=== PATIENT | female | born 1940 | race Caucasian/White ===

== ENCOUNTER 2017-01-19 12:27 | Inpatient (IN) | payer OTHER ==
[~2017-01-19] VITALS: Ht 157.5 cm; Wt 71.7 kg
[~2017-01-19 12:27] MED LIST: ALLO300T2 PO; AMLO-114 PO; ASCA500 PO; ASPI81TA28 PO; ATV5 PO; METO100T14 PO; MULT-506 PO; ROSU40TA PO; SYN112 PO; TELM40TA11 PO; THIA100T13 PO; TRIA75TA53 PO
[2017-01-19] MEDS ORDERED: SODIUM CHLORIDE 0.9% 1000ML 1,000 ML IV STA (13:05)
--- NOTE | 2017-01-19 13:07 | EMERGENCY ROOM VISIT NOTE ---
History Report prepared by Zahraa: Adin Alfred Under the Supervision of: Dr. Disha Loera D.O. First contact with patient: 12:46 Chief Complaint: LEG PAIN,LEG INJURY Stated Complaint: LEG PAIN History of Present Illness The patient is a 76 year old female who presents to the Emergency Room with complaints of increased bilateral leg weakness for the past week. The patient describes gradual worsening of the weakness to the point that she has been having trouble standing. She is weak at baseline but not to this extent. The patient fell twice last night secondary to weakness. She denies fall due to syncope, dizziness, lightheadedness, or tripping. She hit her head but did not lose consciousness. The patient was having difficulty standing up without assistance today at her granddaughter's . The patient also complains of bilateral leg pain up to the hips. She denies ever injuring her hips or knees before. She denies headache or back pain from falling. The patient at baseline occasionally ambulates with a cane. She denies previous history of falling. The patient takes baby aspirin but has not been compliant over the past two weeks secondary to travel. She denies other blood thinner use. The patient states that she does not eat a lot but has been eating and drinking at baseline. She is treated for hypertension. The patient denies history of heart disease. She is a smoker. Source of History: patient Onset: one week ago Position: leg (bilateral) Quality: other (weakness) Timing: worsening Associated Symptoms: No LOC, No headache, No back pain Review of Systems See HPI for pertinent positives & negatives. A total of 10 systems reviewed and were otherwise negative. Past Medical & Surgical Medical Problems: (1) Alcohol dependence (2) DMII (diabetes mellitus, type 2) (3) Gout (4) Hearing loss (5) HTN (hypertension) (6) Pain of right lower leg (7) Peripheral vascular disease Social History Problems: (1) Smoker Family History Patient reports no known family medical history. Social History Smoking Status: Current Every Day Smoker Occupation Status: retired Current/Historical Medications Scheduled Amlodipine (Norvasc), 10 MG PO DAILY Aspirin (Aspirin Ec), 81 MG PO DAILY Insulin Glargine (Lantus Solostar), 23 UNITS SQ HS Levothyroxine Sodium (Synthroid), 1 TAB PO DAILY Metoprolol Tartrate (Lopressor) (Lopressor), 50 MG PO TID Multivitamin (Multivitamin), 1 TAB PO DAILY PRN Rosuvastatin Calcium (Crestor), 40 MG PO QPM Telmisartan (Micardis), 20 MG PO QPM Thiamine Hcl (Vitamin B-1), 100 MG PO DAILY Scheduled PRN Lorazepam (Lorazepam), 0.5 MG PO QPM PRN for Anxiety Allergies Coded Allergies: Nifedipine (Verified Allergy, Severe, TONGUE SWELLING, 01/19/17) Penicillins (Verified Allergy, Intermediate, FEVER, 01/19/17) Sulfamethoxazole w/Trimethoprim (Verified Allergy, Intermediate, FEVER, 01/19/17) TY Inhibitors (Verified Allergy, Unknown, UNKNOWN, 01/19/17) Atorvastatin (Verified Allergy, Unknown, UNKNOWN, 01/19/17) Flu Virus Vaccine (Verified Allergy, Unknown, CHEST PAIN AND PRESSURE, 01/19) Magnesium Salicylate (Verified Adverse Reaction, Intermediate, SLOW HEART RATE, 01/19/17) Physical Exam Vital Signs Date Time Temp Pulse Resp B/P (MAP) Pulse Ox O2 Delivery O2 Flow Rate FiO2 01/19/17 19:07 77 18 180/81 94 Room Air 01/19/17 17:11 77 18 149/101 94 Room Air 01/19/17 14:29 70 18 156/91 93 Room Air 01/19/17 13:21 37.1 81 18 147/83 96 Room Air Physical Exam GENERAL: alert, uncomfortable-appearing, well nourished, no distress, non-toxic , smells of tobacco HEAD: Swelling to top of her head, no contusion no laceration. EYE EXAM: normal conjunctiva. OROPHARYNX: no exudate, no erythema, lips, buccal mucosa, and tongue normal and mucous membranes are dry NECK: nontender, no stepoff. CHEST: Nontender no stepoff no crepitus. LUNGS: Decreased breath sounds, no wheezes rales or rhonchi. Normal chest wall mechanics HEART: no murmurs, S1 normal and S2 normal ABDOMEN: abdomen soft, non-tender, normo-active bowel sounds, no masses, no rebound or guarding. BACK: Back is symmetrical on inspection and there is no deformity, no midline tenderness, no CVA tenderness. PELVIS: Stable. SKIN: no rashes, sores UPPER EXTREMITIES: upper extremities are grossly normal. LOWER EXTREMITIES: Pain the the left lower extremity with decreased range of motion secondary to pain, no obvious deformity, no effusion. Good distal pulses bilaterally, no edema bilaterally. NEURO EXAM: Normal sensorium, cranial nerves II-XII grossly intact, normal speech, no gross weakness of arms, no gross weakness of legs. Gross sensation intact. Medical Decision & Procedures ER Provider Diagnostic Interpretation: Radiology results have been interpreted by the radiologist and reviewed by me. LEFT HIP 2 VIEWS CLINICAL HISTORY: Fall. Left hip pain. FINDINGS: AP and frog-leg views of left hip are correlated with pelvic radiograph dated 09/30/[address] performed the same day 01/19/2017. The skeletal structures are osteopenic. There is no radiographic evidence of fracture in the left hip or the visualized left hemipelvis. Moderate arthritic change and joint space narrowing is seen in the left hip. There is mild sclerotic change seen in the left sacroiliac joint. The overlying soft tissues are within normal limits. There is evidence carotid calcification of the left femoral artery. Excreted contrast is present in the bladder. IMPRESSION: 1. There is no radiographic evidence of left hip fracture. This was better assessed on today's pelvic CT. 2. Osteopenia and mild arthritic change as above. Electronically signed by: Stew Quinn M.D. 01/19/2017 5:08 PM Dictated Date/Time: 01/19/2017 5:[address] OF THE ABDOMEN AND PELVIS WITH CONTRAST CLINICAL HISTORY: Trauma, right flank pain/ecchymosis. COMPARISON STUDY: Pelvic ultrasound May 31, 2007. TECHNIQUE: Following IV administration of 73 mL of Optiray-320, axial images of the abdomen and pelvis were obtained from the lung bases to the proximal femurs. Images were reviewed in the axial, sagittal, and coronal planes. IV contrast was administered without complication. FINDINGS: The chest will be reported separately. No hemoperitoneum or pneumoperitoneum is present. There is marked fatty infiltration of the liver. There is no evidence of hepatic injury to the liver, spleen, adrenal glands, kidneys or pancreas. Numerous water attenuation bilateral renal lesions reflect cysts, including a 3 cm left renal cyst. There is also a 1.8 cm hyperdense lesion within the midpole pf the right kidney. There are are multiple renal lesions which are too small to characterize. Caliber and wall thickness of small and large bowel are normal. No acute lumbar spine or pelvic fracture is present. The infrarenal abdominal aorta is ectatic, measuring 2.8 cm. There is extensive aortoiliac plaque. A 2.5 cm cystic right ovarian lesion is unchanged since exam of May 31, 2007. IMPRESSION: 1. No acute traumatic findings within the abdomen or pelvis. 2. Indeterminate 1.8 cm hyperdense right renal lesion. This could reflect a complex cyst or solid renal lesion. A follow-up nonemergent renal MRI is recommended. 3. Extensive aortoiliac atherosclerosis with ectatic infrarenal abdominal aorta. 4. Marked fatty infiltration of liver. Electronically signed by: Xander Lozano M.D. 01/19/2017 4:03 PM Dictated Date/Time: 01/19/2017 3:[address] OF THE CERVICAL SPINE CLINICAL HISTORY: Neck pain status post trauma. Weakness. COMPARISON STUDY: No previous studies for comparison. CT DOSE: 2184.40 mGy.cm TECHNIQUE: CT scan of the cervical spine was performed from the skull base to the thoracic inlet. Images are reviewed in the axial, sagittal, and coronal planes. IV contrast was not administered for this examination. FINDINGS: There is a minimal left mastoid effusion. There are atherosclerotic left-sided carotid calcifications. The visualized portions of the lung apices reveal no evidence of pneumothorax. The prevertebral soft tissues are normal. No fractures or subluxations are visualized. There are multilevel degenerative changes IMPRESSION: No evidence of acute fracture or traumatic subluxation. Electronically signed by: James Guevara M.D. 01/19/2017 3:37 PM Dictated Date/Time: 01/19/2017 3:[address] OF THE CHEST WITH IV CONTRAST CLINICAL HISTORY: trauma WEAKNESS. PAIN. COMPARISON STUDY: 11/11/2015 TECHNIQUE: Following the IV administration of 73 mL of Optiray-320, CT of the thorax was performed from the thoracic inlet to the lung bases. Images are reviewed in the axial, sagittal, and coronal planes. IV contrast was administered without complication. CT DOSE: FINDINGS: Thyroid: Imaged portions of the thyroid gland are normal in appearance. Thoracic aorta: The thoracic aorta is normal in course and caliber, noting standard 3-vessel arch anatomy. No aneurysm or dissection is seen. Moderate atheromatous changes are present within the descending thoracic aorta. Pulmonary vasculature: The pulmonary trunk is normal in caliber. There are no central filling defects identified to suggest pulmonary embolus. Note that this examination was not protocoled for the evaluation of pulmonary emboli. HEART: The heart is borderline enlarged. There is no pericardial effusion. Lungs and pleural spaces: There is no pneumothorax. No pleural effusions are visualized. There is no evidence of focal pulmonary contusion. Evaluation the lung parenchyma is limited due to respiratory motion artifact. There is a stable 5 mm right lower lobe perifissural nodule. Mediastinum: There is no evidence of mediastinal hematoma. Paratracheal lymph nodes remain borderline enlarged. Jocelyn: There is no evidence of pathologic hilar adenopathy. Axilla: Clear. Upper abdomen: There is hepatic steatosis. Skeletal structures: There are no lytic or blastic osseous lesions. IMPRESSION: No significant change the prior study. No acute intrathoracic findings. No evidence of acute intrathoracic injury. Electronically signed by: James Guevara M.D. 01/19/2017 3:42 PM Dictated Date/Time: 01/19/2017 3:[address]AST CT DOSE: HISTORY: Trauma. Head injury. TECHNIQUE: Multiaxial CT images of the head were performed without the use of intravenous contrast. Automated exposure control was utilized for this study. Comparison: None. Findings: The paranasal sinuses and mastoid air cells are clear. The calvarium and skull base are intact. There is no mass, hematoma, midline shift, acute infarct. White matter hypodensity is nonspecific but suggestive of microvascular ischemic change. The ventricles and sulci demonstrate mild age-related involutional changes. Impression: No acute intracranial abnormality. Atrophy and microvascular ischemic changes. Electronically signed by: oRddy Junior M.D. 01/19/2017 3:38 PM Dictated Date/Time: 01/19/2017 3:33 PM Laboratory Results Test 01/19/17 13:56 01/19/17 14:25 Prothrombin Time 10.8 SECONDS (9.0-12.0) Prothromb Time International Ratio 1.0 (0.9-1.1) Total Creatine Kinase 248 U/L (26-192) Troponin I < 0.015 ng/ml (0-0.045) 25-Hydroxy Vitamin D Total 8.4 ng/ml (30-100) Thyroid Stimulating Hormone (TSH) 11.400 uIu/ml (0.300-4.500) Urine Color YELLOW Urine Appearance TURBID (CLEAR) Urine pH 7.5 (4.5-7.5) Urine Specific [place] 1.016 (1.000-1.030) Urine Protein 2+ (NEG) Urine Glucose (UA) NEG (NEG) Urine Ketones TRACE (NEG) Urine Occult Blood TRACE (NEG) Urine Nitrite POS (NEG) Urine Bilirubin NEG (NEG) Urine Urobilinogen NEG (NEG) Urine Leukocyte Esterase MODERATE (NEG) Urine WBC (Auto) >30 /hpf (0-5) Urine RBC (Auto) 5-10 /hpf (0-4) Urine Hyaline Casts (Auto) 1-5 /lpf (0-5) Urine Epithelial Cells (Auto) 0-5 /lpf (0-5) Urine Bacteria (Auto) 4+ (NEG) Urine Yeast (Auto) PRESENT (NONE PRSENT) Laboratory results per my review. Medications Administered Medications (Trade) Dose Ordered Sig/Fay Route Start Time Stop Time Status Last Admin Dose Admin Sodium Chloride 1,000 ml @ 250 mls/hr Q4H STAT IV 01/19/17 13:05 01/19/17 17:04 DC 01/19/17 13:05 250 MLS/HR Ceftriaxone Sodium (Rocephin Inj) 1 gm NOW STAT IV 01/19/17 15:47 01/19/17 15:49 DC 01/19/17 17:10 1 GM ECG Indication: weakness Rate (beats per minute): 75 Rhythm: sinus rhythm Findings: no acute ischemic change (flattened T wave in lead V2 only), no ectopy, other (normal axis, normal intervals) ED Course 1250: The patient was evaluated in room A3. A complete history and physical exam was performed. 1305: NSS 1000 ml @ 250 mls/hr. 1547: Rocephin 1 gm IV. 1720: Updated the patient and she agrees with the plan to stay. 1730: Discussed the case with Dr. Thompson, [facility] Hospitalist. The patient will be evaluated. Medical Decision Differential diagnosis: Etiologies such as metabolic, infection, hypo/hyperglycemia, electrolyte abnormalities, cardiac sources, intracerebral event, toxicologic, neurologic, as well as others were entertained. Blood pressure screening: Patient was found to have an elevated blood pressure and was referred to their primary doctor for recheck and further treatment. Medication Reconciliation: I attest that I have personally reviewed the patient' s current medication list. Concern for patient's given to recent falls and generalized weakness, including difficulty standing today at the service. Patient found to have urinary tract infection which may be contribute into symptoms, per patient also clinically dehydrated. This may also be concerning to patient's new renal insufficiency. No other evidence of obstructing stone or kidney abnormality noted on CT. Patient noted for continued IV hydration and monitoring. No evidence of additional traumatic injury noted despite bruising to trunk and extremities. Patient otherwise moving all extremities, doubt CVA, dissection, ACS, patient does not appear to have bacteremia/sepsis. Vital signs otherwise stable. Patient covered with IV antibiotics and culture sent. Patient was agreeable with plan for admission and case discussed with hospitalist. Consults Time Called: 1728 Consulting Physician: Dr. Thompson [facility] Hospitalist. Returned Call: 1730 The patient will be evaluated. She requested blood cultures. Impression Primary Impression: UTI (urinary tract infection) Additional Impressions: Acute renal insufficiency Generalized weakness Fall Scribe Attestation The scribe's documentation has been prepared under my direction and personally reviewed by me in its entirety. I confirm that the note above accurately reflects all work, treatment, procedures, and medical decision making performed by me. Departure Information Dispostion Being Evaluated By Hospitalist Referrals Zahra Ochoa M.D. (PCP) Patient Instructions [facility] Problem Qualifiers Primary Impression: UTI (urinary tract infection) Urinary tract infection type: acute cystitis Hematuria presence: with hematuria Qualified Codes: N30.01 - Acute cystitis with hematuria Additional Impressions: Fall Encounter type: initial encounter Qualified Codes: W19.XXXA - Unspecified fall, initial encounter
[2017-01-19] MEDS ORDERED: OPTIRAY 320 IV PRN (13:30)
[2017-01-19] MEDS ORDERED: ASCO500T16 PO (13:38)
[2017-01-19] MEDS ORDERED: SYN112 PO (13:38)
[2017-01-19] MEDS ORDERED: ATV5 PO (13:38)
[2017-01-19 14:09] LABS: BASO % 0.2 %; BASO ABS # 0.02 K/uL (0-0.2); COMPLETE YES; EOS % 0.1 %; HEMATOCRIT 34.7 % (37-47); IG% 0.6 %; LYMPH % 13.8 %; LYMPH ABS # 1.16 K/uL (1.2-3.4); MEAN CELL VOLUME 103.9 fL (80-100); MEAN CORPUSCULAR HEMOGLOBIN 33.2 pg (25-34); MEAN PLATELET VOLUME 10.4 fL (7.4-10.4); MONO % 6.5 %; NEUT % 78.8 %; PLATELET COUNT 338 K/uL (130-400); RED BLOOD COUNT 3.34 M/uL (4.2-5.4)
[2017-01-19 14:19] LABS: PROTHROMBIN TIME (PATIENT) 10.8 SECONDS (9.0-12.0)
[2017-01-19 14:34] LABS: ALT/SGPT 63 U/L (12-78); AST/SGOT 217 U/L (15-37); BLOOD UREA NITROGEN 31 mg/dl (7-18); BUN/CREATININE RATIO 19.5 (10-20); CALCIUM 8.7 mg/dl (8.5-10.1); CARBON DIOXIDE 24 mmol/L (21-32); CHLORIDE 108 mmol/L (98-107); GLUCOSE 87 mg/dl (70-99); POTASSIUM 4.7 mmol/L (3.5-5.1); SODIUM 141 mmol/L (136-145)
[2017-01-19 14:39] LABS: ALB/GLOB RATIO 0.6 (0.9-2); ALKALINE PHOSPHATASE 436 U/L (45-117)
[2017-01-19 15:17] LABS: URINE APPEARANCE TURBID (CLEAR); URINE BILIRUBIN NEG (NEG); URINE COLOR YELLOW; URINE EPITHELIAL CELL AUTO 0-5 /lpf (0-5); URINE NITRITE POS (NEG); URINE PH 7.5 (4.5-7.5); URINE SPECIFIC GRAVITY 1.016 (1.000-1.030); UROBILINOGEN NEG (NEG)
[2017-01-19 15:31] LABS: MANUAL MICROSCOPIC REQUIRED? NO; REVIEW REQ? YES
[2017-01-19 15:32] LABS: SULFASALICYLIC ACID POS (NEG)
--- NOTE | 2017-01-19 15:38 | DIAGNOSTIC IMAGING REPORT ---
CT OF THE CERVICAL SPINE CLINICAL HISTORY: Neck pain status post trauma. Weakness. COMPARISON STUDY: No previous studies for comparison. CT DOSE: 2184.40 mGy.cm TECHNIQUE: CT scan of the cervical spine was performed from the skull base to the thoracic inlet. Images are reviewed in the axial, sagittal, and coronal planes. IV contrast was not administered for this examination. FINDINGS: There is a minimal left mastoid effusion. There are atherosclerotic left-sided carotid calcifications. The visualized portions of the lung apices reveal no evidence of pneumothorax. The prevertebral soft tissues are normal. No fractures or subluxations are visualized. There are multilevel degenerative changes IMPRESSION: No evidence of acute fracture or traumatic subluxation. Electronically signed by: James Guevara M.D. 01/19/2017 3:37 PM Dictated Date/Time: 01/19/2017 3:34 PM
--- NOTE | 2017-01-19 15:39 | DIAGNOSTIC IMAGING REPORT ---
HEAD CT NONCONTRAST CT DOSE: HISTORY: Trauma. Head injury. TECHNIQUE: Multiaxial CT images of the head were performed without the use of intravenous contrast. Automated exposure control was utilized for this study. Comparison: None. Findings: The paranasal sinuses and mastoid air cells are clear. The calvarium and skull base are intact. There is no mass, hematoma, midline shift, acute infarct. White matter hypodensity is nonspecific but suggestive of microvascular ischemic change. The ventricles and sulci demonstrate mild age-related involutional changes. Impression: No acute intracranial abnormality. Atrophy and microvascular ischemic changes. Electronically signed by: Roddy Junior M.D. 01/19/2017 3:38 PM Dictated Date/Time: 01/19/2017 3:33 PM
--- NOTE | 2017-01-19 15:44 | DIAGNOSTIC IMAGING REPORT ---
CT OF THE CHEST WITH IV CONTRAST CLINICAL HISTORY: trauma WEAKNESS. PAIN. COMPARISON STUDY: 11/11/2015 TECHNIQUE: Following the IV administration of 73 mL of Optiray-320, CT of the thorax was performed from the thoracic inlet to the lung bases. Images are reviewed in the axial, sagittal, and coronal planes. IV contrast was administered without complication. CT DOSE: FINDINGS: Thyroid: Imaged portions of the thyroid gland are normal in appearance. Thoracic aorta: The thoracic aorta is normal in course and caliber, noting standard 3-vessel arch anatomy. No aneurysm or dissection is seen. Moderate atheromatous changes are present within the descending thoracic aorta. Pulmonary vasculature: The pulmonary trunk is normal in caliber. There are no central filling defects identified to suggest pulmonary embolus. Note that this examination was not protocoled for the evaluation of pulmonary emboli. HEART: The heart is borderline enlarged. There is no pericardial effusion. Lungs and pleural spaces: There is no pneumothorax. No pleural effusions are visualized. There is no evidence of focal pulmonary contusion. Evaluation the lung parenchyma is limited due to respiratory motion artifact. There is a stable 5 mm right lower lobe perifissural nodule. Mediastinum: There is no evidence of mediastinal hematoma. Paratracheal lymph nodes remain borderline enlarged. Jocelyn: There is no evidence of pathologic hilar adenopathy. Axilla: Clear. Upper abdomen: There is hepatic steatosis. Skeletal structures: There are no lytic or blastic osseous lesions. IMPRESSION: No significant change the prior study. No acute intrathoracic findings. No evidence of acute intrathoracic injury. Electronically signed by: James Guevara M.D. 01/19/2017 3:42 PM Dictated Date/Time: 01/19/2017 3:37 PM
[2017-01-19] MEDS ORDERED: CEFTRIAXONE SOD INJ 1 GM ADDVIAL IV STA (15:47)
--- NOTE | 2017-01-19 16:05 | DIAGNOSTIC IMAGING REPORT ---
CT OF THE ABDOMEN AND PELVIS WITH CONTRAST CLINICAL HISTORY: Trauma, right flank pain/ecchymosis. COMPARISON STUDY: Pelvic ultrasound May 31, 2007. TECHNIQUE: Following IV administration of 73 mL of Optiray-320, axial images of the abdomen and pelvis were obtained from the lung bases to the proximal femurs. Images were reviewed in the axial, sagittal, and coronal planes. IV contrast was administered without complication. FINDINGS: The chest will be reported separately. No hemoperitoneum or pneumoperitoneum is present. There is marked fatty infiltration of the liver. There is no evidence of hepatic injury to the liver, spleen, adrenal glands, kidneys or pancreas. Numerous water attenuation bilateral renal lesions reflect cysts, including a 3 cm left renal cyst. There is also a 1.8 cm hyperdense lesion within the midpole pf the right kidney. There are are multiple renal lesions which are too small to characterize. Caliber and wall thickness of small and large bowel are normal. No acute lumbar spine or pelvic fracture is present. The infrarenal abdominal aorta is ectatic, measuring 2.8 cm. There is extensive aortoiliac plaque. A 2.5 cm cystic right ovarian lesion is unchanged since exam of May 31, 2007. IMPRESSION: 1. No acute traumatic findings within the abdomen or pelvis. 2. Indeterminate 1.8 cm hyperdense right renal lesion. This could reflect a complex cyst or solid renal lesion. A follow-up nonemergent renal MRI is recommended. 3. Extensive aortoiliac atherosclerosis with ectatic infrarenal abdominal aorta. 4. Marked fatty infiltration of liver. Electronically signed by: Xander Lozano M.D. 01/19/2017 4:03 PM Dictated Date/Time: 01/19/2017 3:42 PM
--- NOTE | 2017-01-19 17:10 | DIAGNOSTIC IMAGING REPORT ---
LEFT HIP 2 VIEWS CLINICAL HISTORY: Fall. Left hip pain. FINDINGS: AP and frog-leg views of left hip are correlated with pelvic radiograph dated 09/30/[address] performed the same day 01/19/2017. The skeletal structures are osteopenic. There is no radiographic evidence of fracture in the left hip or the visualized left hemipelvis. Moderate arthritic change and joint space narrowing is seen in the left hip. There is mild sclerotic change seen in the left sacroiliac joint. The overlying soft tissues are within normal limits. There is evidence carotid calcification of the left femoral artery. Excreted contrast is present in the bladder. IMPRESSION: 1. There is no radiographic evidence of left hip fracture. This was better assessed on today's pelvic CT. 2. Osteopenia and mild arthritic change as above. Electronically signed by: Stew Quinn M.D. 01/19/2017 5:08 PM Dictated Date/Time: 01/19/2017 5:06 PM
[2017-01-19] MEDS ORDERED: INSDGIPEN SQ (20:01)
[2017-01-19] MEDS ORDERED: LEVO150T PO (20:01)
[2017-01-19] MEDS ORDERED: DEXTROSE 50% 50 ML SYR IV PRN (20:15)
[2017-01-19] MEDS ORDERED: GLUCOSE 10 TABS/TUBE PO PRN (20:15)
[2017-01-19] MEDS ORDERED: ONDANSETRON INJ 2 MG/ML 2 ML VIAL IV PRN (20:15)
[2017-01-19] MEDS ORDERED: GLUCOSE 40% GEL 15 GM TUBE PO PRN (20:15)
[2017-01-19] MEDS ORDERED: GLUCAGON FOR INJ 1 MG VIAL SQ PRN (20:15)
[2017-01-19] MEDS ORDERED: LORAZEPAM 0.5 MG TAB PO PRN (20:30)
[2017-01-19] MEDS ORDERED: PHARMACY GLYCEMIC MGMT CONSULT SCH (20:39)
--- NOTE | 2017-01-19 20:57 | History and Physical ---
History & Physical Date & Time of Service: Jan 19, 2017 at 20:25 Chief Complaint: Leg Pain Primary Care Physician: Alexis Nava MD History of Present Illness Source: patient, family, clinic records, hospital records 76 yo F presents to the ER after worsening weakness that lead to a mechanical fall today. She has multiple issues going on including generalized weakness that is getting worse, nonspecific pain in her lower left leg, reports of burning when she urinates along with urgency and a foul smelling odor (this was noted in clinic at last visit, also) all in the setting of the loss of her granddaughter last week in a fatal car accident for which she travelled out of town this week. She is here with her daughter who states that her mother had stool incontinence and some loose stools multiple times this week. She also states that her weakness is profound and she lives alone. The daughter is understandably concerned that her mother is not safe to be home on her own. From my discussion with the patient she either has poor insight into what is going on, or she is not able to tell the entire story. For example, family mentioned some BP medications and the patient wasn't sure which ones these were and what she takes; she does manage her own medications at home. Also the patient states she doesn't drink much but her daughter states that she drinks Scotch heavily. She is also an active smoker. Recently, in the clinic she was found to have a TSH of 40 so her Synthroid was increased. It appears very likely that she is either missing doses or taking it with food or other medications and not understand the instructions clearly. She has stool in her fingernails and appears somewhat disheveled. In the ER her UA was found to be positive and she was placed empirically on Rocephin. She denies any fevers, chills, flank pain or blood in her urine. She otherwise denies any headaches, visual changes, congestion, cough, chest pain, shortness of breath, abdominal pain. She states that her left leg hurts below the knee but not in the knee joint and "only when I move it." Up until just today she was ambulating with a cane. Daughter is requesting a wheeled walker preferably with a seat upon discharge. Past Medical/Surgical History Medical Problems: (1) Alcohol dependence Status: Chronic (2) DMII (diabetes mellitus, type 2) Status: Chronic (3) Gout Status: Chronic (4) Hearing loss Status: Chronic (5) HTN (hypertension) Status: Chronic (6) Pain of right lower leg Status: Resolved (7) Peripheral vascular disease Status: Chronic Social History Problems: (1) Smoker Status: Chronic Family History Patient reports no known family medical history. Social History Smoking Status: Current Every Day Smoker Smokeless Tobacco Use: No Alcohol Use: heavy Drug Use: none Marital Status: Housing status: lives alone Occupational Status: retired Immunizations History of Influenza Vaccine: No History of Tetanus Vaccine?: Yes Tetanus Immunization Date: Aug 06, 2001 History of Pneumococcal: No History of Hepatitis B Vaccine: No Multi-Drug Resistant Organisms History of MDRO: No Allergies Coded Allergies: Nifedipine (Verified Allergy, Severe, TONGUE SWELLING, 01/19/17) Penicillins (Verified Allergy, Intermediate, FEVER, 01/19/17) Sulfamethoxazole w/Trimethoprim (Verified Allergy, Intermediate, FEVER, 01/19/17) TY Inhibitors (Verified Allergy, Unknown, UNKNOWN, 01/19/17) Atorvastatin (Verified Allergy, Unknown, UNKNOWN, 01/19/17) Flu Virus Vaccine (Verified Allergy, Unknown, CHEST PAIN AND PRESSURE, 01/19) Magnesium Salicylate (Verified Adverse Reaction, Intermediate, SLOW HEART RATE, 01/19/17) Home Medications Scheduled Amlodipine (Norvasc), 10 MG PO DAILY Aspirin (Aspirin Ec), 81 MG PO DAILY Insulin Glargine (Lantus Solostar), 23 UNITS SQ HS Levothyroxine Sodium (Synthroid), 1 TAB PO DAILY Metoprolol Tartrate (Lopressor) (Lopressor), 50 MG PO TID Multivitamin (Multivitamin), 1 TAB PO DAILY PRN Rosuvastatin Calcium (Crestor), 40 MG PO QPM Telmisartan (Micardis), 20 MG PO QPM Thiamine Hcl (Vitamin B-1), 100 MG PO DAILY Scheduled PRN Lorazepam (Lorazepam), 0.5 MG PO QPM PRN for Anxiety Review of Systems Ten systems were reviewed and negative except as indicated in HPI. Physical Exam Vital Signs Date Time Temp Pulse Resp B/P (MAP) Pulse Ox O2 Delivery O2 Flow Rate FiO2 01/19/17 19:07 77 18 180/81 94 Room Air 01/19/17 17:11 77 18 149/101 94 Room Air 01/19/17 14:29 70 18 156/91 93 Room Air 01/19/17 13:21 37.1 81 18 147/83 96 Room Air GEN: obese, disheveled, in no acute distress, alert and appropriate HEENT: NC/AT, PERRL, normal sclerae/conjunctivae, MMM, pharynx is nonacute CARDIO: reg rate, S1/2 heard without m/g/r LUNGS: CTA bilaterally, no crackles, rales or wheezes, good diaphragmatic excursion ABD: soft, non-tender, non-distended, no rebound or guarding, +BS, no CVA tenderness EXTREMITY: RP and DP palpable 2+ bilat, no LE swelling or edema, extremities are warm and well-perfused NEURO: CN 2-12 grossly intact, sensation intact throughout MUSC: 5/5 strength throughout, no focal deficits, no apparent calf tenderness. Appears to have some difficulty bending her knee but no overt joint swelling or erythema or TTP noted. SKIN: warm and dry Diagnostics Laboratory Results Results Past 24 Hours Test 01/19/17 13:56 01/19/17 14:25 Range/Units White Blood Count 8.40 4.8-10.8 K/uL Red Blood Count 3.34 4.2-5.4 M/uL Hemoglobin 11.1 12.0-16.0 g/dL Hematocrit 34.7 37-47 % Mean Corpuscular Volume 103.9 80-100 fL Mean Corpuscular Hemoglobin 33.2 25-34 pg Mean Corpuscular Hemoglobin Concent 32.0 32-36 g/dl Platelet Count 338 130-400 K/uL Mean Platelet Volume 10.4 7.4-10.4 fL Neutrophils (%) (Auto) 78.8 % Lymphocytes (%) (Auto) 13.8 % Monocytes (%) (Auto) 6.5 % Eosinophils (%) (Auto) 0.1 % Basophils (%) (Auto) 0.2 % Neutrophils # (Auto) 6.61 1.4-6.5 K/uL Lymphocytes # (Auto) 1.16 1.2-3.4 K/uL Monocytes # (Auto) 0.55 0.11-0.59 K/uL Eosinophils # (Auto) 0.01 0-0.5 K/uL Basophils # (Auto) 0.02 0-0.2 K/uL RDW Standard Deviation 59.4 36.4-46.3 fL RDW Coefficient of Variation 15.6 11.5-14.5 % Immature Granulocyte % (Auto) 0.6 % Immature Granulocyte # (Auto) 0.05 0.00-0.02 K/uL Prothrombin Time 10.8 9.0-12.0 SECONDS Prothromb Time International Ratio 1.0 0.9-1.1 Sodium Level 141 136-145 mmol/L Potassium Level 4.7 3.5-5.1 mmol/L Chloride Level 108 98-107 mmol/L Carbon Dioxide Level 24 21-32 mmol/L Anion Gap 9.0 3-11 mmol/L Blood Urea Nitrogen 31 7-18 mg/dl Creatinine 1.60 0.60-1.20 mg/dl Est Creatinine Clear Calc Drug Dose 28.4 ml/min Estimated GFR () 35.9 Estimated GFR (Non- 31.0 BUN/Creatinine Ratio 19.5 10-20 Random Glucose 87 70-99 mg/dl Calcium Level 8.7 8.5-10.1 mg/dl Total Bilirubin 0.5 0.2-1 mg/dl Aspartate Amino Transf (AST/SGOT) 217 15-37 U/L Alanine Aminotransferase (ALT/SGPT) 63 12-78 U/L Alkaline Phosphatase 436 45-117 U/L Troponin I < 0.015 0-0.045 ng/ml Total Protein 7.3 6.4-8.2 gm/dl Albumin 2.8 3.4-5.0 gm/dl Globulin 4.5 2.5-4.0 gm/dl Albumin/Globulin Ratio 0.6 0.9-2 Urine Color YELLOW Urine Appearance TURBID CLEAR Urine pH 7.5 4.5-7.5 Urine Specific [place] 1.016 1.000-1.030 Urine Protein 2+ NEG Urine Glucose (UA) NEG NEG Urine Ketones TRACE NEG Urine Occult Blood TRACE NEG Urine Nitrite POS NEG Urine Bilirubin NEG NEG Urine Urobilinogen NEG NEG Urine Leukocyte Esterase MODERATE NEG Urine WBC (Auto) >30 0-5 /hpf Urine RBC (Auto) 5-10 0-4 /hpf Urine Hyaline Casts (Auto) 1-5 0-5 /lpf Urine Epithelial Cells (Auto) 0-5 0-5 /lpf Urine Bacteria (Auto) 4+ NEG Urine Yeast (Auto) PRESENT NONE PRSENT Microbiology Results 01/19/17 Blood Culture, Received Pending 01/19/17 Blood Culture, Received Pending Diagnostic Radiology LEFT HIP 2 VIEWS CLINICAL HISTORY: Fall. Left hip pain. FINDINGS: AP and frog-leg views of left hip are correlated with pelvic radiograph dated 09/30/[address] performed the same day 01/19/2017. The skeletal structures are osteopenic. There is no radiographic evidence of fracture in the left hip or the visualized left hemipelvis. Moderate arthritic change and joint space narrowing is seen in the left hip. There is mild sclerotic change seen in the left sacroiliac joint. The overlying soft tissues are within normal limits. There is evidence carotid calcification of the left femoral artery. Excreted contrast is present in the bladder. IMPRESSION: 1. There is no radiographic evidence of left hip fracture. This was better assessed on today's pelvic CT. 2. Osteopenia and mild arthritic change as above. CT OF THE ABDOMEN AND PELVIS WITH CONTRAST CLINICAL HISTORY: Trauma, right flank pain/ecchymosis. COMPARISON STUDY: Pelvic ultrasound May 31, 2007. TECHNIQUE: Following IV administration of 73 mL of Optiray-320, axial images of the abdomen and pelvis were obtained from the lung bases to the proximal femurs. Images were reviewed in the axial, sagittal, and coronal planes. IV contrast was administered without complication. FINDINGS: The chest will be reported separately. No hemoperitoneum or pneumoperitoneum is present. There is marked fatty infiltration of the liver. There is no evidence of hepatic injury to the liver, spleen, adrenal glands, kidneys or pancreas. Numerous water attenuation bilateral renal lesions reflect cysts, including a 3 cm left renal cyst. There is also a 1.8 cm hyperdense lesion within the midpole pf the right kidney. There are are multiple renal lesions which are too small to characterize. Caliber and wall thickness of small and large bowel are normal. No acute lumbar spine or pelvic fracture is present. The infrarenal abdominal aorta is ectatic, measuring 2.8 cm. There is extensive aortoiliac plaque. A 2.5 cm cystic right ovarian lesion is unchanged since exam of May 31, 2007. IMPRESSION: 1. No acute traumatic findings within the abdomen or pelvis. --- [~ rep ct add3]] CT OF THE CERVICAL SPINE CLINICAL HISTORY: Neck pain status post trauma. Weakness. COMPARISON STUDY: No previous studies for comparison. CT DOSE: 2184.40 mGy.cm TECHNIQUE: CT scan of the cervical spine was performed from the skull base to the thoracic inlet. Images are reviewed in the axial, sagittal, and coronal planes. IV contrast was not administered for this examination. FINDINGS: There is a minimal left mastoid effusion. There are atherosclerotic left-sided carotid calcifications. The visualized portions of the lung apices reveal no evidence of pneumothorax. The prevertebral soft tissues are normal. No fractures or subluxations are visualized. There are multilevel degenerative changes IMPRESSION: No evidence of acute fracture or traumatic subluxation. --------- CT OF THE CHEST WITH IV CONTRAST CLINICAL HISTORY: trauma WEAKNESS. PAIN. COMPARISON STUDY: 11/11/2015 TECHNIQUE: Following the IV administration of 73 mL of Optiray-320, CT of the thorax was performed from the thoracic inlet to the lung bases. Images are reviewed in the axial, sagittal, and coronal planes. IV contrast was administered without complication. CT DOSE: FINDINGS: Thyroid: Imaged portions of the thyroid gland are normal in appearance. Thoracic aorta: The thoracic aorta is normal in course and caliber, noting standard 3-vessel arch anatomy. No aneurysm or dissection is seen. Moderate atheromatous changes are present within the descending thoracic aorta. Pulmonary vasculature: The pulmonary trunk is normal in caliber. There are no central filling defects identified to suggest pulmonary embolus. Note that this examination was not protocoled for the evaluation of pulmonary emboli. HEART: The heart is borderline enlarged. There is no pericardial effusion. Lungs and pleural spaces: There is no pneumothorax. No pleural effusions are visualized. There is no evidence of focal pulmonary contusion. Evaluation the lung parenchyma is limited due to respiratory motion artifact. There is a stable 5 mm right lower lobe perifissural nodule. Mediastinum: There is no evidence of mediastinal hematoma. Paratracheal lymph nodes remain borderline enlarged. Jocelyn: There is no evidence of pathologic hilar adenopathy. Axilla: Clear. Upper abdomen: There is hepatic steatosis. Skeletal structures: There are no lytic or blastic osseous lesions. IMPRESSION: No significant change the prior study. No acute intrathoracic findings. No evidence of acute intrathoracic injury. ---- HEAD CT NONCONTRAST CT DOSE: HISTORY: Trauma. Head injury. TECHNIQUE: Multiaxial CT images of the head were performed without the use of intravenous contrast. Automated exposure control was utilized for this study. Comparison: None. Findings: The paranasal sinuses and mastoid air cells are clear. The calvarium and skull base are intact. There is no mass, hematoma, midline shift, acute infarct. White matter hypodensity is nonspecific but suggestive of microvascular ischemic change. The ventricles and sulci demonstrate mild age-related involutional changes. Impression: No acute intracranial abnormality. Atrophy and microvascular ischemic changes. EKG SR 75 Impression Assessment and Plan 76 yo F presents with weakness and falls at home and multiple ongoing issues. 1. Generalized weakness-likely 2/2 UTI infection which has apparently been going one a while based on reports of symptoms in the clinic one month ago and + UA and I don't see that she was treated with an antibiotic for this. Additionally, her recent TSH was 30 1-2 months ago. Synthroid was increased to 150mcg PO daily. Will repeat TSH now. Her leg muscle is hurting her and there is weakness in the legs--willl check a CK although likely to be falsely elevated 2/2 statin use. Pt has issues with other statins in the past and is now on Crestor. May be some statin-induced myopathy present? All of this comes with the stress of losing her granddaughter in a fatal MVA last week. The patient is also a reported heavy drinker, so likely doesn't have the best nutrition. She has fatty liver seen on recent CT scan, and she is an active long-time smoker. She lives alone so will need PT/OT before returning there to ensure she is safe. Also will add 25OH, B12 and folate for additional causes for weakness. There are many reversible causes here, so will get that all cleared up and then re-evaluate if weakness is still present. Also, of note there have been no stroke symptoms present. 2. Acute cystitis-no evidence of pyelo clinically. Blood cultures pending. Rocephin empirically until urine cultures return 3. RUSSELL-poss 2/2 dehydration in setting of infection. Urine studies ordered. 1 L IVF given in ER. Repeat PRP in am. 4. Hypothyroidism-as above. Synthroid 150mcg. Possible noncompliance. Would not increase med until we ensure she is actually taking it first. 5. Leg pain-APAP given prn for now. 6. ETOH use-Ativan PRN 7. HLP-cont statin, but consider stopping if high CK and clinical suspicion of statin-induced myopathy 8. Deconditioning-PT/OT evaluation 9. Diarrhea/loose stool-stool studies including c-diff ordered 10. renal nodule-workup with nonemergent dedicated kidney imaging 11. Transaminitis 2/2 fatty liver. Cont outpatient monitoring. 12. Tobacco use-smoking cessation counseling given. Will give nicotine patch while inpatient. 13. HTN-somewhat controlled on current regimen. Ativan if high pressures initially. 15. Vit D deficiency-started ergocalciferol DVT proph-heparin FULL CODE-discussed with daughter on admission [facility]po[facility] Med/Surg Resuscitation Status FULL RESUSCITATION VTE Prophylaxis VTE Risk Assessment Done? Y/N: Yes Risk Level: Moderate Given or contraindicated: Unfractionated heparin SQ
[2017-01-19] MEDS ORDERED: INSULIN GLARGINE SOLOSTAR 100 UNITS/ML 3 ML PEN SC SCH (21:00)
[2017-01-19 22:13] VITALS: BP 155/79; PULSE 78; TEMP 36.8; O2SAT 93; Ht 157.5 cm; Wt 71.7 kg
[2017-01-19] MEDS: NICOTINE 21 MG/24 HR TDSY TD SCH (22:38)
[2017-01-19] MEDS: TELMISARTAN 40 MG TAB PO SCH (22:39)
[2017-01-19] MEDS: ROSUVASTATIN CALCIUM 20 MG TAB PO SCH ×2 (22:39→23:22)
[2017-01-19] MEDS: METOPROLOL TARTRATE 50 MG TAB PO SCH (22:39)
[2017-01-19] MEDS: ERGOCALCIFEROL 50,000 INTER.UNIT CAP PO SCH (22:40)
[2017-01-19] MEDS: INSULIN ASPART 100 UNITS/ML 3 ML PEN SC SCH (22:40)
[2017-01-19] MEDS: HEPARIN SOD 5000 UNIT/0.5 ML CARP SQ SCH (22:42)
[2017-01-20] MEDS ORDERED: INSULIN ASPART 100 UNITS/ML 3 ML PEN SC SCH (02:00)
[2017-01-20] MEDS ORDERED: LORAZEPAM 0.5 MG TAB PO PRN (03:00)
[2017-01-20] MEDS: LEVOTHYROXINE 150 MCG TAB PO SCH (05:48)
[2017-01-20] MEDS: HEPARIN SOD 5000 UNIT/0.5 ML CARP SQ SCH ×3 (05:52→19:44)
[2017-01-20 07:38] LABS: BASO % 0.3 %; BASO ABS # 0.02 K/uL (0-0.2); COMPLETE YES; HEMATOCRIT 32.4 % (37-47); IG% 0.5 %; LYMPH % 9.6 %; MEAN CELL VOLUME 103.5 fL (80-100); MEAN CORPUSCULAR HEMOGLOBIN 33.5 pg (25-34); MEAN CORPUSCULAR HGB CONC 32.4 g/dl (32-36); MEAN PLATELET VOLUME 10.6 fL (7.4-10.4); MONO % 9.1 %; NEUT % 80.5 %; PLATELET COUNT 330 K/uL (130-400); RED BLOOD COUNT 3.13 M/uL (4.2-5.4); WHITE BLOOD COUNT 7.29 K/uL (4.8-10.8)
[2017-01-20] MEDS: THIAMINE HCL 100 MG TAB PO SCH (07:48)
[2017-01-20 07:49] VITALS: BP 135/60; PULSE 74; TEMP 36.8; O2SAT 95
[2017-01-20] MEDS: METOPROLOL TARTRATE 50 MG TAB PO SCH ×3 (07:49→19:45)
[2017-01-20] MEDS: ASPIRIN 81 MG ECTAB PO SCH (07:49)
[2017-01-20] MEDS: MULTIVITAMIN TAB PO SCH (07:49)
[2017-01-20] MEDS ORDERED: AMLODIPINE BESYLATE 5 MG TAB PO SCH (08:00)
--- NOTE | 2017-01-20 08:29 | Pharmacy Progress Note ---
Glycemic Control Intl Consult Date of Service Jan 20, 2017. Scope Glycemic Pharmacist consulted by Dr Thompson on 01/19/17 for glycemic control and to write orders per [facility] inpatient glycemic control protocol Objective Weight (Kilograms): 75.000 Accuchecks BSG (last 24hrs): Test 01/19/17 13:56 01/19/17 22:13 01/20/17 02:03 01/20/17 04:02 Random Glucose 87 mg/dl (70-99) Bedside Glucose 87 mg/dl (70-90) 74 mg/dl (70-90) 95 mg/dl (70-90) Test 01/20/17 06:44 Laboratory Data (last 24hrs) Test 01/19/17 13:56 01/20/17 06:44 Anion Gap 9.0 mmol/L BUN/Creatinine Ratio 19.5 Blood Urea Nitrogen 31 mg/dl Creatinine 1.60 mg/dl Potassium Level 4.7 mmol/L Sodium Level 141 mmol/L White Blood Count 8.40 K/uL 7.29 K/uL Red Blood Count 3.34 M/uL 3.13 M/uL Hemoglobin 11.1 g/dL 10.5 g/dL Hematocrit 34.7 % 32.4 % Mean Corpuscular Volume 103.9 fL 103.5 fL Mean Corpuscular Hemoglobin 33.2 pg 33.5 pg Mean Corpuscular Hemoglobin Concent 32.0 g/dl 32.4 g/dl Platelet Count 338 K/uL 330 K/uL Mean Platelet Volume 10.4 fL 10.6 fL Neutrophils (%) (Auto) 78.8 % 80.5 % Lymphocytes (%) (Auto) 13.8 % 9.6 % Monocytes (%) (Auto) 6.5 % 9.1 % Eosinophils (%) (Auto) 0.1 % 0.0 % Basophils (%) (Auto) 0.2 % 0.3 % Neutrophils # (Auto) 6.61 K/uL 5.87 K/uL Lymphocytes # (Auto) 1.16 K/uL 0.70 K/uL Monocytes # (Auto) 0.55 K/uL 0.66 K/uL Eosinophils # (Auto) 0.01 K/uL 0.00 K/uL Basophils # (Auto) 0.02 K/uL 0.02 K/uL HbA1c Test 01/20/17 06:44 Recent Pertinent Medications Outpatient Anti-diabetic Regimen: * Lantus 23 units HS * A1c = 6.7 % 10/31/16 Risk Factors for Insulin Resistance: * Infection * Diet Assessment & Plan ASSESSMENT: * 76 yo F admitted with leg pain s/p fall, suspected to have UTI and initiated on Rocephin IV * Pt controlled on once daily Lantus as evidenced by A1c from October- provider has ordered new A1c which is pending * Pt receive a reduced Lantus dose last night (wt based/stress of 1) and BSGs continue to trend <100 mg/dL * Given patient having diarrhea and not feeling well, I doubt PO intake will be as good as at home * Hold off on any additional basal today and restart only if BSGs sustained > 140 mg/dL * ADA & AACE recommend a goal blood sugar range 140-180 mg/dl for the majority of critically ill & non-critically ill patients. However, more stringent targets may be selected in individual cases. PLAN FOR INPATIENT GLYCEMIC CONTROL: * Pt received Lantus 7 units last night - Hold any further doses at this time * Correctional Insulin with NOVOLOG per scale ACHS * Goal Range: Low 140 mg/dL - High 180 mg/dL * Correction Factor: 45 mg/dL/unit * Nutritional / Prandial insulin per carb ratio of 1 unit per 15 grams CHO consumed * A1c will be added to d/c instructions * Please note that the plan above was derived based on current level of insulin resistance and hospital stress. These recommendations are appropriate for inpatient admission only. Plan of care upon discharge will need to be reassessed to avoid potential outpatient hypo/hyperglycemia. Thank you.
[2017-01-20 08:51] LABS: BUN/CREATININE RATIO 20.5 (10-20); CALCIUM 8.6 mg/dl (8.5-10.1); CREATININE 1.1 mg/dl (0.60-1.20); POTASSIUM 3.9 mmol/L (3.5-5.1)
[2017-01-20 09:16] LABS: ESTIMATED AVERAGE GLUCOSE 105 mg/dl; HA1C FLAG Normal (Normal)
[2017-01-20] MEDS: INSULIN ASPART 100 UNITS/ML 3 ML PEN SC SCH ×4 (09:30→21:15)
[2017-01-20 15:04] VITALS: BP 145/62; PULSE 88; TEMP 37.3; O2SAT 92
[2017-01-20] MEDS: CEFTRIAXONE SOD INJ 1,000 MG in DEXTROSE 5% 50ML 50 ML IV SCH (16:58)
[2017-01-20 19:43] VITALS: BP 177/76; PULSE 89; TEMP 37.5; O2SAT 94
[2017-01-20] MEDS: TELMISARTAN 40 MG TAB PO SCH (19:45)
[2017-01-20] MEDS: ROSUVASTATIN CALCIUM 20 MG TAB PO SCH (19:45)
[2017-01-20] MEDS: NICOTINE 21 MG/24 HR TDSY TD SCH (19:47)
[2017-01-20] MEDS: ACETAMINOPHEN 325 MG TAB PO PRN (19:50)
[2017-01-20 23:07] VITALS: BP 122/62; PULSE 90; TEMP 36.5; O2SAT 92
--- NOTE | 2017-01-20 23:27 | Progress Note ---
Medicine Progress Note Date & Time of Visit: Jan 20, 2017 at 18:00 . Subjective No fever. No cough or SOB. No chest pain. No nausea, vomiting, diarrhea. No urinary symptoms. Daughter visiting. . Objective Last 8 Hrs Date Time Temp Pulse Resp B/P (MAP) Pulse Ox O2 Delivery O2 Flow Rate FiO2 01/20/17 23:07 36.5 90 20 122/62 (82) 92 Room Air 01/20/17 20:00 Room Air 01/20/17 19:43 37.5 89 18 177/76 (109) 94 Room Air 01/20/17 16:00 Room Air Physical Exam: General- no acute distress Eyes- anicteric Neck- no JVD Lungs- clear Heart- RRR Abdomen- + BS, soft, nontender Extremities- no pretibial edema or calf tenderness; moderate left hip pain with flexion Neuro- alert, oriented . Laboratory Results: Last 24 Hours Test 01/20/17 02:03 01/20/17 02:15 01/20/17 04:02 01/20/17 06:44 Bedside Glucose 74 mg/dl 95 mg/dl Urine Random Creatinine 29.0 mg/dl Urine Random Sodium 116 mEq/L White Blood Count 7.29 K/uL Red Blood Count 3.13 M/uL Hemoglobin 10.5 g/dL Hematocrit 32.4 % Mean Corpuscular Volume 103.5 fL Mean Corpuscular Hemoglobin 33.5 pg Mean Corpuscular Hemoglobin Concent 32.4 g/dl Platelet Count 330 K/uL Mean Platelet Volume 10.6 fL Neutrophils (%) (Auto) 80.5 % Lymphocytes (%) (Auto) 9.6 % Monocytes (%) (Auto) 9.1 % Eosinophils (%) (Auto) 0.0 % Basophils (%) (Auto) 0.3 % Neutrophils # (Auto) 5.87 K/uL Lymphocytes # (Auto) 0.70 K/uL Monocytes # (Auto) 0.66 K/uL Eosinophils # (Auto) 0.00 K/uL Basophils # (Auto) 0.02 K/uL RDW Standard Deviation 59.0 fL RDW Coefficient of Variation 15.8 % Immature Granulocyte % (Auto) 0.5 % Immature Granulocyte # (Auto) 0.04 K/uL Sodium Level 139 mmol/L Potassium Level 3.9 mmol/L Chloride Level 106 mmol/L Carbon Dioxide Level 22 mmol/L Anion Gap 11.0 mmol/L Blood Urea Nitrogen 23 mg/dl Creatinine 1.10 mg/dl Est Creatinine Clear Calc Drug Dose 41.3 ml/min Estimated GFR () 56.5 Estimated GFR (Non- 48.7 BUN/Creatinine Ratio 20.5 Random Glucose 74 mg/dl Estimated Average Glucose 105 mg/dl Hemoglobin A1c 5.3 % Calcium Level 8.6 mg/dl Vitamin B12 Level 945 pg/mL Folate 7.69 ng/mL Test 01/20/17 08:04 01/20/17 08:25 01/20/17 11:43 01/20/17 16:42 Bedside Glucose 71 mg/dl 77 mg/dl 131 mg/dl 144 mg/dl Test 01/20/17 20:01 01/20/17 21:06 Bedside Glucose 254 mg/dl 195 mg/dl Date/Time Source Procedure Growth Status 01/20/17 02:15 Urine,Catheterized Urine Culture Pending Received Assessment & Plan UTI Urinalysis demonstrates pyuria and bacteriuria. Urine culture pending. Continue ceftriaxone. DEHYDRATION / ACUTE KIDNEY INJURY BUN 31, creatinine 1.6 on admission. Received IV fluids with improvement. Serum creatinine today = 1.1. Follow. FALLS Apparently has been falling for some time. Etiology of falls probably multifactorial. Alcohol use may be contributing factor. PT / OT evals. Fall precautions. LEFT HIP PAIN No apparent fracture. Analgesics PRN. HYPERTENSION Blood pressures fluctuating. Continue amlodipine, metoprolol, telmisartan. Follow and titrate therapy. DM TYPE 2 Well-controlled at home. Hemoglobin A1c in clinic on 10/31/16 was 6.7. Lantus/NovoLog per protocol during hospital stay. HYPOTHYROIDISM TSH in clinic in on 12/14/16 was 40. Compliance with medical regimen was uncertain. TSH now still elevated at 11, but trending downward. Therefore, will continue same close of levothyroxine. VITAMIN D DEFICIENCY 25-OH vitamin D level 8.4. Supplementation initiated. ALCOHOL CONSUMPTION Patient states that she consumes 1 or 2 drinks today. Daughter concerned that a call consumption may be greater than stated. CT demonstrates fatty infiltration of liver without apparent cirrhosis or signs of portal hypertension. Alcohol withdrawal prophylaxis discussed. Patient does not feel that she will have any difficulties and prefers not to receive prophylaxis at this time. Monitor for signs/symptoms of alcohol withdrawal. Continue thiamine. PULMONARY NODULE CT chest demonstrated 5 mm nodule right lower lobe, stable compared to CT performed 11/11/15. Patient is a smoker. Follow per guidelines. RENAL LESION 1.8 cm hyperdense lesion right kidney-complex cyst versus solid mass. Patient had ultrasound performed at [facility] 07/31/16 which demonstrated 3 cystic lesions, largest measuring [address] of abdomen and pelvis on 04/11/13 showed similar findings. Radiographic stability suggests benign lesion. VTE PROPHYLAXIS Moderate risk for VTE. SQ heparin. Ambulate. DISPOSITION Anticipate need for skilled care or inpatient rehabilitation. PT/OT evaluations. Consult Case Management. Internal Medicine follow-up with Dr. Nava. Daughter visiting and given update. . Procedures: CT head CT cervical spine CT chest CT abdomen and pelvis IV fluids IV medications PT OT . Current Inpatient Medications: Current Inpatient Medications Medications (Trade) Dose Ordered Sig/Fay Route Start Time Stop Time Status Last Admin Dose Admin Ioversol (Optiray 320) 125 ml UD PRN IV 01/19/17 13:30 01/23/17 13:29 Heparin Sodium (Porcine) (Heparin Sq 5000 Unit/0.5ml) 5,000 unit Q8H SQ 01/19/17 22:00 02/18/17 21:59 01/20/17 19:44 5,000 UNIT Acetaminophen (Tylenol Tab) 650 mg Q4H PRN PO 01/19/17 20:15 02/18/17 20:14 01/20/17 19:50 650 MG Ondansetron HCl (Zofran Inj) 4 mg Q6H PRN IV 01/19/17 20:15 02/18/17 20:14 Insulin Glargine (Lantus Solostar Pen) 7 unit Q12 SC 01/19/17 21:00 02/18/17 20:59 Future Hold 01/19/17 22:42 7 UNIT Insulin Aspart (novoLOG ASPART) SLIDING SCALE If C... ACHS SC 01/19/17 21:00 02/18/17 20:59 Glucose (Glucose 40% Gel) 15-30 GRAMS 15 GRAMS... UD PRN PO 01/19/17 20:15 02/18/17 20:14 Glucose (Glucose Chew Tab) 4-8 Tablets 4 Tabl... UD PRN PO 01/19/17 20:15 02/18/17 20:14 Dextrose (Dextrose 50% 50ML Syringe) 25-50ML OF 50% DW IV FOR... UD PRN IV 01/19/17 20:15 02/18/17 20:14 Glucagon (Glucagon Inj) 1 mg UD PRN SQ 01/19/17 20:15 02/18/17 20:14 Miscellaneous Information (Consult Glycemic Management Pharmacy) 1 ea UD N/A 01/19/17 20:39 02/18/17 20:38 Ceftriaxone Sodium 1000 mg/ Dextrose 60 ml @ 100 mls/hr Q24H IV 01/20/17 17:00 01/24/17 16:59 01/20/17 16:58 100 MLS/HR Amlodipine Besylate (Norvasc Tab) 10 mg DAILY PO 01/20/17 08:00 02/19/17 08:59 01/20/17 07:49 10 MG Aspirin (Ecotrin Tab) 81 mg DAILY PO 01/20/17 08:00 02/19/17 08:59 01/20/17 07:49 81 MG Levothyroxine Sodium (Synthroid Tab) 150 mcg DAILYBB PO 01/20/17 06:30 02/19/17 06:59 01/20/17 05:48 150 MCG Metoprolol Tartrate (Lopressor Tab) 50 mg TID PO 01/19/17 21:00 02/18/17 20:59 01/20/17 19:45 50 MG Multivitamins (Multivitamin Tab) 1 tab DAILY PO 01/20/17 08:00 02/19/17 08:59 01/20/17 07:49 1 TAB Rosuvastatin Calcium (Crestor Tab) 40 mg QPM PO 01/19/17 21:00 02/18/17 20:59 01/20/17 19:45 40 MG Telmisartan (Micardis Tab) 20 mg QPM PO 01/19/17 21:00 02/18/17 20:59 01/20/17 19:45 20 MG Thiamine HCl (Vitamin B-1 Tab) 100 mg DAILY PO 01/20/17 08:00 02/19/17 08:59 01/20/17 07:48 100 MG Nicotine (Nicoderm Cq 21MG Patch) 1 patch Q24H TD 01/19/17 21:00 02/18/17 20:59 01/20/17 19:47 1 PATCH Miscellaneous (Remove Nicoderm Patch) 1 ea PM N/A 01/20/17 20:00 02/19/17 20:59 01/20/17 19:47 1 EA Ergocalciferol (Vitamin D Cap) 50,000 interunit Q4D PO 01/19/17 22:00 02/18/17 21:59 01/19/17 22:40 50,000 INTERUNIT Lorazepam (Ativan Tab) 0.5 mg Q6H PRN PO 01/20/17 03:00 02/18/17 20:29 01/20/17 22:42 0.5 MG
[2017-01-21] VITALS (8 sets, daily range): BP systolic 91–134; BP diastolic 58–73; PULSE 73–99; TEMP 36.7–37.5; O2SAT 90–98
[2017-01-21] MEDS ORDERED: GABAPENTIN 800 MG TAB PO SCH (02:00)
[2017-01-21] MEDS ORDERED: LORAZEPAM 1 MG TAB PO PRN (02:00)
[2017-01-21] MEDS ORDERED: GABAPENTIN 800MG LOADING DOSE PO SCH (02:30)
[2017-01-21] MEDS: HEPARIN SOD 5000 UNIT/0.5 ML CARP SQ SCH ×3 (05:59→19:38)
[2017-01-21] MEDS ORDERED: GABAPENTIN 400MG Q6H DOSE PO SCH (08:00)
[2017-01-21 08:15] LABS: HEMATOCRIT 31.7 % (37-47); MEAN CELL VOLUME 104.6 fL (80-100); MEAN CORPUSCULAR HEMOGLOBIN 34.3 pg (25-34); MEAN CORPUSCULAR HGB CONC 32.8 g/dl (32-36); MEAN PLATELET VOLUME 10.4 fL (7.4-10.4); PLATELET COUNT 276 K/uL (130-400); RED BLOOD COUNT 3.03 M/uL (4.2-5.4); WHITE BLOOD COUNT 5.02 K/uL (4.8-10.8)
[2017-01-21] MEDS ORDERED: SODIUM CHLORIDE 0.9% 500ML 500 ML IV SCH (08:30)
[2017-01-21 08:39] LABS: BUN/CREATININE RATIO 19.1 (10-20); CREATININE 1.2 mg/dl (0.60-1.20)
[2017-01-21 08:42] LABS: ALB/GLOB RATIO 0.6 (0.9-2)
[2017-01-21 08:48] LABS: CALCIUM 8.4 mg/dl (8.5-10.1)
[2017-01-21] MEDS: CEROVITE ADV FORMULA TAB PO SCH (09:31)
[2017-01-21] MEDS: ASPIRIN 81 MG ECTAB PO SCH (09:32)
[2017-01-21] MEDS: MULTIVITAMIN TAB PO SCH (09:32)
[2017-01-21] MEDS: THIAMINE HCL 100 MG TAB PO SCH (09:33)
[2017-01-21] MEDS: LEVOTHYROXINE 150 MCG TAB PO SCH (09:34)
[2017-01-21] MEDS: INSULIN ASPART 100 UNITS/ML 3 ML PEN SC SCH ×4 (09:35→21:02)
[2017-01-21] MEDS ORDERED: MULTI-VITAMIN INFUSION INJ 10 ML, THIAMINE HCL INJ 100 MG, FoLIC ACID INJ 1 MG in SODIU... IV ONE (10:30)
[2017-01-21] MEDS: GABAPENTIN 300 MG CAP PO SCH ×3 (12:56→19:30)
[2017-01-21] MEDS: CEFTRIAXONE SOD INJ 1,000 MG in DEXTROSE 5% 50ML 50 ML IV SCH (17:02)
[2017-01-21] MEDS: NICOTINE 21 MG/24 HR TDSY TD SCH (19:30)
--- NOTE | 2017-01-21 19:53 | Progress Note ---
Medicine Progress Note Date & Time of Visit: Jan 21, 2017 at 07:50 . Subjective Confused last night. AWSS = 5. Alcohol withdrawal protocol with gabapentin and lorazepam when necessary initiated. Somnolent this morning. No other issues reported by nursing. . Objective Last 8 Hrs Date Time Temp Pulse Resp B/P (MAP) Pulse Ox O2 Delivery O2 Flow Rate FiO2 01/21/17 19:13 37.5 99 18 120/71 (87) 98 Room Air 01/21/17 16:00 Room Air 01/21/17 14:36 36.7 89 18 101/66 (78) 94 Nasal Cannula 2.0 Physical Exam: General- lying in bed, no distress Eyes- anicteric Neck- no JVD Lungs- clear Heart- RRR Abdomen- + BS, soft, nontender Extremities- no pretibial edema or calf tenderness; moderate left hip pain with flexion Neuro- somnolent, arousable, minimally conversant, follows commands, moves all 4 extremities . Laboratory Results: Last 24 Hours Test 01/20/17 20:01 01/20/17 21:06 01/21/17 07:40 01/21/17 08:05 Bedside Glucose 254 mg/dl 195 mg/dl 119 mg/dl White Blood Count 5.02 K/uL Red Blood Count 3.03 M/uL Hemoglobin 10.4 g/dL Hematocrit 31.7 % Mean Corpuscular Volume 104.6 fL Mean Corpuscular Hemoglobin 34.3 pg Mean Corpuscular Hemoglobin Concent 32.8 g/dl RDW Standard Deviation 60.0 fL RDW Coefficient of Variation 15.5 % Platelet Count 276 K/uL Mean Platelet Volume 10.4 fL Nucleated RBC Absolute Count (auto) 0.02 K/uL Nucleated Red Blood Cells % 0.4 % Sodium Level 139 mmol/L Potassium Level 4.0 mmol/L Chloride Level 107 mmol/L Carbon Dioxide Level 23 mmol/L Anion Gap 9.0 mmol/L Blood Urea Nitrogen 23 mg/dl Creatinine 1.20 mg/dl Est Creatinine Clear Calc Drug Dose 37.8 ml/min Estimated GFR () 50.8 Estimated GFR (Non- 43.9 BUN/Creatinine Ratio 19.1 Random Glucose 117 mg/dl Lactic Acid Level 0.8 mmol/L Calcium Level 8.4 mg/dl Total Bilirubin 0.3 mg/dl Aspartate Amino Transf (AST/SGOT) 362 U/L Alanine Aminotransferase (ALT/SGPT) 77 U/L Alkaline Phosphatase 378 U/L Total Protein 6.1 gm/dl Albumin 2.2 gm/dl Globulin 3.9 gm/dl Albumin/Globulin Ratio 0.6 Procalcitonin 0.58 ng/ml Test 01/21/17 11:57 01/21/17 16:42 Bedside Glucose 180 mg/dl 130 mg/dl Assessment & Plan UTI Urinalysis demonstrated pyuria and bacteriuria. Urine culture negative so far, but obtained after antibiotic administered. Continue ceftriaxone. DEHYDRATION / ACUTE KIDNEY INJURY BUN 31, creatinine 1.6 on admission. Received IV fluids with improvement. Serum creatinine today = 1.2. Follow. FALLS Apparently has been falling for some time. Etiology of falls probably multifactorial. Alcohol use may be contributing factor. PT / OT evals. Fall precautions. LEFT HIP PAIN No apparent fracture. Analgesics PRN. HYPERTENSION Blood pressures fluctuating, low this morning. Hold antihypertensive meds. Follow and titrate therapy. DM TYPE 2 Well-controlled at home. Hemoglobin A1c in clinic on 10/31/16 was 6.7. Passing blood sugar this morning = 117. Lantus/NovoLog per protocol during hospital stay. HYPOTHYROIDISM TSH in clinic in on 12/14/16 was 40. Compliance with medical regimen was uncertain. TSH now still elevated at 11, but trending downward. Therefore, will continue same close of levothyroxine. VITAMIN D DEFICIENCY 25-OH vitamin D level 8.4. Supplementation initiated. ALCOHOL CONSUMPTION Patient states that she consumes 1 or 2 drinks today. Daughter concerned that a call consumption may be greater than stated. CT demonstrates fatty infiltration of liver without apparent cirrhosis or signs of portal hypertension. Alcohol withdrawal protocol initiated. PULMONARY NODULE CT chest demonstrated 5 mm nodule right lower lobe, stable compared to CT performed 11/11/15. Patient is a smoker. Follow per guidelines. RENAL LESION 1.8 cm hyperdense lesion right kidney-complex cyst versus solid mass. Patient had ultrasound performed at [facility] 07/31/16 which demonstrated 3 cystic lesions, largest measuring [address] of abdomen and pelvis on 04/11/13 showed similar findings. Radiographic stability suggests benign lesion. VTE PROPHYLAXIS Moderate risk for VTE. SQ heparin. Ambulate. DISPOSITION Anticipate need for skilled care or inpatient rehabilitation. PT/OT evaluations. Consult Case Management. Internal Medicine follow-up with Dr. Nava. ADDENDUM: Patient reassessed around 17:30 this evening. More alert, eating dinner. Daughter visiting and given update. . Procedures: CT head CT cervical spine CT chest CT abdomen and pelvis IV fluids IV medications PT OT . Current Inpatient Medications: Current Inpatient Medications Medications (Trade) Dose Ordered Sig/Fay Route Start Time Stop Time Status Last Admin Dose Admin Ioversol (Optiray 320) 125 ml UD PRN IV 01/19/17 13:30 01/23/17 13:29 Heparin Sodium (Porcine) (Heparin Sq 5000 Unit/0.5ml) 5,000 unit Q8H SQ 01/19/17 22:00 02/18/17 21:59 01/21/17 19:38 5,000 UNIT Acetaminophen (Tylenol Tab) 650 mg Q4H PRN PO 01/19/17 20:15 02/18/17 20:14 01/20/17 19:50 650 MG Ondansetron HCl (Zofran Inj) 4 mg Q6H PRN IV 01/19/17 20:15 02/18/17 20:14 Insulin Glargine (Lantus Solostar Pen) 7 unit Q12 SC 01/19/17 21:00 02/18/17 20:59 Future Hold 01/19/17 22:42 7 UNIT Insulin Aspart (novoLOG ASPART) SLIDING SCALE If C... ACHS SC 01/19/17 21:00 02/18/17 20:59 01/21/17 18:36 3 UNITS Glucose (Glucose 40% Gel) 15-30 GRAMS 15 GRAMS... UD PRN PO 01/19/17 20:15 02/18/17 20:14 Glucose (Glucose Chew Tab) 4-8 Tablets 4 Tabl... UD PRN PO 01/19/17 20:15 02/18/17 20:14 Dextrose (Dextrose 50% 50ML Syringe) 25-50ML OF 50% DW IV FOR... UD PRN IV 01/19/17 20:15 02/18/17 20:14 Glucagon (Glucagon Inj) 1 mg UD PRN SQ 01/19/17 20:15 02/18/17 20:14 Miscellaneous Information (Consult Glycemic Management Pharmacy) 1 ea UD N/A 01/19/17 20:39 02/18/17 20:38 Ceftriaxone Sodium 1000 mg/ Dextrose 60 ml @ 100 mls/hr Q24H IV 01/20/17 17:00 01/24/17 16:59 01/21/17 17:02 100 MLS/HR Amlodipine Besylate (Norvasc Tab) 10 mg DAILY PO 01/20/17 08:00 02/19/17 08:59 Future Hold 01/20/17 07:49 10 MG Aspirin (Ecotrin Tab) 81 mg DAILY PO 01/20/17 08:00 02/19/17 08:59 01/21/17 09:32 81 MG Levothyroxine Sodium (Synthroid Tab) 150 mcg DAILYBB PO 01/20/17 06:30 02/19/17 06:59 01/21/17 09:34 150 MCG Metoprolol Tartrate (Lopressor Tab) 50 mg TID PO 01/19/17 21:00 02/18/17 20:59 Future Hold 01/20/17 19:45 50 MG Multivitamins (Multivitamin Tab) 1 tab DAILY PO 01/20/17 08:00 02/19/17 08:59 01/21/17 09:32 1 TAB Rosuvastatin Calcium (Crestor Tab) 40 mg QPM PO 01/19/17 21:00 02/18/17 20:59 01/20/17 19:45 40 MG Telmisartan (Micardis Tab) 20 mg QPM PO 01/19/17 21:00 02/18/17 20:59 Future Hold 01/20/17 19:45 20 MG Thiamine HCl (Vitamin B-1 Tab) 100 mg DAILY PO 01/20/17 08:00 02/19/17 08:59 01/21/17 09:33 100 MG Nicotine (Nicoderm Cq 21MG Patch) 1 patch Q24H TD 01/19/17 21:00 02/18/17 20:59 01/21/17 19:30 1 PATCH Miscellaneous (Remove Nicoderm Patch) 1 ea PM N/A 01/20/17 20:00 02/19/17 20:59 01/21/17 19:30 1 EA Ergocalciferol (Vitamin D Cap) 50,000 interunit Q4D PO 01/19/17 22:00 02/18/17 21:59 01/19/17 22:40 50,000 INTERUNIT Folic Acid (Folvite Tab) 1 mg QAM PO 01/21/17 08:00 02/20/17 07:59 01/21/17 09:31 1 MG Multivitamins/ Minerals (Multivitamin W/ Minerals Tab) 1 tab QAM PO 01/21/17 08:00 02/20/17 07:59 01/21/17 09:31 1 TAB Multivitamins 10 ml/Thiamine HCl 100 mg/Folic Acid 1 mg/Sodium Chloride 1,011.2 ml @ 100 mls/ hr Q10H7M ONCE IV 01/21/17 10:30 01/21/17 20:36 01/21/17 10:21 100 MLS/HR Lorazepam (Ativan Tab) PRN Dosing -Active Protocol UD PRN PO 01/22/17 02:00 02/20/17 01:59 Gabapentin (Neurontin Cap) 300 mg QID PO 01/21/17 12:00 01/21/17 20:01 01/21/17 19:30 300 MG Gabapentin (Neurontin Cap) 300 mg TID PO 01/22/17 08:00 01/22/17 20:01 Gabapentin (Neurontin Cap) 300 mg BID PO 01/23/17 08:00 01/23/17 20:01 Gabapentin (Neurontin Cap) 300 mg QAM PO 01/24/17 08:00 01/24/17 08:01
[2017-01-21] MEDS: ROSUVASTATIN CALCIUM 20 MG TAB PO SCH (21:01)
[2017-01-21] MEDS ORDERED: GABAPENTIN 400MG Q8H DOSE PO SCH (22:00)
[2017-01-21] MEDS: METOPROLOL TARTRATE 25 MG TAB PO SCH (22:01)
[2017-01-22] MEDS: HEPARIN SOD 5000 UNIT/0.5 ML CARP SQ SCH ×3 (05:34→21:14)
[2017-01-22] MEDS: METOPROLOL TARTRATE 25 MG TAB PO SCH ×3 (05:37→21:01)
[2017-01-22] MEDS: LEVOTHYROXINE 150 MCG TAB PO SCH (05:37)
[2017-01-22 05:40] VITALS: BP 146/73
[2017-01-22 06:57] VITALS: BP 127/69; PULSE 65; TEMP 36.9; O2SAT 95
[2017-01-22 07:20] LABS: HEMATOCRIT 32.7 % (37-47); MEAN CELL VOLUME 106.9 fL (80-100); MEAN CORPUSCULAR HGB CONC 30.9 g/dl (32-36); MEAN PLATELET VOLUME 11.1 fL (7.4-10.4); PLATELET COUNT 214 K/uL (130-400); RED BLOOD COUNT 3.06 M/uL (4.2-5.4); WHITE BLOOD COUNT 6.59 K/uL (4.8-10.8)
[2017-01-22 07:53] LABS: BLOOD UREA NITROGEN 24 mg/dl (7-18); BUN/CREATININE RATIO 17.4 (10-20); CALCIUM 7.8 mg/dl (8.5-10.1); CARBON DIOXIDE 21 mmol/L (21-32); CHLORIDE 110 mmol/L (98-107); GLUCOSE 103 mg/dl (70-99); PHOSPHORUS 2.8 mg/dl (2.5-4.9); SODIUM 140 mmol/L (136-145)
[2017-01-22 08:45] LABS: POTASSIUM 4.4 mmol/L (3.5-5.1)
[2017-01-22] MEDS: GABAPENTIN 300 MG CAP PO SCH ×3 (08:50→20:59)
[2017-01-22] MEDS: MULTIVITAMIN TAB PO SCH (08:50)
[2017-01-22] MEDS: THIAMINE HCL 100 MG TAB PO SCH (08:50)
[2017-01-22] MEDS: ASPIRIN 81 MG ECTAB PO SCH (08:51)
[2017-01-22] MEDS: CEROVITE ADV FORMULA TAB PO SCH (08:52)
[2017-01-22 08:54] LABS: MAGNESIUM 1.7 mg/dl (1.8-2.4)
[2017-01-22] MEDS: INSULIN ASPART 100 UNITS/ML 3 ML PEN SC SCH ×4 (08:59→21:14)
--- NOTE | 2017-01-22 10:53 | Pharmacy Progress Note ---
Pharmacy Glycemic Sign Off Nt Date of Service Jan 22, 2017. Assessment & Plan ASSESSMENT: * Pharmacy was consulted by Dr Thompson on 01/19/17 for glycemic control and to write orders per [facility] inpatient glycemic control protocol. * Major changes made by pharmacy to antidiabetic regimen include: * Decreasing and holding outpatient basal insulin secondary to "low/in range" AM fasting BSGs * Utilizing NovoLog SSI * Patient has been receiving/requiring 0-7 units of insulin per day for adequate glycemic control * BSGs ranging 114 - 180 mg/dl * Regimen has only required minor adjustments over the past 48hrs to achieve this level of control * Do not anticipate further changes in patient status that would quickly deteriorate glycemic control (i.e. patient to be NPO for upcoming procedure, steroids tapering, starting tube feedings, etc). * Please see recommendations for outpatient antidiabetic regimen below. PLAN FOR INPATIENT GLYCEMIC CONTROL: No changes needed to current regimen. * Continue to hold basal insulin at this time * AM fasting BSGs 114, 119 w/o basal insulin on board * Continue NovoLog per scale ACHS/Q6hrs while NPO * Goal range = 140 - 180 mg/dl * CF = 30 mg/dl/unit * CR = 1 unit for ever 10 g CHO consumed * A1c added to discharge instructions to be communicated to PCP. * Pharmacy is signing off of glycemic consult and will no longer be making adjustments to inpatient regimen. Please feel free to re-consult if needed. Thank you. DISCHARGE RECOMMENDATIONS: * A1c 5.3 % on 01/20/17 * this is below goal range * Pt may need Lantus dose decreased/stopped at the time of discharge if pt is experiencing lows as an outpatient.
[2017-01-22 13:17] VITALS: BP 116/61; PULSE 78; TEMP 37.1; O2SAT 92
[2017-01-22 14:59] VITALS: BP 106/64; PULSE 71; TEMP 37; O2SAT 92
[2017-01-22 16:10] VITALS: O2SAT 92
--- NOTE | 2017-01-22 17:01 | DIAGNOSTIC IMAGING REPORT ---
CHEST 2 VIEWS ROUTINE CLINICAL HISTORY: cough, hypoxia dyspnea COMPARISON STUDY: No previous studies for comparison. FINDINGS: Subtle interstitial prominence left lung base. . No well-defined focal infiltrate. Diaphragms smooth. No evidence for cardiac enlargement. IMPRESSION: Slight interstitial prominence left base. Otherwise negative study Electronically signed by: Brendon White M.D. 01/22/2017 4:59 PM Dictated Date/Time: 01/22/2017 4:59 PM
[2017-01-22] MEDS: CEFTRIAXONE SOD INJ 1,000 MG in DEXTROSE 5% 50ML 50 ML IV SCH (17:35)
[2017-01-22 19:36] VITALS: BP 127/71; PULSE 73; TEMP 37.1; O2SAT 94
[2017-01-22] MEDS: LORAZEPAM 1 MG TAB PO PRN (20:59)
[2017-01-22] MEDS: ROSUVASTATIN CALCIUM 20 MG TAB PO SCH (21:00)
[2017-01-22] MEDS: NICOTINE 21 MG/24 HR TDSY TD SCH (21:00)
--- NOTE | 2017-01-22 23:08 | Progress Note ---
Medicine Progress Note Date & Time of Visit: Jan 22, 2017 @ ~ 15:20 . Subjective More alert. Intermittent confusion, but no apparent hallucinations. No fever. Occasional cough. Denies dyspnea. No chest pain. No nausea, vomiting, diarrhea. No dysuria. . Objective Last 8 Hrs Date Time Temp Pulse Resp B/P (MAP) Pulse Ox O2 Delivery O2 Flow Rate FiO2 01/22/17 19:36 37.1 73 20 127/71 (89) 94 Nasal Cannula 2.0 01/22/17 16:10 92 Nasal Cannula 2.0 Physical Exam: General- lying in bed, no distress Eyes- anicteric Neck- no JVD Lungs- few rhonchi, diffuse wheezing Heart- RRR Abdomen- + BS, soft, nontender Extremities- no pretibial edema or calf tenderness Neuro- alert, mild confusion but essentially oriented 3 . Laboratory Results: Last 24 Hours Test 01/22/17 06:53 01/22/17 07:35 01/22/17 08:04 01/22/17 11:17 White Blood Count 6.59 K/uL Red Blood Count 3.06 M/uL Hemoglobin 10.1 g/dL Hematocrit 32.7 % Mean Corpuscular Volume 106.9 fL Mean Corpuscular Hemoglobin 33.0 pg Mean Corpuscular Hemoglobin Concent 30.9 g/dl RDW Standard Deviation 62.4 fL RDW Coefficient of Variation 16.1 % Platelet Count 214 K/uL Mean Platelet Volume 11.1 fL Sodium Level 140 mmol/L Potassium Level mmol/L 4.4 mmol/L Chloride Level 110 mmol/L Carbon Dioxide Level 21 mmol/L Anion Gap 9.0 mmol/L Blood Urea Nitrogen 24 mg/dl Creatinine 1.40 mg/dl Est Creatinine Clear Calc Drug Dose 32.4 ml/min Estimated GFR () 42.2 Estimated GFR (Non- 36.4 BUN/Creatinine Ratio 17.4 Random Glucose 103 mg/dl Calcium Level 7.8 mg/dl Phosphorus Level 2.8 mg/dl Magnesium Level mg/dl 1.7 mg/dl Bedside Glucose 114 mg/dl 192 mg/dl Test 01/22/17 16:24 01/22/17 19:47 Bedside Glucose 148 mg/dl 227 mg/dl Assessment & Plan UTI Urinalysis demonstrated pyuria and bacteriuria. Urine culture negative so far, but obtained after antibiotic administered. Receiving ceftriaxone. Transition to oral therapy with cephalexin. DEHYDRATION / ACUTE KIDNEY INJURY BUN 31, creatinine 1.6 on admission. Received IV fluids with improvement. Serum creatinine yesterday = 1.4. Follow. FALLS Apparently has been falling for some time. Etiology of falls probably multifactorial. Alcohol use may be contributing factor. PT / OT evals. Fall precautions. LEFT HIP PAIN No apparent fracture. Analgesics PRN. Further imaging if severe pain persists or worsens. HYPERTENSION Blood pressures fluctuated yesterday, better today. Titrate antihypertensive meds. DM TYPE 2 Well-controlled at home. Hemoglobin A1c in clinic on 10/31/16 was 6.7. Passing blood sugar this morning = 114. Lantus/NovoLog per protocol during hospital stay. HYPOTHYROIDISM TSH in clinic in on 12/14/16 was 40. Compliance with medical regimen was uncertain. TSH now still elevated at 11, but trending downward. Therefore, will continue same close of levothyroxine. VITAMIN D DEFICIENCY 25-OH vitamin D level 8.4. Supplementation initiated. ALCOHOL CONSUMPTION Patient states that she consumes 1 or 2 drinks today. Daughter concerned that a call consumption may be greater than stated. CT demonstrates fatty infiltration of liver without apparent cirrhosis or signs of portal hypertension. Alcohol withdrawal protocol initiated. PULMONARY NODULE CT chest demonstrated 5 mm nodule right lower lobe, stable compared to CT performed 11/11/15. Patient is a smoker. Follow per guidelines. RENAL LESION 1.8 cm hyperdense lesion right kidney-complex cyst versus solid mass. Patient had ultrasound performed at [facility] 07/31/16 which demonstrated 3 cystic lesions, largest measuring [address] of abdomen and pelvis on 04/11/13 showed similar findings. Radiographic stability suggests benign lesion. VTE PROPHYLAXIS Moderate risk for VTE. SQ heparin. Ambulate. DISPOSITION Anticipate need for skilled care or inpatient rehabilitation. PT/OT evaluations. Consult Case Management. Internal Medicine follow-up with Dr. Nava. ADDENDUM: Daughter given update this evening by phone. . Procedures: CT head CT cervical spine CT chest CT abdomen and pelvis IV fluids IV medications PT OT . Current Inpatient Medications: Current Inpatient Medications Medications (Trade) Dose Ordered Sig/Fay Route Start Time Stop Time Status Last Admin Dose Admin Ioversol (Optiray 320) 125 ml UD PRN IV 01/19/17 13:30 01/23/17 13:29 Heparin Sodium (Porcine) (Heparin Sq 5000 Unit/0.5ml) 5,000 unit Q8H SQ 01/19/17 22:00 02/18/17 21:59 01/22/17 21:14 5,000 UNIT Acetaminophen (Tylenol Tab) 650 mg Q4H PRN PO 01/19/17 20:15 02/18/17 20:14 01/20/17 19:50 650 MG Ondansetron HCl (Zofran Inj) 4 mg Q6H PRN IV 01/19/17 20:15 02/18/17 20:14 Insulin Glargine (Lantus Solostar Pen) 7 unit Q12 SC 01/19/17 21:00 02/18/17 20:59 Future Hold 01/19/17 22:42 7 UNIT Insulin Aspart (novoLOG ASPART) SLIDING SCALE If C... ACHS SC 01/19/17 21:00 02/18/17 20:59 01/22/17 21:14 2 UNITS Glucose (Glucose 40% Gel) 15-30 GRAMS 15 GRAMS... UD PRN PO 01/19/17 20:15 02/18/17 20:14 Glucose (Glucose Chew Tab) 4-8 Tablets 4 Tabl... UD PRN PO 01/19/17 20:15 02/18/17 20:14 Dextrose (Dextrose 50% 50ML Syringe) 25-50ML OF 50% DW IV FOR... UD PRN IV 01/19/17 20:15 02/18/17 20:14 Glucagon (Glucagon Inj) 1 mg UD PRN SQ 01/19/17 20:15 02/18/17 20:14 Ceftriaxone Sodium 1000 mg/ Dextrose 60 ml @ 100 mls/hr Q24H IV 01/20/17 17:00 01/24/17 16:59 01/22/17 17:35 100 MLS/HR Amlodipine Besylate (Norvasc Tab) 10 mg DAILY PO 01/20/17 08:00 02/19/17 08:59 Future Hold 01/20/17 07:49 10 MG Aspirin (Ecotrin Tab) 81 mg DAILY PO 01/20/17 08:00 02/19/17 08:59 01/22/17 08:51 81 MG Levothyroxine Sodium (Synthroid Tab) 150 mcg DAILYBB PO 01/20/17 06:30 02/19/17 06:59 01/22/17 05:37 150 MCG Multivitamins (Multivitamin Tab) 1 tab DAILY PO 01/20/17 08:00 02/19/17 08:59 01/22/17 08:50 1 TAB Rosuvastatin Calcium (Crestor Tab) 40 mg QPM PO 01/19/17 21:00 02/18/17 20:59 01/22/17 21:00 40 MG Telmisartan (Micardis Tab) 20 mg QPM PO 01/19/17 21:00 02/18/17 20:59 Future Hold 01/20/17 19:45 20 MG Thiamine HCl (Vitamin B-1 Tab) 100 mg DAILY PO 01/20/17 08:00 02/19/17 08:59 01/22/17 08:50 100 MG Nicotine (Nicoderm Cq 21MG Patch) 1 patch Q24H TD 01/19/17 21:00 02/18/17 20:59 01/22/17 21:00 1 PATCH Miscellaneous (Remove Nicoderm Patch) 1 ea PM N/A 01/20/17 20:00 02/19/17 20:59 01/22/17 20:00 1 EA Ergocalciferol (Vitamin D Cap) 50,000 interunit Q4D PO 01/19/17 22:00 02/18/17 21:59 01/19/17 22:40 50,000 INTERUNIT Folic Acid (Folvite Tab) 1 mg QAM PO 01/21/17 08:00 02/20/17 07:59 01/22/17 08:50 1 MG Multivitamins/ Minerals (Multivitamin W/ Minerals Tab) 1 tab QAM PO 01/21/17 08:00 02/20/17 07:59 01/22/17 08:52 1 TAB Lorazepam (Ativan Tab) PRN Dosing -Active Protocol UD PRN PO 01/22/17 02:00 02/20/17 01:59 01/22/17 20:59 1 MG Gabapentin (Neurontin Cap) 300 mg BID PO 01/23/17 08:00 01/23/17 20:01 Gabapentin (Neurontin Cap) 300 mg QAM PO 01/24/17 08:00 01/24/17 08:01 Metoprolol Tartrate (Lopressor Tab) 25 mg Q8 PO 01/21/17 22:00 02/20/17 21:59 01/22/17 21:01 25 MG
[2017-01-23] VITALS (9 sets, daily range): BP systolic 106–149; BP diastolic 65–74; PULSE 65–90; TEMP 36.3–36.9; O2SAT 90–97
[2017-01-23] MEDS ORDERED: GABAPENTIN 400MG Q12H DOSE PO SCH (02:00)
[2017-01-23] MEDS: LORAZEPAM 1 MG TAB PO PRN (04:42)
[2017-01-23] MEDS: METOPROLOL TARTRATE 25 MG TAB PO SCH ×3 (05:28→21:19)
[2017-01-23] MEDS: LEVOTHYROXINE 150 MCG TAB PO SCH (05:28)
[2017-01-23] MEDS: HEPARIN SOD 5000 UNIT/0.5 ML CARP SQ SCH ×3 (05:36→21:29)
[2017-01-23 07:56] LABS: HEMATOCRIT 32.5 % (37-47); MEAN CELL VOLUME 105.5 fL (80-100); MEAN CORPUSCULAR HEMOGLOBIN 32.8 pg (25-34); MEAN CORPUSCULAR HGB CONC 31.1 g/dl (32-36); MEAN PLATELET VOLUME 10.5 fL (7.4-10.4); PLATELET COUNT 236 K/uL (130-400); RED BLOOD COUNT 3.08 M/uL (4.2-5.4); WHITE BLOOD COUNT 7.38 K/uL (4.8-10.8)
[2017-01-23 08:24] LABS: BUN/CREATININE RATIO 17.6 (10-20); CREATININE 1.6 mg/dl (0.60-1.20); POTASSIUM 4.9 mmol/L (3.5-5.1)
[2017-01-23 08:47] LABS: CALCIUM 8.4 mg/dl (8.5-10.1)
[2017-01-23] MEDS ORDERED: SODIUM CHLORIDE 0.9% 1000ML 1,000 ML IV ONE (09:00)
[2017-01-23] MEDS: THIAMINE HCL 100 MG TAB PO SCH (09:08)
[2017-01-23] MEDS: ASPIRIN 81 MG ECTAB PO SCH (09:08)
[2017-01-23] MEDS: CEROVITE ADV FORMULA TAB PO SCH (09:08)
[2017-01-23] MEDS: MULTIVITAMIN TAB PO SCH (09:09)
[2017-01-23] MEDS: GABAPENTIN 300 MG CAP PO SCH ×2 (09:09→21:19)
[2017-01-23] MEDS: INSULIN ASPART 100 UNITS/ML 3 ML PEN SC SCH ×4 (09:15→21:29)
[2017-01-23] MEDS: CEFTRIAXONE SOD INJ 1,000 MG in DEXTROSE 5% 50ML 50 ML IV SCH (17:52)
--- NOTE | 2017-01-23 19:49 | Progress Note ---
Medicine Progress Note Date & Time of Visit: Jan 23, 2017 at 17:59. Subjective Pt was seen and examined Lying in bed with no distress with 1 to 1 sitter Cooperate, but Mildly Confused communicate on and off in Russian and Lao denies any chest pain, palpitation, dizziness and sob Objective Last 8 Hrs Date Time Temp Pulse Resp B/P (MAP) Pulse Ox O2 Delivery O2 Flow Rate FiO2 01/23/17 15:02 36.6 65 24 106/65 (79) 91 Nasal Cannula 2.0 01/23/17 13:22 36.3 82 18 126/74 (91) Physical Exam: General- No acute distress Head- atraumatic Eyes- PERRL, EOMI ENT- oropharynx clear Neck- supple, no JVD Lungs- Mild wheezing Heart- regular rhythm Abdomen- normal bowel sounds, nontender Extremities- no calf tenderness, no tremors Neuro- alert, mildly confused, PERRL, follow commands Skin- warm & dry Laboratory Results: Last 24 Hours Test 01/22/17 19:47 01/23/17 07:22 01/23/17 07:41 01/23/17 11:25 Bedside Glucose 227 mg/dl 138 mg/dl 177 mg/dl White Blood Count 7.38 K/uL Red Blood Count 3.08 M/uL Hemoglobin 10.1 g/dL Hematocrit 32.5 % Mean Corpuscular Volume 105.5 fL Mean Corpuscular Hemoglobin 32.8 pg Mean Corpuscular Hemoglobin Concent 31.1 g/dl RDW Standard Deviation 61.0 fL RDW Coefficient of Variation 16.0 % Platelet Count 236 K/uL Mean Platelet Volume 10.5 fL Sodium Level 139 mmol/L Potassium Level 4.9 mmol/L Chloride Level 110 mmol/L Carbon Dioxide Level 19 mmol/L Anion Gap 10.0 mmol/L Blood Urea Nitrogen 28 mg/dl Creatinine 1.60 mg/dl Est Creatinine Clear Calc Drug Dose 28.4 ml/min Estimated GFR () 35.9 Estimated GFR (Non- 31.0 BUN/Creatinine Ratio 17.6 Random Glucose 123 mg/dl Calcium Level 8.4 mg/dl Assessment & Plan UTI Urinalysis demonstrated pyuria and bacteriuria. Urine culture growth 3 types of bacteria Receiving 5 days of ceftriaxone. DEHYDRATION / ACUTE KIDNEY INJURY BUN 31, creatinine 1.6 on admission.. Serum creatinine today 1.6 Continue gentle IVF Monitor BMP S/P FALLS Mostly multifactorial. Alcohol use may be contributing factor. Continue PT/OT Fall precautions. LEFT HIP PAIN Left hip xray showed no evidence of left hip fracture Analgesics PRN. Stable HYPERTENSION Blood pressures fluctuated Continue monitor BP c DM TYPE 2 Well-controlled at home. Hemoglobin A1c in clinic on 10/31/16 was 6.7. Continue Insulin coverage On Lantus subq HYPOTHYROIDISM TSH in clinic in on 12/14/16 was 40. Compliance with medical regimen was uncertain. TSH now still elevated at 11, but trending downward. Therefore, will continue same close of levothyroxine. VITAMIN D DEFICIENCY 25-OH vitamin D level 8.4. continue vit D supplementation ALCOHOL CONSUMPTION CT demonstrates fatty infiltration of liver without apparent cirrhosis or signs of portal hypertension. On gabapentin for alcohol withdrawal protocol Continue monitor closely for DT On thiamine and folic acid Continue ativan prn PULMONARY NODULE CT chest demonstrated 5 mm nodule right lower lobe, stable compared to CT performed 11/11/15. Patient is a smoker. Follow per guidelines. RENAL LESION 1.8 cm hyperdense lesion right kidney-complex cyst versus solid mass. Patient had ultrasound performed at [facility] [address] 07/31/16 which demonstrated 3 cystic lesions, largest measuring [address] of abdomen and pelvis on 04/11/13 showed similar findings. Radiographic stability suggests benign lesion. VTE PROPHYLAXIS Moderate risk for VTE. SQ heparin. Ambulate. DISPOSITION. PT/OT evaluations. Consult Case Management for inpatient rehab Internal Medicine follow-up with Dr. Nava. Procedures: CT head CT cervical spine CT chest CT abdomen and pelvis IV fluids IV medications PT OT . Current Inpatient Medications: Current Inpatient Medications Medications (Trade) Dose Ordered Sig/Fay Route Start Time Stop Time Status Last Admin Dose Admin Heparin Sodium (Porcine) (Heparin Sq 5000 Unit/0.5ml) 5,000 unit Q8H SQ 01/19/17 22:00 02/18/17 21:59 01/23/17 13:19 5,000 UNIT Acetaminophen (Tylenol Tab) 650 mg Q4H PRN PO 01/19/17 20:15 02/18/17 20:14 01/20/17 19:50 650 MG Ondansetron HCl (Zofran Inj) 4 mg Q6H PRN IV 01/19/17 20:15 02/18/17 20:14 Insulin Glargine (Lantus Solostar Pen) 7 unit Q12 SC 01/19/17 21:00 02/18/17 20:59 Future Hold 01/19/17 22:42 7 UNIT Insulin Aspart (novoLOG ASPART) SLIDING SCALE If C... ACHS SC 01/19/17 21:00 02/18/17 20:59 01/23/17 13:18 2 UNITS Glucose (Glucose 40% Gel) 15-30 GRAMS 15 GRAMS... UD PRN PO 01/19/17 20:15 02/18/17 20:14 Glucose (Glucose Chew Tab) 4-8 Tablets 4 Tabl... UD PRN PO 01/19/17 20:15 02/18/17 20:14 Dextrose (Dextrose 50% 50ML Syringe) 25-50ML OF 50% DW IV FOR... UD PRN IV 01/19/17 20:15 02/18/17 20:14 Glucagon (Glucagon Inj) 1 mg UD PRN SQ 01/19/17 20:15 02/18/17 20:14 Ceftriaxone Sodium 1000 mg/ Dextrose 60 ml @ 100 mls/hr Q24H IV 01/20/17 17:00 01/24/17 16:59 01/22/17 17:35 100 MLS/HR Amlodipine Besylate (Norvasc Tab) 10 mg DAILY PO 01/20/17 08:00 02/19/17 08:59 Future Hold 01/20/17 07:49 10 MG Aspirin (Ecotrin Tab) 81 mg DAILY PO 01/20/17 08:00 02/19/17 08:59 01/23/17 09:08 81 MG Levothyroxine Sodium (Synthroid Tab) 150 mcg DAILYBB PO 01/20/17 06:30 02/19/17 06:59 01/23/17 05:28 150 MCG Multivitamins (Multivitamin Tab) 1 tab DAILY PO 01/20/17 08:00 02/19/17 08:59 01/23/17 09:09 1 TAB Rosuvastatin Calcium (Crestor Tab) 40 mg QPM PO 01/19/17 21:00 02/18/17 20:59 01/22/17 21:00 40 MG Telmisartan (Micardis Tab) 20 mg QPM PO 01/19/17 21:00 02/18/17 20:59 Future Hold 01/20/17 19:45 20 MG Thiamine HCl (Vitamin B-1 Tab) 100 mg DAILY PO 01/20/17 08:00 02/19/17 08:59 01/23/17 09:08 100 MG Nicotine (Nicoderm Cq 21MG Patch) 1 patch Q24H TD 01/19/17 21:00 02/18/17 20:59 01/22/17 21:00 1 PATCH Miscellaneous (Remove Nicoderm Patch) 1 ea PM N/A 01/20/17 20:00 02/19/17 20:59 01/22/17 20:00 1 EA Ergocalciferol (Vitamin D Cap) 50,000 interunit Q4D PO 01/19/17 22:00 02/18/17 21:59 01/19/17 22:40 50,000 INTERUNIT Folic Acid (Folvite Tab) 1 mg QAM PO 01/21/17 08:00 02/20/17 07:59 01/23/17 09:08 1 MG Multivitamins/ Minerals (Multivitamin W/ Minerals Tab) 1 tab QAM PO 01/21/17 08:00 02/20/17 07:59 01/23/17 09:08 1 TAB Lorazepam (Ativan Tab) PRN Dosing -Active Protocol UD PRN PO 01/22/17 02:00 02/20/17 01:59 01/23/17 04:42 1 MG Gabapentin (Neurontin Cap) 300 mg BID PO 01/23/17 08:00 01/23/17 20:01 01/23/17 09:09 300 MG Gabapentin (Neurontin Cap) 300 mg QAM PO 01/24/17 08:00 01/24/17 08:01 Metoprolol Tartrate (Lopressor Tab) 25 mg Q8 PO 01/21/17 22:00 02/20/17 21:59 01/23/17 13:23 25 MG Sodium Chloride 1,000 ml @ 75 mls/hr [id number] ONCE IV 01/23/17 09:00 01/23/17 22:19 01/23/17 09:16 75 MLS/HR
[2017-01-23] MEDS: ERGOCALCIFEROL 50,000 INTER.UNIT CAP PO SCH (21:19)
[2017-01-23] MEDS: NICOTINE 21 MG/24 HR TDSY TD SCH (21:19)
[2017-01-23] MEDS: ROSUVASTATIN CALCIUM 20 MG TAB PO SCH (21:19)
[2017-01-23] MEDS: SODIUM CHLORIDE 0.9% 1000ML 1,000 ML IV SCH (21:43)
[2017-01-24] VITALS (13 sets, daily range): BP systolic 114–131; BP diastolic 70–76; PULSE 75–106; TEMP 36.4–36.9; O2SAT 80–98
[2017-01-24] MEDS: HYDROCODONE/ACETAMOPHEN 5/325MG TAB PO PRN (04:50)
[2017-01-24] MEDS: METOPROLOL TARTRATE 25 MG TAB PO SCH ×3 (06:00→21:45)
[2017-01-24] MEDS: LEVOTHYROXINE 150 MCG TAB PO SCH (06:12)
[2017-01-24] MEDS: HEPARIN SOD 5000 UNIT/0.5 ML CARP SQ SCH ×3 (06:13→21:49)
[2017-01-24] MEDS: ALBUT/IPRATROP 3MG/0.5MG NEB 3 ML VIAL INH SCH ×4 (07:16→19:15)
[2017-01-24] MEDS ORDERED: GABAPENTIN 300 MG CAP PO SCH (08:00)
[2017-01-24 08:17] LABS: MEAN CELL VOLUME 106.9 fL (80-100); MEAN CORPUSCULAR HEMOGLOBIN 33.2 pg (25-34); MEAN CORPUSCULAR HGB CONC 31.1 g/dl (32-36); MEAN PLATELET VOLUME 10.8 fL (7.4-10.4); PLATELET COUNT 202 K/uL (130-400); RED BLOOD COUNT 2.62 M/uL (4.2-5.4); WHITE BLOOD COUNT 9.56 K/uL (4.8-10.8)
--- NOTE | 2017-01-24 08:21 | DIAGNOSTIC IMAGING REPORT ---
CHEST 2 VIEWS ROUTINE CLINICAL HISTORY: r/o pneumonia dyspnea COMPARISON STUDY: 01/22/2017 FINDINGS: Mild increase in pulmonary vascular congestion. Diaphragms are smooth. Costophrenic angles are sharp. IMPRESSION: Pulmonary vascular congestion Electronically signed by: Brendon White M.D. 01/24/2017 8:20 AM Dictated Date/Time: 01/24/2017 8:17 AM
[2017-01-24] MEDS: THIAMINE HCL 100 MG TAB PO SCH (08:26)
[2017-01-24] MEDS: MULTIVITAMIN TAB PO SCH (08:26)
[2017-01-24] MEDS: CEROVITE ADV FORMULA TAB PO SCH (08:26)
[2017-01-24] MEDS: INSULIN ASPART 100 UNITS/ML 3 ML PEN SC SCH ×4 (08:30→21:35)
[2017-01-24 08:45] LABS: BUN/CREATININE RATIO 20.8 (10-20); CREATININE 1.8 mg/dl (0.60-1.20); MAGNESIUM 1.7 mg/dl (1.8-2.4); POTASSIUM 4.5 mmol/L (3.5-5.1)
[2017-01-24] MEDS: ASPIRIN 81 MG ECTAB PO SCH (08:48)
[2017-01-24 09:26] LABS: CALCIUM 7.8 mg/dl (8.5-10.1)
[2017-01-24] MEDS: SODIUM CHLORIDE 0.9% 1000ML 1,000 ML IV SCH (10:01)
[2017-01-24] MEDS: LORAZEPAM 1 MG TAB PO PRN (11:56)
[2017-01-24] MEDS ORDERED: GABAPENTIN 400MG Q24H DOSE PO SCH (14:00)
--- NOTE | 2017-01-24 15:32 | DIAGNOSTIC IMAGING REPORT ---
ABDOMEN 2 VIEWS CLINICAL HISTORY: bloating and constipation pain COMPARISON STUDY: No previous studies for comparison. FINDINGS: The soft tissues, psoas shadows, renal outlines and intestinal gas pattern appear normal. There is no evidence for bowel obstruction. There is no evidence for free intraperitoneal air. No abnormal abdominal calcifications are seen. IMPRESSION: Normal study. Electronically signed by: Brendon White M.D. 01/24/2017 3:31 PM Dictated Date/Time: 01/24/2017 3:30 PM
--- NOTE | 2017-01-24 16:01 | Progress Note ---
Medicine Progress Note Date & Time of Visit: Jan 24, 2017 at 15:20. Subjective Pt was seen and examined Lying in bed with no distress Pt looks much better today She is not confused and speaks Croatian today She feels bloating and last BM was one day ago she denies any chest pain, palpitation, dizziness and SOB Objective Last 8 Hrs Date Time Temp Pulse Resp B/P (MAP) Pulse Ox O2 Delivery O2 Flow Rate FiO2 01/24/17 11:18 81 18 84 Room Air 01/24/17 11:15 80 Room Air 01/24/17 09:30 92 Room Air 01/24/17 07:45 98 Nasal Cannula 3.0 Physical Exam: General- No acute distress Head- atraumatic Eyes- PERRL, EOMI ENT- oropharynx clear Neck- supple, no JVD Lungs- Mild wheezing Heart- regular rhythm Abdomen- normal bowel sounds, nontender Extremities- no calf tenderness, no tremors Neuro- alert, Oriented x3, PERRL, follow commands Skin- warm & dry Laboratory Results: Last 24 Hours Test 01/23/17 16:36 01/23/17 20:02 01/24/17 07:37 01/24/17 07:58 Bedside Glucose 172 mg/dl 218 mg/dl 153 mg/dl White Blood Count 9.56 K/uL Red Blood Count 2.62 M/uL Hemoglobin 8.7 g/dL Hematocrit 28.0 % Mean Corpuscular Volume 106.9 fL Mean Corpuscular Hemoglobin 33.2 pg Mean Corpuscular Hemoglobin Concent 31.1 g/dl RDW Standard Deviation 62.6 fL RDW Coefficient of Variation 16.1 % Platelet Count 202 K/uL Mean Platelet Volume 10.8 fL Sodium Level 142 mmol/L Potassium Level 4.5 mmol/L Chloride Level 113 mmol/L Carbon Dioxide Level 19 mmol/L Anion Gap 10.0 mmol/L Blood Urea Nitrogen 38 mg/dl Creatinine 1.80 mg/dl Est Creatinine Clear Calc Drug Dose 25.2 ml/min Estimated GFR () 31.1 Estimated GFR (Non- 26.9 BUN/Creatinine Ratio 20.8 Random Glucose 137 mg/dl Calcium Level 7.8 mg/dl Magnesium Level 1.7 mg/dl Test 01/24/17 11:28 Bedside Glucose 127 mg/dl Assessment & Plan UTI Urinalysis demonstrated pyuria and bacteriuria. Urine culture growth 3 types of bacteria Completed 5 days of ceftriaxone. Afebrile DEHYDRATION / ACUTE KIDNEY INJURY BUN 31, creatinine 1.6 on admission.. Serum creatinine today 1.8 Consider nephrology consult if creatine worsening xray showed pulmonary vascular congestion Monitor BMP S/P FALLS Mostly multifactorial. Alcohol use may be contributing factor. Continue PT/OT Fall precautions. LEFT HIP PAIN Left hip xray showed no evidence of left hip fracture Analgesics PRN. Stable HYPERTENSION Blood pressures controlled Continue monitor BP DM TYPE 2 Well-controlled at home. Hemoglobin A1c in clinic on 10/31/16 was 6.7. Continue Insulin coverage On Lantus subq HYPOTHYROIDISM TSH in clinic in on 12/14/16 was 40. Compliance with medical regimen was uncertain. TSH now still elevated at 11, but trending downward. Therefore, will continue same close of levothyroxine. VITAMIN D DEFICIENCY 25-OH vitamin D level 8.4. continue vit D supplementation ALCOHOL CONSUMPTION CT demonstrates fatty infiltration of liver without apparent cirrhosis or signs of portal hypertension. Completed gabapentin for alcohol withdrawal protocol No signs of DT On thiamine and folic acid Continue ativan prn Clinically improved significantly PULMONARY NODULE CT chest demonstrated 5 mm nodule right lower lobe, stable compared to CT performed 11/11/15. Patient is a smoker. Follow per guidelines. RENAL LESION 1.8 cm hyperdense lesion right kidney-complex cyst versus solid mass. Patient had ultrasound performed at [facility] 07/31/16 which demonstrated 3 cystic lesions, largest measuring [address] of abdomen and pelvis on 04/11/13 showed similar findings. Radiographic stability suggests benign lesion. VTE PROPHYLAXIS Moderate risk for VTE. SQ heparin. Ambulate. DISPOSITION. PT/OT evaluations. Consult Case Management for inpatient rehab Internal Medicine follow-up with Dr. Nava. Procedures: CT head CT cervical spine CT chest CT abdomen and pelvis IV fluids IV medications PT OT . Current Inpatient Medications: Current Inpatient Medications Medications (Trade) Dose Ordered Sig/Fay Route Start Time Stop Time Status Last Admin Dose Admin Heparin Sodium (Porcine) (Heparin Sq 5000 Unit/0.5ml) 5,000 unit Q8H SQ 01/19/17 22:00 02/18/17 21:59 01/24/17 13:46 5,000 UNIT Acetaminophen (Tylenol Tab) 650 mg Q4H PRN PO 01/19/17 20:15 02/18/17 20:14 01/20/17 19:50 650 MG Ondansetron HCl (Zofran Inj) 4 mg Q6H PRN IV 01/19/17 20:15 02/18/17 20:14 Insulin Glargine (Lantus Solostar Pen) 7 unit Q12 SC 01/19/17 21:00 02/18/17 20:59 Future Hold 01/19/17 22:42 7 UNIT Insulin Aspart (novoLOG ASPART) SLIDING SCALE If C... ACHS SC 01/19/17 21:00 02/18/17 20:59 01/24/17 13:46 3 UNITS Glucose (Glucose 40% Gel) 15-30 GRAMS 15 GRAMS... UD PRN PO 01/19/17 20:15 02/18/17 20:14 Glucose (Glucose Chew Tab) 4-8 Tablets 4 Tabl... UD PRN PO 01/19/17 20:15 02/18/17 20:14 Dextrose (Dextrose 50% 50ML Syringe) 25-50ML OF 50% DW IV FOR... UD PRN IV 01/19/17 20:15 02/18/17 20:14 Glucagon (Glucagon Inj) 1 mg UD PRN SQ 01/19/17 20:15 02/18/17 20:14 Ceftriaxone Sodium 1000 mg/ Dextrose 60 ml @ 100 mls/hr Q24H IV 01/20/17 17:00 01/24/17 16:59 01/23/17 17:52 100 MLS/HR Amlodipine Besylate (Norvasc Tab) 10 mg DAILY PO 01/20/17 08:00 02/19/17 08:59 Future Hold 01/20/17 07:49 10 MG Aspirin (Ecotrin Tab) 81 mg DAILY PO 01/20/17 08:00 02/19/17 08:59 01/24/17 08:48 81 MG Levothyroxine Sodium (Synthroid Tab) 150 mcg DAILYBB PO 01/20/17 06:30 02/19/17 06:59 01/24/17 06:12 150 MCG Multivitamins (Multivitamin Tab) 1 tab DAILY PO 01/20/17 08:00 02/19/17 08:59 01/24/17 08:26 1 TAB Rosuvastatin Calcium (Crestor Tab) 40 mg QPM PO 01/19/17 21:00 02/18/17 20:59 01/23/17 21:19 40 MG Telmisartan (Micardis Tab) 20 mg QPM PO 01/19/17 21:00 02/18/17 20:59 Future Hold 01/20/17 19:45 20 MG Thiamine HCl (Vitamin B-1 Tab) 100 mg DAILY PO 01/20/17 08:00 02/19/17 08:59 01/24/17 08:26 100 MG Nicotine (Nicoderm Cq 21MG Patch) 1 patch Q24H TD 01/19/17 21:00 02/18/17 20:59 01/23/17 21:19 1 PATCH Miscellaneous (Remove Nicoderm Patch) 1 ea PM N/A 01/20/17 20:00 02/19/17 20:59 01/23/17 20:00 1 EA Ergocalciferol (Vitamin D Cap) 50,000 interunit Q4D PO 01/19/17 22:00 02/18/17 21:59 01/23/17 21:19 50,000 INTERUNIT Folic Acid (Folvite Tab) 1 mg QAM PO 01/21/17 08:00 02/20/17 07:59 01/24/17 08:26 1 MG Multivitamins/ Minerals (Multivitamin W/ Minerals Tab) 1 tab QAM PO 01/21/17 08:00 02/20/17 07:59 01/24/17 08:26 1 TAB Lorazepam (Ativan Tab) PRN Dosing -Active Protocol UD PRN PO 01/22/17 02:00 02/20/17 01:59 01/24/17 11:56 1 MG Metoprolol Tartrate (Lopressor Tab) 25 mg Q8 PO 01/21/17 22:00 02/20/17 21:59 01/24/17 08:26 25 MG Albuterol/ Ipratropium (Duoneb) 3 ml QIDR INH 01/24/17 08:00 02/23/17 07:59 01/24/17 11:18 3 ML Acetaminophen/ Hydrocodone Bitart ([place] 5/325 Tab) 1 tab Q6 PRN PO 01/24/17 04:30 02/07/17 04:29 01/24/17 04:50 1 TAB
[2017-01-24] MEDS: NICOTINE 21 MG/24 HR TDSY TD SCH (21:43)
[2017-01-24] MEDS: ROSUVASTATIN CALCIUM 20 MG TAB PO SCH (21:45)
[2017-01-25] VITALS (11 sets, daily range): BP systolic 110–145; BP diastolic 57–75; PULSE 76–104; TEMP 36.7–37.2; O2SAT 91–96
[2017-01-25] MEDS: HYDROCODONE/ACETAMOPHEN 5/325MG TAB PO PRN (04:52)
[2017-01-25] MEDS: LEVOTHYROXINE 150 MCG TAB PO SCH (06:13)
[2017-01-25] MEDS: METOPROLOL TARTRATE 25 MG TAB PO SCH ×3 (06:13→21:21)
[2017-01-25] MEDS: HEPARIN SOD 5000 UNIT/0.5 ML CARP SQ SCH ×3 (06:17→21:31)
[2017-01-25] MEDS: ALBUT/IPRATROP 3MG/0.5MG NEB 3 ML VIAL INH SCH ×4 (06:59→18:58)
[2017-01-25 07:36] LABS: HEMATOCRIT 25.8 % (37-47); MEAN CELL VOLUME 106.6 fL (80-100); MEAN CORPUSCULAR HEMOGLOBIN 34.3 pg (25-34); MEAN CORPUSCULAR HGB CONC 32.2 g/dl (32-36); MEAN PLATELET VOLUME 11.3 fL (7.4-10.4); PLATELET COUNT 206 K/uL (130-400); RED BLOOD COUNT 2.42 M/uL (4.2-5.4); WHITE BLOOD COUNT 10.23 K/uL (4.8-10.8)
[2017-01-25] MEDS: THIAMINE HCL 100 MG TAB PO SCH (08:34)
[2017-01-25] MEDS: ASPIRIN 81 MG ECTAB PO SCH (08:34)
[2017-01-25] MEDS: CEROVITE ADV FORMULA TAB PO SCH (08:34)
[2017-01-25] MEDS: MULTIVITAMIN TAB PO SCH (08:35)
[2017-01-25 08:41] LABS: BUN/CREATININE RATIO 25.1 (10-20); CREATININE 1.8 mg/dl (0.60-1.20); POTASSIUM 4.9 mmol/L (3.5-5.1)
[2017-01-25 08:52] LABS: CALCIUM 8.1 mg/dl (8.5-10.1)
[2017-01-25] MEDS ORDERED: MAGNESIUM SULFATE 1GM / D5W 1 GM in PREMIXED IN D5W 100 ML IV ONE (09:00)
[2017-01-25] MEDS: INSULIN ASPART 100 UNITS/ML 3 ML PEN SC SCH ×4 (09:07→21:20)
--- NOTE | 2017-01-25 16:25 | Progress Note ---
Medicine Progress Note Date & Time of Visit: Jan 25, 2017 at 16:18. Subjective Pt was seen and examined Lying in bed with no respiratory distress Pt is confused and shaking today she said that she has not had a BM for about 2 days she said that she feels bloating Denies any chest pain, palpitation, dizziness and SOB Objective Last 8 Hrs Date Time Temp Pulse Resp B/P (MAP) Pulse Ox O2 Delivery O2 Flow Rate FiO2 01/25/17 16:00 92 Nasal Cannula 2.0 01/25/17 15:51 37.2 76 20 134/68 (90) 92 Nasal Cannula 2.0 01/25/17 15:14 85 16 93 Nasal Cannula 4.0 01/25/17 14:09 85 110/68 (82) 01/25/17 11:20 88 18 94 Nasal Cannula 2.0 Physical Exam: General- No acute distress Head- atraumatic Eyes- PERRL, EOMI ENT- oropharynx clear Neck- supple, no JVD Lungs- Mild wheezing Heart- regular rhythm Abdomen- normal bowel sounds, nontender Extremities- no calf tenderness, + mild tremors Neuro- alert, mildly confused, PERRL, follow commands Skin- warm & dry Laboratory Results: Last 24 Hours Test 01/24/17 16:36 01/24/17 19:42 01/25/17 07:06 01/25/17 08:07 Bedside Glucose 138 mg/dl 183 mg/dl 153 mg/dl White Blood Count 10.23 K/uL Red Blood Count 2.42 M/uL Hemoglobin 8.3 g/dL Hematocrit 25.8 % Mean Corpuscular Volume 106.6 fL Mean Corpuscular Hemoglobin 34.3 pg Mean Corpuscular Hemoglobin Concent 32.2 g/dl RDW Standard Deviation 63.2 fL RDW Coefficient of Variation 16.3 % Platelet Count 206 K/uL Mean Platelet Volume 11.3 fL Sodium Level 141 mmol/L Potassium Level 4.9 mmol/L Chloride Level 111 mmol/L Carbon Dioxide Level 21 mmol/L Anion Gap 9.0 mmol/L Blood Urea Nitrogen 45 mg/dl Creatinine 1.80 mg/dl Est Creatinine Clear Calc Drug Dose 25.2 ml/min Estimated GFR () 31.1 Estimated GFR (Non- 26.9 BUN/Creatinine Ratio 25.1 Random Glucose 130 mg/dl Calcium Level 8.1 mg/dl Test 01/25/17 11:37 Bedside Glucose 170 mg/dl Assessment & Plan UTI Urinalysis demonstrated pyuria and bacteriuria. Urine culture growth 3 types of bacteria Completed 5 days of ceftriaxone. Afebrile DEHYDRATION / ACUTE KIDNEY INJURY BUN 31, creatinine 1.6 on admission.. Serum creatinine today 1.8 Consider nephrology consult if creatine worsening xray yesterday showed pulmonary vascular congestion will hold on the IVF for now Monitor BMP S/P FALLS Mostly multifactorial. Alcohol use may be contributing factor. Continue PT/OT will go to rehab Fall precautions. LEFT HIP PAIN Left hip xray showed no evidence of left hip fracture Analgesics PRN. Stable ANEMIA Hbg 8.3 No active bleeding continue monitor CBC CONSTIPATION No BM in the last 2 days Abdominal xray negative will give senokot prn HYPERTENSION Blood pressures controlled Continue monitor BP Stable DM TYPE 2 Well-controlled at home. Hemoglobin A1c in clinic on 10/31/16 was 6.7. Continue Insulin coverage On Lantus subq HYPOTHYROIDISM TSH in clinic in on 12/14/16 was 40. Compliance with medical regimen was uncertain. TSH now still elevated at 11, but trending downward. Therefore, will continue same close of levothyroxine. VITAMIN D DEFICIENCY 25-OH vitamin D level 8.4. continue vit D supplementation ALCOHOL CONSUMPTION CT demonstrates fatty infiltration of liver without apparent cirrhosis or signs of portal hypertension. Completed gabapentin for alcohol withdrawal protocol No signs of DT On thiamine and folic acid Continue ativan prn Clinically improved significantly PULMONARY NODULE CT chest demonstrated 5 mm nodule right lower lobe, stable compared to CT performed 11/11/15. Patient is a smoker. Follow per guidelines. RENAL LESION 1.8 cm hyperdense lesion right kidney-complex cyst versus solid mass. Patient had ultrasound performed at [facility] 07/31/16 which demonstrated 3 cystic lesions, largest measuring [address] of abdomen and pelvis on 04/11/13 showed similar findings. Radiographic stability suggests benign lesion. VTE PROPHYLAXIS Moderate risk for VTE. SQ heparin. Ambulate. DISPOSITION. PT/OT evaluations. Discharge to Rehab once medically stable Internal Medicine follow-up with Dr. Nava. Procedures: CT head CT cervical spine CT chest CT abdomen and pelvis IV fluids IV medications PT OT . Current Inpatient Medications: Current Inpatient Medications Medications (Trade) Dose Ordered Sig/Fay Route Start Time Stop Time Status Last Admin Dose Admin Heparin Sodium (Porcine) (Heparin Sq 5000 Unit/0.5ml) 5,000 unit Q8H SQ 01/19/17 22:00 02/18/17 21:59 01/25/17 14:12 5,000 UNIT Acetaminophen (Tylenol Tab) 650 mg Q4H PRN PO 01/19/17 20:15 02/18/17 20:14 01/20/17 19:50 650 MG Ondansetron HCl (Zofran Inj) 4 mg Q6H PRN IV 01/19/17 20:15 02/18/17 20:14 Insulin Glargine (Lantus Solostar Pen) 7 unit Q12 SC 01/19/17 21:00 02/18/17 20:59 Future Hold 01/19/17 22:42 7 UNIT Insulin Aspart (novoLOG ASPART) SLIDING SCALE If C... ACHS SC 01/19/17 21:00 02/18/17 20:59 01/25/17 12:43 1 UNITS Glucose (Glucose 40% Gel) 15-30 GRAMS 15 GRAMS... UD PRN PO 01/19/17 20:15 02/18/17 20:14 Glucose (Glucose Chew Tab) 4-8 Tablets 4 Tabl... UD PRN PO 01/19/17 20:15 02/18/17 20:14 Dextrose (Dextrose 50% 50ML Syringe) 25-50ML OF 50% DW IV FOR... UD PRN IV 01/19/17 20:15 02/18/17 20:14 Glucagon (Glucagon Inj) 1 mg UD PRN SQ 01/19/17 20:15 02/18/17 20:14 Amlodipine Besylate (Norvasc Tab) 10 mg DAILY PO 01/20/17 08:00 02/19/17 08:59 Future Hold 01/20/17 07:49 10 MG Aspirin (Ecotrin Tab) 81 mg DAILY PO 01/20/17 08:00 02/19/17 08:59 01/25/17 08:34 81 MG Levothyroxine Sodium (Synthroid Tab) 150 mcg DAILYBB PO 01/20/17 06:30 02/19/17 06:59 01/25/17 06:13 150 MCG Multivitamins (Multivitamin Tab) 1 tab DAILY PO 01/20/17 08:00 02/19/17 08:59 01/25/17 08:35 1 TAB Rosuvastatin Calcium (Crestor Tab) 40 mg QPM PO 01/19/17 21:00 02/18/17 20:59 01/24/17 21:45 40 MG Telmisartan (Micardis Tab) 20 mg QPM PO 01/19/17 21:00 02/18/17 20:59 Future Hold 01/20/17 19:45 20 MG Thiamine HCl (Vitamin B-1 Tab) 100 mg DAILY PO 01/20/17 08:00 02/19/17 08:59 01/25/17 08:34 100 MG Nicotine (Nicoderm Cq 21MG Patch) 1 patch Q24H TD 01/19/17 21:00 02/18/17 20:59 01/24/17 21:43 1 PATCH Miscellaneous (Remove Nicoderm Patch) 1 ea PM N/A 01/20/17 20:00 02/19/17 20:59 01/24/17 20:00 1 EA Ergocalciferol (Vitamin D Cap) 50,000 interunit Q4D PO 01/19/17 22:00 02/18/17 21:59 01/23/17 21:19 50,000 INTERUNIT Folic Acid (Folvite Tab) 1 mg QAM PO 01/21/17 08:00 02/20/17 07:59 01/25/17 08:35 1 MG Multivitamins/ Minerals (Multivitamin W/ Minerals Tab) 1 tab QAM PO 01/21/17 08:00 02/20/17 07:59 01/25/17 08:34 1 TAB Lorazepam (Ativan Tab) PRN Dosing -Active Protocol UD PRN PO 01/22/17 02:00 02/20/17 01:59 01/24/17 11:56 1 MG Metoprolol Tartrate (Lopressor Tab) 25 mg Q8 PO 01/21/17 22:00 02/20/17 21:59 01/25/17 14:09 25 MG Albuterol/ Ipratropium (Duoneb) 3 ml QIDR INH 01/24/17 08:00 02/23/17 07:59 01/25/17 15:14 3 ML Acetaminophen/ Hydrocodone Bitart ([place] 5/325 Tab) 1 tab Q6 PRN PO 01/24/17 04:30 02/07/17 04:29 01/25/17 04:52 1 TAB
[2017-01-25] MEDS ORDERED: DOCUSATE SODIUM/SENNA 50/8.6MG TAB PO ONE (18:19)
[2017-01-25] MEDS: NICOTINE 21 MG/24 HR TDSY TD SCH (21:18)
[2017-01-25] MEDS: ROSUVASTATIN CALCIUM 20 MG TAB PO SCH (21:20)
[2017-01-25] MEDS: LORAZEPAM 1 MG TAB PO PRN (21:43)
[2017-01-26] VITALS (12 sets, daily range): BP systolic 107–149; BP diastolic 50–73; PULSE 68–96; TEMP 36.3–36.9; O2SAT 86–97
[2017-01-26] MEDS: LORAZEPAM 1 MG TAB PO PRN (03:06)
[2017-01-26] MEDS: ACETAMINOPHEN 325 MG TAB PO PRN (05:20)
[2017-01-26] MEDS: METOPROLOL TARTRATE 25 MG TAB PO SCH ×3 (05:25→22:51)
[2017-01-26] MEDS: HEPARIN SOD 5000 UNIT/0.5 ML CARP SQ SCH ×3 (05:31→22:56)
[2017-01-26] MEDS: LEVOTHYROXINE 150 MCG TAB PO SCH (06:32)
[2017-01-26 06:44] LABS: HEMATOCRIT 28.2 % (37-47); MEAN CELL VOLUME 102.9 fL (80-100); MEAN CORPUSCULAR HEMOGLOBIN 31.4 pg (25-34); MEAN CORPUSCULAR HGB CONC 30.5 g/dl (32-36); PLATELET COUNT 288 K/uL (130-400); RED BLOOD COUNT 2.74 M/uL (4.2-5.4); WHITE BLOOD COUNT 9.69 K/uL (4.8-10.8)
[2017-01-26] MEDS: ALBUT/IPRATROP 3MG/0.5MG NEB 3 ML VIAL INH SCH ×4 (07:04→19:00)
[2017-01-26 07:17] LABS: CALCIUM 8.8 mg/dl (8.5-10.1); CREATININE 1.8 mg/dl (0.60-1.20); POTASSIUM 4.7 mmol/L (3.5-5.1)
[2017-01-26] MEDS: CEROVITE ADV FORMULA TAB PO SCH (07:57)
[2017-01-26] MEDS: MULTIVITAMIN TAB PO SCH (07:57)
[2017-01-26] MEDS: THIAMINE HCL 100 MG TAB PO SCH (07:57)
[2017-01-26] MEDS: ASPIRIN 81 MG ECTAB PO SCH (07:57)
[2017-01-26] MEDS: DOCUSATE SODIUM/SENNA 50/8.6MG TAB PO SCH (07:58)
[2017-01-26] MEDS: INSULIN ASPART 100 UNITS/ML 3 ML PEN SC SCH ×4 (08:33→21:26)
[2017-01-26] MEDS ORDERED: SODIUM CHLORIDE 0.65% NA SOLN 45 ML (OCEAN) NAE PRN (11:15)
[2017-01-26] MEDS: HYDROCODONE/ACETAMOPHEN 5/325MG TAB PO PRN (14:56)
--- NOTE | 2017-01-26 18:51 | Progress Note ---
Medicine Progress Note Date & Time of Visit: Jan 26, 2017 at 18:41. Subjective Pt was seen and examined Lying in bed with no distress pt is mildly confused on/off she said that she feels weak Pt said that she had a BM this morning As per nurse her last BM was on 01/23 as per nurse denies any chest pain, palpitation, dizziness and SOB Objective Last 8 Hrs Date Time Temp Pulse Resp B/P (MAP) Pulse Ox O2 Delivery O2 Flow Rate FiO2 01/26/17 16:07 36.8 83 20 149/73 (98) 97 Nasal Cannula 2.0 01/26/17 16:00 Nasal Cannula 2.0 01/26/17 15:29 68 18 95 Nasal Cannula 2.0 01/26/17 13:33 83 113/63 (80) 01/26/17 11:19 68 16 95 Nasal Cannula 2.0 Physical Exam: General- No acute distress Head- atraumatic Eyes- PERRL, EOMI ENT- oropharynx clear Neck- supple, no JVD Lungs- Mild wheezing Heart- regular rhythm Abdomen- normal bowel sounds, nontender Extremities- no calf tenderness, no tremors Neuro- alert, Oriented x3, PERRL, follow commands Skin- warm & dry Laboratory Results: Last 24 Hours Test 01/25/17 20:48 01/26/17 06:12 01/26/17 07:38 01/26/17 11:10 Bedside Glucose 159 mg/dl 128 mg/dl 153 mg/dl White Blood Count 9.69 K/uL Red Blood Count 2.74 M/uL Hemoglobin 8.6 g/dL Hematocrit 28.2 % Mean Corpuscular Volume 102.9 fL Mean Corpuscular Hemoglobin 31.4 pg Mean Corpuscular Hemoglobin Concent 30.5 g/dl RDW Standard Deviation 59.5 fL RDW Coefficient of Variation 15.8 % Platelet Count 288 K/uL Mean Platelet Volume 11.0 fL Sodium Level 141 mmol/L Potassium Level 4.7 mmol/L Chloride Level 112 mmol/L Carbon Dioxide Level 21 mmol/L Anion Gap 8.0 mmol/L Blood Urea Nitrogen 38 mg/dl Creatinine 1.80 mg/dl Est Creatinine Clear Calc Drug Dose 25.2 ml/min Estimated GFR () 31.1 Estimated GFR (Non- 26.9 BUN/Creatinine Ratio 21.0 Random Glucose 126 mg/dl Calcium Level 8.8 mg/dl Test 01/26/17 16:14 Bedside Glucose 108 mg/dl Assessment & Plan Altered Mental Status Possible related to alcohol abuse CT head on admission was negative for any intracranial abnormality No neuro focal deficit no benzo seems make her confusion worst Will get repeat CT head done if symptoms worsening Haldol prn if agitated check ammonia level in am Continue monitor UTI Urinalysis demonstrated pyuria and bacteriuria. Urine culture growth 3 types of bacteria Completed 5 days of ceftriaxone. Afebrile DEHYDRATION / ACUTE KIDNEY INJURY BUN 31, creatinine 1.6 on admission.. Serum creatinine today 1.8 Consider nephrology consult if creatine worsening xray showed pulmonary vascular congestion will hold on the IVF for now Monitor BMP S/P FALLS Mostly multifactorial. Alcohol use may be contributing factor. Continue PT/OT will go to rehab Fall precautions. LEFT HIP PAIN Left hip xray showed no evidence of left hip fracture Analgesics PRN. Stable ANEMIA Hbg 8.6 No active bleeding continue monitor CBC CONSTIPATION No BM in the last 2 days Abdominal xray negative continue senokot prn HYPERTENSION Blood pressures controlled Continue monitor BP Stable DM TYPE 2 Well-controlled at home. Hemoglobin A1c in clinic on 10/31/16 was 6.7. Continue Insulin coverage On Lantus subq HYPOTHYROIDISM TSH in clinic in on 12/14/16 was 40. Compliance with medical regimen was uncertain. TSH now still elevated at 11, but trending downward. Therefore, will continue same close of levothyroxine. VITAMIN D DEFICIENCY 25-OH vitamin D level 8.4. continue vit D supplementation ALCOHOL CONSUMPTION CT demonstrates fatty infiltration of liver without apparent cirrhosis or signs of portal hypertension. Completed gabapentin for alcohol withdrawal protocol No signs of DT On thiamine and folic acid Continue ativan prn Clinically improved significantly PULMONARY NODULE CT chest demonstrated 5 mm nodule right lower lobe, stable compared to CT performed 11/11/15. Patient is a smoker. Follow per guidelines. RENAL LESION 1.8 cm hyperdense lesion right kidney-complex cyst versus solid mass. Patient had ultrasound performed at [facility] 07/31/16 which demonstrated 3 cystic lesions, largest measuring [address] of abdomen and pelvis on 04/11/13 showed similar findings. Radiographic stability suggests benign lesion. VTE PROPHYLAXIS Moderate risk for VTE. SQ heparin. Ambulate. DISPOSITION. PT/OT evaluations. Discharge to Rehab once medically stable Internal Medicine follow-up with Dr. Nava. Procedures: CT head CT cervical spine CT chest CT abdomen and pelvis IV fluids IV medications PT OT . Current Inpatient Medications: Current Inpatient Medications Medications (Trade) Dose Ordered Sig/Fay Route Start Time Stop Time Status Last Admin Dose Admin Heparin Sodium (Porcine) (Heparin Sq 5000 Unit/0.5ml) 5,000 unit Q8H SQ 01/19/17 22:00 02/18/17 21:59 01/26/17 13:37 5,000 UNIT Acetaminophen (Tylenol Tab) 650 mg Q4H PRN PO 01/19/17 20:15 02/18/17 20:14 01/26/17 05:20 650 MG Ondansetron HCl (Zofran Inj) 4 mg Q6H PRN IV 01/19/17 20:15 02/18/17 20:14 Insulin Glargine (Lantus Solostar Pen) 7 unit Q12 SC 01/19/17 21:00 02/18/17 20:59 Future Hold 01/19/17 22:42 7 UNIT Insulin Aspart (novoLOG ASPART) SLIDING SCALE If C... ACHS SC 01/19/17 21:00 02/18/17 20:59 01/26/17 13:21 3 UNITS Glucose (Glucose 40% Gel) 15-30 GRAMS 15 GRAMS... UD PRN PO 01/19/17 20:15 02/18/17 20:14 Glucose (Glucose Chew Tab) 4-8 Tablets 4 Tabl... UD PRN PO 01/19/17 20:15 02/18/17 20:14 Dextrose (Dextrose 50% 50ML Syringe) 25-50ML OF 50% DW IV FOR... UD PRN IV 01/19/17 20:15 02/18/17 20:14 Glucagon (Glucagon Inj) 1 mg UD PRN SQ 01/19/17 20:15 02/18/17 20:14 Amlodipine Besylate (Norvasc Tab) 10 mg DAILY PO 01/20/17 08:00 02/19/17 08:59 Future Hold 01/20/17 07:49 10 MG Aspirin (Ecotrin Tab) 81 mg DAILY PO 01/20/17 08:00 02/19/17 08:59 01/26/17 07:57 81 MG Levothyroxine Sodium (Synthroid Tab) 150 mcg DAILYBB PO 01/20/17 06:30 02/19/17 06:59 01/26/17 06:32 150 MCG Multivitamins (Multivitamin Tab) 1 tab DAILY PO 01/20/17 08:00 02/19/17 08:59 01/26/17 07:57 1 TAB Rosuvastatin Calcium (Crestor Tab) 40 mg QPM PO 01/19/17 21:00 02/18/17 20:59 01/25/17 21:20 40 MG Telmisartan (Micardis Tab) 20 mg QPM PO 01/19/17 21:00 02/18/17 20:59 Future Hold 01/20/17 19:45 20 MG Thiamine HCl (Vitamin B-1 Tab) 100 mg DAILY PO 01/20/17 08:00 02/19/17 08:59 01/26/17 07:57 100 MG Nicotine (Nicoderm Cq 21MG Patch) 1 patch Q24H TD 01/19/17 21:00 02/18/17 20:59 01/25/17 21:18 1 PATCH Miscellaneous (Remove Nicoderm Patch) 1 ea PM N/A 01/20/17 20:00 02/19/17 20:59 01/25/17 21:17 1 EA Ergocalciferol (Vitamin D Cap) 50,000 interunit Q4D PO 01/19/17 22:00 02/18/17 21:59 01/23/17 21:19 50,000 INTERUNIT Folic Acid (Folvite Tab) 1 mg QAM PO 01/21/17 08:00 02/20/17 07:59 01/26/17 07:57 1 MG Multivitamins/ Minerals (Multivitamin W/ Minerals Tab) 1 tab QAM PO 01/21/17 08:00 02/20/17 07:59 01/26/17 07:57 1 TAB Lorazepam (Ativan Tab) PRN Dosing -Active Protocol UD PRN PO 01/22/17 02:00 02/20/17 01:59 01/26/17 03:06 1 MG Metoprolol Tartrate (Lopressor Tab) 25 mg Q8 PO 01/21/17 22:00 02/20/17 21:59 01/26/17 05:25 25 MG Albuterol/ Ipratropium (Duoneb) 3 ml QIDR INH 01/24/17 08:00 02/23/17 07:59 01/26/17 15:29 3 ML Acetaminophen/ Hydrocodone Bitart ([place] 5/325 Tab) 1 tab Q6 PRN PO 01/24/17 04:30 02/07/17 04:29 01/26/17 14:56 1 TAB Senna/Docusate Sodium (Senokot S Tab) 1 tab QAM PO 01/26/17 08:00 02/25/17 07:59 01/26/17 07:58 1 TAB Sodium Chloride ([place] Nasal [place]) 1 sprays DAILY PRN YORDY 01/26/17 11:15 02/25/17 11:14
[2017-01-26] MEDS ORDERED: HALOPERIDOL 1 MG TAB PO PRN ×2 (19:00→19:15)
[2017-01-26] MEDS: NICOTINE 21 MG/24 HR TDSY TD SCH (22:48)
[2017-01-26] MEDS: ROSUVASTATIN CALCIUM 20 MG TAB PO SCH (22:51)
[2017-01-27] VITALS (10 sets, daily range): BP systolic 99–123; BP diastolic 50–77; PULSE 71–105; TEMP 36.4–37.2; O2SAT 91–98
[2017-01-27] MEDS: METOPROLOL TARTRATE 25 MG TAB PO SCH ×3 (05:57→21:36)
[2017-01-27] MEDS: HEPARIN SOD 5000 UNIT/0.5 ML CARP SQ SCH ×3 (05:58→21:41)
[2017-01-27] MEDS: LEVOTHYROXINE 150 MCG TAB PO SCH (05:58)
[2017-01-27] MEDS: ALBUT/IPRATROP 3MG/0.5MG NEB 3 ML VIAL INH SCH ×4 (07:08→19:28)
[2017-01-27 07:11] LABS: HEMATOCRIT 27.8 % (37-47); MEAN CELL VOLUME 102.2 fL (80-100); MEAN CORPUSCULAR HEMOGLOBIN 32.4 pg (25-34); MEAN CORPUSCULAR HGB CONC 31.7 g/dl (32-36); PLATELET COUNT 326 K/uL (130-400); RED BLOOD COUNT 2.72 M/uL (4.2-5.4); WHITE BLOOD COUNT 10.95 K/uL (4.8-10.8)
[2017-01-27 07:49] LABS: BUN/CREATININE RATIO 18.3 (10-20); CALCIUM 9.1 mg/dl (8.5-10.1); POTASSIUM 4.8 mmol/L (3.5-5.1)
[2017-01-27 07:52] LABS: ALB/GLOB RATIO 0.5 (0.9-2)
[2017-01-27] MEDS: DOCUSATE SODIUM/SENNA 50/8.6MG TAB PO SCH (08:00)
[2017-01-27] MEDS: THIAMINE HCL 100 MG TAB PO SCH (08:00)
[2017-01-27] MEDS: ASPIRIN 81 MG ECTAB PO SCH (08:00)
[2017-01-27] MEDS: CEROVITE ADV FORMULA TAB PO SCH (08:00)
[2017-01-27] MEDS: MULTIVITAMIN TAB PO SCH (08:01)
[2017-01-27] MEDS: INSULIN ASPART 100 UNITS/ML 3 ML PEN SC SCH ×4 (09:16→20:44)
[2017-01-27] MEDS: HYDROCODONE/ACETAMOPHEN 5/325MG TAB PO PRN (09:48)
--- NOTE | 2017-01-27 17:37 | Progress Note ---
Medicine Progress Note Date & Time of Visit: Jan 27, 2017 at 17:29. Subjective Pt was seen and examined Lying in bed with no distress continue to be confused pt has been sleeping mostly denies any chest pain, palpitation, dizziness and palpitation and SOB Objective Last 8 Hrs Date Time Temp Pulse Resp B/P (MAP) Pulse Ox O2 Delivery O2 Flow Rate FiO2 01/27/17 16:48 Nasal Cannula 2.0 01/27/17 15:46 36.4 94 18 111/77 (88) 95 Nasal Cannula 2.0 01/27/17 15:06 96 18 96 Nasal Cannula 2.0 01/27/17 11:15 71 18 97 Nasal Cannula 2.0 Physical Exam: General- No acute distress Head- atraumatic Eyes- PERRL, EOMI ENT- oropharynx clear Neck- supple, no JVD Lungs- Mild wheezing Heart- regular rhythm Abdomen- normal bowel sounds, nontender Extremities- no calf tenderness, no tremors Neuro- alert, Oriented x3, PERRL, follow commands Skin- warm & dry Laboratory Results: Last 24 Hours Test 01/26/17 20:25 01/27/17 06:45 01/27/17 07:51 01/27/17 11:22 Bedside Glucose 157 mg/dl 136 mg/dl 166 mg/dl White Blood Count 10.95 K/uL Red Blood Count 2.72 M/uL Hemoglobin 8.8 g/dL Hematocrit 27.8 % Mean Corpuscular Volume 102.2 fL Mean Corpuscular Hemoglobin 32.4 pg Mean Corpuscular Hemoglobin Concent 31.7 g/dl RDW Standard Deviation 58.5 fL RDW Coefficient of Variation 15.7 % Platelet Count 326 K/uL Mean Platelet Volume 11.0 fL Nucleated RBC Absolute Count (auto) 0.04 K/uL Nucleated Red Blood Cells % 0.4 % Sodium Level 143 mmol/L Potassium Level 4.8 mmol/L Chloride Level 112 mmol/L Carbon Dioxide Level 21 mmol/L Anion Gap 10.0 mmol/L Blood Urea Nitrogen 37 mg/dl Creatinine 2.00 mg/dl Est Creatinine Clear Calc Drug Dose 22.7 ml/min Estimated GFR () 27.4 Estimated GFR (Non- 23.7 BUN/Creatinine Ratio 18.3 Random Glucose 130 mg/dl Calcium Level 9.1 mg/dl Total Bilirubin 0.4 mg/dl Aspartate Amino Transf (AST/SGOT) 158 U/L Alanine Aminotransferase (ALT/SGPT) 84 U/L Alkaline Phosphatase 486 U/L Ammonia 30.0 umol/L Total Protein 6.2 gm/dl Albumin 2.0 gm/dl Globulin 4.2 gm/dl Albumin/Globulin Ratio 0.5 Test 01/27/17 16:29 Bedside Glucose 157 mg/dl Assessment & Plan Altered Mental Status Possible related to alcohol abuse vs Metabolic encephalopathy vs [place] CT head on admission was negative for any intracranial abnormality No neuro focal deficit no benzo seems make her confusion worst Will get repeat CT head done if symptoms worsening Haldol prn if agitated ammonia level normal put on 1 to 1 observation Will consult neurology Continue monitor UTI Urinalysis demonstrated pyuria and bacteriuria. Urine culture growth 3 types of bacteria Completed 5 days of ceftriaxone. Afebrile DEHYDRATION / ACUTE KIDNEY INJURY BUN 31, creatinine 1.6 on admission.. Serum creatinine today 2 neurology consult xray 01/22/17 showed pulmonary vascular congestion No sign of overload consider to give very gently IVF about 500ml will get an u/s of the kidney in am if creatine worsening Monitor BMP S/P FALLS Mostly multifactorial. Alcohol use may be contributing factor. Continue PT/OT will go to rehab Fall precautions. LEFT HIP PAIN Left hip xray showed no evidence of left hip fracture Analgesics PRN. Stable ANEMIA Hbg 8.8 No active bleeding continue monitor CBC CONSTIPATION Abdominal xray negative had a small BM yesterday continue senokot prn HYPERTENSION Blood pressures controlled Continue monitor BP Stable DM TYPE 2 Well-controlled at home. Hemoglobin A1c in clinic on 10/31/16 was 6.7. Continue Insulin coverage On Lantus subq ELEVATED LIVER ENZYMES Mostly related to alcohol abuse liver enzymes trending down CT abd/pelvis showed marked fatty infiltration of liver continue monitor liver enzymes ammonia lever is normal HYPOTHYROIDISM TSH in clinic in on 12/14/16 was 40. Compliance with medical regimen was uncertain. TSH now still elevated at 11, but trending downward. Therefore, will continue same close of levothyroxine. VITAMIN D DEFICIENCY 25-OH vitamin D level 8.4. continue vit D supplementation ALCOHOL CONSUMPTION CT demonstrates fatty infiltration of liver without apparent cirrhosis or signs of portal hypertension. Completed gabapentin for alcohol withdrawal protocol No signs of DT On thiamine and folic acid 1 to [address] chest demonstrated 5 mm nodule right lower lobe, stable compared to CT performed 11/11/15. Patient is a smoker. Follow per guidelines. RENAL LESION 1.8 cm hyperdense lesion right kidney-complex cyst versus solid mass. Patient had ultrasound performed at [facility] 07/31/16 which demonstrated 3 cystic lesions, largest measuring [address] of abdomen and pelvis on 04/11/13 showed similar findings. Radiographic stability suggests benign lesion. VTE PROPHYLAXIS Moderate risk for VTE. SQ heparin. Ambulate. DISPOSITION. PT/OT evaluations. Discharge to Rehab once medically stable Internal Medicine follow-up with Dr. Nava. Procedures: CT head CT cervical spine CT chest CT abdomen and pelvis IV fluids IV medications PT OT . Current Inpatient Medications: Current Inpatient Medications Medications (Trade) Dose Ordered Sig/Fay Route Start Time Stop Time Status Last Admin Dose Admin Heparin Sodium (Porcine) (Heparin Sq 5000 Unit/0.5ml) 5,000 unit Q8H SQ 01/19/17 22:00 02/18/17 21:59 01/27/17 13:13 5,000 UNIT Acetaminophen (Tylenol Tab) 650 mg Q4H PRN PO 01/19/17 20:15 02/18/17 20:14 01/26/17 05:20 650 MG Ondansetron HCl (Zofran Inj) 4 mg Q6H PRN IV 01/19/17 20:15 02/18/17 20:14 Insulin Glargine (Lantus Solostar Pen) 7 unit Q12 SC 01/19/17 21:00 02/18/17 20:59 Future Hold 01/19/17 22:42 7 UNIT Insulin Aspart (novoLOG ASPART) SLIDING SCALE If C... ACHS SC 01/19/17 21:00 02/18/17 20:59 01/27/17 13:12 2 UNITS Glucose (Glucose 40% Gel) 15-30 GRAMS 15 GRAMS... UD PRN PO 01/19/17 20:15 02/18/17 20:14 Glucose (Glucose Chew Tab) 4-8 Tablets 4 Tabl... UD PRN PO 01/19/17 20:15 02/18/17 20:14 Dextrose (Dextrose 50% 50ML Syringe) 25-50ML OF 50% DW IV FOR... UD PRN IV 01/19/17 20:15 02/18/17 20:14 Glucagon (Glucagon Inj) 1 mg UD PRN SQ 01/19/17 20:15 02/18/17 20:14 Amlodipine Besylate (Norvasc Tab) 10 mg DAILY PO 01/20/17 08:00 02/19/17 08:59 Future Hold 01/20/17 07:49 10 MG Aspirin (Ecotrin Tab) 81 mg DAILY PO 01/20/17 08:00 02/19/17 08:59 01/27/17 08:00 81 MG Levothyroxine Sodium (Synthroid Tab) 150 mcg DAILYBB PO 01/20/17 06:30 02/19/17 06:59 01/27/17 05:58 150 MCG Multivitamins (Multivitamin Tab) 1 tab DAILY PO 01/20/17 08:00 02/19/17 08:59 01/27/17 08:01 1 TAB Rosuvastatin Calcium (Crestor Tab) 40 mg QPM PO 01/19/17 21:00 02/18/17 20:59 01/26/17 22:51 40 MG Telmisartan (Micardis Tab) 20 mg QPM PO 01/19/17 21:00 02/18/17 20:59 Future Hold 01/20/17 19:45 20 MG Thiamine HCl (Vitamin B-1 Tab) 100 mg DAILY PO 01/20/17 08:00 02/19/17 08:59 01/27/17 08:00 100 MG Nicotine (Nicoderm Cq 21MG Patch) 1 patch Q24H TD 01/19/17 21:00 02/18/17 20:59 01/26/17 22:48 1 PATCH Miscellaneous (Remove Nicoderm Patch) 1 ea PM N/A 01/20/17 20:00 02/19/17 20:59 01/26/17 22:48 1 EA Ergocalciferol (Vitamin D Cap) 50,000 interunit Q4D PO 01/19/17 22:00 02/18/17 21:59 01/23/17 21:19 50,000 INTERUNIT Folic Acid (Folvite Tab) 1 mg QAM PO 01/21/17 08:00 02/20/17 07:59 01/27/17 08:00 1 MG Multivitamins/ Minerals (Multivitamin W/ Minerals Tab) 1 tab QAM PO 01/21/17 08:00 02/20/17 07:59 01/27/17 08:00 1 TAB Lorazepam (Ativan Tab) PRN Dosing -Active Protocol UD PRN PO 01/22/17 02:00 02/20/17 01:59 01/26/17 03:06 1 MG Metoprolol Tartrate (Lopressor Tab) 25 mg Q8 PO 01/21/17 22:00 02/20/17 21:59 01/27/17 05:57 25 MG Albuterol/ Ipratropium (Duoneb) 3 ml QIDR INH 01/24/17 08:00 02/23/17 07:59 01/27/17 15:05 3 ML Acetaminophen/ Hydrocodone Bitart ([place] 5/325 Tab) 1 tab Q6 PRN PO 01/24/17 04:30 02/07/17 04:29 01/27/17 09:48 1 TAB Senna/Docusate Sodium (Senokot S Tab) 1 tab QAM PO 01/26/17 08:00 02/25/17 07:59 01/27/17 08:00 1 TAB Sodium Chloride ([place] Nasal [place]) 1 sprays DAILY PRN YORDY 01/26/17 11:15 02/25/17 11:14 Haloperidol (Haldol Tab) 2 mg Q4 PRN PO 01/26/17 19:15 02/25/17 19:14
[2017-01-27] MEDS: ROSUVASTATIN CALCIUM 20 MG TAB PO SCH (21:32)
[2017-01-27] MEDS: NICOTINE 21 MG/24 HR TDSY TD SCH (21:32)
[2017-01-27] MEDS: ERGOCALCIFEROL 50,000 INTER.UNIT CAP PO SCH (21:33)
[2017-01-28] VITALS (10 sets, daily range): BP systolic 112–156; BP diastolic 70–81; PULSE 76–98; TEMP 36.7–37.4; O2SAT 88–95
[2017-01-28] MEDS: LEVOTHYROXINE 150 MCG TAB PO SCH (05:37)
[2017-01-28] MEDS: METOPROLOL TARTRATE 25 MG TAB PO SCH ×3 (05:37→21:24)
[2017-01-28] MEDS: HEPARIN SOD 5000 UNIT/0.5 ML CARP SQ SCH ×3 (05:40→21:31)
[2017-01-28] MEDS: ALBUT/IPRATROP 3MG/0.5MG NEB 3 ML VIAL INH SCH ×4 (06:47→19:31)
[2017-01-28 06:57] LABS: HEMATOCRIT 27.8 % (37-47); MEAN CORPUSCULAR HEMOGLOBIN 33.3 pg (25-34); MEAN CORPUSCULAR HGB CONC 32.4 g/dl (32-36); MEAN PLATELET VOLUME 11.1 fL (7.4-10.4); PLATELET COUNT 421 K/uL (130-400); WHITE BLOOD COUNT 11.31 K/uL (4.8-10.8)
[2017-01-28 07:33] LABS: BUN/CREATININE RATIO 14.5 (10-20); CREATININE 3.1 mg/dl (0.60-1.20); POTASSIUM 4.8 mmol/L (3.5-5.1)
[2017-01-28 07:36] LABS: ALB/GLOB RATIO 0.5 (0.9-2)
[2017-01-28] MEDS ORDERED: SODIUM CHLORIDE 0.9% 500ML 500 ML IV SCH (08:15)
[2017-01-28] MEDS: INSULIN ASPART 100 UNITS/ML 3 ML PEN SC SCH ×4 (09:06→21:00)
[2017-01-28] MEDS: ASPIRIN 81 MG ECTAB PO SCH (09:14)
[2017-01-28] MEDS: CEROVITE ADV FORMULA TAB PO SCH (09:15)
[2017-01-28] MEDS: MULTIVITAMIN TAB PO SCH (09:15)
[2017-01-28] MEDS: DOCUSATE SODIUM/SENNA 50/8.6MG TAB PO SCH (09:16)
[2017-01-28] MEDS: THIAMINE HCL 100 MG TAB PO SCH (09:16)
--- NOTE | 2017-01-28 10:04 | DIAGNOSTIC IMAGING REPORT ---
EXAMINATION: RENAL ULTRASOUND CLINICAL HISTORY: acute kidney injury COMPARISON STUDY: FINDINGS: The right kidney measures 10.4 cm. The left kidney measures 9.8 cm. There is no evidence of hydronephrosis. There are 2 hypoechoic lesions within the midpole the right kidney. These measure 15 mm and 13 mm respectively. These likely represent cysts although a few internal echoes are evident. Several left renal cysts are visualized, the largest of which measures 32 mm. Neither ureteral jet was visualized. No bladder lesions are evident. IMPRESSION : 1. No evidence of hydronephrosis 2. Symmetric renal size and cortical thickness 3. Bilateral hypoechoic renal lesions, likely representing cysts Electronically signed by: James Guevara M.D. 01/28/2017 10:03 AM Dictated Date/Time: 01/28/2017 10:00 AM
[2017-01-28] MEDS: SODIUM CHLORIDE 0.9% 500ML 500 ML IV SCH ×2 (10:39→17:17)
--- NOTE | 2017-01-28 11:19 | GASTROINTESTINAL CONSULTATION ---
DATE OF CONSULTATION: 01/28/2017 REQUESTING PHYSICIAN: Dr. Kidd. CHIEF COMPLAINT: None. HISTORY OF PRESENT ILLNESS: The patient is a 76-year-old female, who was admitted to the hospital approximately 1 week ago for evaluation after a fall and confusion. During the hospital stay, she has been found to have persistently elevated liver associated enzymes without a specific etiology. The patient is somewhat of a poor historian today and unable to describe much in the way of her history or symptoms. The patient does note having some right-sided abdominal discomfort, which waxes and wanes throughout the day. She is unable to tell me if the pain occurs after meals. She is unable to tell me if she has had any evaluation as an outpatient in the past by her primary care provider. I obtained most of the history by review of inpatient medical records that were available today. PAST MEDICAL HISTORY: 1. Alcohol abuse. 2. Diabetes. 3. Gout. 4. Hearing loss. 5. Hypertension. 6. Peripheral vascular disease. SOCIAL HISTORY: The patient is a smoker. The patient is reported to be a heavy drinker of alcohol. ALLERGIES: 1. NIFEDIPINE. 2. PENICILLIN. 3. SULFAMETHOXAZOLE. 4. TY INHIBITORS. 5. ATORVASTATIN. 6. FLU VIRUS. 7. MAGNESIUM SALICYLATE. OUTPATIENT MEDICATIONS: 1. Amlodipine 10 mg daily. 2. Aspirin 81 mg daily. 3. Insulin Glargine 23 units at bedtime. 4. Levothyroxine 1 tablet daily. 5. Metoprolol 50 mg three times daily. 6. Multivitamin. 7. Crestor 40 mg at bedtime. 8. Micardis 20 mg at bedtime. 9. Thiamine 100 mg daily. PAST SURGICAL HISTORY: The patient denies any abdominal surgeries. REVIEW OF SYSTEMS: CONSTITUTIONAL: The patient denies fevers or chills. CARDIAC: The patient without chest pain. PULMONARY: The patient with some shortness of breath at baseline. PSYCHIATRIC: The patient does appear to be somewhat confused. GASTROINTESTINAL: The patient with right-sided abdominal pain. GENITOURINARY: No dysuria. The patient is being treated for UTI. NEUROLOGIC: No headache today. ENT: No difficulty swallowing. DERMATOLOGY: No rashes. No itching noted by the patient. MUSCULOSKELETAL: No new joint or muscle pains noted by the patient. PHYSICAL EXAMINATION: VITAL SIGNS: Temperature is 36.7, pulse is 85, respiratory rate 20, blood pressure is 156/81. HEENT: No scleral icterus noted. No JVD noted. CARDIAC: Regular rhythm, no murmur. PULMONARY: The patient with diffuse crackles in her lung bases bilaterally. ABDOMEN: Obese, soft. No caput medusae. No fluid wave appreciated. The patient with right-sided abdominal tenderness. EXTREMITIES: No edema today. DERMATOLOGIC: No spider nevi noted. NEUROLOGIC: No asterixis noted. LABORATORY DATA: Sodium 142, potassium is 4.8, BUN 45, creatinine is 3.1, AST 144, ALT 80, alkaline phosphatase 531. CPK is 49, albumin is 2.1. TSH 11.4 on admission. Creatinine on admission 1.6. White blood cell count of 11.3, hemoglobin 9.0, hematocrit is 27.8, platelet count is 421. PT 10.8, INR 1.0. IMPRESSION: A 76-year-old female with a long history of alcohol abuse, presented with a fall and confusion. Gastroenterology is consulted for persistent elevation of her serum associated liver enzymes. Of Note, she does appear to have fatty infiltration of the liver on her prior CT scan. Given the abdominal discomfort, I would suggest that we proceed with a right upper quadrant ultrasound to look for obvious gallstones within the gallbladder or bile duct. I am also somewhat concerned as the patient appears to have worsening renal failure. I would suggest that a nephrology consult be called. If there is no evidence of gallstones on the imaging study, we could pursue further diagnostics to look for serologic causes of liver disease such as, autoimmune liver disease or viral causes. Another possibility would be medication reaction. The patient is on numerous medications to include Haldol, which could be a potential culprit. Please call with any questions or concerns.
--- NOTE | 2017-01-28 12:45 | CONSULTATION REPORT ---
DATE OF CONSULTATION: 01/28/2017 HISTORY OF PRESENT ILLNESS: Bárbara is 76 years old, is a patient of Dr. Nava and has been here in the hospital now since the 2nd after presenting with worsening weakness and a mechanical fall. Apparently, she has had multiple falls over the day that precipitated the admission. This occurs in the setting of some generalized weakness that has been getting progressively worse, some nonspecific pain in her left leg which she describes as burning and urgency of urination with some foul-smelling urine. She also has had a prolonged grief reaction of the loss of her granddaughter and had to travel back and forth to the [place], has had diarrhea and incontinence of urine and may have had a low grade fever, although this is not well documented. She was brought to the Emergency Room, evaluated and has been here ever since. Unfortunately, there is also a background history of excessive use of alcohol in the form scotch. The magnitude of is not well known, but after admission, she became more and more disoriented and little agitated and these diagnoses of alcohol withdrawal was considered on top of a toxic metabolic encephalopathy, possibly related to an underlying urinary tract infection. She also had an elevated TSH in the clinic several weeks before and is not clear whether if she was taking her increased Synthroid as directed or not. When seen in the ER by Dr. Georgia Thompson she reported no particular headaches, visual changes, congestion, cough, chest pain, shortness of breath, abdominal pain or indeed any issues other than the pain in the left leg below the knee. PAST MEDICAL HISTORY: Positive for chronic alcohol dependency, type 2 diabetes, gout, hearing loss, hypertension, peripheral vascular disease. SOCIAL HISTORY: Reveals her to be a smoker in addition to a chronic consumer of ethanol. FAMILY HISTORY: Apparently not revealing of anything significant in terms cardiovascular, pulmonary, or neurologic disorders, etc. IMMUNIZATIONS: The patient has immunizations, which by chart are up to data. There is no history of multiple drug resistant organisms. ALLERGIES: SHE HAS ALLERGIES TO NIFEDIPINE, PENICILLINS, TRIMETHOPRIM SULFA, TY INHIBITORS, ATORVASTATIN, FLU VIRUS VACCINE, AND MAGNESIUM. HOME MEDICATIONS: Include amlodipine, aspirin, insulin, levothyroxine, metoprolol, multivitamins, simvastatin, and thiamine 100 mg daily. As-needed medications include lorazepam for anxiety. REVIEW OF SYSTEMS: Obtained on admission is as listed above, i.e., was pretty much negative with the exception of the leg pain, the increasing lethargy, the diarrhea, the urinary frequency and a foul-smelling urine and the falls. There was otherwise no specific complaints of her head, eyes, ears, nose and throat; cardiovascular, pulmonary, gastrointestinal, genitourinary, musculoskeletal systems and neurologically, according to what I gleaned from the daughter today, the patient has had a mildly progressive gait disturbance for which she theoretically use a cane but does not do so, but her cognitive johnson have done fairly intact, although it is not clear how often she has been seen by the daughter over the years. OBJECTIVE: GENERAL: On admission, her general examination is as recorded. She was obese, disheveled, but did not appear to be in any acute distress and was alert and appropriate. VITAL SIGNS: Blood pressure was 180/81, pulse was 77, respirations are 18. HEENT examination, cardiac examination, pulmonary examination, abdominal examination, and examination of extremities was unremarkable with the exception of some ecchymoses over the skin and there was no evidence for a head injury per se. Since admission her neurologic status has fluctuated. She became increasingly confused, disoriented, agitated and has needed benzodiazepines and some Haldol, acting on the assumption that this is at least in part an alcohol withdrawal syndrome. She has been moved from the fourth floor down the second floor in hopes that this will brighten things up a bit and indeed according to her daughter things are gradually improving, but because of the delayed return of her neurologic function, specifically her cognitive function, neurology has now been called. At this point, her neurologic examination reveals her to be alert, cooperative but not clearly oriented. She knows she is in [facility]. She could not get the year stating that it was 1997. She knew the Khanh Negrete was the president. According to her daughter now, she is much better as she was only speaking in Irish several days ago and now switched back to Uzbek, which is her second language for. Her vocabulary seems to be fairly appropriate. She has normal eye movements. There is no evidence for nystagmus and abnormal ocular oscillations or any limitations. She has normal facial motility and strength. Normal facial sensation. Tongue protrudes in the midline. There is perhaps a minor tremor of the outstretched hands and no real cerebellar tremor on [id number] and point to point testing. Reflexes are hypoactive but present at the ankles. Toes are downgoing. Strength is normal and sensory examination if one were to believe her would indicate relatively intact vibration and light touch, but I suspect vibratory sense is down a bit. Proprioception seems to be normal. DATA: Basic laboratory studies are as outlined on the multiple progress notes. There is some increasing renal dysfunction. The blood cultures have shown no growth, urine culture showed 3 types of organisms present. MEDICATIONS: Included thiamine replacement, levothyroxine replacement and her glucose levels will be maintained with her insulin. She has not apparently received antibiotics that I can tell on the medication list. IMAGING DATA: A CT scan of the head is reported as "normal but upon my review does show atrophy, hydrocephalus ex vacuo and a significant degree of leukoencephalopathy that is easily seen by CAT scan. My suspicions are we did an MRI the whate matter changes would be fairly impressive. IMPRESSION AND PLAN: At this point, I think she has a multifactorial confusional state or delirium. Some of this could be residual hypothyroidism. She certainly has some alcohol withdrawal issues which now seemed to be clearing and it does not appear that the urinary tract infection was an issue. Whatever the case, I do not see any value in pursuing further neurodiagnostic testing. I think this encephalopathy will gradually clear. She does not have a normal brain substrate by a CT scan and in cases like this delirium is often protracted. 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 I will check back with her tomorrow, but for now, neurology does not have any further suggestions. Hopefully, she will be able to get to [facility], get some rehabilitation and some reorientation. Neurology could look at her again 4-6 weeks after her discharge from [facility], if indeed she is discharged, just to assess her mental status to see how she has done. ADONIS
[2017-01-28 13:31] LABS: HEMATOCRIT 26.8 % (37-47); MEAN CELL VOLUME 102.3 fL (80-100); MEAN CORPUSCULAR HEMOGLOBIN 33.2 pg (25-34); MEAN CORPUSCULAR HGB CONC 32.5 g/dl (32-36); MEAN PLATELET VOLUME 10.8 fL (7.4-10.4); PLATELET COUNT 432 K/uL (130-400); RED BLOOD COUNT 2.62 M/uL (4.2-5.4); WHITE BLOOD COUNT 10.77 K/uL (4.8-10.8)
[2017-01-28 13:50] LABS: BASO % 0.3 %; BASO ABS # 0.03 K/uL (0-0.2); COMPLETE YES; EOS % 0.5 %; IG% 0.9 %; LYMPH % 9.3 %; MONO % 12.6 %; NEUT % 76.4 %
[2017-01-28 13:58] LABS: BUN/CREATININE RATIO 13.1 (10-20); CALCIUM 8.8 mg/dl (8.5-10.1); CREATININE 3.4 mg/dl (0.60-1.20); POTASSIUM 4.9 mmol/L (3.5-5.1)
[2017-01-28 14:01] LABS: ALB/GLOB RATIO 0.4 (0.9-2)
--- NOTE | 2017-01-28 14:56 | Progress Note ---
Medicine Progress Note Date & Time of Visit: Jan 28, 2017 at 14:30. Subjective Pt was seen and examined Lying in bed very comfortable mildy confused, she knows she is in the hospital and ramakrishna is the president does not know the year Denies any chest pain, palpitation, dizziness and SOB Objective Last 8 Hrs Date Time Temp Pulse Resp B/P (MAP) Pulse Ox O2 Delivery O2 Flow Rate FiO2 01/28/17 12:30 95 Nasal Cannula 2.0 01/28/17 12:21 37.0 95 18 112/76 (88) 88 Room Air 01/28/17 11:17 85 18 90 Room Air 01/28/17 08:00 Room Air 01/28/17 06:59 36.7 85 20 156/81 (106) 92 Room Air 01/28/17 06:47 81 20 91 Room Air Physical Exam: General- No acute distress Head- atraumatic Eyes- PERRL, EOMI ENT- oropharynx clear Neck- supple, no JVD Lungs- Mild wheezing Heart- regular rhythm Abdomen- normal bowel sounds, mild tenderness with deep palpation Extremities- no calf tenderness, no tremors Neuro- alert, Oriented x3, PERRL, follow commands Skin- warm & dry Laboratory Results: Last 24 Hours Test 01/27/17 16:29 01/27/17 20:44 01/28/17 06:26 01/28/17 08:26 Bedside Glucose 157 mg/dl 141 mg/dl White Blood Count 11.31 K/uL Red Blood Count 2.70 M/uL Hemoglobin 9.0 g/dL Hematocrit 27.8 % Mean Corpuscular Volume 103.0 fL Mean Corpuscular Hemoglobin 33.3 pg Mean Corpuscular Hemoglobin Concent 32.4 g/dl RDW Standard Deviation 59.5 fL RDW Coefficient of Variation 16.0 % Platelet Count 421 K/uL Mean Platelet Volume 11.1 fL Nucleated RBC Absolute Count (auto) 0.02 K/uL Nucleated Red Blood Cells % 0.2 % Sodium Level 142 mmol/L Potassium Level 4.8 mmol/L Chloride Level 111 mmol/L Carbon Dioxide Level 21 mmol/L Anion Gap 10.0 mmol/L Blood Urea Nitrogen 45 mg/dl Creatinine 3.10 mg/dl Est Creatinine Clear Calc Drug Dose 14.6 ml/min Estimated GFR () 16.1 Estimated GFR (Non- 13.9 BUN/Creatinine Ratio 14.5 Random Glucose 134 mg/dl Calcium Level 9.0 mg/dl Total Bilirubin 0.5 mg/dl Aspartate Amino Transf (AST/SGOT) 144 U/L Alanine Aminotransferase (ALT/SGPT) 80 U/L Alkaline Phosphatase 531 U/L Total Protein 6.6 gm/dl Albumin 2.1 gm/dl Globulin 4.5 gm/dl Albumin/Globulin Ratio 0.5 Total Creatine Kinase 49 U/L Procalcitonin 1.60 ng/ml Test 01/28/17 11:13 01/28/17 11:33 01/28/17 13:11 Bedside Glucose 155 mg/dl Vitamin B12 Level > 2000 pg/mL Folate > 24.00 ng/mL Immunoglobulin G 969.0 mg/dL Hepatitis B Surface Antigen NEG Hepatitis C Antibody NEG White Blood Count 10.77 K/uL Red Blood Count 2.62 M/uL Hemoglobin 8.7 g/dL Hematocrit 26.8 % Mean Corpuscular Volume 102.3 fL Mean Corpuscular Hemoglobin 33.2 pg Mean Corpuscular Hemoglobin Concent 32.5 g/dl Platelet Count 432 K/uL Mean Platelet Volume 10.8 fL Neutrophils (%) (Auto) 76.4 % Lymphocytes (%) (Auto) 9.3 % Monocytes (%) (Auto) 12.6 % Eosinophils (%) (Auto) 0.5 % Basophils (%) (Auto) 0.3 % Neutrophils # (Auto) 8.23 K/uL Lymphocytes # (Auto) 1.00 K/uL Monocytes # (Auto) 1.36 K/uL Eosinophils # (Auto) 0.05 K/uL Basophils # (Auto) 0.03 K/uL RDW Standard Deviation 58.7 fL RDW Coefficient of Variation 15.9 % Immature Granulocyte % (Auto) 0.9 % Immature Granulocyte # (Auto) 0.10 K/uL Nucleated RBC Absolute Count (auto) 0.02 K/uL Nucleated Red Blood Cells % 0.2 % Red Blood Cell Morphology Unremarkable Sodium Level 142 mmol/L Potassium Level 4.9 mmol/L Chloride Level 110 mmol/L Carbon Dioxide Level 22 mmol/L Anion Gap 10.0 mmol/L Blood Urea Nitrogen 45 mg/dl Creatinine 3.40 mg/dl Est Creatinine Clear Calc Drug Dose 13.3 ml/min Estimated GFR () 14.4 Estimated GFR (Non- 12.5 BUN/Creatinine Ratio 13.1 Random Glucose 142 mg/dl Calcium Level 8.8 mg/dl Total Bilirubin 0.3 mg/dl Aspartate Amino Transf (AST/SGOT) 157 U/L Alanine Aminotransferase (ALT/SGPT) 81 U/L Alkaline Phosphatase 526 U/L Total Protein 6.5 gm/dl Albumin 2.0 gm/dl Globulin 4.5 gm/dl Albumin/Globulin Ratio 0.4 Assessment & Plan Altered Mental Status Possible related to alcohol abuse vs Metabolic encephalopathy vs [place] CT head on admission was negative for any intracranial abnormality No neuro focal deficit no benzo, seems make her confusion worst Will get repeat CT head done if symptoms worsening ammonia level normal on 1 to 1 observation Neurology consulted, no need for any further neurology testing May follow with neuro in 4-6 weeks as an outpatient if symptoms do not improve Continue monitor UTI Urinalysis demonstrated pyuria and bacteriuria. Urine culture growth 3 types of bacteria Completed 5 days of ceftriaxone. Afebrile Due to the ongoing altered mental status, procalcitonin was rechecked and was elevated No clinical sign of infection will recheck urine cx, and procalcitonin again if develops fever will start on empirical abx DEHYDRATION / ACUTE KIDNEY INJURY BUN 31, creatinine 1.6 on admission.. Serum creatinine today 3.4 No sign of overload consider to give gently IVF u/s of the kidney showed no evidence of hydronephrosis nephrology consulted- Waiting for input Monitor BMP S/P FALLS Mostly multifactorial. Alcohol use may be contributing factor. Continue PT/OT will go to rehab Fall precautions. LEFT HIP PAIN Left hip xray showed no evidence of left hip fracture Analgesics PRN. Stable ANEMIA Hbg 8.7 No active bleeding continue monitor CBC CONSTIPATION Abdominal xray negative had a BM yesterday continue senokot prn HYPERTENSION Blood pressures controlled Continue monitor BP Stable DM TYPE 2 Well-controlled at home. Hemoglobin A1c in clinic on 10/31/16 was 6.7. Continue Insulin coverage On Lantus subq ELEVATED LIVER ENZYMES Mostly related to alcohol abuse liver enzymes trending down CT abd/pelvis showed marked fatty infiltration of liver continue monitor liver enzymes ammonia level is normal Alk phosphatase worsening GI consulted U/S of the liver pending check hepatitis profile, complement marker HYPOTHYROIDISM TSH in clinic in on 12/14/16 was 40. Compliance with medical regimen was uncertain. TSH now still elevated at 11, but trending downward. Therefore, will continue same close of levothyroxine. VITAMIN D DEFICIENCY 25-OH vitamin D level 8.4. continue vit D supplementation ALCOHOL CONSUMPTION CT demonstrates fatty infiltration of liver without apparent cirrhosis or signs of portal hypertension. Completed gabapentin for alcohol withdrawal protocol No signs of DT Continue thiamine and folic acid 1 to [address] chest demonstrated 5 mm nodule right lower lobe, stable compared to CT performed 11/11/15. Patient is a smoker. Follow per guidelines. RENAL LESION 1.8 cm hyperdense lesion right kidney-complex cyst versus solid mass. Patient had ultrasound performed at [facility] 07/31/16 which demonstrated 3 cystic lesions, largest measuring [address] of abdomen and pelvis on 04/11/13 showed similar findings. Radiographic stability suggests benign lesion. VTE PROPHYLAXIS Moderate risk for VTE. SQ heparin. Ambulate. DISPOSITION. PT/OT evaluations. Discharge to [facility] for Rehab once medically stable Internal Medicine follow-up with Dr. Nava. Consultants: Nephrology Neurology Gastro Procedures: CT head CT cervical spine CT chest CT abdomen and pelvis IV fluids IV medications PT OT . Current Inpatient Medications: Current Inpatient Medications Medications (Trade) Dose Ordered Sig/Fay Route Start Time Stop Time Status Last Admin Dose Admin Heparin Sodium (Porcine) (Heparin Sq 5000 Unit/0.5ml) 5,000 unit Q8H SQ 01/19/17 22:00 02/18/17 21:59 01/27/17 21:41 5,000 UNIT Acetaminophen (Tylenol Tab) 650 mg Q4H PRN PO 01/19/17 20:15 02/18/17 20:14 01/26/17 05:20 650 MG Ondansetron HCl (Zofran Inj) 4 mg Q6H PRN IV 01/19/17 20:15 02/18/17 20:14 Insulin Glargine (Lantus Solostar Pen) 7 unit Q12 SC 01/19/17 21:00 02/18/17 20:59 Future Hold 01/19/17 22:42 7 UNIT Insulin Aspart (novoLOG ASPART) SLIDING SCALE If C... ACHS SC 01/19/17 21:00 02/18/17 20:59 01/27/17 13:12 2 UNITS Glucose (Glucose 40% Gel) 15-30 GRAMS 15 GRAMS... UD PRN PO 01/19/17 20:15 02/18/17 20:14 Glucose (Glucose Chew Tab) 4-8 Tablets 4 Tabl... UD PRN PO 01/19/17 20:15 02/18/17 20:14 Dextrose (Dextrose 50% 50ML Syringe) 25-50ML OF 50% DW IV FOR... UD PRN IV 01/19/17 20:15 02/18/17 20:14 Glucagon (Glucagon Inj) 1 mg UD PRN SQ 01/19/17 20:15 02/18/17 20:14 Aspirin (Ecotrin Tab) 81 mg DAILY PO 01/20/17 08:00 02/19/17 08:59 01/28/17 09:14 81 MG Levothyroxine Sodium (Synthroid Tab) 150 mcg DAILYBB PO 01/20/17 06:30 02/19/17 06:59 01/28/17 05:37 150 MCG Multivitamins (Multivitamin Tab) 1 tab DAILY PO 01/20/17 08:00 02/19/17 08:59 01/28/17 09:15 1 TAB Rosuvastatin Calcium (Crestor Tab) 40 mg QPM PO 01/19/17 21:00 02/18/17 20:59 01/27/17 21:32 40 MG Thiamine HCl (Vitamin B-1 Tab) 100 mg DAILY PO 01/20/17 08:00 02/19/17 08:59 01/28/17 09:16 100 MG Nicotine (Nicoderm Cq 21MG Patch) 1 patch Q24H TD 01/19/17 21:00 02/18/17 20:59 01/27/17 21:32 1 PATCH Miscellaneous (Remove Nicoderm Patch) 1 ea PM N/A 01/20/17 20:00 02/19/17 20:59 01/27/17 20:42 1 EA Ergocalciferol (Vitamin D Cap) 50,000 interunit Q4D PO 01/19/17 22:00 02/18/17 21:59 01/27/17 21:33 50,000 INTERUNIT Folic Acid (Folvite Tab) 1 mg QAM PO 01/21/17 08:00 02/20/17 07:59 01/28/17 09:15 1 MG Multivitamins/ Minerals (Multivitamin W/ Minerals Tab) 1 tab QAM PO 01/21/17 08:00 02/20/17 07:59 01/28/17 09:15 1 TAB Lorazepam (Ativan Tab) PRN Dosing -Active Protocol UD PRN PO 01/22/17 02:00 02/20/17 01:59 01/26/17 03:06 1 MG Metoprolol Tartrate (Lopressor Tab) 25 mg Q8 PO 01/21/17 22:00 02/20/17 21:59 01/28/17 05:37 25 MG Albuterol/ Ipratropium (Duoneb) 3 ml QIDR INH 01/24/17 08:00 02/23/17 07:59 01/28/17 11:17 3 ML Acetaminophen/ Hydrocodone Bitart ([place] 5/325 Tab) 1 tab Q6 PRN PO 01/24/17 04:30 02/07/17 04:29 01/27/17 09:48 1 TAB Senna/Docusate Sodium (Senokot S Tab) 1 tab QAM PO 01/26/17 08:00 02/25/17 07:59 01/28/17 09:16 1 TAB Sodium Chloride (Iron Nasal [place]) 1 sprays DAILY PRN YORDY 01/26/17 11:15 02/25/17 11:14 Haloperidol (Haldol Tab) 2 mg Q4 PRN PO 01/26/17 19:15 02/25/17 19:14 Future Hold Sodium Chloride 500 ml @ 75 mls/hr Q6H40M IV 01/28/17 09:30 01/28/17 19:29 01/28/17 10:39 50 MLS/HR
--- NOTE | 2017-01-28 16:22 | DIAGNOSTIC IMAGING REPORT ---
BILIARY ULTRASOUND CLINICAL HISTORY: Right upper quadrant abdominal pain. Elevated LFTs. COMPARISON STUDY: CT scan dated 01/19/2017 FINDINGS: The liver is of increased echogenicity, nonspecific finding most often seen in hepatic steatosis. No gallstones are visualized. There is no gallbladder wall thickening. There is no pericholecystic fluid. There is no ductal dilatation. The common buttock measures 5 mm. There is no right-sided hydronephrosis. There are hypoechoic right renal lesions, the largest which measures 16 mm. These have a few internal echoes, and therefore do not epigastric criteria for simple cysts. As stated on the prior CT scan report, a nonemergent renal MRI study is recommended to differentiate a hyperdense cyst from solid renal mass. The pancreas was poorly visualized. No definite pancreatic abnormalities were evident. IMPRESSION: 1. Ultrasonographically normal gallbladder. No evidence of ductal dilatation. 2. Hepatic steatosis 3. Suboptimal visualization of the pancreas, but no definite pancreatic lesions identified 4. Indeterminate right renal lesions are again evident Electronically signed by: James Guevara M.D. 01/28/2017 4:21 PM Dictated Date/Time: 01/28/2017 4:15 PM
--- NOTE | 2017-01-28 18:39 | NEPHROLOGY CONSULTATION ---
DATE OF CONSULTATION: 01/28/2017 REASON FOR CONSULT: Acute renal failure. HISTORY OF PRESENT ILLNESS: The patient is a 76-year-old female who was admitted to the hospital approximately 1 week ago for evaluation after a fall and confusion at home. At the time of admission, she had a creatinine of 1.6 which then improved back to almost normal at 1.1 on January 20 which is 8 days ago, but since then creatinine has steadily creeped up to 1.2, 1.4, 1.6, 1.8, 2.0 yesterday and this morning even higher to 3.10. She has also had persistent abnormal liver function test, for which gastroenterology has also been consulted. As of now we do not have a specific cause for both renal failure or for the liver abnormality. She looks fairly comfortable at this time, although complaining of some right-sided abdominal discomfort as well as back pain. She has not received any type of NSAIDs during this hospital stay. She is on amlodipine as well as Micardis, but it appears both these drugs have been on hold for many days now. On review of her vital signs she did have somewhat low blood pressure yesterday with systolic blood pressure around 90. According to the nurse, she has not had a lot of urine output for the last 1-2 days her oral intake has been somewhat low today, but was fairly normal until yesterday, and most of her vital signs are acceptible. She does not have a Carty catheter, so we do not know for sure how much urine she has been making, although she just had a renal ultrasound done which did not show any hydronephrosis. She had a normal CK at the time of admission even after the fall. Her urinalysis done at the time of admission showed high urine sodium and the urine was fairly active sediment with lots of bacteria, leukocyte esterase, WBC, RBC as well as cast. She is currently getting normal saline at 50 mL per hour which was started just now. PAST MEDICAL HISTORY: Type 2 diabetes for about 15 years, previously on oral agents, but currently on insulin at home; gout; hypertension; peripheral vascular disease; history of alcohol abuse. SOCIAL HISTORY: The patient is a smoker. The patient is reported to be a heavy drinker of alcohol. ALLERGIES: NIFEDIPINE, PENICILLIN, BACTRIM, TY INHIBITORS, ATORVASTATIN, FLU VIRUS AND MAGNESIUM. MEDICATIONS: Outpatient medications included amlodipine, aspirin, insulin, levothyroxine, metoprolol, multivitamin, Crestor, Micardis and thiamine. Her inpatient medication list was also reviewed in detail. REVIEW OF SYSTEMS: The patient is somewhat of a poor historian but at this point of time, she denied having any fever or chills. Denies any chest pain. She denies having any shortness of breath. She does have some confusion. She is complaining of some right-sided abdominal pain/back pain. Denies any urinary complaint. She thinks she is making lots of urine, but according to the nurse urine output has been low. The patient was also getting antibiotics for possible urinary tract infection. A total of 14 systems reviewed. PHYSICAL EXAMINATION: GENERAL: Elderly white female who is not in any respiratory distress. She is awake, alert, oriented x3. HEENT: Mucous membrane is moist. NECK: Supple. No jugular venous distention. VITAL SIGNS: Most recent blood pressure is 112/76, 95% on 2 liter nasal cannula, pulse rate 95 per minute, temperature 37 degree Celsius, respiratory rate 18 per minute. NECK: Supple. No jugular venous distention. CHEST: Bilaterally decreased breath sounds, poor inspiratory effort. CARDIOVASCULAR: S1 and S2 regular. No murmur, rubs or gallop. ABDOMEN: Obese. No ascites noted. Somewhat diffuse, but mostly right-sided abdominal tenderness. EXTREMITIES: Shows no edema. LABORATORY TESTS: From this morning shows a rising creatinine, which is up to 3.10 now, BUN is 45. Sodium 142, potassium 4.8, chloride 111, anion gap 10, calcium 9.0, alkaline phosphatase 531, ALT and AST are also elevated. Albumin 2.1. Platelet count 421, hemoglobin 9.0. WBC count 11,000 and it seems to be trending up. ASSESSMENT AND PLAN: A 76-year-old female with longstanding history of type 2 diabetes, alcohol abuse; who presented following episode of fall and confusion more than a week ago. Nephrology is consulted for new onset acute renal failure. 1. Acute renal failure. She does have new onset acute renal failure from a creatinine of 1.1, it has been steadily going up especially for the last 2 days and the creatinine is now up to 3.1. So this would qualify as acute kidney injury, arising while in the hospital. These causes are almost always secondary to acute tubular necrosis. She does not appear to be volume depleted, although does not appear to be volume overloaded either, so we can give her a little bit of fluid and I would give normal saline 75 mL per hour for the time being. We have already had a renal ultrasound done and she does not have evidence of obstructive uropathy. I would like to check the urinalysis with microscopy again and check for the urine sodium and urine creatinine as well as urine protein. White cell count is rising, so we would also do urine culture and also check for eosinophils. The other possible cause of in-hospital acute kidney injury is allergic interstitial nephritis, so we would check for eosinophil in the blood as well as urine. Her platelet count is normal, which actually rules out a lot of causes of acute renal failure. Continue to do labs daily. For now, I would also check C3, C4 and ANCA panel. Thank you very much for the consult. ADONIS
[2017-01-28] MEDS: NICOTINE 21 MG/24 HR TDSY TD SCH (21:24)
[2017-01-28] MEDS: ROSUVASTATIN CALCIUM 20 MG TAB PO SCH (21:25)
[2017-01-28] MEDS: HYDROCODONE/ACETAMOPHEN 5/325MG TAB PO PRN (21:35)
[2017-01-29] VITALS (9 sets, daily range): BP systolic 99–138; BP diastolic 50–64; PULSE 81–96; TEMP 36.7; O2SAT 85–96
[2017-01-29] MEDS: LEVOTHYROXINE 150 MCG TAB PO SCH (06:10)
[2017-01-29] MEDS: METOPROLOL TARTRATE 25 MG TAB PO SCH ×3 (06:10→21:39)
[2017-01-29] MEDS: HEPARIN SOD 5000 UNIT/0.5 ML CARP SQ SCH ×3 (06:12→21:36)
[2017-01-29] MEDS: ALBUT/IPRATROP 3MG/0.5MG NEB 3 ML VIAL INH SCH ×4 (07:05→19:22)
[2017-01-29 07:46] LABS: HEMATOCRIT 26.6 % (37-47); MEAN CELL VOLUME 101.9 fL (80-100); MEAN CORPUSCULAR HEMOGLOBIN 32.6 pg (25-34); MEAN PLATELET VOLUME 10.7 fL (7.4-10.4); PLATELET COUNT 451 K/uL (130-400); RED BLOOD COUNT 2.61 M/uL (4.2-5.4); WHITE BLOOD COUNT 13.04 K/uL (4.8-10.8)
[2017-01-29 08:19] LABS: BUN/CREATININE RATIO 11.8 (10-20); CREATININE 4.2 mg/dl (0.60-1.20); POTASSIUM 4.9 mmol/L (3.5-5.1)
[2017-01-29 08:23] LABS: ALB/GLOB RATIO 0.4 (0.9-2)
[2017-01-29 09:01] LABS: CALCIUM 8.9 mg/dl (8.5-10.1)
[2017-01-29] MEDS: ASPIRIN 81 MG ECTAB PO SCH (09:29)
[2017-01-29] MEDS: MULTIVITAMIN TAB PO SCH (09:31)
[2017-01-29] MEDS: CEROVITE ADV FORMULA TAB PO SCH (09:32)
[2017-01-29] MEDS: DOCUSATE SODIUM/SENNA 50/8.6MG TAB PO SCH (09:32)
[2017-01-29] MEDS: THIAMINE HCL 100 MG TAB PO SCH (09:32)
[2017-01-29] MEDS: INSULIN ASPART 100 UNITS/ML 3 ML PEN SC SCH ×4 (09:34→21:00)
[2017-01-29 14:52] LABS: URINE APPEARANCE CLOUDY (CLEAR); URINE BILIRUBIN NEG (NEG); URINE COLOR DK YELLOW; URINE EPITHELIAL CELL AUTO >30 /lpf (0-5); URINE NITRITE NEG (NEG); URINE PH 5.5 (4.5-7.5); URINE SPECIFIC GRAVITY 1.017 (1.000-1.030); UROBILINOGEN NEG (NEG)
[2017-01-29 14:58] LABS: REVIEW REQ? YES
[2017-01-29 14:59] LABS: MANUAL MICROSCOPIC REQUIRED? NO
[2017-01-29 15:17] LABS: URINE PATH CASTS 0-3 GRANULAR CASTS /lpf (0); URINE PROTIEN/CREAT RATIO 3.8 (0-0.2)
--- NOTE | 2017-01-29 15:55 | Gastroenterology Progress Note ---
Progress Note Date of Service: Jan 29, 2017 Subjective Pt evaluation today including: conversation w/ patient, conversation w/ family , physical exam, chart review, lab review, review of studies, review of inpatient medication list Ms. Acevedo is a 76 yr old female with a hx of increased alcohol intake. GI is consulted for elevated LFTs. Today, LFTs continue elevated, similar to previous. RUQ ultrasound with right renal lesions, no gallbladder or bile duct abnormalities. Review of Systems Constitutional: + problem reported (confusion), No fever Respiratory: No cough ROS not obtainable from the patient but she does respond and she denies any discomfort. Medications Current Inpatient Medications Medications (Trade) Dose Ordered Sig/Fay Route Start Time Stop Time Status Last Admin Dose Admin Heparin Sodium (Porcine) (Heparin Sq 5000 Unit/0.5ml) 5,000 unit Q8H SQ 01/19/17 22:00 02/18/17 21:59 01/29/17 14:32 5,000 UNIT Acetaminophen (Tylenol Tab) 650 mg Q4H PRN PO 01/19/17 20:15 02/18/17 20:14 01/26/17 05:20 650 MG Ondansetron HCl (Zofran Inj) 4 mg Q6H PRN IV 01/19/17 20:15 02/18/17 20:14 Insulin Glargine (Lantus Solostar Pen) 7 unit Q12 SC 01/19/17 21:00 02/18/17 20:59 Future Hold 01/19/17 22:42 7 UNIT Insulin Aspart (novoLOG ASPART) SLIDING SCALE If C... ACHS SC 01/19/17 21:00 02/18/17 20:59 01/27/17 13:12 2 UNITS Glucose (Glucose 40% Gel) 15-30 GRAMS 15 GRAMS... UD PRN PO 01/19/17 20:15 02/18/17 20:14 Glucose (Glucose Chew Tab) 4-8 Tablets 4 Tabl... UD PRN PO 01/19/17 20:15 02/18/17 20:14 Dextrose (Dextrose 50% 50ML Syringe) 25-50ML OF 50% DW IV FOR... UD PRN IV 01/19/17 20:15 02/18/17 20:14 Glucagon (Glucagon Inj) 1 mg UD PRN SQ 01/19/17 20:15 02/18/17 20:14 Aspirin (Ecotrin Tab) 81 mg DAILY PO 01/20/17 08:00 02/19/17 08:59 01/29/17 09:29 81 MG Levothyroxine Sodium (Synthroid Tab) 150 mcg DAILYBB PO 01/20/17 06:30 02/19/17 06:59 01/29/17 06:10 150 MCG Multivitamins (Multivitamin Tab) 1 tab DAILY PO 01/20/17 08:00 02/19/17 08:59 01/29/17 09:31 1 TAB Rosuvastatin Calcium (Crestor Tab) 40 mg QPM PO 01/19/17 21:00 02/18/17 20:59 01/28/17 21:25 40 MG Thiamine HCl (Vitamin B-1 Tab) 100 mg DAILY PO 01/20/17 08:00 02/19/17 08:59 01/29/17 09:32 100 MG Nicotine (Nicoderm Cq 21MG Patch) 1 patch Q24H TD 01/19/17 21:00 02/18/17 20:59 01/28/17 21:24 1 PATCH Miscellaneous (Remove Nicoderm Patch) 1 ea PM N/A 01/20/17 20:00 02/19/17 20:59 01/28/17 21:24 1 EA Ergocalciferol (Vitamin D Cap) 50,000 interunit Q4D PO 01/19/17 22:00 02/18/17 21:59 01/27/17 21:33 50,000 INTERUNIT Folic Acid (Folvite Tab) 1 mg QAM PO 01/21/17 08:00 02/20/17 07:59 01/29/17 09:30 1 MG Multivitamins/ Minerals (Multivitamin W/ Minerals Tab) 1 tab QAM PO 01/21/17 08:00 02/20/17 07:59 01/29/17 09:32 1 TAB Lorazepam (Ativan Tab) PRN Dosing -Active Protocol UD PRN PO 01/22/17 02:00 02/20/17 01:59 01/26/17 03:06 1 MG Metoprolol Tartrate (Lopressor Tab) 25 mg Q8 PO 01/21/17 22:00 02/20/17 21:59 01/29/17 06:10 25 MG Albuterol/ Ipratropium (Duoneb) 3 ml QIDR INH 01/24/17 08:00 02/23/17 07:59 01/29/17 15:25 3 ML Acetaminophen/ Hydrocodone Bitart ([place] 5/325 Tab) 1 tab Q6 PRN PO 01/24/17 04:30 02/07/17 04:29 01/28/17 21:35 1 TAB Senna/Docusate Sodium (Senokot S Tab) 1 tab QAM PO 01/26/17 08:00 02/25/17 07:59 01/29/17 09:32 1 TAB Sodium Chloride ([place] Nasal [place]) 1 sprays DAILY PRN YORDY 01/26/17 11:15 02/25/17 11:14 Haloperidol (Haldol Tab) 2 mg Q4 PRN PO 01/26/17 19:15 02/25/17 19:14 Future Hold Objective Vital Signs Date Time Temp Pulse Resp B/P (MAP) Pulse Ox O2 Delivery O2 Flow Rate FiO2 01/29/17 15:25 86 18 90 Room Air 01/29/17 14:30 87 99/63 (75) 01/29/17 11:12 94 20 85 Room Air 01/29/17 08:25 Nasal Cannula 2.0 01/29/17 07:09 86 20 93 Room Air 01/29/17 07:07 36.7 81 17 138/55 (82) 92 Room Air 01/29/17 03:48 Nasal Cannula 2.0 01/28/17 22:49 36.8 76 16 122/76 (91) 95 Nasal Cannula 2.0 01/28/17 20:52 Nasal Cannula 2.0 01/28/17 19:32 88 18 95 Nasal Cannula 2.0 01/28/17 16:00 Nasal Cannula 2.0 Physical Exam General Appearance: no apparent distress ENT: pharynx normal Neck: no JVD Respiratory/Chest: lungs clear Cardiovascular: regular rate, rhythm, no JVD, no murmur Abdomen: soft, + pertinent finding (moderate, soft ascites) Extremities: + pedal edema (mild, equal bilaterally) Neurologic/Psych: alert, normal mood/affect, oriented x 3 Skin: no jaundice Laboratory Results Last 24 Hours Test 01/28/17 16:10 01/28/17 20:10 01/29/17 07:25 01/29/17 07:36 Bedside Glucose 130 mg/dl 133 mg/dl 127 mg/dl White Blood Count 13.04 K/uL Red Blood Count 2.61 M/uL Hemoglobin 8.5 g/dL Hematocrit 26.6 % Mean Corpuscular Volume 101.9 fL Mean Corpuscular Hemoglobin 32.6 pg Mean Corpuscular Hemoglobin Concent 32.0 g/dl RDW Standard Deviation 58.1 fL RDW Coefficient of Variation 15.8 % Platelet Count 451 K/uL Mean Platelet Volume 10.7 fL Sodium Level 141 mmol/L Potassium Level 4.9 mmol/L Chloride Level 110 mmol/L Carbon Dioxide Level 21 mmol/L Anion Gap 10.0 mmol/L Blood Urea Nitrogen 50 mg/dl Creatinine 4.20 mg/dl Est Creatinine Clear Calc Drug Dose 10.8 ml/min Estimated GFR () 11.2 Estimated GFR (Non- 9.6 BUN/Creatinine Ratio 11.8 Random Glucose 125 mg/dl Calcium Level 8.9 mg/dl Total Bilirubin 0.4 mg/dl Aspartate Amino Transf (AST/SGOT) 159 U/L Alanine Aminotransferase (ALT/SGPT) 73 U/L Alkaline Phosphatase 509 U/L Total Protein 6.3 gm/dl Albumin 1.9 gm/dl Globulin 4.4 gm/dl Albumin/Globulin Ratio 0.4 Procalcitonin 2.38 ng/ml Test 01/29/17 11:30 01/29/17 14:25 Bedside Glucose 145 mg/dl Urine Color DK YELLOW Urine Appearance CLOUDY Urine pH 5.5 Urine Specific [place] 1.017 Urine Protein 2+ Urine Glucose (UA) NEG Urine Ketones NEG Urine Occult Blood 1+ Urine Nitrite NEG Urine Bilirubin NEG Urine Urobilinogen NEG Urine Leukocyte Esterase NEG Urine WBC (Auto) 1-5 /hpf Urine RBC (Auto) 0-4 /hpf Urine Hyaline Casts (Auto) 1-5 /lpf Urine Epithelial Cells (Auto) >30 /lpf Urine Bacteria (Auto) 1+ Urine Renal Epithelial Cells /lpf Urine Pathogenic Casts 0-3 GRANULAR CASTS /lpf Urine Random Creatinine 64.0 mg/dl Urine Random Total Protein 244.0 mg/dl Urine Random Sodium 42 mEq/L Urine Protein/Creatinine Ratio 3.8 Assessment and Plan Ms. Acevedo is a 76 yr old female with a hx of increased alcohol intake and elevated LFTs. This is likely caused by fatty liver, possibly worsened with Crestor. Viral and autoimmune hepatitis should be ruled out but are less likely that alcoholic hepatitis. Plan: 1. Labs: GARRICK, Acute hepatitis panel, CMV and Latrice Jeff Panel. 2. Follow daily LFTs. 3. Stop the Crestor. I saw the patient with Ms. Dooley, no new changes today. I wonder if the LAE changes may be related to a medicatio such as crestor. Recomendation: stop crestor
--- NOTE | 2017-01-29 16:52 | PROGRESS NOTE ---
DATE: 01/29/2017 Bárbara is off one-on-one management at this time. She is still confused. She has a tremor of both hands. She knows she is in [facility]. She is hesitant on the day, but at least gets into the interval. She thinks the month is February. She knows Mr. Negrete is pesident She still seems to have some word finding issues, but I suspect this is due to the fact that Vietnamese is a second language that is according to her daughter during the heights of her delirium. She spoke only in Malay and Vietnamese disappeared. For now again, I think this is a multifactorial delirium and alcohol withdrawal and perhaps some other toxic or metabolic disturbances, perhaps related to a low grade concussion and occurring in the substrate, however, not normal central nervous system characterized by the presence of some brain atrophy and fairly impressive leukoencephalopathy by CAT scan. Plans are I suppose to continue to get her into [facility] for some rehabilitation and neurology can take a look at her 4-6 weeks after discharge from that institution and do an assessment how well she is doing cognitively at that point. I suspect she does have a baseline level of cognitive impairment that has not been evident to the family because of the fact that they live at a distance and may not see the day to day changes. We will check back with her tomorrow, but for now again, no further neurologic testing or evaluation seems necessary other than observation and rehabilitation. I certainly would not place her on any of the cognitive impairment medications at this point for fear of muddying the rawls even further. ADONIS
--- NOTE | 2017-01-29 18:29 | Progress Note ---
Medicine Progress Note Date & Time of Visit: Jan 29, 2017 at 14:28. Subjective 76 yo F initially admitted for weakness after a fall without loss of consciousness at home. -pt states she is feeling ill today specifically because of her nausea -she denies vomiting or diarrhea. -she denies chest pain, shortness of breath -she appears alert and oriented Objective Last 8 Hrs Date Time Temp Pulse Resp B/P (MAP) Pulse Ox O2 Delivery O2 Flow Rate FiO2 01/29/17 11:12 94 20 85 Room Air 01/29/17 08:25 Nasal Cannula 2.0 01/29/17 07:09 86 20 93 Room Air 01/29/17 07:07 36.7 81 17 138/55 (82) 92 Room Air Physical Exam: GEN: WNWD, in no acute distress, alert and appropriate HEENT: NC/AT, normal sclerae, MMM CARDIO: reg rate, S1/2 heard without m/g/r LUNGS: coarse rhonchi bilaterally with wheezing at the R base. She is requiring oxygen at this time on NC ABD: soft, non-tender, non-distended, no rebound or guarding, +BS, no CVA tenderness EXTREMITY: RP and DP palpable 2+ bilat, no LE swelling or edema, extremities are warm and well-perfused NEURO: CN 2-12 grossly intact MUSC: generalized weakness, cannot roll onto her side without significant help SKIN: warm and dry Laboratory Results: 01/29/17 07:25 01/29/17 07:25 Test 01/19/17 13:56 01/19/17 14:25 01/20/17 06:44 01/21/17 08:05 Prothrombin Time 10.8 SECONDS (9.0-12.0) Prothromb Time International Ratio 1.0 (0.9-1.1) Troponin I < 0.015 ng/ml (0-0.045) 25-Hydroxy Vitamin D Total 8.4 ng/ml (30-100) Thyroid Stimulating Hormone (TSH) 11.400 uIu/ml (0.300-4.500) Urine Yeast (Auto) PRESENT (NONE PRSENT) Estimated Average Glucose 105 mg/dl Hemoglobin A1c 5.3 % (4.5-5.6) Lactic Acid Level 0.8 mmol/L (0.4-2.0) Test 01/22/17 06:53 01/24/17 07:58 01/27/17 06:45 01/28/17 11:33 Phosphorus Level 2.8 mg/dl (2.5-4.9) Magnesium Level 1.7 mg/dl (1.8-2.4) Ammonia 30.0 umol/L (11-32) Vitamin B12 Level > 2000 pg/mL (211-911) Folate > 24.00 ng/mL (>5.38) Immunoglobulin G 969.0 mg/dL (700-1600) Hepatitis B Surface Antigen NEG (NEG) Hepatitis C Antibody NEG (NEG) Test 01/28/17 13:11 01/29/17 07:25 01/29/17 14:25 01/29/17 16:23 Immature Granulocyte % (Auto) 0.9 % White Blood Count 10.77 K/uL (4.8-10.8) Red Blood Count 2.62 M/uL (4.2-5.4) 2.61 M/uL (4.2-5.4) Hemoglobin 8.7 g/dL (12.0-16.0) Hematocrit 26.8 % (37-47) Mean Corpuscular Volume 102.3 fL (80-100) 101.9 fL (80-100) Mean Corpuscular Hemoglobin 33.2 pg (25-34) 32.6 pg (25-34) Mean Corpuscular Hemoglobin Concent 32.5 g/dl (32-36) 32.0 g/dl (32-36) Platelet Count 432 K/uL (130-400) Mean Platelet Volume 10.8 fL (7.4-10.4) 10.7 fL (7.4-10.4) Neutrophils (%) (Auto) 76.4 % Lymphocytes (%) (Auto) 9.3 % Monocytes (%) (Auto) 12.6 % Eosinophils (%) (Auto) 0.5 % Basophils (%) (Auto) 0.3 % Neutrophils # (Auto) 8.23 K/uL (1.4-6.5) Lymphocytes # (Auto) 1.00 K/uL (1.2-3.4) Monocytes # (Auto) 1.36 K/uL (0.11-0.59) Eosinophils # (Auto) 0.05 K/uL (0-0.5) Basophils # (Auto) 0.03 K/uL (0-0.2) Immature Granulocyte # (Auto) 0.10 K/uL (0.00-0.02) Nucleated RBC Absolute Count (auto) 0.02 K/uL (0-0) Nucleated Red Blood Cells % 0.2 % Red Blood Cell Morphology Unremarkable RDW Standard Deviation 58.1 fL (36.4-46.3) RDW Coefficient of Variation 15.8 % (11.5-14.5) Anion Gap 10.0 mmol/L (3-11) Est Creatinine Clear Calc Drug Dose 10.8 ml/min Estimated GFR () 11.2 Estimated GFR (Non- 9.6 BUN/Creatinine Ratio 11.8 (10-20) Calcium Level 8.9 mg/dl (8.5-10.1) Total Bilirubin 0.4 mg/dl (0.2-1) Aspartate Amino Transf (AST/SGOT) 159 U/L (15-37) Alanine Aminotransferase (ALT/SGPT) 73 U/L (12-78) Alkaline Phosphatase 509 U/L (45-117) Total Creatine Kinase 68 U/L (26-192) Total Protein 6.3 gm/dl (6.4-8.2) Albumin 1.9 gm/dl (3.4-5.0) Globulin 4.4 gm/dl (2.5-4.0) Albumin/Globulin Ratio 0.4 (0.9-2) Procalcitonin 2.38 ng/ml (0-0.5) Urine Color DK YELLOW Urine Appearance CLOUDY (CLEAR) Urine pH 5.5 (4.5-7.5) Urine Specific [place] 1.017 (1.000-1.030) Urine Protein 2+ (NEG) Urine Glucose (UA) NEG (NEG) Urine Ketones NEG (NEG) Urine Occult Blood 1+ (NEG) Urine Nitrite NEG (NEG) Urine Bilirubin NEG (NEG) Urine Urobilinogen NEG (NEG) Urine Leukocyte Esterase NEG (NEG) Urine WBC (Auto) 1-5 /hpf (0-5) Urine RBC (Auto) 0-4 /hpf (0-4) Urine Hyaline Casts (Auto) 1-5 /lpf (0-5) Urine Epithelial Cells (Auto) >30 /lpf (0-5) Urine Bacteria (Auto) 1+ (NEG) Urine Renal Epithelial Cells /lpf (0-5) Urine Pathogenic Casts 0-3 GRANULAR CASTS /lpf (0) Urine Random Creatinine 64.0 mg/dl Urine Random Total Protein 244.0 mg/dl (0-11.9) Urine Random Sodium 42 mEq/L Urine Protein/Creatinine Ratio 3.8 (0-0.2) Bedside Glucose 114 mg/dl (70-90) Test 01/29/17 18:17 Date/Time Source Procedure Growth Status 01/19/17 19:24 Blood Blood Culture - Final NO GROWTH Complete 01/29/17 14:25 Urine , Clean Catch Urine Culture Pending Received Last 24 Hours Test 01/28/17 16:10 01/28/17 20:10 01/29/17 07:25 01/29/17 07:36 Bedside Glucose 130 mg/dl 133 mg/dl 127 mg/dl White Blood Count 13.04 K/uL Red Blood Count 2.61 M/uL Hemoglobin 8.5 g/dL Hematocrit 26.6 % Mean Corpuscular Volume 101.9 fL Mean Corpuscular Hemoglobin 32.6 pg Mean Corpuscular Hemoglobin Concent 32.0 g/dl RDW Standard Deviation 58.1 fL RDW Coefficient of Variation 15.8 % Platelet Count 451 K/uL Mean Platelet Volume 10.7 fL Sodium Level 141 mmol/L Potassium Level 4.9 mmol/L Chloride Level 110 mmol/L Carbon Dioxide Level 21 mmol/L Anion Gap 10.0 mmol/L Blood Urea Nitrogen 50 mg/dl Creatinine 4.20 mg/dl Est Creatinine Clear Calc Drug Dose 10.8 ml/min Estimated GFR () 11.2 Estimated GFR (Non- 9.6 BUN/Creatinine Ratio 11.8 Random Glucose 125 mg/dl Calcium Level 8.9 mg/dl Total Bilirubin 0.4 mg/dl Aspartate Amino Transf (AST/SGOT) 159 U/L Alanine Aminotransferase (ALT/SGPT) 73 U/L Alkaline Phosphatase 509 U/L Total Protein 6.3 gm/dl Albumin 1.9 gm/dl Globulin 4.4 gm/dl Albumin/Globulin Ratio 0.4 Procalcitonin 2.38 ng/ml Test 01/29/17 11:30 01/29/17 14:24 Bedside Glucose 145 mg/dl Date/Time Source Procedure Growth Status 01/29/17 14:24 Urine , Clean Catch Urine Culture Pending Criss Batch Assessment & Plan 76 yo F initially admitted for weakness after a fall without loss of consciousness at home. 1. Hypoxia-acute, uncertain etiology. Cont oxygen supplementation for now. Pt denies coughing, fevers or chills. CT chest was clear on admission aside from a RLL pulm nodule. Pt is a smoker, considering COPD as an issue. Cont Duonebs for now. 2. AMS-she appears alert and appropriate today. She is a heavy drinker but has been without alcohol for the past 10 dys while in the hospital. Neuro is following. No focal deficits. CT head on admission was negative for any intracranial abnormality, ammonia level normal 3. Acute cystitis-no evidence of pyelo clinically. Recently treated with 5 days of Rocephin, however, she is still having incontinence, which she states is new for her. Placing zhang in setting of ARF and will repeat UA/UCx now as a BETH. She is afebrile, however, WBC starting to rise. Considering unresolved infection as a possibility. Hold abx for now. 4. ARF-getting worse today. FeNa 11%. Pt is incontinent so cannot gauge her output without Zhang. Placing this now. Urine studies pending. Poss ATN vs AIN as likely possibilities per Nephro. Pt appears euvolemic and very deconditioned. Will repeat PRP in am. 5. Leukocytosis-uncertain etiology at this time. Cont to monitor. 6. Deconditioning with ambulatory dysfunction-very weak on exam. Appears bedbound. Cont PT/OT efforts, Fall precautions. 7. L hip pain-Left hip xray showed no evidence of left hip fracture. Analgesics PRN. 8. Anemia-no active bleeding. 9. Constipation-Bowel regimen PRN 10. HTN-controlled, cont Lopressor 11. Vit D deficiency-cont ergocalciferol 12. Smoking-cont Niicoderm patch, cont Duonebs for now. Consider COPD exacerbation if still wheezing in am. 13. Hypothyroid-Synthroid 150mg daily. 14. DMII- sugars at goal, cont ISS 15. Transaminitis-pt with fatty liver who uses alcohol. GI following and pursuing more aggressive workup at this time. 16. ETOH abuse-cont thiamine and folic acid 17. Pulmonary nodule-CT chest demonstrated 5 mm nodule right lower lobe, stable compared to CT performed 11/11/15. Patient is a smoker. follow up per guidelines. 18. renal lesion 1.8 cm hyperdense lesion right kidney-complex cyst versus solid mass. Patient had ultrasound performed at [facility] 07/31/16 which demonstrated 3 cystic lesions, largest measuring [address] of abdomen and pelvis on 04/11/13 showed similar findings. Radiographic stability suggests benign lesion. DVT proph-Heparin FULL CODE Dispo-to rehab once medically stable. Georgia Thompson DO [facility] Hospitalist Consultants: Nephrology Neurology Gastro Procedures: CT head CT cervical spine CT chest CT abdomen and pelvis IV fluids IV medications PT OT . Current Inpatient Medications: Current Inpatient Medications Medications (Trade) Dose Ordered Sig/Fay Route Start Time Stop Time Status Last Admin Dose Admin Heparin Sodium (Porcine) (Heparin Sq 5000 Unit/0.5ml) 5,000 unit Q8H SQ 01/19/17 22:00 02/18/17 21:59 01/29/17 06:12 5,000 UNIT Acetaminophen (Tylenol Tab) 650 mg Q4H PRN PO 01/19/17 20:15 02/18/17 20:14 01/26/17 05:20 650 MG Ondansetron HCl (Zofran Inj) 4 mg Q6H PRN IV 01/19/17 20:15 02/18/17 20:14 Insulin Glargine (Lantus Solostar Pen) 7 unit Q12 SC 01/19/17 21:00 02/18/17 20:59 Future Hold 01/19/17 22:42 7 UNIT Insulin Aspart (novoLOG ASPART) SLIDING SCALE If C... ACHS SC 01/19/17 21:00 02/18/17 20:59 01/27/17 13:12 2 UNITS Glucose (Glucose 40% Gel) 15-30 GRAMS 15 GRAMS... UD PRN PO 01/19/17 20:15 02/18/17 20:14 Glucose (Glucose Chew Tab) 4-8 Tablets 4 Tabl... UD PRN PO 01/19/17 20:15 02/18/17 20:14 Dextrose (Dextrose 50% 50ML Syringe) 25-50ML OF 50% DW IV FOR... UD PRN IV 01/19/17 20:15 02/18/17 20:14 Glucagon (Glucagon Inj) 1 mg UD PRN SQ 01/19/17 20:15 02/18/17 20:14 Aspirin (Ecotrin Tab) 81 mg DAILY PO 01/20/17 08:00 02/19/17 08:59 01/29/17 09:29 81 MG Levothyroxine Sodium (Synthroid Tab) 150 mcg DAILYBB PO 01/20/17 06:30 02/19/17 06:59 01/29/17 06:10 150 MCG Multivitamins (Multivitamin Tab) 1 tab DAILY PO 01/20/17 08:00 02/19/17 08:59 01/29/17 09:31 1 TAB Rosuvastatin Calcium (Crestor Tab) 40 mg QPM PO 01/19/17 21:00 02/18/17 20:59 01/28/17 21:25 40 MG Thiamine HCl (Vitamin B-1 Tab) 100 mg DAILY PO 01/20/17 08:00 02/19/17 08:59 01/29/17 09:32 100 MG Nicotine (Nicoderm Cq 21MG Patch) 1 patch Q24H TD 01/19/17 21:00 02/18/17 20:59 01/28/17 21:24 1 PATCH Miscellaneous (Remove Nicoderm Patch) 1 ea PM N/A 01/20/17 20:00 02/19/17 20:59 01/28/17 21:24 1 EA Ergocalciferol (Vitamin D Cap) 50,000 interunit Q4D PO 01/19/17 22:00 02/18/17 21:59 01/27/17 21:33 50,000 INTERUNIT Folic Acid (Folvite Tab) 1 mg QAM PO 01/21/17 08:00 02/20/17 07:59 01/29/17 09:30 1 MG Multivitamins/ Minerals (Multivitamin W/ Minerals Tab) 1 tab QAM PO 01/21/17 08:00 02/20/17 07:59 01/29/17 09:32 1 TAB Lorazepam (Ativan Tab) PRN Dosing -Active Protocol UD PRN PO 01/22/17 02:00 02/20/17 01:59 01/26/17 03:06 1 MG Metoprolol Tartrate (Lopressor Tab) 25 mg Q8 PO 01/21/17 22:00 02/20/17 21:59 01/29/17 06:10 25 MG Albuterol/ Ipratropium (Duoneb) 3 ml QIDR INH 01/24/17 08:00 02/23/17 07:59 01/29/17 11:12 3 ML Acetaminophen/ Hydrocodone Bitart ([place] 5/325 Tab) 1 tab Q6 PRN PO 01/24/17 04:30 02/07/17 04:29 01/28/17 21:35 1 TAB Senna/Docusate Sodium (Senokot S Tab) 1 tab QAM PO 01/26/17 08:00 02/25/17 07:59 01/29/17 09:32 1 TAB Sodium Chloride ([place] Nasal [place]) 1 sprays DAILY PRN YORDY 01/26/17 11:15 02/25/17 11:14 Haloperidol (Haldol Tab) 2 mg Q4 PRN PO 01/26/17 19:15 02/25/17 19:14 Future Hold
--- NOTE | 2017-01-29 19:13 | Nephrology Progress Note ---
Nephrology Progress Note Date of Service: Jan 29, 2017. Subjective seen on rounds this am at 0700 >> breathing tx underway, ? if she is reliable historian. states she had flank pain yesterday, now resolved. no n/v. very tired. denies dyspnea Objective Date Time Temp Pulse Resp B/P (MAP) Pulse Ox O2 Delivery O2 Flow Rate FiO2 01/29/17 15:50 90 Nasal Cannula 2.0 01/29/17 15:25 86 18 90 Room Air 01/29/17 14:30 87 99/63 (75) 01/29/17 11:12 94 20 85 Room Air 01/29/17 08:25 Nasal Cannula 2.0 01/29/17 07:09 86 20 93 Room Air 01/29/17 07:07 36.7 81 17 138/55 (82) 92 Room Air 01/29/17 03:48 Nasal Cannula 2.0 01/28/17 22:49 36.8 76 16 122/76 (91) 95 Nasal Cannula 2.0 01/28/17 20:52 Nasal Cannula 2.0 01/28/17 19:32 88 18 95 Nasal Cannula 2.0 Physical Exam: GENERAL: Elderly white female, restless, tremulous, getting breathing treatment HEENT: Mucous membranes moist. NECK: Supple. CHEST: diffuse crackles/rhonchi CARDIOVASCULAR: S1 and S2 regular. No murmur, rubs or gallop. ABDOMEN: distended w/o fluid wave; diffuse, but mostly right-sided abdominal tenderness. no zhang EXTREMITIES: no edema. krishnamurthy but too weak to sit up for exam; delayed speech/ ? reliability of hx Current Inpatient Medications Medications (Trade) Dose Ordered Sig/Fay Route Start Time Stop Time Status Last Admin Dose Admin Heparin Sodium (Porcine) (Heparin Sq 5000 Unit/0.5ml) 5,000 unit Q8H SQ 01/19/17 22:00 02/18/17 21:59 01/29/17 14:32 5,000 UNIT Acetaminophen (Tylenol Tab) 650 mg Q4H PRN PO 01/19/17 20:15 02/18/17 20:14 01/26/17 05:20 650 MG Ondansetron HCl (Zofran Inj) 4 mg Q6H PRN IV 01/19/17 20:15 02/18/17 20:14 Insulin Glargine (Lantus Solostar Pen) 7 unit Q12 SC 01/19/17 21:00 02/18/17 20:59 Future Hold 01/19/17 22:42 7 UNIT Insulin Aspart (novoLOG ASPART) SLIDING SCALE If C... ACHS SC 01/19/17 21:00 02/18/17 20:59 01/27/17 13:12 2 UNITS Glucose (Glucose 40% Gel) 15-30 GRAMS 15 GRAMS... UD PRN PO 01/19/17 20:15 02/18/17 20:14 Glucose (Glucose Chew Tab) 4-8 Tablets 4 Tabl... UD PRN PO 01/19/17 20:15 02/18/17 20:14 Dextrose (Dextrose 50% 50ML Syringe) 25-50ML OF 50% DW IV FOR... UD PRN IV 01/19/17 20:15 02/18/17 20:14 Glucagon (Glucagon Inj) 1 mg UD PRN SQ 01/19/17 20:15 02/18/17 20:14 Aspirin (Ecotrin Tab) 81 mg DAILY PO 01/20/17 08:00 02/19/17 08:59 01/29/17 09:29 81 MG Levothyroxine Sodium (Synthroid Tab) 150 mcg DAILYBB PO 01/20/17 06:30 02/19/17 06:59 01/29/17 06:10 150 MCG Multivitamins (Multivitamin Tab) 1 tab DAILY PO 01/20/17 08:00 02/19/17 08:59 01/29/17 09:31 1 TAB Rosuvastatin Calcium (Crestor Tab) 40 mg QPM PO 01/19/17 21:00 02/18/17 20:59 01/28/17 21:25 40 MG Thiamine HCl (Vitamin B-1 Tab) 100 mg DAILY PO 01/20/17 08:00 02/19/17 08:59 01/29/17 09:32 100 MG Nicotine (Nicoderm Cq 21MG Patch) 1 patch Q24H TD 01/19/17 21:00 02/18/17 20:59 01/28/17 21:24 1 PATCH Miscellaneous (Remove Nicoderm Patch) 1 ea PM N/A 01/20/17 20:00 02/19/17 20:59 01/28/17 21:24 1 EA Ergocalciferol (Vitamin D Cap) 50,000 interunit Q4D PO 01/19/17 22:00 02/18/17 21:59 01/27/17 21:33 50,000 INTERUNIT Folic Acid (Folvite Tab) 1 mg QAM PO 01/21/17 08:00 02/20/17 07:59 01/29/17 09:30 1 MG Multivitamins/ Minerals (Multivitamin W/ Minerals Tab) 1 tab QAM PO 01/21/17 08:00 02/20/17 07:59 01/29/17 09:32 1 TAB Lorazepam (Ativan Tab) PRN Dosing -Active Protocol UD PRN PO 01/22/17 02:00 02/20/17 01:59 01/26/17 03:06 1 MG Metoprolol Tartrate (Lopressor Tab) 25 mg Q8 PO 01/21/17 22:00 02/20/17 21:59 01/29/17 06:10 25 MG Albuterol/ Ipratropium (Duoneb) 3 ml QIDR INH 01/24/17 08:00 02/23/17 07:59 01/29/17 15:25 3 ML Acetaminophen/ Hydrocodone Bitart ([place] 5/325 Tab) 1 tab Q6 PRN PO 01/24/17 04:30 02/07/17 04:29 01/28/17 21:35 1 TAB Senna/Docusate Sodium (Senokot S Tab) 1 tab QAM PO 01/26/17 08:00 02/25/17 07:59 01/29/17 09:32 1 TAB Sodium Chloride ([place] Nasal [place]) 1 sprays DAILY PRN YORDY 01/26/17 11:15 02/25/17 11:14 Haloperidol (Haldol Tab) 2 mg Q4 PRN PO 01/26/17 19:15 02/25/17 19:14 Future Hold Last 24 Hours Test 01/28/17 20:10 01/29/17 07:25 01/29/17 07:36 01/29/17 11:30 Bedside Glucose 133 mg/dl 127 mg/dl 145 mg/dl White Blood Count 13.04 K/uL Red Blood Count 2.61 M/uL Hemoglobin 8.5 g/dL Hematocrit 26.6 % Mean Corpuscular Volume 101.9 fL Mean Corpuscular Hemoglobin 32.6 pg Mean Corpuscular Hemoglobin Concent 32.0 g/dl RDW Standard Deviation 58.1 fL RDW Coefficient of Variation 15.8 % Platelet Count 451 K/uL Mean Platelet Volume 10.7 fL Sodium Level 141 mmol/L Potassium Level 4.9 mmol/L Chloride Level 110 mmol/L Carbon Dioxide Level 21 mmol/L Anion Gap 10.0 mmol/L Blood Urea Nitrogen 50 mg/dl Creatinine 4.20 mg/dl Est Creatinine Clear Calc Drug Dose 10.8 ml/min Estimated GFR () 11.2 Estimated GFR (Non- 9.6 BUN/Creatinine Ratio 11.8 Random Glucose 125 mg/dl Calcium Level 8.9 mg/dl Total Bilirubin 0.4 mg/dl Aspartate Amino Transf (AST/SGOT) 159 U/L Alanine Aminotransferase (ALT/SGPT) 73 U/L Alkaline Phosphatase 509 U/L Total Protein 6.3 gm/dl Albumin 1.9 gm/dl Globulin 4.4 gm/dl Albumin/Globulin Ratio 0.4 Procalcitonin 2.38 ng/ml Test 01/29/17 14:25 01/29/17 16:23 Urine Color DK YELLOW Urine Appearance CLOUDY Urine pH 5.5 Urine Specific [place] 1.017 Urine Protein 2+ Urine Glucose (UA) NEG Urine Ketones NEG Urine Occult Blood 1+ Urine Nitrite NEG Urine Bilirubin NEG Urine Urobilinogen NEG Urine Leukocyte Esterase NEG Urine WBC (Auto) 1-5 /hpf Urine RBC (Auto) 0-4 /hpf Urine Hyaline Casts (Auto) 1-5 /lpf Urine Epithelial Cells (Auto) >30 /lpf Urine Bacteria (Auto) 1+ Urine Renal Epithelial Cells /lpf Urine Pathogenic Casts 0-3 GRANULAR CASTS /lpf Urine Random Creatinine 64.0 mg/dl Urine Random Total Protein 244.0 mg/dl Urine Random Sodium 42 mEq/L Urine Protein/Creatinine Ratio 3.8 Bedside Glucose 114 mg/dl Date/Time Source Procedure Growth Status 01/29/17 14:25 Urine , Clean Catch Urine Culture Pending Received Assessment & Plan 76-year-old female with long standing type 2 diabetes, alcohol abuse, COPD admitted 01/19 following episode of fall and confusion w/ worsening renal failure. treated at admission for uti. presenting creatinine was 1.6, down to 1.1 01/20, then plateau'd 01/24-01/26 at 1.8, now worsening again. >>>Acute on chronic renal failure; cause unclear still; in setting of altered MS , dyspnea, now worsening renal failure >> suspect ATN; not oliguric but I/O incomplete. repeat urine very concentrated with nephrotic range proteinuria and no infection, minimal blood in urine. not a convincing story for interstitial nephritis though this can be subtle; no obstruction. -daily bmp >place zhang/ strict I/O >check CK -no obvious nephrotoxins -f/u pending serologies/ urine studies -repeat CXR; if she would tolerate IV fluids at low rate -cannot rule out need to transfer for renal biopsy/possible tx of acute GN but will for now follow -f/u C3, C4 and ANCA panel Appreciate consult; will follow with you. Care coordinated w/ Dr Thompson
[2017-01-29] MEDS: NICOTINE 21 MG/24 HR TDSY TD SCH (21:06)
[2017-01-30] VITALS (10 sets, daily range): BP systolic 117–137; BP diastolic 67–97; PULSE 72–100; TEMP 36.7–37.1; O2SAT 93–98
[2017-01-30 05:43] LABS: HEMATOCRIT 25.1 % (37-47); MEAN CORPUSCULAR HEMOGLOBIN 33.1 pg (25-34); MEAN CORPUSCULAR HGB CONC 33.1 g/dl (32-36); MEAN PLATELET VOLUME 10.7 fL (7.4-10.4); PLATELET COUNT 450 K/uL (130-400); RED BLOOD COUNT 2.51 M/uL (4.2-5.4); WHITE BLOOD COUNT 13.15 K/uL (4.8-10.8)
[2017-01-30] MEDS: LEVOTHYROXINE 150 MCG TAB PO SCH (06:03)
[2017-01-30] MEDS: METOPROLOL TARTRATE 25 MG TAB PO SCH ×3 (06:03→21:09)
[2017-01-30] MEDS: HEPARIN SOD 5000 UNIT/0.5 ML CARP SQ SCH ×3 (06:05→21:20)
[2017-01-30 06:12] LABS: ANISOCYTOSIS PRESENT; BASO % 0.2 %; BASO ABS # 0.02 K/uL (0-0.2); COMPLETE YES; EOS % 0.5 %; LYMPH % 9.8 %; LYMPH ABS # 1.29 K/uL (1.2-3.4); MONO % 13.2 %; NEUT % 75.3 %
[2017-01-30 06:31] LABS: BUN/CREATININE RATIO 11.6 (10-20); CALCIUM 8.3 mg/dl (8.5-10.1); CREATININE 4.6 mg/dl (0.60-1.20); MAGNESIUM 2.3 mg/dl (1.8-2.4); POTASSIUM 4.9 mmol/L (3.5-5.1)
[2017-01-30] MEDS: ALBUT/IPRATROP 3MG/0.5MG NEB 3 ML VIAL INH SCH ×4 (07:19→19:26)
[2017-01-30] MEDS: THIAMINE HCL 100 MG TAB PO SCH (08:09)
[2017-01-30] MEDS: DOCUSATE SODIUM/SENNA 50/8.6MG TAB PO SCH (08:09)
[2017-01-30] MEDS: CEROVITE ADV FORMULA TAB PO SCH (08:09)
[2017-01-30] MEDS: MULTIVITAMIN TAB PO SCH (08:10)
[2017-01-30] MEDS: ASPIRIN 81 MG ECTAB PO SCH (08:10)
[2017-01-30] MEDS: INSULIN ASPART 100 UNITS/ML 3 ML PEN SC SCH ×4 (08:14→21:00)
--- NOTE | 2017-01-30 11:35 | Gastroenterology Progress Note ---
Progress Note Date of Service: Jan 30, 2017 Subjective Pt evaluation today including: conversation w/ patient, physical exam, chart review, lab review, review of inpatient medication list Ms. Acevedo is a 76 yr old female with fatty liver disease, confusion. Renal functioning is worsening, now at 4.6. Transaminases are stable but moderately elevated. Bilirubin remains normal. Right upper quadrant ultrasound with fatty liver, without any suggestion of cirrhosis or obstructive findings. Pt is more alert than previously, denies pain. Review of Systems Constitutional: No fever Respiratory: No cough Cardiac: No chest pain Abdomen: No pain, No nausea, No vomiting, No diarrhea Female : No dysuria Neuro: + memory loss (poor historian but no obvious confusion, more alert today ) Psych: No depression symptoms Heme: No abnormal bleeding/bruising Skin: No rash, No jaundice Medications Current Inpatient Medications Medications (Trade) Dose Ordered Sig/Fay Route Start Time Stop Time Status Last Admin Dose Admin Heparin Sodium (Porcine) (Heparin Sq 5000 Unit/0.5ml) 5,000 unit Q8H SQ 01/19/17 22:00 02/18/17 21:59 01/30/17 06:05 5,000 UNIT Acetaminophen (Tylenol Tab) 650 mg Q4H PRN PO 01/19/17 20:15 02/18/17 20:14 01/26/17 05:20 650 MG Ondansetron HCl (Zofran Inj) 4 mg Q6H PRN IV 01/19/17 20:15 02/18/17 20:14 Insulin Glargine (Lantus Solostar Pen) 7 unit Q12 SC 01/19/17 21:00 02/18/17 20:59 Future Hold 01/19/17 22:42 7 UNIT Insulin Aspart (novoLOG ASPART) SLIDING SCALE If C... ACHS SC 01/19/17 21:00 02/18/17 20:59 01/30/17 08:14 5 UNITS Glucose (Glucose 40% Gel) 15-30 GRAMS 15 GRAMS... UD PRN PO 01/19/17 20:15 02/18/17 20:14 Glucose (Glucose Chew Tab) 4-8 Tablets 4 Tabl... UD PRN PO 01/19/17 20:15 02/18/17 20:14 Dextrose (Dextrose 50% 50ML Syringe) 25-50ML OF 50% DW IV FOR... UD PRN IV 01/19/17 20:15 02/18/17 20:14 Glucagon (Glucagon Inj) 1 mg UD PRN SQ 01/19/17 20:15 02/18/17 20:14 Aspirin (Ecotrin Tab) 81 mg DAILY PO 01/20/17 08:00 02/19/17 08:59 01/30/17 08:10 81 MG Levothyroxine Sodium (Synthroid Tab) 150 mcg DAILYBB PO 01/20/17 06:30 02/19/17 06:59 01/30/17 06:03 150 MCG Thiamine HCl (Vitamin B-1 Tab) 100 mg DAILY PO 01/20/17 08:00 02/19/17 08:59 01/30/17 08:09 100 MG Nicotine (Nicoderm Cq 21MG Patch) 1 patch Q24H TD 01/19/17 21:00 02/18/17 20:59 01/29/17 21:06 1 PATCH Miscellaneous (Remove Nicoderm Patch) 1 ea PM N/A 01/20/17 20:00 02/19/17 20:59 01/29/17 21:04 1 EA Ergocalciferol (Vitamin D Cap) 50,000 interunit Q4D PO 01/19/17 22:00 02/18/17 21:59 01/27/17 21:33 50,000 INTERUNIT Folic Acid (Folvite Tab) 1 mg QAM PO 01/21/17 08:00 02/20/17 07:59 01/30/17 08:09 1 MG Multivitamins/ Minerals (Multivitamin W/ Minerals Tab) 1 tab QAM PO 01/21/17 08:00 02/20/17 07:59 01/30/17 08:09 1 TAB Lorazepam (Ativan Tab) PRN Dosing -Active Protocol UD PRN PO 01/22/17 02:00 02/20/17 01:59 01/26/17 03:06 1 MG Metoprolol Tartrate (Lopressor Tab) 25 mg Q8 PO 01/21/17 22:00 02/20/17 21:59 01/30/17 06:03 25 MG Albuterol/ Ipratropium (Duoneb) 3 ml QIDR INH 01/24/17 08:00 02/23/17 07:59 01/30/17 07:19 3 ML Acetaminophen/ Hydrocodone Bitart ([place] 5/325 Tab) 1 tab Q6 PRN PO 01/24/17 04:30 02/07/17 04:29 01/28/17 21:35 1 TAB Senna/Docusate Sodium (Senokot S Tab) 1 tab QAM PO 01/26/17 08:00 02/25/17 07:59 01/30/17 08:09 1 TAB Sodium Chloride ([place] Nasal [place]) 1 sprays DAILY PRN YORDY 01/26/17 11:15 02/25/17 11:14 Haloperidol (Haldol Tab) 2 mg Q4 PRN PO 01/26/17 19:15 02/25/17 19:14 Future Hold Objective Vital Signs Date Time Temp Pulse Resp B/P (MAP) Pulse Ox O2 Delivery O2 Flow Rate FiO2 01/30/17 11:04 98 Nasal Cannula 2.0 01/30/17 07:19 72 18 98 Nasal Cannula 2.0 01/30/17 06:56 37.0 74 16 121/76 (91) 93 Nasal Cannula 2.0 01/30/17 06:08 87 137/97 (110) 01/30/17 00:00 Nasal Cannula 2.0 01/29/17 23:23 36.7 81 17 114/64 (81) 96 Nasal Cannula 2.0 01/29/17 21:41 96 122/50 (74) 01/29/17 20:00 Nasal Cannula 2.0 01/29/17 19:22 83 18 94 Nasal Cannula 2.0 01/29/17 15:50 90 Nasal Cannula 2.0 01/29/17 15:25 86 18 90 Room Air 01/29/17 14:30 87 99/63 (75) Physical Exam General Appearance: no apparent distress ENT: pharynx normal Neck: no adenopathy, no JVD Respiratory/Chest: lungs clear Cardiovascular: regular rate, rhythm, no JVD, no murmur Abdomen: non tender, soft Extremities: non-tender Neurologic/Psych: alert, normal mood/affect, oriented x 3 Skin: normal color, no jaundice Laboratory Results Last 24 Hours Test 01/29/17 11:30 01/29/17 14:25 01/29/17 16:23 01/29/17 19:50 Bedside Glucose 145 mg/dl 114 mg/dl 174 mg/dl Urine Color DK YELLOW Urine Appearance CLOUDY Urine pH 5.5 Urine Specific [place] 1.017 Urine Protein 2+ Urine Glucose (UA) NEG Urine Ketones NEG Urine Occult Blood 1+ Urine Nitrite NEG Urine Bilirubin NEG Urine Urobilinogen NEG Urine Leukocyte Esterase NEG Urine WBC (Auto) 1-5 /hpf Urine RBC (Auto) 0-4 /hpf Urine Hyaline Casts (Auto) 1-5 /lpf Urine Epithelial Cells (Auto) >30 /lpf Urine Bacteria (Auto) 1+ Urine Renal Epithelial Cells /lpf Urine Pathogenic Casts 0-3 GRANULAR CASTS /lpf Urine Random Creatinine 64.0 mg/dl Urine Random Total Protein 244.0 mg/dl Urine Random Sodium 42 mEq/L Urine Protein/Creatinine Ratio 3.8 Test 01/30/17 05:25 01/30/17 07:36 White Blood Count 13.15 K/uL Red Blood Count 2.51 M/uL Hemoglobin 8.3 g/dL Hematocrit 25.1 % Mean Corpuscular Volume 100.0 fL Mean Corpuscular Hemoglobin 33.1 pg Mean Corpuscular Hemoglobin Concent 33.1 g/dl Platelet Count 450 K/uL Mean Platelet Volume 10.7 fL Neutrophils (%) (Auto) 75.3 % Lymphocytes (%) (Auto) 9.8 % Monocytes (%) (Auto) 13.2 % Eosinophils (%) (Auto) 0.5 % Basophils (%) (Auto) 0.2 % Neutrophils # (Auto) 9.91 K/uL Lymphocytes # (Auto) 1.29 K/uL Monocytes # (Auto) 1.74 K/uL Eosinophils # (Auto) 0.06 K/uL Basophils # (Auto) 0.02 K/uL RDW Standard Deviation 56.4 fL RDW Coefficient of Variation 15.6 % Immature Granulocyte % (Auto) 1.0 % Immature Granulocyte # (Auto) 0.13 K/uL Nucleated RBC Absolute Count (auto) 0.02 K/uL Nucleated Red Blood Cells % 0.2 % Anisocytosis PRESENT Sodium Level 140 mmol/L Potassium Level 4.9 mmol/L Chloride Level 109 mmol/L Carbon Dioxide Level 20 mmol/L Anion Gap 11.0 mmol/L Blood Urea Nitrogen 53 mg/dl Creatinine 4.60 mg/dl Est Creatinine Clear Calc Drug Dose 9.9 ml/min Estimated GFR () 10.0 Estimated GFR (Non- 8.6 BUN/Creatinine Ratio 11.6 Random Glucose 126 mg/dl Calcium Level 8.3 mg/dl Magnesium Level 2.3 mg/dl Total Bilirubin 0.4 mg/dl Direct Bilirubin 0.3 mg/dl Aspartate Amino Transf (AST/SGOT) 186 U/L Alanine Aminotransferase (ALT/SGPT) 80 U/L Alkaline Phosphatase 534 U/L Total Protein 6.3 gm/dl Albumin 1.8 gm/dl Bedside Glucose 141 mg/dl Assessment and Plan Ms. Acevedo is a 76 yr old female with a hx of increased alcohol intake and elevated LFTs. This is likely caused by fatty liver, possibly worsened with Crestor. No evidence of cirrhosis on imaging and normal platelet level argues against cirrhosis. Viral serology - some still pending but negative thus far. GARRICK pending (needed to r/u autoimmune hepatitis) 1. Would avoid statins. 2. Follow LFTs every 2 or 3 days. If do not returned to baseline and then referred to outpatient GI for further workup. 3. Complete abstention from alcohol support. I saw and evaluated the patient with Ms. Dooley. Please continue to hold the Crestor as this is the suspected etiology to her LAE eelvation.
--- NOTE | 2017-01-30 11:41 | Progress Note ---
Medicine Progress Note Date & Time of Visit: Jan 30, 2017 at 11:17. Subjective 76 yo F initially admitted for weakness after a fall without loss of consciousness at home. -reports some heartburn today -ate breakfast with no issues -states that her nausea from yesterday is resolved. -denies vomiting, shortness of breath, coughing, chest pain, abdominal pain -reports a normal BM yesterday -continues to ambulate with PT Objective Last 8 Hrs Date Time Temp Pulse Resp B/P (MAP) Pulse Ox O2 Delivery O2 Flow Rate FiO2 01/30/17 07:19 72 18 98 Nasal Cannula 2.0 01/30/17 06:56 37.0 74 16 121/76 (91) 93 Nasal Cannula 2.0 01/30/17 06:08 87 137/97 (110) Physical Exam: GEN: WNWD, in no acute distress, alert and appropriate, sitting up at bedside chair. HEENT: NC/AT, normal sclerae, MMM CARDIO: reg rate, S1/2 heard without m/g/r LUNGS: coarse rhonchi bilaterally, no wheezing. She is requiring oxygen at this time on NC ABD: soft, non-tender, non-distended, no rebound or guarding, +BS, no CVA tenderness EXTREMITY: RP and DP palpable 2+ bilat, no LE swelling or edema, extremities are warm and well-perfused NEURO: CN 2-12 grossly intact, no gross focal deficits. Mentating appropriately. MUSC: 5/5 strength throughout SKIN: warm and dry Laboratory Results: 01/30/17 05:25 Red Blood Count 2.51, Mean Corpuscular Volume 100.0, Mean Corpuscular Hemoglobin 33.1, Mean Corpuscular Hemoglobin Concent 33.1, Mean Platelet Volume 10.7, Neutrophils (%) (Auto) 75.3, Lymphocytes (%) (Auto) 9.8, Monocytes (%) ( Auto) 13.2, Eosinophils (%) (Auto) 0.5, Basophils (%) (Auto) 0.2, Neutrophils # (Auto) 9.91, Lymphocytes # (Auto) 1.29, Monocytes # (Auto) 1.74, Eosinophils # ( Auto) 0.06, Basophils # (Auto) 0.02 01/30/17 05:25 Test 01/19/17 13:56 01/19/17 14:25 01/20/17 06:44 01/21/17 08:05 Prothrombin Time 10.8 SECONDS (9.0-12.0) Prothromb Time International Ratio 1.0 (0.9-1.1) Troponin I < 0.015 ng/ml (0-0.045) 25-Hydroxy Vitamin D Total 8.4 ng/ml (30-100) Thyroid Stimulating Hormone (TSH) 11.400 uIu/ml (0.300-4.500) Urine Yeast (Auto) PRESENT (NONE PRSENT) Estimated Average Glucose 105 mg/dl Hemoglobin A1c 5.3 % (4.5-5.6) Lactic Acid Level 0.8 mmol/L (0.4-2.0) Test 01/22/17 06:53 01/27/17 06:45 01/28/17 11:33 01/28/17 13:11 Phosphorus Level 2.8 mg/dl (2.5-4.9) Ammonia 30.0 umol/L (11-32) Vitamin B12 Level > 2000 pg/mL (211-911) Folate > 24.00 ng/mL (>5.38) Immunoglobulin G 969.0 mg/dL (700-1600) Hepatitis B Surface Antigen NEG (NEG) Hepatitis C Antibody NEG (NEG) Red Blood Cell Morphology Unremarkable Test 01/29/17 07:25 01/29/17 14:25 01/30/17 05:25 01/30/17 11:16 Total Creatine Kinase 68 U/L (26-192) Globulin 4.4 gm/dl (2.5-4.0) Albumin/Globulin Ratio 0.4 (0.9-2) Procalcitonin 2.38 ng/ml (0-0.5) Urine Color DK YELLOW Urine Appearance CLOUDY (CLEAR) Urine pH 5.5 (4.5-7.5) Urine Specific [place] 1.017 (1.000-1.030) Urine Protein 2+ (NEG) Urine Glucose (UA) NEG (NEG) Urine Ketones NEG (NEG) Urine Occult Blood 1+ (NEG) Urine Nitrite NEG (NEG) Urine Bilirubin NEG (NEG) Urine Urobilinogen NEG (NEG) Urine Leukocyte Esterase NEG (NEG) Urine WBC (Auto) 1-5 /hpf (0-5) Urine RBC (Auto) 0-4 /hpf (0-4) Urine Hyaline Casts (Auto) 1-5 /lpf (0-5) Urine Epithelial Cells (Auto) >30 /lpf (0-5) Urine Bacteria (Auto) 1+ (NEG) Urine Renal Epithelial Cells /lpf (0-5) Urine Pathogenic Casts 0-3 GRANULAR CASTS /lpf (0) Urine Random Creatinine 64.0 mg/dl Urine Random Total Protein 244.0 mg/dl (0-11.9) Urine Random Sodium 42 mEq/L Urine Protein/Creatinine Ratio 3.8 (0-0.2) White Blood Count 13.15 K/uL (4.8-10.8) Red Blood Count 2.51 M/uL (4.2-5.4) Hemoglobin 8.3 g/dL (12.0-16.0) Hematocrit 25.1 % (37-47) Mean Corpuscular Volume 100.0 fL (80-100) Mean Corpuscular Hemoglobin 33.1 pg (25-34) Mean Corpuscular Hemoglobin Concent 33.1 g/dl (32-36) Platelet Count 450 K/uL (130-400) Mean Platelet Volume 10.7 fL (7.4-10.4) Neutrophils (%) (Auto) 75.3 % Lymphocytes (%) (Auto) 9.8 % Monocytes (%) (Auto) 13.2 % Eosinophils (%) (Auto) 0.5 % Basophils (%) (Auto) 0.2 % Neutrophils # (Auto) 9.91 K/uL (1.4-6.5) Lymphocytes # (Auto) 1.29 K/uL (1.2-3.4) Monocytes # (Auto) 1.74 K/uL (0.11-0.59) Eosinophils # (Auto) 0.06 K/uL (0-0.5) Basophils # (Auto) 0.02 K/uL (0-0.2) RDW Standard Deviation 56.4 fL (36.4-46.3) RDW Coefficient of Variation 15.6 % (11.5-14.5) Immature Granulocyte % (Auto) 1.0 % Immature Granulocyte # (Auto) 0.13 K/uL (0.00-0.02) Nucleated RBC Absolute Count (auto) 0.02 K/uL (0-0) Nucleated Red Blood Cells % 0.2 % Anisocytosis PRESENT Anion Gap 11.0 mmol/L (3-11) Est Creatinine Clear Calc Drug Dose 9.9 ml/min Estimated GFR () 10.0 Estimated GFR (Non- 8.6 BUN/Creatinine Ratio 11.6 (10-20) Calcium Level 8.3 mg/dl (8.5-10.1) Magnesium Level 2.3 mg/dl (1.8-2.4) Total Bilirubin 0.4 mg/dl (0.2-1) Direct Bilirubin 0.3 mg/dl (0-0.2) Aspartate Amino Transf (AST/SGOT) 186 U/L (15-37) Alanine Aminotransferase (ALT/SGPT) 80 U/L (12-78) Alkaline Phosphatase 534 U/L (45-117) Total Protein 6.3 gm/dl (6.4-8.2) Albumin 1.8 gm/dl (3.4-5.0) Bedside Glucose 167 mg/dl (70-90) Date/Time Source Procedure Growth Status 01/19/17 19:24 Blood Blood Culture - Final NO GROWTH Complete 01/29/17 14:25 Urine , Clean Catch Urine Culture Pending Received Last 24 Hours Test 01/29/17 11:30 01/29/17 14:25 01/29/17 16:23 01/29/17 19:50 Bedside Glucose 145 mg/dl 114 mg/dl 174 mg/dl Urine Color DK YELLOW Urine Appearance CLOUDY Urine pH 5.5 Urine Specific [place] 1.017 Urine Protein 2+ Urine Glucose (UA) NEG Urine Ketones NEG Urine Occult Blood 1+ Urine Nitrite NEG Urine Bilirubin NEG Urine Urobilinogen NEG Urine Leukocyte Esterase NEG Urine WBC (Auto) 1-5 /hpf Urine RBC (Auto) 0-4 /hpf Urine Hyaline Casts (Auto) 1-5 /lpf Urine Epithelial Cells (Auto) >30 /lpf Urine Bacteria (Auto) 1+ Urine Renal Epithelial Cells /lpf Urine Pathogenic Casts 0-3 GRANULAR CASTS /lpf Urine Random Creatinine 64.0 mg/dl Urine Random Total Protein 244.0 mg/dl Urine Random Sodium 42 mEq/L Urine Protein/Creatinine Ratio 3.8 Test 01/30/17 05:25 01/30/17 07:36 White Blood Count 13.15 K/uL Red Blood Count 2.51 M/uL Hemoglobin 8.3 g/dL Hematocrit 25.1 % Mean Corpuscular Volume 100.0 fL Mean Corpuscular Hemoglobin 33.1 pg Mean Corpuscular Hemoglobin Concent 33.1 g/dl Platelet Count 450 K/uL Mean Platelet Volume 10.7 fL Neutrophils (%) (Auto) 75.3 % Lymphocytes (%) (Auto) 9.8 % Monocytes (%) (Auto) 13.2 % Eosinophils (%) (Auto) 0.5 % Basophils (%) (Auto) 0.2 % Neutrophils # (Auto) 9.91 K/uL Lymphocytes # (Auto) 1.29 K/uL Monocytes # (Auto) 1.74 K/uL Eosinophils # (Auto) 0.06 K/uL Basophils # (Auto) 0.02 K/uL RDW Standard Deviation 56.4 fL RDW Coefficient of Variation 15.6 % Immature Granulocyte % (Auto) 1.0 % Immature Granulocyte # (Auto) 0.13 K/uL Nucleated RBC Absolute Count (auto) 0.02 K/uL Nucleated Red Blood Cells % 0.2 % Anisocytosis PRESENT Sodium Level 140 mmol/L Potassium Level 4.9 mmol/L Chloride Level 109 mmol/L Carbon Dioxide Level 20 mmol/L Anion Gap 11.0 mmol/L Blood Urea Nitrogen 53 mg/dl Creatinine 4.60 mg/dl Est Creatinine Clear Calc Drug Dose 9.9 ml/min Estimated GFR () 10.0 Estimated GFR (Non- 8.6 BUN/Creatinine Ratio 11.6 Random Glucose 126 mg/dl Calcium Level 8.3 mg/dl Magnesium Level 2.3 mg/dl Total Bilirubin 0.4 mg/dl Direct Bilirubin 0.3 mg/dl Aspartate Amino Transf (AST/SGOT) 186 U/L Alanine Aminotransferase (ALT/SGPT) 80 U/L Alkaline Phosphatase 534 U/L Total Protein 6.3 gm/dl Albumin 1.8 gm/dl Bedside Glucose 141 mg/dl Date/Time Source Procedure Growth Status 01/29/17 14:25 Urine , Clean Catch Urine Culture Pending Received Assessment & Plan 76 yo F initially admitted for weakness after a fall without loss of consciousness at home. 1. ARF-getting worse today. FeNa 11%. Urine eos pending. Poss ATN vs AIN per Nephro. Has chronic nephrotic-range proteinuria. Considering poss volume overload situation--repeating TTE and CXR at this time. Will give albumin today +/- Lasix. Cont [place] for accurate I/Os. Trend PRP. Spoke with daughter about the possible need for HD in a few days if not responding. She states she understands, agrees with this if needed, and will discuss with her mom today who has refused this in the past per outpatient records. 2. Hypoxia-acute, uncertain etiology. Poss related to COPD (pt is an active smoker) with some wheezing heard yesterday, however, wheezing is resolved today and she denies cough, sputum change. With pulmonary vascular congestion present on recent CXR, heart failure is also a possibility. Clinically she doesn't appear volume overloaded and she has a normal TTE in 2015, however, she has not received any diuretics this admission. She has gotten some IVF, and this may be the culprit, poss in the setting of worsened heart function. Will get updated TTE and repeat CXR today. Coarse rhonchi heard on exam. Will plan for Albumin +/- Lasix Cont oxygen supplementation for now. Pt denies coughing, fevers or chills. CT chest was clear on admission aside from a RLL pulm nodule. Cont Duonebs for now and hold off on steroids/doxy. 3. AMS-resolved. 4. Acute cystitis-recently treated with Rocephin x 5 days. Pending repeat urine culture 5. Leukocytosis-uncertain etiology at this time. Afebrile, no clear source of infection/inflammation. Cont to trend. 6. Deconditioning with ambulatory dysfunction-strength appears to have improved today and she states that she feels stronger. Cont PT/OT efforts, Fall precautions. 7. L hip pain-Left hip xray showed no evidence of left hip fracture. Analgesics PRN. 8. Anemia-no active bleeding. stable, multifactorial. 9. Constipation-Bowel regimen PRN, reports normal BM yesterday 10. HTN-controlled, cont Lopressor 11. Vit D deficiency-cont ergocalciferol 12. Smoking-cont Nicoderm patch 13. Hypothyroid-Synthroid 150mg daily. Repeat TSH needed in 5 weeks. Likely noncompliant with meds as outpatient per daughter. 14. DMII- sugars at goal, cont ISS 15. Transaminitis-pt with fatty liver who uses alcohol. GI following and pursuing more aggressive workup at this time. Currently has no abdominal pain. 16. ETOH abuse-cont thiamine and folic acid. Last drink was >10 days ago. 17. Pulmonary nodule-CT chest demonstrated 5 mm nodule right lower lobe, stable compared to CT performed 11/11/15. Patient is a smoker. follow up per guidelines. 18. renal lesion 1.8 cm hyperdense lesion right kidney-complex cyst versus solid mass. Patient had ultrasound performed at [facility] 07/31/16 which demonstrated 3 cystic lesions, largest measuring [address] of abdomen and pelvis on 04/11/13 showed similar findings. Radiographic stability suggests benign lesion. DVT proph-Heparin FULL CODE Dispo-to rehab once medically stable. I spoke with daughter who is working to change up mom's living situation. She is considering moving her closer to [facility] where she currently lives. She verbalized understanding that her mom is no longer fit to stay alone at home. We also discussed possibility of HD and updates as above. Verbalized understanding of all and all questions were answered. Georgia Thompson DO [facility] Hospitalist Consultants: Nephrology Neurology Gastro Procedures: CT head CT cervical spine CT chest CT abdomen and pelvis IV fluids IV medications PT OT . Current Inpatient Medications: Current Inpatient Medications Medications (Trade) Dose Ordered Sig/Fay Route Start Time Stop Time Status Last Admin Dose Admin Heparin Sodium (Porcine) (Heparin Sq 5000 Unit/0.5ml) 5,000 unit Q8H SQ 01/19/17 22:00 02/18/17 21:59 01/30/17 06:05 5,000 UNIT Acetaminophen (Tylenol Tab) 650 mg Q4H PRN PO 01/19/17 20:15 02/18/17 20:14 01/26/17 05:20 650 MG Ondansetron HCl (Zofran Inj) 4 mg Q6H PRN IV 01/19/17 20:15 02/18/17 20:14 Insulin Glargine (Lantus Solostar Pen) 7 unit Q12 SC 01/19/17 21:00 02/18/17 20:59 Future Hold 01/19/17 22:42 7 UNIT Insulin Aspart (novoLOG ASPART) SLIDING SCALE If C... ACHS SC 01/19/17 21:00 02/18/17 20:59 01/30/17 08:14 5 UNITS Glucose (Glucose 40% Gel) 15-30 GRAMS 15 GRAMS... UD PRN PO 01/19/17 20:15 02/18/17 20:14 Glucose (Glucose Chew Tab) 4-8 Tablets 4 Tabl... UD PRN PO 01/19/17 20:15 02/18/17 20:14 Dextrose (Dextrose 50% 50ML Syringe) 25-50ML OF 50% DW IV FOR... UD PRN IV 01/19/17 20:15 02/18/17 20:14 Glucagon (Glucagon Inj) 1 mg UD PRN SQ 01/19/17 20:15 02/18/17 20:14 Aspirin (Ecotrin Tab) 81 mg DAILY PO 01/20/17 08:00 02/19/17 08:59 01/30/17 08:10 81 MG Levothyroxine Sodium (Synthroid Tab) 150 mcg DAILYBB PO 01/20/17 06:30 02/19/17 06:59 01/30/17 06:03 150 MCG Multivitamins (Multivitamin Tab) 1 tab DAILY PO 01/20/17 08:00 02/19/17 08:59 01/30/17 08:10 1 TAB Thiamine HCl (Vitamin B-1 Tab) 100 mg DAILY PO 01/20/17 08:00 02/19/17 08:59 01/30/17 08:09 100 MG Nicotine (Nicoderm Cq 21MG Patch) 1 patch Q24H TD 01/19/17 21:00 02/18/17 20:59 01/29/17 21:06 1 PATCH Miscellaneous (Remove Nicoderm Patch) 1 ea PM N/A 01/20/17 20:00 02/19/17 20:59 01/29/17 21:04 1 EA Ergocalciferol (Vitamin D Cap) 50,000 interunit Q4D PO 01/19/17 22:00 02/18/17 21:59 01/27/17 21:33 50,000 INTERUNIT Folic Acid (Folvite Tab) 1 mg QAM PO 01/21/17 08:00 02/20/17 07:59 01/30/17 08:09 1 MG Multivitamins/ Minerals (Multivitamin W/ Minerals Tab) 1 tab QAM PO 01/21/17 08:00 02/20/17 07:59 01/30/17 08:09 1 TAB Lorazepam (Ativan Tab) PRN Dosing -Active Protocol UD PRN PO 01/22/17 02:00 02/20/17 01:59 01/26/17 03:06 1 MG Metoprolol Tartrate (Lopressor Tab) 25 mg Q8 PO 01/21/17 22:00 02/20/17 21:59 01/30/17 06:03 25 MG Albuterol/ Ipratropium (Duoneb) 3 ml QIDR INH 01/24/17 08:00 02/23/17 07:59 01/30/17 07:19 3 ML Acetaminophen/ Hydrocodone Bitart ([place] 5/325 Tab) 1 tab Q6 PRN PO 01/24/17 04:30 02/07/17 04:29 01/28/17 21:35 1 TAB Senna/Docusate Sodium (Senokot S Tab) 1 tab QAM PO 01/26/17 08:00 02/25/17 07:59 01/30/17 08:09 1 TAB Sodium Chloride ([place] Nasal [place]) 1 sprays DAILY PRN YORDY 01/26/17 11:15 02/25/17 11:14 Haloperidol (Haldol Tab) 2 mg Q4 PRN PO 01/26/17 19:15 02/25/17 19:14 Future Hold
--- NOTE | 2017-01-30 11:48 | DIAGNOSTIC IMAGING REPORT ---
CHEST ONE VIEW PORTABLE HISTORY: hypoxia and coarse rhonchi, h/o smoking COMPARISON: Chest 01/24/2017. FINDINGS: The heart is mildly enlarged. Suspect a trace right pleural effusion. No pneumothorax. Slight progression of the perihilar interstitial and vascular thickening. This favors developing pulmonary edema. No new focal lung consolidations. IMPRESSION: Progression of the cardiomegaly with mild interstitial pulmonary edema and a trace right pleural effusion. Electronically signed by: Roddy Junior M.D. 01/30/2017 11:46 AM Dictated Date/Time: 01/30/2017 11:45 AM
--- NOTE | 2017-01-30 11:58 | Nephrology Progress Note ---
Nephrology Progress Note Date of Service: Jan 30, 2017. Subjective not a reliable historian. sitting up in bed on RA, denies dyspnea or pain. states would not want to do dialysis "b/c I already have so many problems" Objective Date Time Temp Pulse Resp B/P (MAP) Pulse Ox O2 Delivery O2 Flow Rate FiO2 01/30/17 07:19 72 18 98 Nasal Cannula 2.0 01/30/17 06:56 37.0 74 16 121/76 (91) 93 Nasal Cannula 2.0 01/30/17 06:08 87 137/97 (110) 01/30/17 00:00 Nasal Cannula 2.0 01/29/17 23:23 36.7 81 17 114/64 (81) 96 Nasal Cannula 2.0 01/29/17 21:41 96 122/50 (74) 01/29/17 20:00 Nasal Cannula 2.0 01/29/17 19:22 83 18 94 Nasal Cannula 2.0 01/29/17 15:50 90 Nasal Cannula 2.0 01/29/17 15:25 86 18 90 Room Air 01/29/17 14:30 87 99/63 (75) 01/29/17 11:12 94 20 85 Room Air Physical Exam: GENERAL: Elderly white female, on RA in bed dyspneic slightly w/ speech HEENT: Mucous membranes moist. NECK: Supple. CHEST: scattered crackles/rhonchi CARDIOVASCULAR: S1 and S2 regular. No murmur, rubs or gallop. ABDOMEN: distended w/o fluid wave; today not tender; zhang w/ some urine EXTREMITIES: no edema. NEURO krishnamurthy but too weak to sit up for exam; delayed speech/ ? reliability of hx Current Inpatient Medications Medications (Trade) Dose Ordered Sig/Fay Route Start Time Stop Time Status Last Admin Dose Admin Heparin Sodium (Porcine) (Heparin Sq 5000 Unit/0.5ml) 5,000 unit Q8H SQ 01/19/17 22:00 02/18/17 21:59 01/30/17 06:05 5,000 UNIT Acetaminophen (Tylenol Tab) 650 mg Q4H PRN PO 01/19/17 20:15 02/18/17 20:14 01/26/17 05:20 650 MG Ondansetron HCl (Zofran Inj) 4 mg Q6H PRN IV 01/19/17 20:15 72/17 20:14 Insulin Glargine (Lantus Solostar Pen) 7 unit Q12 SC 01/19/17 21:00 02/18/17 20:59 Future Hold 01/19/17 22:42 7 UNIT Insulin Aspart (novoLOG ASPART) SLIDING SCALE If C... ACHS SC 01/19/17 21:00 02/18/17 20:59 01/30/17 08:14 5 UNITS Glucose (Glucose 40% Gel) 15-30 GRAMS 15 GRAMS... UD PRN PO 01/19/17 20:15 02/18/17 20:14 Glucose (Glucose Chew Tab) 4-8 Tablets 4 Tabl... UD PRN PO 01/19/17 20:15 02/18/17 20:14 Dextrose (Dextrose 50% 50ML Syringe) 25-50ML OF 50% DW IV FOR... UD PRN IV 01/19/17 20:15 02/18/17 20:14 Glucagon (Glucagon Inj) 1 mg UD PRN SQ 01/19/17 20:15 02/18/17 20:14 Aspirin (Ecotrin Tab) 81 mg DAILY PO 01/20/17 08:00 02/19/17 08:59 01/30/17 08:10 81 MG Levothyroxine Sodium (Synthroid Tab) 150 mcg DAILYBB PO 01/20/17 06:30 02/19/17 06:59 01/30/17 06:03 150 MCG Multivitamins (Multivitamin Tab) 1 tab DAILY PO 01/20/17 08:00 02/19/17 08:59 01/30/17 08:10 1 TAB Thiamine HCl (Vitamin B-1 Tab) 100 mg DAILY PO 01/20/17 08:00 02/19/17 08:59 01/30/17 08:09 100 MG Nicotine (Nicoderm Cq 21MG Patch) 1 patch Q24H TD 01/19/17 21:00 02/18/17 20:59 01/29/17 21:06 1 PATCH Miscellaneous (Remove Nicoderm Patch) 1 ea PM N/A 01/20/17 20:00 02/19/17 20:59 01/29/17 21:04 1 EA Ergocalciferol (Vitamin D Cap) 50,000 interunit Q4D PO 01/19/17 22:00 02/18/17 21:59 01/27/17 21:33 50,000 INTERUNIT Folic Acid (Folvite Tab) 1 mg QAM PO 01/21/17 08:00 02/20/17 07:59 01/30/17 08:09 1 MG Multivitamins/ Minerals (Multivitamin W/ Minerals Tab) 1 tab QAM PO 01/21/17 08:00 02/20/17 07:59 01/30/17 08:09 1 TAB Lorazepam (Ativan Tab) PRN Dosing -Active Protocol UD PRN PO 01/22/17 02:00 02/20/17 01:59 01/26/17 03:06 1 MG Metoprolol Tartrate (Lopressor Tab) 25 mg Q8 PO 01/21/17 22:00 02/20/17 21:59 01/30/17 06:03 25 MG Albuterol/ Ipratropium (Duoneb) 3 ml QIDR INH 01/24/17 08:00 02/23/17 07:59 01/30/17 07:19 3 ML Acetaminophen/ Hydrocodone Bitart ([place] 5/325 Tab) 1 tab Q6 PRN PO 01/24/17 04:30 02/07/17 04:29 01/28/17 21:35 1 TAB Senna/Docusate Sodium (Senokot S Tab) 1 tab QAM PO 01/26/17 08:00 02/25/17 07:59 01/30/17 08:09 1 TAB Sodium Chloride (Love Nasal Charlotte) 1 sprays DAILY PRN YORDY 01/26/17 11:15 02/25/17 11:14 Haloperidol (Haldol Tab) 2 mg Q4 PRN PO 01/26/17 19:15 02/25/17 19:14 Future Hold Last 24 Hours Test 01/29/17 11:30 01/29/17 14:25 01/29/17 16:23 01/29/17 19:50 Bedside Glucose 145 mg/dl 114 mg/dl 174 mg/dl Urine Color DK YELLOW Urine Appearance CLOUDY Urine pH 5.5 Urine Specific Gary 1.017 Urine Protein 2+ Urine Glucose (UA) NEG Urine Ketones NEG Urine Occult Blood 1+ Urine Nitrite NEG Urine Bilirubin NEG Urine Urobilinogen NEG Urine Leukocyte Esterase NEG Urine WBC (Auto) 1-5 /hpf Urine RBC (Auto) 0-4 /hpf Urine Hyaline Casts (Auto) 1-5 /lpf Urine Epithelial Cells (Auto) >30 /lpf Urine Bacteria (Auto) 1+ Urine Renal Epithelial Cells /lpf Urine Pathogenic Casts 0-3 GRANULAR CASTS /lpf Urine Random Creatinine 64.0 mg/dl Urine Random Total Protein 244.0 mg/dl Urine Random Sodium 42 mEq/L Urine Protein/Creatinine Ratio 3.8 Test 01/30/17 05:25 01/30/17 07:36 White Blood Count 13.15 K/uL Red Blood Count 2.51 M/uL Hemoglobin 8.3 g/dL Hematocrit 25.1 % Mean Corpuscular Volume 100.0 fL Mean Corpuscular Hemoglobin 33.1 pg Mean Corpuscular Hemoglobin Concent 33.1 g/dl Platelet Count 450 K/uL Mean Platelet Volume 10.7 fL Neutrophils (%) (Auto) 75.3 % Lymphocytes (%) (Auto) 9.8 % Monocytes (%) (Auto) 13.2 % Eosinophils (%) (Auto) 0.5 % Basophils (%) (Auto) 0.2 % Neutrophils # (Auto) 9.91 K/uL Lymphocytes # (Auto) 1.29 K/uL Monocytes # (Auto) 1.74 K/uL Eosinophils # (Auto) 0.06 K/uL Basophils # (Auto) 0.02 K/uL RDW Standard Deviation 56.4 fL RDW Coefficient of Variation 15.6 % Immature Granulocyte % (Auto) 1.0 % Immature Granulocyte # (Auto) 0.13 K/uL Nucleated RBC Absolute Count (auto) 0.02 K/uL Nucleated Red Blood Cells % 0.2 % Anisocytosis PRESENT Sodium Level 140 mmol/L Potassium Level 4.9 mmol/L Chloride Level 109 mmol/L Carbon Dioxide Level 20 mmol/L Anion Gap 11.0 mmol/L Blood Urea Nitrogen 53 mg/dl Creatinine 4.60 mg/dl Est Creatinine Clear Calc Drug Dose 9.9 ml/min Estimated GFR () 10.0 Estimated GFR (Non- 8.6 BUN/Creatinine Ratio 11.6 Random Glucose 126 mg/dl Calcium Level 8.3 mg/dl Magnesium Level 2.3 mg/dl Total Bilirubin 0.4 mg/dl Direct Bilirubin 0.3 mg/dl Aspartate Amino Transf (AST/SGOT) 186 U/L Alanine Aminotransferase (ALT/SGPT) 80 U/L Alkaline Phosphatase 534 U/L Total Protein 6.3 gm/dl Albumin 1.8 gm/dl Bedside Glucose 141 mg/dl Date/Time Source Procedure Growth Status 01/29/17 14:25 Urine , Clean Catch Urine Culture Pending Received Assessment & Plan 76-year-old female with long standing type 2 diabetes, alcohol abuse, COPD admitted 01/19 following episode of fall and confusion w/ worsening renal failure. treated at admission for uti. hx of > 30 yrs htn, dm on insulin w/ 2.3 gm proteinuria late 2015 w/ unexplained Jack for several months early 2016. presenting creatinine was 1.6, down to 1.1 01/20, then plateau'd 01/24-01/26 at 1.8 , now worsening again, up to 4.6 today not oliguric. >>>Acute on chronic renal failure; cause unclear still; in setting of altered MS , dyspnea, now worsening renal failure >> suspect ATN or less likely volume depletion; not oliguric but I/O incomplete. repeat urine very concentrated with nephrotic range proteinuria and no infection, minimal blood in urine. not a convincing story for interstitial nephritis though this can be subtle; no obstruction. CK is wnl. cannot be hepatorenal syndrome as she has no ascites and no liver cirrhosis -daily bmp >cont zhang/ strict I/O -no obvious nephrotoxins and several days in past week of IVF -f/u pending urine eos and serologies; will check ESR for am (non specific but comes back more quickly) -repeat CXR; if still w/ vol OL evidence, get TTE and give IV albumin 25% w/ lasix 40 mg IV BID; if no volume overload, needs albumin 25% 25 gm IV q8h -cannot rule out need to transfer for renal biopsy/possible tx of acute GN but will for now follow -recommend discussion of goals of care w/ pt and daughter >> likely to need dialysis w/in a week if we make no headway on this sudden change in function; could be [facility] dialysis -ordered orthostatic vital signs, though on BB this may not be helpful R renal lesions -needs nonemergent renal mri to evaluate >> suspect not a simple cyst Anemia of chronic disease -monitor for need for transfusion Appreciate consult; will follow with you. Care coordinated w/ Dr Thompson
[2017-01-30] MEDS ORDERED: FAMOTIDINE 20 MG TAB PO ONE (12:00)
[2017-01-30] MEDS: LORAZEPAM 1 MG TAB PO PRN (14:25)
[2017-01-30] MEDS: ALBUMIN 25% 50 ML with FUROSEMIDE INJ 40 MG IV SCH ×2 (17:01)
--- NOTE | 2017-01-30 17:22 | PROGRESS NOTE ---
DATE: 01/30/2017 Unfortunately, Bárbara was off to have an ultrasound today. Apparently she had more bloating of her abdomen and may have been a little more confused. I did not get a chance to assess her. I will look at her again tomorrow, but as previously, I think this encephalopathy is going to take some time to clear up, may never get back to a reasonable baseline and I think it is going to be limited in light of the leukoencephalopathy and volume loss that we see on CT scan. I think she probably does have a mild baseline cognitive impairment syndrome and the delirium on top of it is going to take some time to clear. I will check back with her tomorrow. Hopefully, should be on floor for evaluation.
[2017-01-30] MEDS: NICOTINE 21 MG/24 HR TDSY TD SCH (21:04)
[2017-01-31] VITALS (13 sets, daily range): BP systolic 104–152; BP diastolic 57–78; PULSE 80–98; TEMP 36.4–37; O2SAT 92–100
[2017-01-31] MEDS: ALBUMIN 25% 50 ML with FUROSEMIDE INJ 40 MG IV SCH ×4 (03:41→16:06)
[2017-01-31 07:01] LABS: HEMATOCRIT 23.1 % (37-47); MEAN CELL VOLUME 97.5 fL (80-100); MEAN CORPUSCULAR HEMOGLOBIN 32.1 pg (25-34); MEAN CORPUSCULAR HGB CONC 32.9 g/dl (32-36); MEAN PLATELET VOLUME 10.5 fL (7.4-10.4); PLATELET COUNT 509 K/uL (130-400); RED BLOOD COUNT 2.37 M/uL (4.2-5.4); WHITE BLOOD COUNT 11.56 K/uL (4.8-10.8)
[2017-01-31] MEDS: METOPROLOL TARTRATE 25 MG TAB PO SCH ×3 (07:05→21:01)
[2017-01-31] MEDS: ALBUT/IPRATROP 3MG/0.5MG NEB 3 ML VIAL INH SCH ×4 (07:05→19:27)
[2017-01-31] MEDS: LEVOTHYROXINE 150 MCG TAB PO SCH (07:06)
[2017-01-31] MEDS: HEPARIN SOD 5000 UNIT/0.5 ML CARP SQ SCH ×3 (07:09→20:57)
[2017-01-31 07:44] LABS: BUN/CREATININE RATIO 11.3 (10-20); CALCIUM 8.6 mg/dl (8.5-10.1); CREATININE 5.1 mg/dl (0.60-1.20); MAGNESIUM 2.4 mg/dl (1.8-2.4); POTASSIUM 4.4 mmol/L (3.5-5.1)
[2017-01-31] MEDS: THIAMINE HCL 100 MG TAB PO SCH (08:07)
[2017-01-31] MEDS: ASPIRIN 81 MG ECTAB PO SCH (08:07)
[2017-01-31] MEDS: DOCUSATE SODIUM/SENNA 50/8.6MG TAB PO SCH (08:07)
[2017-01-31] MEDS: CEROVITE ADV FORMULA TAB PO SCH (08:07)
[2017-01-31] MEDS: INSULIN ASPART 100 UNITS/ML 3 ML PEN SC SCH ×4 (08:12→20:57)
--- NOTE | 2017-01-31 12:17 | ECHOCARDIOGRAM REPORT ---
*NOTICE TO RECEIVING REPUBLICAN AGENCY This information is strictly Confidential and protected under [place] law. [place] law prohibits you from making any further disclosure of this information unless further disclosure is expressly permitted by the written consent of the person to whom it pertains or is authorized by law. A general authorization for the release of medical or other information is not sufficient for this purpose. Hospital accepts no responsibility if the information is made available to any other person, INCLUDING THE PATIENT. Interpretation Summary * Name: FARIHA KANG Study Date: 01/30/2017 03:17 PM BP: 131/67 mmHg * Patient Location: .[id number]\1 HR: 104 * : 1940 (M/d/yyyy) Gender: Female Height: 62 in * Age: 76 yrs Ethnicity: CA Weight: 165 lb * Ordering Physician: Georgia Thompson * Referring Physician: Self, Referred * Performed By: Yohana Marques RCS * * Reason For Study: HYPOXIA / VASCULAR CONGESTION * BSA: 1.8 m2 * The study was technically adequate. * Compared to prior study, there is no significant change. * -- Conclusions -- * Ejection Fraction = 60-65%. * Aortic valve sclerosis mild, without significant aortic valvular stenosis. * The left ventricular wall motion is normal. * There is borderline concentric left ventricular hypertrophy. Procedure Details * A complete two-dimensional transthoracic echocardiogram was performed (2D, M-mode, Doppler and color flow Doppler). Left Ventricle * The left ventricle is normal in size. * There is no thrombus. * There is borderline concentric left ventricular hypertrophy. * Ejection Fraction = 60-65%. * Left ventricular systolic function is normal. * The left ventricular wall motion is normal. Right Ventricle * The right ventricle is normal size. * The right ventricular systolic function is normal as assessed by tricuspid annular plane systolic excursion (TAPSE) (normal >1.5 cm). Atria * The left atrial size is normal. * Right atrial size is normal. * There is no evidence of atrial septal defect, but resolution does not allow assessment for a patent foramen ovale. Mitral Valve * The mitral valve is normal. * There is no mitral valve stenosis. * Significant mitral regurgitation is absent. Tricuspid Valve * The tricuspid valve is normal. * There is no tricuspid stenosis. * Significant tricuspid regurgitation is absent. Aortic Valve * The aortic valve is trileaflet. * Aortic valve sclerosis mild, without significant aortic valvular stenosis. * Aortic stenosis is absent. * There is no significant aortic regurgitation. Pulmonic Valve * The pulmonary valve is not well seen, but the Doppler examination is normal without significant regurgitation or stenosis. Great Vessels * The aortic root is normal size. Pericardium/Pleural * There is no pericardial effusion. Great Vessels * Normal inferior vena cava diameter and respiratory variation suggests normal central venous pressure. Left Ventricular Diastolic Function * Pulse wave TDI of the anterior and posterior mitral annulas demonstrates normal LV relaxation MMode 2D Measurements and Calculations IVSd 1.3 cm IVSs 1.6 cm LVIDd 3.4 cm LVIDs 2.0 cm LVPWd 1.3 cm LVPWs 1.8 cm IVS/LVPW 0.98 FS 41.6 % EDV(Teich) 46.2 ml ESV(Teich) 12.2 ml EF(Teich) 73.7 % EDV(cubed) 38.0 ml ESV(cubed) 7.6 ml EF(cubed) 80.1 % % IVS thick 23.9 % % LVPW thick 39.0 % LV mass(C)d 141.0 grams LV mass(C)dI 80.0 grams/m\S\2 LV mass(C)s 119.5 grams LV mass(C)sI 67.9 grams/m\S\2 SV(Teich) 34.0 ml SI(Teich) 19.3 ml/m\S\2 SV(cubed) 30.5 ml SI(cubed) 17.3 ml/m\S\2 Ao root diam 3.3 cm Ao root area 8.6 cm\S\2 ACS 1.6 cm LA dimension 3.6 cm LA/Ao 1.1 LVOT diam 2.0 cm LVOT area 3.0 cm\S\2 LVAd ap4 28.8 cm\S\2 LVLd ap4 7.7 cm EDV(MOD-sp4) 87.4 ml EDV(sp4-el) 91.2 ml LVAs ap4 13.9 cm\S\2 LVLs ap4 6.0 cm ESV(MOD-sp4) 28.9 ml ESV(sp4-el) 27.7 ml EF(MOD-sp4) 66.9 % EF(sp4-el) 69.7 % LVAd ap2 19.2 cm\S\2 LVLd ap2 6.0 cm EDV(MOD-sp2) 52.3 ml EDV(sp2-el) 52.5 ml LVAs ap2 11.7 cm\S\2 LVLs ap2 5.1 cm ESV(MOD-sp2) 22.6 ml ESV(sp2-el) 23.1 ml EF(MOD-sp2) 56.8 % EF(sp2-el) 55.9 % LVLd %diff -29.89 % EDV(MOD-bp) 76.6 ml LVLs %diff -17.77 % ESV(MOD-bp) 27.2 ml EF(MOD-bp) 64.4 % SV(MOD-sp4) 58.4 ml SI(MOD-sp4) 33.2 ml/m\S\2 SV(MOD-sp2) 29.7 ml SI(MOD-sp2) 16.8 ml/m\S\2 SV(MOD-bp) 49.3 ml SI(MOD-bp) 28.0 ml/m\S\2 SV(sp4-el) 63.5 ml SI(sp4-el) 36.1 ml/m\S\2 SV(sp2-el) 29.4 ml SI(sp2-el) 16.7 ml/m\S\2 Doppler Measurements and Calculations MV E max zandra 83.0 cm/sec MV A max zandra 98.1 cm/sec MV E/A 0.85 MV P1/2t max zandra 82.4 cm/sec MV P1/2t 50.9 msec MVA(P1/2t) 4.3 cm\S\2 MV dec slope 474.1 cm/sec\S\2 MV dec time 0.12 sec Ao V2 max 154.2 cm/sec Ao max PG 9.5 mmHg Ao max PG (full) 5.0 mmHg JUAN M(V,A) 2.1 cm\S\2 JUAN M(V,D) 2.1 cm\S\2 LV V1 max PG 4.5 mmHg LV V1 max 105.7 cm/sec PA V2 max 147.1 cm/sec PA max PG 8.7 mmHg
--- NOTE | 2017-01-31 13:47 | Surgery Consultation ---
Consultation Date of Service Jan 31, 2017. (Lori Henry, GASPER) Chief Complaint ESRD, need TDC for HD (Lori Henry, GASPER) History of Present Illness The patient is a 76 year old female with multiple medical problems, admitted with acute on chronic renal failure, seen in consultation today for placement of TDC for HD. Pt states feeling fatigued. Has been resistant to HD in past, but states she is willing to have at this time. Denies PEDERSEN, fever, chills, chest pain, SOB, abd pain, N/V, rest pain, claudication, other complaints. (Lori Henry, GASPER) Vitals Vital Signs Past 12 Hours Date Time Temp Pulse Resp B/P (MAP) Pulse Ox O2 Delivery O2 Flow Rate FiO2 01/31/17 11:18 81 18 98 Room Air 01/31/17 08:00 98 Room Air 2.0 01/31/17 07:42 36.7 94 16 152/78 (102) 100 Room Air 01/31/17 07:06 85 18 92 Room Air 01/31/17 04:28 36.7 92 20 147/78 (101) 94 Room Air 01/31/17 03:36 36.4 88 20 144/70 (94) 95 Room Air (Lori Henry, GASPER) Allergies Coded Allergies: Nifedipine (Verified Allergy, Severe, TONGUE SWELLING, 01/19/17) Penicillins (Verified Allergy, Intermediate, FEVER, 01/19/17) Sulfamethoxazole w/Trimethoprim (Verified Allergy, Intermediate, FEVER, 01/19/17) TY Inhibitors (Verified Allergy, Unknown, UNKNOWN, 01/19/17) Atorvastatin (Verified Allergy, Unknown, UNKNOWN, 01/19/17) Flu Virus Vaccine (Verified Allergy, Unknown, CHEST PAIN AND PRESSURE, 01/19) Magnesium Salicylate (Verified Adverse Reaction, Intermediate, SLOW HEART RATE, 01/19/17) Home Medications Scheduled Amlodipine (Norvasc), 10 MG PO DAILY Aspirin (Aspirin Ec), 81 MG PO DAILY Insulin Glargine (Lantus Solostar), 23 UNITS SQ HS Levothyroxine Sodium (Synthroid), 1 TAB PO DAILY Metoprolol Tartrate (Lopressor) (Lopressor), 50 MG PO TID Multivitamin (Multivitamin), 1 TAB PO DAILY PRN Rosuvastatin Calcium (Crestor), 40 MG PO QPM Telmisartan (Micardis), 20 MG PO QPM Thiamine Hcl (Vitamin B-1), 100 MG PO DAILY Scheduled PRN Lorazepam (Lorazepam), 0.5 MG PO QPM PRN for Anxiety Problem List Medical Problems: (1) Alcohol dependence (2) DMII (diabetes mellitus, type 2) (3) Gout (4) Hearing loss (5) HTN (hypertension) (6) Pain of right lower leg (7) Peripheral vascular disease Social History Problems: (1) Smoker (Lori Henry PA-C) Surgical / Medical History Hx Cardiac Surgery: No Hx Abdominal Surgery: No Hx Cancer Surgery: No Hx Thoracic Surgery: No Hx Orthopedic: No Hx Urinary Tract Surgery: No Past Medical/Surgical History: Diabetes, High Cholesterol, Hypertension, Kidney Disease, Thyroid Disease (Lori Henry PA-C) Family History Patient reports no known family medical history. (Lori Henry PA-C) Patient reports no known family medical history. (Juventino Garcia M.D.) Social History Smoking Status: Current Every Day Smoker Hx Tobacco Use In Past Year?: No Hx Alcohol Use - Type & Amnt: Yes (2 drinks a day) Hx Substance Use -Type & Amnt: No (Lori Henry PA-C) Review of Systems Constitutional: + malaise, No chills, No fever Skin: No change in color Eyes: No visual changes ENMT: No sore throat Respiratory: + LUIS, No cough, No hemoptysis, No short of breath Cardiovascular: No chest pain, No chest pressure, No palpitations, No syncope, No edema, No intermittent claudication Gastrointestinal: No abdominal pain, No nausea, No vomiting Genitourinary - Female: No dysuria, No hematuria Neurologic: + lethargy, No dizziness, No numbness (Lori Henry, GASPER) Physical Exam Constitutional: General Apperance: well-nourished, well-developed, overweight Level of Distress: NAD, chronically ill Psychiatric: Mental Status: active & alert, normal mood, normal affect Orientation: oriented except where noted, to time, to place, to person Memory: recent memory abnormal (vague), remote memory abnormal (vague) Head: normocephalic, atraumatic Eyes: EOM: EOMI ENMT: normal ENT inspection, hearing grossly normal Neck: supple, trachea midline Lungs: Respiratory effort: no dyspnea Auscultation: no wheezing, no rales/crackles, no rhonchi, decreased breath sounds Cardiovascular: Apical Impulse: not displaced Heart Auscultation: RRR, no rubs, no gallops Peripheral Pulses: Pulses: full and equal, in all extremities except if noted Bruits: none appreciated Carotid Pulse: normal on the left, normal on the right Brachial Pulses: normal on the left, normal on the right Radial Pulse: normal on the left, normal on the right Femoral Pulse: normal on the left, normal on the right Posterior Tibialis Pulse: decreased on the left, decreased on the right Dorsalis Pedis Pulse: decreased on the left, decreased on the right Abdomen: Bowel Sounds: normal Inspection & Palpation: soft, non-distended, no tenderness, guarding & rebound Musculoskeletal: normal strength (5/5 throughout), normal tone Extremities: Upper Right: no cyanosis, no edema, no varicosities Upper Left: no cyanosis, no edema, no varicosities Lower Right: no cyanosis, no varicosities, no palpable cord, edema Lower Left: no cyanosis, no varicosities, no palpable cord, edema Neurologic: Cranial Nerves: grossly intact Sensation: grossly intact (Lori Henry, MARCELINOC) Assessment and Plan ASSESSMENT and PLAN: ESRD Pt for TDC insertion tomorrow in OR. Procedure, risks, benefits, and alternatives discussed with pt, she expresses understanding and agreement. Attempted to call pt's daughter x2, no answer. (Lori Henry, PA-C) Patient was seen, examined, and chart reviewed. Agree with exam and treatment plan of the Vascular PA. I have discussed the risks options and benefits of the procedure with the patient. The patient understands the risks options and benefits and agrees to the procedure. (Juvention Garcia M.D.)
[2017-01-31] MEDS: LORAZEPAM 1 MG TAB PO PRN (14:01)
--- NOTE | 2017-01-31 16:49 | PROGRESS NOTE ---
DATE: 01/31/2017 I saw Bárbara today. Despite her increasing renal failure, she is clearing up mentally. She knows it is 2016, knows the month of January and knows to look at the calendar to check with me on my questioning and knows the name of the institution. She recalls seeing me, she knows her daughter is coming tomorrow. All this is much improved. She has also developed insight into her delirium and states that she no longer is having hallucinations and knows that these were incorrect and things that should not happen to her. Overall, her neuro exam otherwise is unremarkable. She has normal cranial nerves, clear speech. Minimal tremor of the outstretched hands, which I think is a longstanding issue and no parkinsonian features. 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 At this point, I think neurology is going to sign off her case and see her on an as needed basis. Nephrology is going to be managing her more closely now obviously and it is possible she may even need dialysis depending on what is found in terms of causation of her nonoliguric renal failure.
--- NOTE | 2017-01-31 17:13 | Nephrology Progress Note ---
Nephrology Progress Note Date of Service: Jan 31, 2017. Subjective confusion persists; started on lasix/albumin yesterday per plan based on XR w/ ongoing vascular congestion. not a reliable hsitorian but willing to try dialysis ; hospitalist has been d/w daughter Objective Date Time Temp Pulse Resp B/P (MAP) Pulse Ox O2 Delivery O2 Flow Rate FiO2 01/31/17 07:42 36.7 94 16 152/78 (102) 100 Room Air 01/31/17 07:06 85 18 92 Room Air 01/31/17 04:28 36.7 92 20 147/78 (101) 94 Room Air 01/31/17 03:36 36.4 88 20 144/70 (94) 95 Room Air 01/31/17 00:00 Nasal Cannula 2.0 01/30/17 23:08 36.8 88 18 117/70 (86) 94 Room Air 01/30/17 19:30 87 18 94 Room Air 01/30/17 18:25 37.1 80 20 124/74 (91) 95 Nasal Cannula 2.0 01/30/17 17:08 36.8 79 18 127/78 (94) 95 Nasal Cannula 2.0 01/30/17 16:00 Nasal Cannula 2.0 01/30/17 14:59 36.7 100 18 131/67 (88) 93 Room Air 01/30/17 14:31 72 18 96 Room Air 01/30/17 11:04 98 Nasal Cannula 2.0 Physical Exam: GENERAL: Elderly white female, on RA up in chair today less dyspneic w/ speech HEENT: Mucous membranes moist. NECK: Supple. CHEST: scattered crackles/rhonchi CARDIOVASCULAR: S1 and S2 regular. No murmur, rubs or gallop. ABDOMEN: distended w/o fluid wave; today again not tender; zhang w/ some urine EXTREMITIES: no edema. NEURO krishnamurthy but too weak to sit up for exam; delayed speech/ ? reliability of hx Current Inpatient Medications Medications (Trade) Dose Ordered Sig/Fay Route Start Time Stop Time Status Last Admin Dose Admin Heparin Sodium (Porcine) (Heparin Sq 5000 Unit/0.5ml) 5,000 unit Q8H SQ 01/19/17 22:00 02/18/17 21:59 01/31/17 07:09 5,000 UNIT Acetaminophen (Tylenol Tab) 650 mg Q4H PRN PO 01/19/17 20:15 02/18/17 20:14 01/26/17 05:20 650 MG Ondansetron HCl (Zofran Inj) 4 mg Q6H PRN IV 01/19/17 20:15 02/18/17 20:14 Insulin Glargine (Lantus Solostar Pen) 7 unit Q12 SC 01/19/17 21:00 02/18/17 20:59 Future Hold 01/19/17 22:42 7 UNIT Insulin Aspart (novoLOG ASPART) SLIDING SCALE If C... ACHS SC 01/19/17 21:00 02/18/17 20:59 01/31/17 08:12 4 UNITS Glucose (Glucose 40% Gel) 15-30 GRAMS 15 GRAMS... UD PRN PO 01/19/17 20:15 02/18/17 20:14 Glucose (Glucose Chew Tab) 4-8 Tablets 4 Tabl... UD PRN PO 01/19/17 20:15 02/18/17 20:14 Dextrose (Dextrose 50% 50ML Syringe) 25-50ML OF 50% DW IV FOR... UD PRN IV 01/19/17 20:15 02/18/17 20:14 Glucagon (Glucagon Inj) 1 mg UD PRN SQ 01/19/17 20:15 02/18/17 20:14 Aspirin (Ecotrin Tab) 81 mg DAILY PO 01/20/17 08:00 02/19/17 08:59 01/31/17 08:07 81 MG Levothyroxine Sodium (Synthroid Tab) 150 mcg DAILYBB PO 01/20/17 06:30 02/19/17 06:59 01/31/17 07:06 150 MCG Thiamine HCl (Vitamin B-1 Tab) 100 mg DAILY PO 01/20/17 08:00 02/19/17 08:59 01/31/17 08:07 100 MG Nicotine (Nicoderm Cq 21MG Patch) 1 patch Q24H TD 01/19/17 21:00 02/18/17 20:59 01/30/17 21:04 1 PATCH Miscellaneous (Remove Nicoderm Patch) 1 ea PM N/A 01/20/17 20:00 02/19/17 20:59 01/30/17 21:03 1 EA Ergocalciferol (Vitamin D Cap) 50,000 interunit Q4D PO 01/19/17 22:00 02/18/17 21:59 01/27/17 21:33 50,000 INTERUNIT Folic Acid (Folvite Tab) 1 mg QAM PO 01/21/17 08:00 02/20/17 07:59 01/31/17 08:07 1 MG Multivitamins/ Minerals (Multivitamin W/ Minerals Tab) 1 tab QAM PO 01/21/17 08:00 02/20/17 07:59 01/31/17 08:07 1 TAB Lorazepam (Ativan Tab) PRN Dosing -Active Protocol UD PRN PO 01/22/17 02:00 02/20/17 01:59 01/30/17 14:25 1 MG Metoprolol Tartrate (Lopressor Tab) 25 mg Q8 PO 01/21/17 22:00 02/20/17 21:59 01/31/17 07:05 25 MG Albuterol/ Ipratropium (Duoneb) 3 ml QIDR INH 01/24/17 08:00 02/23/17 07:59 01/31/17 07:05 3 ML Acetaminophen/ Hydrocodone Bitart ([place] 5/325 Tab) 1 tab Q6 PRN PO 01/24/17 04:30 02/07/17 04:29 01/28/17 21:35 1 TAB Senna/Docusate Sodium (Senokot S Tab) 1 tab QAM PO 01/26/17 08:00 02/25/17 07:59 01/31/17 08:07 1 TAB Sodium Chloride ([place] Nasal [place]) 1 sprays DAILY PRN YORDY 01/26/17 11:15 02/25/17 11:14 Haloperidol (Haldol Tab) 2 mg Q4 PRN PO 01/26/17 19:15 02/25/17 19:14 Future Hold Furosemide 40 mg/ Albumin Human 54 ml @ 54 mls/hr Q12H IV 01/30/17 16:00 02/02/17 15:59 01/31/17 03:41 54 MLS/HR Last 24 Hours Test 01/30/17 11:16 01/30/17 16:17 01/30/17 20:06 01/31/17 06:34 Bedside Glucose 167 mg/dl 167 mg/dl 153 mg/dl White Blood Count 11.56 K/uL Red Blood Count 2.37 M/uL Hemoglobin 7.6 g/dL Hematocrit 23.1 % Mean Corpuscular Volume 97.5 fL Mean Corpuscular Hemoglobin 32.1 pg Mean Corpuscular Hemoglobin Concent 32.9 g/dl RDW Standard Deviation 54.2 fL RDW Coefficient of Variation 15.5 % Platelet Count 509 K/uL Mean Platelet Volume 10.5 fL Erythrocyte Sedimentation Rate > 90 mm/hr Sodium Level 140 mmol/L Potassium Level 4.4 mmol/L Chloride Level 110 mmol/L Carbon Dioxide Level 19 mmol/L Anion Gap 11.0 mmol/L Blood Urea Nitrogen 58 mg/dl Creatinine 5.10 mg/dl Est Creatinine Clear Calc Drug Dose 8.9 ml/min Estimated GFR () 8.8 Estimated GFR (Non- 7.6 BUN/Creatinine Ratio 11.3 Random Glucose 133 mg/dl Calcium Level 8.6 mg/dl Magnesium Level 2.4 mg/dl Test 01/31/17 07:35 Bedside Glucose 147 mg/dl Other Studies: cxr > cardiomegaly and mild interstitial edema Assessment & Plan 76-year-old female with long standing type 2 diabetes, alcohol abuse, COPD admitted 01/19 following episode of fall and confusion w/ worsening renal failure. treated at admission for uti. hx of > 30 yrs htn, dm on insulin w/ 2.3 gm proteinuria late 2015 w/ unexplained Jack for several months early 2016. presenting creatinine was 1.6, down to 1.1 01/20, then plateau'd 01/24-01/26 at 1.8 , now worsening again, up to 4.6 today not oliguric. >>>Acute on chronic renal failure; cause unclear still; in setting of altered MS , dyspnea, now ongoing worsening renal failure >> suspect ATN or less likely volume depletion; not oliguric on lasix. repeat urine very concentrated with nephrotic range proteinuria and no infection, minimal blood in urine. not a convincing story for interstitial nephritis though this can be subtle; no obstruction. CK is wnl. cannot be hepatorenal syndrome as she has no ascites and no liver cirrhosis -daily bmp >cont zhang/ strict I/O -no obvious nephrotoxins and several days in past week of IVF -f/u pending urine eos and serologies; >>ESR is very high >> concerning for vasculitis or cancer or undiagnosed infection -cont IV albumin 25% w/ lasix 40 mg IV BID -cannot rule out need to transfer for renal biopsy/possible tx of acute GN but will for now follow -vascular consulted for tdc placement and to start dialysis after that R renal lesions -needs nonemergent renal mri to evaluate >> suspect not a simple cyst Anemia of chronic disease -monitor for need for transfusion Appreciate consult; will follow with you. Care coordinated w/ Dr Thompson
--- NOTE | 2017-01-31 17:37 | Progress Note ---
Medicine Progress Note Date & Time of Visit: Jan 31, 2017 at 11:37. Subjective 76 yo F initially admitted for weakness after a fall without loss of consciousness at home. -pt states heartburn and nausea have resolved -states that her weakness is improved and she feels somewhat better today -denies SOB, chest pain, fevers, chills. -reports BMs today -tolerating PO -ambulatory with assistance. Objective Last 8 Hrs Date Time Temp Pulse Resp B/P (MAP) Pulse Ox O2 Delivery O2 Flow Rate FiO2 01/31/17 11:18 81 18 98 Room Air 01/31/17 08:00 98 Room Air 2.0 01/31/17 07:42 36.7 94 16 152/78 (102) 100 Room Air 01/31/17 07:06 85 18 92 Room Air 01/31/17 04:28 36.7 92 20 147/78 (101) 94 Room Air Physical Exam: GEN: WNWD, in no acute distress, alert and appropriate, sitting up at bedside chair. HEENT: NC/AT, normal sclerae, MMM CARDIO: reg rate, S1/2 heard without m/g/r LUNGS: coarse rhonchi bilaterally, no wheezing. Sounds improved. ABD: soft, non-tender, non-distended, no rebound or guarding, +BS, no CVA tenderness EXTREMITY: RP and DP palpable 2+ bilat, no LE swelling or edema, extremities are warm and well-perfused NEURO: CN 2-12 grossly intact, no gross focal deficits. Mentating appropriately. MUSC: 5/5 strength throughout SKIN: warm and dry Laboratory Results: 01/31/17 06:34 01/31/17 06:34 Test 01/19/17 13:56 01/19/17 14:25 01/20/17 06:44 01/21/17 08:05 Prothrombin Time 10.8 SECONDS (9.0-12.0) Prothromb Time International Ratio 1.0 (0.9-1.1) Troponin I < 0.015 ng/ml (0-0.045) 25-Hydroxy Vitamin D Total 8.4 ng/ml (30-100) Thyroid Stimulating Hormone (TSH) 11.400 uIu/ml (0.300-4.500) Urine Yeast (Auto) PRESENT (NONE PRSENT) Estimated Average Glucose 105 mg/dl Hemoglobin A1c 5.3 % (4.5-5.6) Lactic Acid Level 0.8 mmol/L (0.4-2.0) Test 01/22/17 06:53 01/27/17 06:45 01/28/17 11:33 01/28/17 13:11 Phosphorus Level 2.8 mg/dl (2.5-4.9) Ammonia 30.0 umol/L (11-32) Ceruloplasmin 34 MG/DL (18-53) Vitamin B12 Level > 2000 pg/mL (211-911) Folate > 24.00 ng/mL (>5.38) Immunoglobulin G 969.0 mg/dL (700-1600) Anti-Mitochondrial Antibody LESS THAN 1:20 TITER Anti-Smooth Muscle Antibody LESS THAN 1:20 TITER Hepatitis A IgM Antibody NON-REACTIVE (NON-REACTIVE) Hepatitis B Surface Antigen NEG (NEG) Hepatitis B Core IgM Antibody NON-REACTIVE (NON-REACTIVE) Hepatitis C Antibody NEG (NEG) Red Blood Cell Morphology Unremarkable Test 01/29/17 07:25 01/29/17 14:25 01/30/17 05:25 01/31/17 06:34 Total Creatine Kinase 68 U/L (26-192) Globulin 4.4 gm/dl (2.5-4.0) Albumin/Globulin Ratio 0.4 (0.9-2) Procalcitonin 2.38 ng/ml (0-0.5) Urine Color DK YELLOW Urine Appearance CLOUDY (CLEAR) Urine pH 5.5 (4.5-7.5) Urine Specific [place] 1.017 (1.000-1.030) Urine Protein 2+ (NEG) Urine Glucose (UA) NEG (NEG) Urine Ketones NEG (NEG) Urine Occult Blood 1+ (NEG) Urine Nitrite NEG (NEG) Urine Bilirubin NEG (NEG) Urine Urobilinogen NEG (NEG) Urine Leukocyte Esterase NEG (NEG) Urine WBC (Auto) 1-5 /hpf (0-5) Urine RBC (Auto) 0-4 /hpf (0-4) Urine Hyaline Casts (Auto) 1-5 /lpf (0-5) Urine Epithelial Cells (Auto) >30 /lpf (0-5) Urine Bacteria (Auto) 1+ (NEG) Urine Renal Epithelial Cells /lpf (0-5) Urine Pathogenic Casts 0-3 GRANULAR CASTS /lpf (0) Urine Random Creatinine 64.0 mg/dl Urine Random Total Protein 244.0 mg/dl (0-11.9) Urine Random Sodium 42 mEq/L Urine Protein/Creatinine Ratio 3.8 (0-0.2) Immature Granulocyte % (Auto) 1.0 % White Blood Count 13.15 K/uL (4.8-10.8) Red Blood Count 2.51 M/uL (4.2-5.4) 2.37 M/uL (4.2-5.4) Hemoglobin 8.3 g/dL (12.0-16.0) Hematocrit 25.1 % (37-47) Mean Corpuscular Volume 100.0 fL (80-100) 97.5 fL (80-100) Mean Corpuscular Hemoglobin 33.1 pg (25-34) 32.1 pg (25-34) Mean Corpuscular Hemoglobin Concent 33.1 g/dl (32-36) 32.9 g/dl (32-36) Platelet Count 450 K/uL (130-400) Mean Platelet Volume 10.7 fL (7.4-10.4) 10.5 fL (7.4-10.4) Neutrophils (%) (Auto) 75.3 % Lymphocytes (%) (Auto) 9.8 % Monocytes (%) (Auto) 13.2 % Eosinophils (%) (Auto) 0.5 % Basophils (%) (Auto) 0.2 % Neutrophils # (Auto) 9.91 K/uL (1.4-6.5) Lymphocytes # (Auto) 1.29 K/uL (1.2-3.4) Monocytes # (Auto) 1.74 K/uL (0.11-0.59) Eosinophils # (Auto) 0.06 K/uL (0-0.5) Basophils # (Auto) 0.02 K/uL (0-0.2) Immature Granulocyte # (Auto) 0.13 K/uL (0.00-0.02) Nucleated RBC Absolute Count (auto) 0.02 K/uL (0-0) Nucleated Red Blood Cells % 0.2 % Anisocytosis PRESENT Peripheral Blood Smear Path Consult Total Bilirubin 0.4 mg/dl (0.2-1) Direct Bilirubin 0.3 mg/dl (0-0.2) Aspartate Amino Transf (AST/SGOT) 186 U/L (15-37) Alanine Aminotransferase (ALT/SGPT) 80 U/L (12-78) Alkaline Phosphatase 534 U/L (45-117) Total Protein 6.3 gm/dl (6.4-8.2) Albumin 1.8 gm/dl (3.4-5.0) RDW Standard Deviation 54.2 fL (36.4-46.3) RDW Coefficient of Variation 15.5 % (11.5-14.5) Erythrocyte Sedimentation Rate > 90 mm/hr (0-21) Anion Gap 11.0 mmol/L (3-11) Est Creatinine Clear Calc Drug Dose 8.9 ml/min Estimated GFR () 8.8 Estimated GFR (Non- 7.6 BUN/Creatinine Ratio 11.3 (10-20) Calcium Level 8.6 mg/dl (8.5-10.1) Magnesium Level 2.4 mg/dl (1.8-2.4) Test 01/31/17 16:04 Bedside Glucose 146 mg/dl (70-90) Date/Time Source Procedure Growth Status 01/19/17 19:24 Blood Blood Culture - Final NO GROWTH Complete 01/29/17 14:25 Urine , Clean Catch Urine Culture - Final NO GROWTH - LESS THAN 1,000 COLONIES/ML Complete Last 24 Hours Test 01/30/17 16:17 01/30/17 20:06 01/31/17 06:34 01/31/17 07:35 Bedside Glucose 167 mg/dl 153 mg/dl 147 mg/dl White Blood Count 11.56 K/uL Red Blood Count 2.37 M/uL Hemoglobin 7.6 g/dL Hematocrit 23.1 % Mean Corpuscular Volume 97.5 fL Mean Corpuscular Hemoglobin 32.1 pg Mean Corpuscular Hemoglobin Concent 32.9 g/dl RDW Standard Deviation 54.2 fL RDW Coefficient of Variation 15.5 % Platelet Count 509 K/uL Mean Platelet Volume 10.5 fL Erythrocyte Sedimentation Rate > 90 mm/hr Sodium Level 140 mmol/L Potassium Level 4.4 mmol/L Chloride Level 110 mmol/L Carbon Dioxide Level 19 mmol/L Anion Gap 11.0 mmol/L Blood Urea Nitrogen 58 mg/dl Creatinine 5.10 mg/dl Est Creatinine Clear Calc Drug Dose 8.9 ml/min Estimated GFR () 8.8 Estimated GFR (Non- 7.6 BUN/Creatinine Ratio 11.3 Random Glucose 133 mg/dl Calcium Level 8.6 mg/dl Magnesium Level 2.4 mg/dl Test 01/31/17 11:23 Bedside Glucose 149 mg/dl Assessment & Plan 76 yo F initially admitted for weakness after a fall without loss of consciousness at home. 1. ARF-worse again today despite trial of Laix/albumin started yesterday. On a positive note, her lungs sound clearer and her urine appears less concentrated and clinically she appears improved overall. Has chronic nephrotic- range proteinuria. Her TTE this morning was unremarkable. Cont [place] for accurate I/Os. Trend PRP. She was consented for tunneled line tomorrow in preparation for HD in next 1-2 days per nephro. Cont Lasix/Albumin for now. 2. Hypoxia-resolved shortly after Lasix/albumin was started. 3. AMS-resolved. Pt has been consistently A&O x 3 for last couple of days. 4. Acute cystitis-recently treated with Rocephin x 5 days. BETH was negative for infection. 5. Leukocytosis-uncertain etiology at this time. Possibly inflammatory, ESR is 90. Cont to trend and add differential on for tomorrow. 6. Deconditioning with ambulatory dysfunction-strength continues to improve and she states that she feels stronger. Cont PT/OT efforts, Fall precautions. 7. L hip pain-Left hip xray showed no evidence of left hip fracture. Analgesics PRN. 8. Anemia-no active bleeding. stable, multifactorial. 9. Constipation-Bowel regimen PRN, reports normal BM yesterday 10. HTN-controlled, cont Lopressor 11. Vit D deficiency-cont ergocalciferol 12. Smoking-cont Nicoderm patch 13. Hypothyroid-Synthroid 150mg daily. Repeat TSH needed in 5 weeks. Likely noncompliant with meds as outpatient per daughter. 14. DMII- sugars at goal, cont ISS 15. Transaminitis-pt with fatty liver who uses alcohol. GI following -pending labwork. Currently has no abdominal pain. 16. ETOH abuse-cont thiamine and folic acid. Last drink was >10 days ago. 17. Pulmonary nodule-CT chest demonstrated 5 mm nodule right lower lobe, stable compared to CT performed 11/11/15. Patient is a smoker. follow up per guidelines. 18. renal lesion 1.8 cm hyperdense lesion right kidney-complex cyst versus solid mass. Patient had ultrasound performed at [facility] 07/31/16 which demonstrated 3 cystic lesions, largest measuring [address] of abdomen and pelvis on 04/11/13 showed similar findings. Radiographic stability suggests benign lesion, however, per Nephro nonemergent dedicated MRI would be recommended. DVT proph-Heparin FULL CODE Dispo-to rehab once medically stable. I spoke with daughter yesterday who is working to change up mom's living situation. She is considering moving her closer to [facility] where she currently lives. She verbalized understanding that her mom is no longer fit to stay alone at home. We also discussed possibility of HD and updates as above. Verbalized understanding of all and all questions were answered. Georgia Thompson DO [facility] Hospitalist Consultants: Nephrology Neurology Gastro Procedures: CT head CT cervical spine CT chest CT abdomen and pelvis IV fluids IV medications PT OT . Current Inpatient Medications: Current Inpatient Medications Medications (Trade) Dose Ordered Sig/Fay Route Start Time Stop Time Status Last Admin Dose Admin Heparin Sodium (Porcine) (Heparin Sq 5000 Unit/0.5ml) 5,000 unit Q8H SQ 01/19/17 22:00 02/18/17 21:59 01/31/17 07:09 5,000 UNIT Acetaminophen (Tylenol Tab) 650 mg Q4H PRN PO 01/19/17 20:15 02/18/17 20:14 01/26/17 05:20 650 MG Ondansetron HCl (Zofran Inj) 4 mg Q6H PRN IV 01/19/17 20:15 02/18/17 20:14 Insulin Glargine (Lantus Solostar Pen) 7 unit Q12 SC 01/19/17 21:00 02/18/17 20:59 Future Hold 01/19/17 22:42 7 UNIT Insulin Aspart (novoLOG ASPART) SLIDING SCALE If C... ACHS SC 01/19/17 21:00 02/18/17 20:59 01/31/17 08:12 4 UNITS Glucose (Glucose 40% Gel) 15-30 GRAMS 15 GRAMS... UD PRN PO 01/19/17 20:15 02/18/17 20:14 Glucose (Glucose Chew Tab) 4-8 Tablets 4 Tabl... UD PRN PO 01/19/17 20:15 02/18/17 20:14 Dextrose (Dextrose 50% 50ML Syringe) 25-50ML OF 50% DW IV FOR... UD PRN IV 01/19/17 20:15 02/18/17 20:14 Glucagon (Glucagon Inj) 1 mg UD PRN SQ 01/19/17 20:15 02/18/17 20:14 Aspirin (Ecotrin Tab) 81 mg DAILY PO 01/20/17 08:00 02/19/17 08:59 01/31/17 08:07 81 MG Levothyroxine Sodium (Synthroid Tab) 150 mcg DAILYBB PO 01/20/17 06:30 02/19/17 06:59 01/31/17 07:06 150 MCG Thiamine HCl (Vitamin B-1 Tab) 100 mg DAILY PO 01/20/17 08:00 02/19/17 08:59 01/31/17 08:07 100 MG Nicotine (Nicoderm Cq 21MG Patch) 1 patch Q24H TD 01/19/17 21:00 02/18/17 20:59 01/30/17 21:04 1 PATCH Miscellaneous (Remove Nicoderm Patch) 1 ea PM N/A 01/20/17 20:00 02/19/17 20:59 01/30/17 21:03 1 EA Ergocalciferol (Vitamin D Cap) 50,000 interunit Q4D PO 01/19/17 22:00 02/18/17 21:59 01/27/17 21:33 50,000 INTERUNIT Folic Acid (Folvite Tab) 1 mg QAM PO 01/21/17 08:00 02/20/17 07:59 01/31/17 08:07 1 MG Multivitamins/ Minerals (Multivitamin W/ Minerals Tab) 1 tab QAM PO 01/21/17 08:00 02/20/17 07:59 01/31/17 08:07 1 TAB Lorazepam (Ativan Tab) PRN Dosing -Active Protocol UD PRN PO 01/22/17 02:00 02/20/17 01:59 01/30/17 14:25 1 MG Metoprolol Tartrate (Lopressor Tab) 25 mg Q8 PO 01/21/17 22:00 02/20/17 21:59 01/31/17 07:05 25 MG Albuterol/ Ipratropium (Duoneb) 3 ml QIDR INH 01/24/17 08:00 02/23/17 07:59 01/31/17 11:18 3 ML Acetaminophen/ Hydrocodone Bitart ([place] 5/325 Tab) 1 tab Q6 PRN PO 01/24/17 04:30 02/07/17 04:29 01/28/17 21:35 1 TAB Senna/Docusate Sodium (Senokot S Tab) 1 tab QAM PO 01/26/17 08:00 02/25/17 07:59 01/31/17 08:07 1 TAB Sodium Chloride ([place] Nasal [employer]) 1 sprays DAILY PRN YORDY 01/26/17 11:15 02/25/17 11:14 Haloperidol (Haldol Tab) 2 mg Q4 PRN PO 01/26/17 19:15 02/25/17 19:14 Future Hold Furosemide 40 mg/ Albumin Human 54 ml @ 54 mls/hr Q12H IV 01/30/17 16:00 02/02/17 15:59 01/31/17 03:41 54 MLS/HR
[2017-01-31] MEDS: NICOTINE 21 MG/24 HR TDSY TD SCH (20:58)
[2017-01-31] MEDS: ERGOCALCIFEROL 50,000 INTER.UNIT CAP PO SCH (21:00)
[2017-02-01] VITALS (15 sets, daily range): BP systolic 110–168; BP diastolic 62–98; PULSE 74–102; TEMP 36.6–37.1; O2SAT 91–100
[2017-02-01] MEDS ORDERED: NURSING VERBAL MED ORDER ONE ×2 (01:45→15:30)
[2017-02-01] MEDS: ALBUMIN 25% 50 ML with FUROSEMIDE INJ 40 MG IV SCH ×4 (03:25→15:49)
[2017-02-01] MEDS: HEPARIN SOD 5000 UNIT/0.5 ML CARP SQ SCH ×3 (05:37→21:20)
[2017-02-01] MEDS: METOPROLOL TARTRATE 25 MG TAB PO SCH (05:38)
[2017-02-01] MEDS: LEVOTHYROXINE 150 MCG TAB PO SCH (05:38)
[2017-02-01] MEDS: INSULIN ASPART 100 UNITS/ML 3 ML PEN SC SCH ×4 (05:42→21:13)
[2017-02-01] MEDS ORDERED: CLINDAMYCIN 600 MG/54 ML D5W IV SCH (06:00)
[2017-02-01] MEDS: ALBUT/IPRATROP 3MG/0.5MG NEB 3 ML VIAL INH SCH ×4 (07:17→20:05)
[2017-02-01 07:23] LABS: BASO % 0.2 %; BASO ABS # 0.03 K/uL (0-0.2); EOS % 0.8 %; HEMATOCRIT 22.8 % (37-47); IG% 1.4 %; LYMPH % 12.2 %; LYMPH ABS # 1.49 K/uL (1.2-3.4); MEAN CELL VOLUME 96.2 fL (80-100); MEAN CORPUSCULAR HEMOGLOBIN 32.1 pg (25-34); MEAN CORPUSCULAR HGB CONC 33.3 g/dl (32-36); MEAN PLATELET VOLUME 10.4 fL (7.4-10.4); MONO % 11.6 %; NEUT % 73.8 %; PLATELET COUNT 505 K/uL (130-400); RED BLOOD COUNT 2.37 M/uL (4.2-5.4); WHITE BLOOD COUNT 12.24 K/uL (4.8-10.8)
[2017-02-01 07:48] LABS: COMPLETE YES; TARGET CELLS 1+
[2017-02-01] MEDS ORDERED: CLINDAMYCIN IV 600 MG in DEXTROSE 5% ADD-VANTAGE 50ML 50 ML IV ONE (08:00)
[2017-02-01 08:08] LABS: BUN/CREATININE RATIO 11.2 (10-20); POTASSIUM 3.6 mmol/L (3.5-5.1)
[2017-02-01] MEDS: ASPIRIN 81 MG ECTAB PO SCH (09:00)
[2017-02-01] MEDS: DOCUSATE SODIUM/SENNA 50/8.6MG TAB PO SCH (09:00)
[2017-02-01] MEDS: THIAMINE HCL 100 MG TAB PO SCH (09:00)
[2017-02-01] MEDS: POTASSIUM CHLORIDE 20 MEQ TABCR PO SCH (09:00)
[2017-02-01] MEDS: CEROVITE ADV FORMULA TAB PO SCH (09:00)
--- NOTE | 2017-02-01 10:34 | Gastroenterology Progress Note ---
Progress Note Date of Service: Feb 01, 2017 Subjective Pt evaluation today including: conversation w/ patient, physical exam, chart review, lab review, review of studies, review of inpatient medication list Ms. Acevedo is a 76 yr old female admitted after a fall. GI consulted for elevated transaminases which continue elevated but stable. She remains with renal insufficiency. She is awake, alert, oriented. She is NPO awaiting surgical procedure to prepare for dialysis. Review of Systems Constitutional: No fever Eyes: No worsening of vision Respiratory: No cough Cardiac: No chest pain Abdomen: No pain, No nausea, No vomiting, No diarrhea, No constipation, No GI bleeding Female : No dysuria Neuro: No memory loss Psych: No depression symptoms Heme: No abnormal bleeding/bruising Endo: + fatigue (much improved) Medications Current Inpatient Medications Medications (Trade) Dose Ordered Sig/Fay Route Start Time Stop Time Status Last Admin Dose Admin Heparin Sodium (Porcine) (Heparin Sq 5000 Unit/0.5ml) 5,000 unit Q8H SQ 01/19/17 22:00 02/18/17 21:59 02/01/17 05:37 5,000 UNIT Acetaminophen (Tylenol Tab) 650 mg Q4H PRN PO 01/19/17 20:15 02/18/17 20:14 01/26/17 05:20 650 MG Ondansetron HCl (Zofran Inj) 4 mg Q6H PRN IV 01/19/17 20:15 02/18/17 20:14 Insulin Glargine (Lantus Solostar Pen) 7 unit Q12 SC 01/19/17 21:00 02/18/17 20:59 Future Hold 01/19/17 22:42 7 UNIT Glucose (Glucose 40% Gel) 15-30 GRAMS 15 GRAMS... UD PRN PO 01/19/17 20:15 02/18/17 20:14 Glucose (Glucose Chew Tab) 4-8 Tablets 4 Tabl... UD PRN PO 01/19/17 20:15 02/18/17 20:14 Dextrose (Dextrose 50% 50ML Syringe) 25-50ML OF 50% DW IV FOR... UD PRN IV 01/19/17 20:15 02/18/17 20:14 Glucagon (Glucagon Inj) 1 mg UD PRN SQ 01/19/17 20:15 02/18/17 20:14 Aspirin (Ecotrin Tab) 81 mg DAILY PO 01/20/17 08:00 02/19/17 08:59 01/31/17 08:07 81 MG Levothyroxine Sodium (Synthroid Tab) 150 mcg DAILYBB PO 01/20/17 06:30 02/19/17 06:59 02/01/17 05:38 150 MCG Thiamine HCl (Vitamin B-1 Tab) 100 mg DAILY PO 01/20/17 08:00 02/19/17 08:59 01/31/17 08:07 100 MG Nicotine (Nicoderm Cq 21MG Patch) 1 patch Q24H TD 01/19/17 21:00 02/18/17 20:59 01/31/17 20:58 1 PATCH Miscellaneous (Remove Nicoderm Patch) 1 ea PM N/A 01/20/17 20:00 02/19/17 20:59 01/31/17 20:52 1 EA Ergocalciferol (Vitamin D Cap) 50,000 interunit Q4D PO 01/19/17 22:00 02/18/17 21:59 01/31/17 21:00 50,000 INTERUNIT Folic Acid (Folvite Tab) 1 mg QAM PO 01/21/17 08:00 02/20/17 07:59 01/31/17 08:07 1 MG Multivitamins/ Minerals (Multivitamin W/ Minerals Tab) 1 tab QAM PO 01/21/17 08:00 02/20/17 07:59 01/31/17 08:07 1 TAB Lorazepam (Ativan Tab) PRN Dosing -Active Protocol UD PRN PO 01/22/17 02:00 02/20/17 01:59 01/31/17 14:01 1 MG Metoprolol Tartrate (Lopressor Tab) 25 mg Q8 PO 01/21/17 22:00 02/20/17 21:59 02/01/17 05:38 25 MG Albuterol/ Ipratropium (Duoneb) 3 ml QIDR INH 01/24/17 08:00 02/23/17 07:59 02/01/17 07:17 3 ML Acetaminophen/ Hydrocodone Bitart ([place] 5/325 Tab) 1 tab Q6 PRN PO 01/24/17 04:30 02/07/17 04:29 01/28/17 21:35 1 TAB Senna/Docusate Sodium (Senokot S Tab) 1 tab QAM PO 01/26/17 08:00 02/25/17 07:59 01/31/17 08:07 1 TAB Sodium Chloride ([place] Nasal [place]) 1 sprays DAILY PRN YORDY 01/26/17 11:15 02/25/17 11:14 Haloperidol (Haldol Tab) 2 mg Q4 PRN PO 01/26/17 19:15 02/25/17 19:14 Future Hold Furosemide 40 mg/ Albumin Human 54 ml @ 54 mls/hr Q12H IV 01/30/17 16:00 02/02/17 15:59 02/01/17 03:25 54 MLS/HR Clindamycin Phosphate 54 ml @ 100 mls/hr PREOP IV 02/01/17 06:00 02/01/17 18:00 Insulin Aspart (novoLOG ASPART) SLIDING SCALE If C... Q6 SC 02/01/17 06:00 03/03/17 05:59 Potassium Chloride (Klor-Con Tab) 20 meq QAM PO 02/01/17 09:00 03/03/17 08:59 Objective Vital Signs Date Time Temp Pulse Resp B/P (MAP) Pulse Ox O2 Delivery O2 Flow Rate FiO2 02/01/17 07:17 74 16 91 Room Air 02/01/17 07:16 37.0 85 16 164/78 (106) 100 Room Air 02/01/17 04:00 36.9 90 18 140/98 (112) 94 Nasal Cannula 2.0 02/01/17 03:30 36.8 90 18 164/78 (106) 95 Nasal Cannula 2.0 02/01/17 00:00 Nasal Cannula 2.0 01/31/17 23:00 37.0 93 18 104/62 (76) 95 Room Air 01/31/17 21:03 98 131/62 (85) 01/31/17 19:27 84 16 95 Room Air 01/31/17 17:22 36.9 88 16 122/67 (85) 95 Room Air 01/31/17 16:00 95 Room Air 01/31/17 15:30 80 16 94 Room Air 01/31/17 15:23 36.9 87 20 121/57 (78) 95 Room Air 01/31/17 11:18 81 18 98 Room Air Physical Exam General Appearance: no apparent distress ENT: pharynx normal Neck: no JVD Respiratory/Chest: + crackles (few crackles at bases bilaterally), + wheezing Cardiovascular: regular rate, rhythm, no JVD, no murmur Abdomen: non tender, soft Extremities: non-tender Neurologic/Psych: alert, normal mood/affect Skin: no jaundice Laboratory Results Last 24 Hours Test 01/31/17 11:23 01/31/17 16:04 01/31/17 20:12 02/01/17 05:41 Bedside Glucose 149 mg/dl 146 mg/dl 187 mg/dl 165 mg/dl Test 02/01/17 07:05 02/01/17 07:28 White Blood Count 12.24 K/uL Red Blood Count 2.37 M/uL Hemoglobin 7.6 g/dL Hematocrit 22.8 % Mean Corpuscular Volume 96.2 fL Mean Corpuscular Hemoglobin 32.1 pg Mean Corpuscular Hemoglobin Concent 33.3 g/dl Platelet Count 505 K/uL Mean Platelet Volume 10.4 fL Neutrophils (%) (Auto) 73.8 % Lymphocytes (%) (Auto) 12.2 % Monocytes (%) (Auto) 11.6 % Eosinophils (%) (Auto) 0.8 % Basophils (%) (Auto) 0.2 % Neutrophils # (Auto) 9.03 K/uL Lymphocytes # (Auto) 1.49 K/uL Monocytes # (Auto) 1.42 K/uL Eosinophils # (Auto) 0.10 K/uL Basophils # (Auto) 0.03 K/uL RDW Standard Deviation 53.4 fL RDW Coefficient of Variation 15.5 % Immature Granulocyte % (Auto) 1.4 % Immature Granulocyte # (Auto) 0.17 K/uL Target Cells 1+ Sodium Level 141 mmol/L Potassium Level 3.6 mmol/L Chloride Level 110 mmol/L Carbon Dioxide Level 19 mmol/L Anion Gap 12.0 mmol/L Blood Urea Nitrogen 56 mg/dl Creatinine 5.00 mg/dl Est Creatinine Clear Calc Drug Dose 9.1 ml/min Estimated GFR () 9.1 Estimated GFR (Non- 7.8 BUN/Creatinine Ratio 11.2 Random Glucose 136 mg/dl Calcium Level 9.0 mg/dl Total Bilirubin 0.7 mg/dl Direct Bilirubin 0.3 mg/dl Aspartate Amino Transf (AST/SGOT) 179 U/L Alanine Aminotransferase (ALT/SGPT) 112 U/L Alkaline Phosphatase 519 U/L Total Protein 6.7 gm/dl Albumin 2.4 gm/dl Bedside Glucose 163 mg/dl Assessment and Plan Ms. Acevedo is a 76 yr old female with a hx of increased alcohol intake and elevated LFTs. This is likely caused by fatty liver, possibly worsened with Crestor. No evidence of cirrhosis on imaging and normal platelet level argues against cirrhosis. Negative for Hep A/B/C. EBV and CMV still pending. GARRICK (-) so unlikely to have autoimmune hepatitis. 1. Would avoid statins. 2. Follow LFTs every 2 or 3 days. If do not returned to baseline and then referred to outpatient GI for further workup. 3. Complete abstention from alcohol support. 4. GI will sign off. Please notify us of new/worsening GI issues. I saw and evaluated the patient. Her liver enzymes continue to improve off of the statin. I would suggest continued monitoring every few days. Please note it may take several weeks if not several months for the liver enzymes to normalize completely. Please call our service with any questions or concerns.
--- NOTE | 2017-02-01 11:00 | Progress Note ---
Progress Note Date of Service Feb 01, 2017. Progress Note Patient for permcath insertion. I have discussed the risks options and benefits of the procedure with the patient. The patient understands the risks options and benefits and agrees to the procedure. I have examined the patient, reviewed the History & Physical and in the interval since the performance of the History & Physical I have noted the following changes of clinical significance: No changes noted
[2017-02-01] MEDS ORDERED: FENTANYL CITRATE INJ 50 MCG/1 ML 2 ML VIAL ONE (11:14)
[2017-02-01] MEDS ORDERED: MIDAZOLAM HCL 1 MG/ML 2ML VIAL ONE (11:14)
[2017-02-01] MEDS ORDERED: HEPARIN SOD (PORCINE) 5000 UNIT/ML 1 ML VIAL ONE (11:14)
--- NOTE | 2017-02-01 11:49 | Procedure Note ---
Pre-Mod Sedation Assessment General Date of Moderate Sedation: Feb 01, 2017. Vital Signs: Vital Signs Past 12 Hours Date Time Temp Pulse Resp B/P (MAP) Pulse Ox O2 Delivery O2 Flow Rate FiO2 02/01/17 11:43 37.0 85 16 164/78 96 Room Air 2.0 02/01/17 11:15 92 16 96 Room Air 02/01/17 08:00 91 Room Air 02/01/17 07:17 74 16 91 Room Air 02/01/17 07:16 37.0 85 16 164/78 (106) 100 Room Air 02/01/17 04:00 36.9 90 18 140/98 (112) 94 Nasal Cannula 2.0 02/01/17 03:30 36.8 90 18 164/78 (106) 95 Nasal Cannula 2.0 02/01/17 00:00 Nasal Cannula 2.0 Pre-Sedation Airway Assessment Oral Cavity: WNL Short Thick Neck: No Hx of Sleep Apnea: No Smoking Status: Current Every Day Smoker Mallampati Classification: Class I ASA Classification: Class IV Notes The planned sedation has been discussed with the patient and consent obtained. I have identified the patient, determined the appropriateness of sedation and have assessed the patient immediately prior to the procedure. All medicine(s) and interventions are by my order.
[2017-02-01] MEDS ORDERED: LIDOCAINE HCL 1% 20 ML VIAL INFIL ONE (12:19)
[2017-02-01] MEDS ORDERED: MIDAZOLAM HCL 1 MG/ML 2ML VIAL IV ONE (12:20)
[2017-02-01] MEDS ORDERED: FENTANYL CITRATE INJ 50 MCG/1 ML 2 ML VIAL IV ONE (12:20)
[2017-02-01] MEDS ORDERED: HEPARIN SOD (PORCINE) 5000 UNIT/ML 1 ML VIAL IV ONE (12:24)
--- NOTE | 2017-02-01 12:41 | [facility] Post Operative Brief Note ---
Immediate Operative Summary Operative Date Feb 01, 2017. Pre-Operative Diagnosis Acute on Chronic Renal Failure Post-Operative Diagnosis Same Procedure(s) Performed Insertion of Perm Cath, Right Jugular Approach Ultrasound Localization of Right Jugular Vein Fluoro for Positioning Moderate Sedation [id number] Surgeon Radha Strip Deburrer Surgeon(s) Maria G Au Estimated Blood Loss 3 Findings tip in distal SVC Specimens None Anesthesia Local with sedation Complication(s) None Disposition
--- NOTE | 2017-02-01 12:47 | Procedure Note ---
Post-Moderate Sedation Plan General Date of Moderate Sedation Feb 01, 2017. Vital Signs: Vital Signs Past 12 Hours Date Time Temp Pulse Resp B/P (MAP) Pulse Ox O2 Delivery O2 Flow Rate FiO2 02/01/17 12:40 92 16 123/60 100 Nasal Cannula 4 02/01/17 11:43 37.0 85 16 164/78 96 Room Air 2.0 02/01/17 11:15 92 16 96 Room Air 02/01/17 08:00 91 Room Air 02/01/17 07:17 74 16 91 Room Air 02/01/17 07:16 37.0 85 16 164/78 (106) 100 Room Air 02/01/17 04:00 36.9 90 18 140/98 (112) 94 Nasal Cannula 2.0 02/01/17 03:30 36.8 90 18 164/78 (106) 95 Nasal Cannula 2.0 Review - Discharge Plan Post Moderate Sedation Plan: On clinical assessment, the patient appears to have tolerated the conscious sedation without complications. Patient is recovering as anticipated. Patient will continue to be monitored by nursing and may be discharged when conscious sedation discharge criteria are met.
--- NOTE | 2017-02-01 13:13 | Nephrology Progress Note ---
Nephrology Progress Note Date of Service: Feb 01, 2017. Subjective for TDC later today; first HD liekly not until am; at first pt does not recall agreeing to dialysis but after discussing she is willign to do trial; c/o L flank pain where she fell; no n/v Objective Date Time Temp Pulse Resp B/P (MAP) Pulse Ox O2 Delivery O2 Flow Rate FiO2 02/01/17 13:00 96 20 139/68 99 Room Air 02/01/17 12:51 36.4 96 20 155/79 97 Room Air 02/01/17 12:40 92 16 123/60 100 Nasal Cannula 4 02/01/17 11:43 37.0 85 16 164/78 96 Room Air 2.0 02/01/17 11:15 92 16 96 Room Air 02/01/17 08:00 91 Room Air 02/01/17 07:17 74 16 91 Room Air 02/01/17 07:16 37.0 85 16 164/78 (106) 100 Room Air 02/01/17 04:00 36.9 90 18 140/98 (112) 94 Nasal Cannula 2.0 02/01/17 03:30 36.8 90 18 164/78 (106) 95 Nasal Cannula 2.0 02/01/17 00:00 Nasal Cannula 2.0 01/31/17 23:00 37.0 93 18 104/62 (76) 95 Room Air 01/31/17 21:03 98 131/62 (85) 01/31/17 19:27 84 16 95 Room Air 01/31/17 17:22 36.9 88 16 122/67 (85) 95 Room Air 01/31/17 16:00 95 Room Air 01/31/17 15:30 80 16 94 Room Air 01/31/17 15:23 36.9 87 20 121/57 (78) 95 Room Air Physical Exam: GENERAL: Elderly white female, on RA in bed today less dyspneic w/ speech HEENT: Mucous membranes moist. NECK: Supple. CHEST: scattered crackles/rhonchi CARDIOVASCULAR: S1 and S2 regular. No murmur, rubs or gallop. ABDOMEN: distended w/o fluid wave; today again not tender; zhang w/ some urine EXTREMITIES: no edema. NEURO krishnamurthy but too weak to sit up for exam; delayed speech/ ? reliability of hx Current Inpatient Medications Medications (Trade) Dose Ordered Sig/Fay Route Start Time Stop Time Status Last Admin Dose Admin Heparin Sodium (Porcine) (Heparin Sq 5000 Unit/0.5ml) 5,000 unit Q8H SQ 01/19/17 22:00 02/18/17 21:59 02/01/17 05:37 5,000 UNIT Acetaminophen (Tylenol Tab) 650 mg Q4H PRN PO 01/19/17 20:15 02/18/17 20:14 01/26/17 05:20 650 MG Ondansetron HCl (Zofran Inj) 4 mg Q6H PRN IV 01/19/17 20:15 02/18/17 20:14 Insulin Glargine (Lantus Solostar Pen) 7 unit Q12 SC 01/19/17 21:00 02/18/17 20:59 Future Hold 01/19/17 22:42 7 UNIT Glucose (Glucose 40% Gel) 15-30 GRAMS 15 GRAMS... UD PRN PO 01/19/17 20:15 02/18/17 20:14 Glucose (Glucose Chew Tab) 4-8 Tablets 4 Tabl... UD PRN PO 01/19/17 20:15 02/18/17 20:14 Dextrose (Dextrose 50% 50ML Syringe) 25-50ML OF 50% DW IV FOR... UD PRN IV 01/19/17 20:15 02/18/17 20:14 Glucagon (Glucagon Inj) 1 mg UD PRN SQ 01/19/17 20:15 02/18/17 20:14 Aspirin (Ecotrin Tab) 81 mg DAILY PO 01/20/17 08:00 02/19/17 08:59 01/31/17 08:07 81 MG Levothyroxine Sodium (Synthroid Tab) 150 mcg DAILYBB PO 01/20/17 06:30 02/19/17 06:59 02/01/17 05:38 150 MCG Thiamine HCl (Vitamin B-1 Tab) 100 mg DAILY PO 01/20/17 08:00 02/19/17 08:59 01/31/17 08:07 100 MG Nicotine (Nicoderm Cq 21MG Patch) 1 patch Q24H TD 01/19/17 21:00 02/18/17 20:59 01/31/17 20:58 1 PATCH Miscellaneous (Remove Nicoderm Patch) 1 ea PM N/A 01/20/17 20:00 02/19/17 20:59 01/31/17 20:52 1 EA Ergocalciferol (Vitamin D Cap) 50,000 interunit Q4D PO 01/19/17 22:00 02/18/17 21:59 01/31/17 21:00 50,000 INTERUNIT Folic Acid (Folvite Tab) 1 mg QAM PO 01/21/17 08:00 02/20/17 07:59 01/31/17 08:07 1 MG Multivitamins/ Minerals (Multivitamin W/ Minerals Tab) 1 tab QAM PO 01/21/17 08:00 02/20/17 07:59 01/31/17 08:07 1 TAB Lorazepam (Ativan Tab) PRN Dosing -Active Protocol UD PRN PO 01/22/17 02:00 02/20/17 01:59 01/31/17 14:01 1 MG Albuterol/ Ipratropium (Duoneb) 3 ml QIDR INH 01/24/17 08:00 02/23/17 07:59 02/01/17 11:15 3 ML Acetaminophen/ Hydrocodone Bitart ([place] 5/325 Tab) 1 tab Q6 PRN PO 01/24/17 04:30 02/07/17 04:29 01/28/17 21:35 1 TAB Senna/Docusate Sodium (Senokot S Tab) 1 tab QAM PO 01/26/17 08:00 02/25/17 07:59 01/31/17 08:07 1 TAB Sodium Chloride ([place] Nasal [place]) 1 sprays DAILY PRN YORDY 01/26/17 11:15 02/25/17 11:14 Haloperidol (Haldol Tab) 2 mg Q4 PRN PO 01/26/17 19:15 02/25/17 19:14 Future Hold Furosemide 40 mg/ Albumin Human 54 ml @ 54 mls/hr Q12H IV 01/30/17 16:00 02/02/17 15:59 02/01/17 03:25 54 MLS/HR Insulin Aspart (novoLOG ASPART) SLIDING SCALE If C... Q6 SC 02/01/17 06:00 03/03/17 05:59 Potassium Chloride (Klor-Con Tab) 20 meq QAM PO 02/01/17 09:00 03/03/17 08:59 Metoprolol Tartrate (Lopressor Tab) 50 mg TID PO 02/01/17 14:00 03/03/17 13:59 Last 24 Hours Test 01/31/17 16:04 01/31/17 20:12 02/01/17 05:41 02/01/17 07:05 Bedside Glucose 146 mg/dl 187 mg/dl 165 mg/dl White Blood Count 12.24 K/uL Red Blood Count 2.37 M/uL Hemoglobin 7.6 g/dL Hematocrit 22.8 % Mean Corpuscular Volume 96.2 fL Mean Corpuscular Hemoglobin 32.1 pg Mean Corpuscular Hemoglobin Concent 33.3 g/dl Platelet Count 505 K/uL Mean Platelet Volume 10.4 fL Neutrophils (%) (Auto) 73.8 % Lymphocytes (%) (Auto) 12.2 % Monocytes (%) (Auto) 11.6 % Eosinophils (%) (Auto) 0.8 % Basophils (%) (Auto) 0.2 % Neutrophils # (Auto) 9.03 K/uL Lymphocytes # (Auto) 1.49 K/uL Monocytes # (Auto) 1.42 K/uL Eosinophils # (Auto) 0.10 K/uL Basophils # (Auto) 0.03 K/uL RDW Standard Deviation 53.4 fL RDW Coefficient of Variation 15.5 % Immature Granulocyte % (Auto) 1.4 % Immature Granulocyte # (Auto) 0.17 K/uL Target Cells 1+ Sodium Level 141 mmol/L Potassium Level 3.6 mmol/L Chloride Level 110 mmol/L Carbon Dioxide Level 19 mmol/L Anion Gap 12.0 mmol/L Blood Urea Nitrogen 56 mg/dl Creatinine 5.00 mg/dl Est Creatinine Clear Calc Drug Dose 9.1 ml/min Estimated GFR () 9.1 Estimated GFR (Non- 7.8 BUN/Creatinine Ratio 11.2 Random Glucose 136 mg/dl Calcium Level 9.0 mg/dl Total Bilirubin 0.7 mg/dl Direct Bilirubin 0.3 mg/dl Aspartate Amino Transf (AST/SGOT) 179 U/L Alanine Aminotransferase (ALT/SGPT) 112 U/L Alkaline Phosphatase 519 U/L Total Protein 6.7 gm/dl Albumin 2.4 gm/dl Test 02/01/17 07:28 02/01/17 11:18 02/01/17 11:20 02/01/17 13:01 Bedside Glucose 163 mg/dl 159 mg/dl 144 mg/dl 161 mg/dl Assessment & Plan 76-year-old female with long standing type 2 diabetes, alcohol abuse, COPD admitted 01/19 following episode of fall and confusion w/ worsening renal failure. treated at admission for uti. hx of > 30 yrs htn, dm on insulin w/ 2.3 gm proteinuria late 2015 w/ unexplained Jack for several months early 2016. presenting creatinine was 1.6, down to 1.1 01/20, then plateau'd 01/24-01/26 at 1.8 , now worsening again, up to 4.6 today not oliguric. >>>Acute on chronic renal failure; cause unclear still; in setting of altered MS , dyspnea, now ongoing worsening renal failure >> suspect ATN or less likely volume depletion; not oliguric on lasix. repeat urine very concentrated with nephrotic range proteinuria and no infection, minimal blood in urine. not a convincing story for interstitial nephritis though this can be subtle; no obstruction. CK is wnl. cannot be hepatorenal syndrome as she has no ascites and no liver cirrhosis -daily bmp >cont zhang/ strict I/O -no obvious nephrotoxins and several days in past week of IVF -f/u pending urine eos and serologies; >>ESR is very high >> concerning for vasculitis or cancer or undiagnosed infection; multiple serolgies negative -cont IV albumin 25% w/ lasix 40 mg IV BID -cannot rule out need to transfer for renal biopsy/possible tx of acute GN but will for now follow -vascular assistance w/ tdc placement appreciated -first HD in am; plan 3 days in a row; duration of need for dialysis unclear R renal lesions -needs nonemergent renal mri to evaluate >> suspect not a simple cyst Anemia of chronic disease -monitor for need for transfusion Appreciate consult; will follow with you. Care coordinated w/ Dr Thompson
[2017-02-01] MEDS: METOPROLOL TARTRATE 50 MG TAB PO SCH ×2 (14:31→21:04)
[2017-02-01 14:48] LABS: CYTOMEGALOVIRUS IGG AB <0.60 U/ML; EPSTEIN BARR VIR CAPSID IGG >750.00 U/ML
[2017-02-01] MEDS: NICOTINE 21 MG/24 HR TDSY TD SCH (21:05)
--- NOTE | 2017-02-01 23:51 | Progress Note ---
Medicine Progress Note Date & Time of Visit: Feb 01, 2017 at 13:00. Subjective 76 yo F initially admitted for weakness after a fall without loss of consciousness at home. She denies any symptoms today. She denies chest pain, shortness of breath, nausea or heartburn. Tolerating PO Objective Last 8 Hrs Date Time Temp Pulse Resp B/P (MAP) Pulse Ox O2 Delivery O2 Flow Rate FiO2 02/01/17 16:56 36.9 88 18 149/75 (99) 94 Room Air 02/01/17 15:43 86 16 94 Room Air 02/01/17 15:25 95 Room Air 02/01/17 15:02 36.6 96 18 110/64 (79) 93 Room Air 02/01/17 13:20 36.8 94 20 125/62 (83) 93 Room Air 02/01/17 13:10 36.4 94 20 151/72 99 Room Air 02/01/17 13:00 96 20 139/68 99 Room Air 02/01/17 12:51 36.4 96 20 155/79 97 Room Air 02/01/17 12:40 92 16 123/60 100 Nasal Cannula 4 02/01/17 11:43 37.0 85 16 164/78 96 Room Air 2.0 02/01/17 11:15 92 16 96 Room Air Physical Exam: GEN: WNWD, in no acute distress, alert and appropriate, sitting up at bedside chair. HEENT: NC/AT, normal sclerae, MMM CARDIO: reg rate, S1/2 heard without m/g/r LUNGS: coarse rhonchi bilaterally, no wheezing. Sounds improved. ABD: soft, non-tender, non-distended, no rebound or guarding, +BS, no CVA tenderness EXTREMITY: no LE swelling or edema, extremities are warm and well-perfused SKIN: warm and dry Laboratory Results: 02/01/17 07:05 Red Blood Count 2.37, Mean Corpuscular Volume 96.2, Mean Corpuscular Hemoglobin 32.1, Mean Corpuscular Hemoglobin Concent 33.3, Mean Platelet Volume 10.4, Neutrophils (%) (Auto) 73.8, Lymphocytes (%) (Auto) 12.2, Monocytes (%) (Auto) 11.6, Eosinophils (%) (Auto) 0.8, Basophils (%) (Auto) 0.2, Neutrophils # (Auto ) 9.03, Lymphocytes # (Auto) 1.49, Monocytes # (Auto) 1.42, Eosinophils # (Auto ) 0.10, Basophils # (Auto) 0.03 02/01/17 07:05 Test 01/19/17 13:56 01/19/17 14:25 01/20/17 06:44 01/21/17 08:05 Prothrombin Time 10.8 SECONDS (9.0-12.0) Prothromb Time International Ratio 1.0 (0.9-1.1) Troponin I < 0.015 ng/ml (0-0.045) 25-Hydroxy Vitamin D Total 8.4 ng/ml (30-100) Thyroid Stimulating Hormone (TSH) 11.400 uIu/ml (0.300-4.500) Urine Yeast (Auto) PRESENT (NONE PRSENT) Estimated Average Glucose 105 mg/dl Hemoglobin A1c 5.3 % (4.5-5.6) Lactic Acid Level 0.8 mmol/L (0.4-2.0) Test 01/22/17 06:53 01/27/17 06:45 01/28/17 11:33 01/28/17 13:11 Phosphorus Level 2.8 mg/dl (2.5-4.9) Ammonia 30.0 umol/L (11-32) Ceruloplasmin 34 MG/DL (18-53) Vitamin B12 Level > 2000 pg/mL (211-911) Folate > 24.00 ng/mL (>5.38) Immunoglobulin G 969.0 mg/dL (700-1600) Anti-Mitochondrial Antibody LESS THAN 1:20 TITER Anti-Smooth Muscle Antibody LESS THAN 1:20 TITER Hepatitis A IgM Antibody NON-REACTIVE (NON-REACTIVE) Hepatitis B Surface Antigen NEG (NEG) Hepatitis B Core IgM Antibody NON-REACTIVE (NON-REACTIVE) Hepatitis C Antibody NEG (NEG) Red Blood Cell Morphology Unremarkable Test 01/29/17 07:25 01/29/17 14:25 01/30/17 05:25 01/31/17 06:34 Total Creatine Kinase 68 U/L (26-192) Globulin 4.4 gm/dl (2.5-4.0) Albumin/Globulin Ratio 0.4 (0.9-2) Procalcitonin 2.38 ng/ml (0-0.5) Urine Color DK YELLOW Urine Appearance CLOUDY (CLEAR) Urine pH 5.5 (4.5-7.5) Urine Specific [place] 1.017 (1.000-1.030) Urine Protein 2+ (NEG) Urine Glucose (UA) NEG (NEG) Urine Ketones NEG (NEG) Urine Occult Blood 1+ (NEG) Urine Nitrite NEG (NEG) Urine Bilirubin NEG (NEG) Urine Urobilinogen NEG (NEG) Urine Leukocyte Esterase NEG (NEG) Urine WBC (Auto) 1-5 /hpf (0-5) Urine RBC (Auto) 0-4 /hpf (0-4) Urine Hyaline Casts (Auto) 1-5 /lpf (0-5) Urine Epithelial Cells (Auto) >30 /lpf (0-5) Urine Bacteria (Auto) 1+ (NEG) Urine Renal Epithelial Cells /lpf (0-5) Urine Pathogenic Casts 0-3 GRANULAR CASTS /lpf (0) Urine Random Creatinine 64.0 mg/dl Urine Random Total Protein 244.0 mg/dl (0-11.9) Urine Random Sodium 42 mEq/L Urine Protein/Creatinine Ratio 3.8 (0-0.2) Nucleated RBC Absolute Count (auto) 0.02 K/uL (0-0) Nucleated Red Blood Cells % 0.2 % Anisocytosis PRESENT Peripheral Blood Smear Path Consult Anti-Nuclear Antibody Screen NEGATIVE (NEGATIVE) Cytomegalovirus IgG Antibody <0.60 U/ML Cytomegalovirus IgM Antibody <30.00 Au/mL [place] Virus Capsid Ag IgG Ab >750.00 U/ML E-B Virus Capsid Ag IgM Ab Index <36.00 U/ML Erythrocyte Sedimentation Rate > 90 mm/hr (0-21) Magnesium Level 2.4 mg/dl (1.8-2.4) Test 02/01/17 07:05 02/01/17 20:23 White Blood Count 12.24 K/uL (4.8-10.8) Red Blood Count 2.37 M/uL (4.2-5.4) Hemoglobin 7.6 g/dL (12.0-16.0) Hematocrit 22.8 % (37-47) Mean Corpuscular Volume 96.2 fL (80-100) Mean Corpuscular Hemoglobin 32.1 pg (25-34) Mean Corpuscular Hemoglobin Concent 33.3 g/dl (32-36) Platelet Count 505 K/uL (130-400) Mean Platelet Volume 10.4 fL (7.4-10.4) Neutrophils (%) (Auto) 73.8 % Lymphocytes (%) (Auto) 12.2 % Monocytes (%) (Auto) 11.6 % Eosinophils (%) (Auto) 0.8 % Basophils (%) (Auto) 0.2 % Neutrophils # (Auto) 9.03 K/uL (1.4-6.5) Lymphocytes # (Auto) 1.49 K/uL (1.2-3.4) Monocytes # (Auto) 1.42 K/uL (0.11-0.59) Eosinophils # (Auto) 0.10 K/uL (0-0.5) Basophils # (Auto) 0.03 K/uL (0-0.2) RDW Standard Deviation 53.4 fL (36.4-46.3) RDW Coefficient of Variation 15.5 % (11.5-14.5) Immature Granulocyte % (Auto) 1.4 % Immature Granulocyte # (Auto) 0.17 K/uL (0.00-0.02) Target Cells 1+ Anion Gap 12.0 mmol/L (3-11) Est Creatinine Clear Calc Drug Dose 9.1 ml/min Estimated GFR () 9.1 Estimated GFR (Non- 7.8 BUN/Creatinine Ratio 11.2 (10-20) Calcium Level 9.0 mg/dl (8.5-10.1) Total Bilirubin 0.7 mg/dl (0.2-1) Direct Bilirubin 0.3 mg/dl (0-0.2) Aspartate Amino Transf (AST/SGOT) 179 U/L (15-37) Alanine Aminotransferase (ALT/SGPT) 112 U/L (12-78) Alkaline Phosphatase 519 U/L (45-117) Total Protein 6.7 gm/dl (6.4-8.2) Albumin 2.4 gm/dl (3.4-5.0) Bedside Glucose 137 mg/dl (70-90) Date/Time Source Procedure Growth Status 01/19/17 19:24 Blood Blood Culture - Final NO GROWTH Complete 01/29/17 14:25 Urine , Clean Catch Urine Culture - Final NO GROWTH - LESS THAN 1,000 COLONIES/ML Complete Last 24 Hours Test 01/31/17 20:12 02/01/17 05:41 02/01/17 07:05 02/01/17 07:28 Bedside Glucose 187 mg/dl 165 mg/dl 163 mg/dl White Blood Count 12.24 K/uL Red Blood Count 2.37 M/uL Hemoglobin 7.6 g/dL Hematocrit 22.8 % Mean Corpuscular Volume 96.2 fL Mean Corpuscular Hemoglobin 32.1 pg Mean Corpuscular Hemoglobin Concent 33.3 g/dl Platelet Count 505 K/uL Mean Platelet Volume 10.4 fL Neutrophils (%) (Auto) 73.8 % Lymphocytes (%) (Auto) 12.2 % Monocytes (%) (Auto) 11.6 % Eosinophils (%) (Auto) 0.8 % Basophils (%) (Auto) 0.2 % Neutrophils # (Auto) 9.03 K/uL Lymphocytes # (Auto) 1.49 K/uL Monocytes # (Auto) 1.42 K/uL Eosinophils # (Auto) 0.10 K/uL Basophils # (Auto) 0.03 K/uL RDW Standard Deviation 53.4 fL RDW Coefficient of Variation 15.5 % Immature Granulocyte % (Auto) 1.4 % Immature Granulocyte # (Auto) 0.17 K/uL Target Cells 1+ Sodium Level 141 mmol/L Potassium Level 3.6 mmol/L Chloride Level 110 mmol/L Carbon Dioxide Level 19 mmol/L Anion Gap 12.0 mmol/L Blood Urea Nitrogen 56 mg/dl Creatinine 5.00 mg/dl Est Creatinine Clear Calc Drug Dose 9.1 ml/min Estimated GFR () 9.1 Estimated GFR (Non- 7.8 BUN/Creatinine Ratio 11.2 Random Glucose 136 mg/dl Calcium Level 9.0 mg/dl Total Bilirubin 0.7 mg/dl Direct Bilirubin 0.3 mg/dl Aspartate Amino Transf (AST/SGOT) 179 U/L Alanine Aminotransferase (ALT/SGPT) 112 U/L Alkaline Phosphatase 519 U/L Total Protein 6.7 gm/dl Albumin 2.4 gm/dl Test 02/01/17 11:18 02/01/17 11:20 02/01/17 13:01 Bedside Glucose 159 mg/dl 144 mg/dl 161 mg/dl Assessment & Plan 76 yo F initially admitted for weakness after a fall without loss of consciousness at home. 1. ARF-creat holding at 5.0. Cont Lasix/albumin. Tunneled catheter placement today in preparation for HD. Continues to improve clinically. Has chronic nephrotic-range proteinuria. Her TTE was unremarkable. Cont [facility] for accurate I/Os. Trend PRP. 2. Deconditioning with ambulatory dysfunction-strength continues to improve and she states that she feels stronger. Cont PT/OT efforts, Fall precautions. 3. L hip pain-Left hip xray showed no evidence of left hip fracture. Analgesics PRN. 4. Anemia-no active bleeding. stable, multifactorial. 5. HTN-controlled, cont Lopressor 6. Vit D deficiency-cont ergocalciferol 7. Smoking-cont Nicoderm patch 8. Hypothyroid-Synthroid 150mg daily. Repeat TSH needed in 5 weeks. Likely noncompliant with meds as outpatient per daughter. 9. DMII- sugars at goal, cont ISS 10. Transaminitis-pt with fatty liver who uses alcohol. GI following -pending labwork. Currently has no abdominal pain. 11. ETOH abuse-cont thiamine and folic acid. Last drink was >10 days ago. 12. Pulmonary nodule-CT chest demonstrated 5 mm nodule right lower lobe, stable compared to CT performed 11/11/15. Patient is a smoker. follow up per guidelines. 13. renal lesion 1.8 cm hyperdense lesion right kidney-complex cyst versus solid mass. Patient had ultrasound performed at [facility] 07/31/16 which demonstrated 3 cystic lesions, largest measuring [address] of abdomen and pelvis on 04/11/13 showed similar findings. Radiographic stability suggests benign lesion, however, per Nephro nonemergent dedicated MRI would be recommended. DVT proph-Heparin FULL CODE Dispo-to rehab once medically stable. Georgia Thompson DO [facility] Hospitalist Consultants: Nephrology Neurology Gastro Procedures: CT head CT cervical spine CT chest CT abdomen and pelvis IV fluids IV medications PT OT . Current Inpatient Medications: Current Inpatient Medications Medications (Trade) Dose Ordered Sig/Fay Route Start Time Stop Time Status Last Admin Dose Admin Heparin Sodium (Porcine) (Heparin Sq 5000 Unit/0.5ml) 5,000 unit Q8H SQ 01/19/17 22:00 02/18/17 21:59 02/01/17 05:37 5,000 UNIT Acetaminophen (Tylenol Tab) 650 mg Q4H PRN PO 01/19/17 20:15 02/18/17 20:14 01/26/17 05:20 650 MG Ondansetron HCl (Zofran Inj) 4 mg Q6H PRN IV 01/19/17 20:15 02/18/17 20:14 Insulin Glargine (Lantus Solostar Pen) 7 unit Q12 SC 01/19/17 21:00 02/18/17 20:59 Future Hold 01/19/17 22:42 7 UNIT Glucose (Glucose 40% Gel) 15-30 GRAMS 15 GRAMS... UD PRN PO 01/19/17 20:15 02/18/17 20:14 Glucose (Glucose Chew Tab) 4-8 Tablets 4 Tabl... UD PRN PO 01/19/17 20:15 02/18/17 20:14 Dextrose (Dextrose 50% 50ML Syringe) 25-50ML OF 50% DW IV FOR... UD PRN IV 01/19/17 20:15 02/18/17 20:14 Glucagon (Glucagon Inj) 1 mg UD PRN SQ 01/19/17 20:15 02/18/17 20:14 Aspirin (Ecotrin Tab) 81 mg DAILY PO 01/20/17 08:00 02/19/17 08:59 01/31/17 08:07 81 MG Levothyroxine Sodium (Synthroid Tab) 150 mcg DAILYBB PO 01/20/17 06:30 02/19/17 06:59 02/01/17 05:38 150 MCG Thiamine HCl (Vitamin B-1 Tab) 100 mg DAILY PO 01/20/17 08:00 02/19/17 08:59 01/31/17 08:07 100 MG Nicotine (Nicoderm Cq 21MG Patch) 1 patch Q24H TD 01/19/17 21:00 02/18/17 20:59 01/31/17 20:58 1 PATCH Miscellaneous (Remove Nicoderm Patch) 1 ea PM N/A 01/20/17 20:00 02/19/17 20:59 01/31/17 20:52 1 EA Ergocalciferol (Vitamin D Cap) 50,000 interunit Q4D PO 01/19/17 22:00 02/18/17 21:59 01/31/17 21:00 50,000 INTERUNIT Folic Acid (Folvite Tab) 1 mg QAM PO 01/21/17 08:00 02/20/17 07:59 01/31/17 08:07 1 MG Multivitamins/ Minerals (Multivitamin W/ Minerals Tab) 1 tab QAM PO 01/21/17 08:00 02/20/17 07:59 01/31/17 08:07 1 TAB Lorazepam (Ativan Tab) PRN Dosing -Active Protocol UD PRN PO 01/22/17 02:00 02/20/17 01:59 01/31/17 14:01 1 MG Albuterol/ Ipratropium (Duoneb) 3 ml QIDR INH 01/24/17 08:00 02/23/17 07:59 02/01/17 15:43 3 ML Acetaminophen/ Hydrocodone Bitart ([place] 5/325 Tab) 1 tab Q6 PRN PO 01/24/17 04:30 02/07/17 04:29 01/28/17 21:35 1 TAB Senna/Docusate Sodium (Senokot S Tab) 1 tab QAM PO 01/26/17 08:00 02/25/17 07:59 01/31/17 08:07 1 TAB Sodium Chloride ([place] Nasal [place]) 1 sprays DAILY PRN YORDY 01/26/17 11:15 02/25/17 11:14 Haloperidol (Haldol Tab) 2 mg Q4 PRN PO 01/26/17 19:15 02/25/17 19:14 Future Hold Furosemide 40 mg/ Albumin Human 54 ml @ 54 mls/hr Q12H IV 01/30/17 16:00 02/02/17 15:59 02/01/17 15:49 54 MLS/HR Potassium Chloride (Klor-Con Tab) 20 meq QAM PO 02/01/17 09:00 03/03/17 08:59 Metoprolol Tartrate (Lopressor Tab) 50 mg TID PO 02/01/17 14:00 03/03/17 13:59 02/01/17 14:31 50 MG Insulin Aspart (novoLOG ASPART) SLIDING SCALE If C... ACHS SC 02/01/17 16:30 03/03/17 16:29 02/01/17 17:09 6 UNITS
[2017-02-02] VITALS (17 sets, daily range): BP systolic 118–156; BP diastolic 61–89; PULSE 60–88; TEMP 36.3–36.8; O2SAT 91–98
[2017-02-02 01:39] LABS: MYELOPEROXIDASE AB <1.0 AI (<1.0)
[2017-02-02] MEDS: HYDROCODONE/ACETAMOPHEN 5/325MG TAB PO PRN ×2 (03:10→13:07)
[2017-02-02] MEDS: ALBUMIN 25% 50 ML with FUROSEMIDE INJ 40 MG IV SCH ×2 (03:49)
[2017-02-02] MEDS: HEPARIN SOD 5000 UNIT/0.5 ML CARP SQ SCH ×3 (05:36→21:34)
[2017-02-02] MEDS: LEVOTHYROXINE 150 MCG TAB PO SCH (05:38)
[2017-02-02 06:04] LABS: HEMATOCRIT 22.5 % (37-47); MEAN CORPUSCULAR HEMOGLOBIN 34.1 pg (25-34); MEAN CORPUSCULAR HGB CONC 35.1 g/dl (32-36); MEAN PLATELET VOLUME 10.7 fL (7.4-10.4); PLATELET COUNT 480 K/uL (130-400); RED BLOOD COUNT 2.32 M/uL (4.2-5.4); WHITE BLOOD COUNT 13.12 K/uL (4.8-10.8)
[2017-02-02 06:54] LABS: BUN/CREATININE RATIO 11.4 (10-20); CALCIUM 9.4 mg/dl (8.5-10.1); CREATININE 4.5 mg/dl (0.60-1.20); POTASSIUM 2.9 mmol/L (3.5-5.1)
[2017-02-02] MEDS: ALBUT/IPRATROP 3MG/0.5MG NEB 3 ML VIAL INH SCH ×4 (07:02→19:08)
[2017-02-02] MEDS ORDERED: POTASSIUM CHLORIDE 20 MEQ TABCR PO SCH (07:45)
[2017-02-02] MEDS ORDERED: POTASSIUM CHLORIDE 20 MEQ TABCR PO STA (08:04)
[2017-02-02] MEDS: METOPROLOL TARTRATE 50 MG TAB PO SCH ×3 (08:19→21:36)
[2017-02-02] MEDS: CEROVITE ADV FORMULA TAB PO SCH (08:19)
[2017-02-02] MEDS: THIAMINE HCL 100 MG TAB PO SCH (08:19)
[2017-02-02] MEDS: ASPIRIN 81 MG ECTAB PO SCH (08:19)
[2017-02-02] MEDS: DOCUSATE SODIUM/SENNA 50/8.6MG TAB PO SCH (08:19)
[2017-02-02] MEDS: POTASSIUM CHLORIDE 20 MEQ TABCR PO SCH (08:20)
[2017-02-02] MEDS: INSULIN ASPART 100 UNITS/ML 3 ML PEN SC SCH ×4 (08:30→21:34)
[2017-02-02] MEDS: POTASSIUM CHLR 10 MEQ / WTR 10 MEQ in PREMIXED WATER 100 ML IV SCH ×2 (08:38→12:45)
[2017-02-02] MEDS ORDERED: ACETAMINOPHEN 325 MG TAB PO ONE ×2 (09:15→13:30)
[2017-02-02] MEDS ORDERED: FUROSEMIDE INJ 40 MG in SYRINGE 0 ML IV ONE (12:30)
--- NOTE | 2017-02-02 16:05 | Nephrology Progress Note ---
Nephrology Progress Note Date of Service: Feb 02, 2017. Subjective got TDCyesterday; numbers a bit better renal ludwig today >> will hold on HD for now and cont to follow; ate well this am she states; some R flank pain still; dyspnea unchanged Objective Date Time Temp Pulse Resp B/P (MAP) Pulse Ox O2 Delivery O2 Flow Rate FiO2 02/02/17 07:03 36.8 88 18 118/68 (85) 93 Room Air 02/02/17 07:02 72 16 98 Room Air 02/02/17 04:50 36.7 85 18 148/61 (90) 93 02/02/17 04:05 36.6 88 18 156/89 (111) 94 Room Air 02/02/17 00:00 Room Air 02/01/17 23:26 37.1 90 18 168/76 (106) 96 02/01/17 21:03 102 161/71 (101) 02/01/17 20:05 83 16 95 Room Air 02/01/17 16:56 36.9 88 18 149/75 (99) 94 Room Air 02/01/17 16:00 Room Air 02/01/17 15:43 86 16 94 Room Air 02/01/17 15:25 95 Room Air 02/01/17 15:02 36.6 96 18 110/64 (79) 93 Room Air 02/01/17 13:20 36.8 94 20 125/62 (83) 93 Room Air 02/01/17 13:10 36.4 94 20 151/72 99 Room Air 02/01/17 13:00 96 20 139/68 99 Room Air 02/01/17 12:51 36.4 96 20 155/79 97 Room Air 02/01/17 12:40 92 16 123/60 100 Nasal Cannula 4 02/01/17 11:43 37.0 85 16 164/78 96 Room Air 2.0 02/01/17 11:15 92 16 96 Room Air Physical Exam: GENERAL: Elderly white female, on RA in bed today less dyspneic w/ speech HEENT: Mucous membranes moist. NECK: Supple. CHEST: scattered crackles/rhonchi CARDIOVASCULAR: S1 and S2 regular. No murmur, rubs or gallop. ABDOMEN: distended w/o fluid wave; today again not tender; zhang w/ some urine EXTREMITIES: no edema. NEURO krishnamurthy but too weak to sit up for exam; delayed speech/ ? reliability of hx Current Inpatient Medications Medications (Trade) Dose Ordered Sig/Fay Route Start Time Stop Time Status Last Admin Dose Admin Heparin Sodium (Porcine) (Heparin Sq 5000 Unit/0.5ml) 5,000 unit Q8H SQ 01/19/17 22:00 02/18/17 21:59 02/02/17 05:36 5,000 UNIT Acetaminophen (Tylenol Tab) 650 mg Q4H PRN PO 01/19/17 20:15 02/18/17 20:14 01/26/17 05:20 650 MG Ondansetron HCl (Zofran Inj) 4 mg Q6H PRN IV 01/19/17 20:15 02/18/17 20:14 Insulin Glargine (Lantus Solostar Pen) 7 unit Q12 SC 01/19/17 21:00 02/18/17 20:59 Future Hold 01/19/17 22:42 7 UNIT Glucose (Glucose 40% Gel) 15-30 GRAMS 15 GRAMS... UD PRN PO 01/19/17 20:15 02/18/17 20:14 Glucose (Glucose Chew Tab) 4-8 Tablets 4 Tabl... UD PRN PO 01/19/17 20:15 02/18/17 20:14 Dextrose (Dextrose 50% 50ML Syringe) 25-50ML OF 50% DW IV FOR... UD PRN IV 01/19/17 20:15 02/18/17 20:14 Glucagon (Glucagon Inj) 1 mg UD PRN SQ 01/19/17 20:15 02/18/17 20:14 Aspirin (Ecotrin Tab) 81 mg DAILY PO 01/20/17 08:00 02/19/17 08:59 02/02/17 08:19 81 MG Levothyroxine Sodium (Synthroid Tab) 150 mcg DAILYBB PO 01/20/17 06:30 02/19/17 06:59 02/02/17 05:38 150 MCG Thiamine HCl (Vitamin B-1 Tab) 100 mg DAILY PO 01/20/17 08:00 02/19/17 08:59 02/02/17 08:19 100 MG Nicotine (Nicoderm Cq 21MG Patch) 1 patch Q24H TD 01/19/17 21:00 02/18/17 20:59 02/01/17 21:05 1 PATCH Miscellaneous (Remove Nicoderm Patch) 1 ea PM N/A 01/20/17 20:00 02/19/17 20:59 02/01/17 21:04 1 EA Ergocalciferol (Vitamin D Cap) 50,000 interunit Q4D PO 01/19/17 22:00 02/18/17 21:59 01/31/17 21:00 50,000 INTERUNIT Folic Acid (Folvite Tab) 1 mg QAM PO 01/21/17 08:00 02/20/17 07:59 01/31/17 08:07 1 MG Multivitamins/ Minerals (Multivitamin W/ Minerals Tab) 1 tab QAM PO 01/21/17 08:00 02/20/17 07:59 02/02/17 08:19 1 TAB Lorazepam (Ativan Tab) PRN Dosing -Active Protocol UD PRN PO 01/22/17 02:00 02/20/17 01:59 01/31/17 14:01 1 MG Albuterol/ Ipratropium (Duoneb) 3 ml QIDR INH 01/24/17 08:00 02/23/17 07:59 02/02/17 07:02 3 ML Acetaminophen/ Hydrocodone Bitart ([place] 5/325 Tab) 1 tab Q6 PRN PO 01/24/17 04:30 02/07/17 04:29 02/02/17 03:10 1 TAB Senna/Docusate Sodium (Senokot S Tab) 1 tab QAM PO 01/26/17 08:00 02/25/17 07:59 02/02/17 08:19 1 TAB Sodium Chloride ([place] Nasal [place]) 1 sprays DAILY PRN YORDY 01/26/17 11:15 02/25/17 11:14 Haloperidol (Haldol Tab) 2 mg Q4 PRN PO 01/26/17 19:15 02/25/17 19:14 Future Hold Furosemide 40 mg/ Albumin Human 54 ml @ 54 mls/hr Q12H IV 01/30/17 16:00 02/02/17 15:59 02/02/17 03:49 54 MLS/HR Potassium Chloride (Klor-Con Tab) 20 meq QAM PO 02/01/17 09:00 03/03/17 08:59 6/16/17 08:20 20 MEQ Metoprolol Tartrate (Lopressor Tab) 50 mg TID PO 02/01/17 14:00 03/03/17 13:59 02/02/17 08:19 50 MG Insulin Aspart (novoLOG ASPART) SLIDING SCALE If C... ACHS SC 02/01/17 16:30 03/03/17 16:29 02/02/17 08:30 3 UNITS Potassium Chloride 10 meq/ Prmx 100 ml @ 100 mls/hr Q1H IV 02/02/17 08:30 02/02/17 10:29 02/02/17 08:38 100 MLS/HR Last 24 Hours Test 02/01/17 11:18 02/01/17 11:20 02/01/17 13:01 02/01/17 16:46 Bedside Glucose 159 mg/dl 144 mg/dl 161 mg/dl 203 mg/dl Test 02/01/17 20:23 02/02/17 05:26 02/02/17 07:29 Bedside Glucose 137 mg/dl 178 mg/dl White Blood Count 13.12 K/uL Red Blood Count 2.32 M/uL Hemoglobin 7.9 g/dL Hematocrit 22.5 % Mean Corpuscular Volume 97.0 fL Mean Corpuscular Hemoglobin 34.1 pg Mean Corpuscular Hemoglobin Concent 35.1 g/dl RDW Standard Deviation 53.9 fL RDW Coefficient of Variation 15.6 % Platelet Count 480 K/uL Mean Platelet Volume 10.7 fL Nucleated RBC Absolute Count (auto) 0.04 K/uL Nucleated Red Blood Cells % 0.3 % Sodium Level 140 mmol/L Potassium Level 2.9 mmol/L Chloride Level 107 mmol/L Carbon Dioxide Level 20 mmol/L Anion Gap 13.0 mmol/L Blood Urea Nitrogen 52 mg/dl Creatinine 4.50 mg/dl Est Creatinine Clear Calc Drug Dose 10.1 ml/min Estimated GFR () 10.3 Estimated GFR (Non- 8.9 BUN/Creatinine Ratio 11.4 Random Glucose 142 mg/dl Calcium Level 9.4 mg/dl Magnesium Level 2.0 mg/dl Assessment & Plan 76-year-old female with long standing type 2 diabetes, alcohol abuse, COPD admitted 01/19 following episode of fall and confusion w/ worsening renal failure. treated at admission for uti. hx of > 30 yrs htn, dm on insulin w/ 2.3 gm proteinuria late 2015 w/ unexplained Jack for several months early 2016. presenting creatinine was 1.6, down to 1.1 01/20, then plateau'd 01/24-01/26 at 1.8 , then worsened again peaking at 5.1 on 01/31, down to 4.5 today not oliguric. >>>Acute on chronic renal failure; cause unclear still; in setting of altered MS , dyspnea >> ATN form unclear course ? infection? >> she had peak creatinine 5.1 on 01/31; trending downward as we've been getting ready for dialysis. repeat urine very concentrated with nephrotic range proteinuria (3.8 gm) and no infection, minimal blood in urine. not a convincing story for interstitial nephritis though this can be subtle; no obstruction. CK is wnl. cannot be hepatorenal syndrome as she has no ascites and no liver cirrhosis -daily bmp >cont zhang/ strict I/O -f/u pending urine eos and serologies; >>ESR is very high >> concerning for vasculitis or cancer or undiagnosed infection; multiple serologies negative -cont IV albumin 25% w/ lasix 40 mg IV BID -vascular assistance w/ tdc placement appreciated -cont to follow daily for need for dialysis >> for today do not believe she needs it but may yet have need; if does start will plan 3 days in a row of tx; duration of need for dialysis unclear hypokalemia -recheck later today (order in) > got 40 mEq po x 1 R renal lesions -needs nonemergent renal mri to evaluate >> suspect not a simple cyst Anemia of chronic disease -monitor for need for transfusion Appreciate consult; will follow with you. Care coordinated w/ Dr Thompson
--- NOTE | 2017-02-02 18:41 | DIAGNOSTIC IMAGING REPORT ---
BILATERAL LOWER EXTREMITY VENOUS DOPPLER HISTORY: Weakness. Elevated ESR. Elevated WBCs. COMPARISON STUDY: None. FINDINGS: There is normal compressibility, flow, and augmentation within the bilateral lower extremity deep venous systems. IMPRESSION: No DVT within the right or left lower extremity. Electronically signed by: Roddy Junior M.D. 02/02/2017 6:40 PM Dictated Date/Time: 02/02/2017 6:39 PM
[2017-02-02] MEDS: NICOTINE 21 MG/24 HR TDSY TD SCH (21:39)
--- NOTE | 2017-02-02 22:32 | Progress Note ---
Medicine Progress Note Date & Time of Visit: Feb 02, 2017 at 0900. Subjective 76 yo F initially admitted for weakness after a fall without loss of consciousness at home. -clinically the same today -she denies any changes -denies lightheadedness, chest pain, shortness of breath -Carty catheter still in place and 2L out overnight in response to continued Lasix/albumin -tunneled HD catheter yesterday -Creat continues to improve. Objective Last 8 Hrs Date Time Temp Pulse Resp B/P (MAP) Pulse Ox O2 Delivery O2 Flow Rate FiO2 02/02/17 16:25 36.5 60 18 151/80 94 02/02/17 15:25 36.3 65 18 135/84 98 02/02/17 15:24 63 16 96 Room Air 02/02/17 14:55 36.5 67 18 134/76 97 02/02/17 14:40 36.6 71 18 121/75 97 02/02/17 14:23 36.7 78 18 133/75 98 02/02/17 12:00 36.7 77 20 131/74 (93) 97 Room Air 02/02/17 11:09 64 16 96 Room Air Physical Exam: GEN: WNWD, in no acute distress, alert and appropriate HEENT: NC/AT, normal sclerae, MMM CARDIO: reg rate, S1/2 heard without m/g/r LUNGS: CTAB, no crackles, rales or wheezes. ABD: soft, non-tender, non-distended, no rebound or guarding, +BS EXTREMITY: no LE swelling or edema, extremities are warm and well-perfused SKIN: warm and dry Laboratory Results: 02/02/17 05:26 Test 01/19/17 13:56 01/19/17 14:25 01/20/17 06:44 01/21/17 08:05 Prothrombin Time 10.8 SECONDS (9.0-12.0) Prothromb Time International Ratio 1.0 (0.9-1.1) Troponin I < 0.015 ng/ml (0-0.045) 25-Hydroxy Vitamin D Total 8.4 ng/ml (30-100) Thyroid Stimulating Hormone (TSH) 11.400 uIu/ml (0.300-4.500) Urine Yeast (Auto) PRESENT (NONE PRSENT) Estimated Average Glucose 105 mg/dl Hemoglobin A1c 5.3 % (4.5-5.6) Lactic Acid Level 0.8 mmol/L (0.4-2.0) Test 01/22/17 06:53 01/27/17 06:45 01/28/17 11:33 01/28/17 13:11 Phosphorus Level 2.8 mg/dl (2.5-4.9) Ammonia 30.0 umol/L (11-32) Ceruloplasmin 34 MG/DL (18-53) Vitamin B12 Level > 2000 pg/mL (211-911) Folate > 24.00 ng/mL (>5.38) Immunoglobulin G 969.0 mg/dL (700-1600) Anti-Mitochondrial Antibody LESS THAN 1:20 TITER Anti-Smooth Muscle Antibody LESS THAN 1:20 TITER Hepatitis A IgM Antibody NON-REACTIVE (NON-REACTIVE) Hepatitis B Surface Antigen NEG (NEG) Hepatitis B Core IgM Antibody NON-REACTIVE (NON-REACTIVE) Hepatitis C Antibody NEG (NEG) Red Blood Cell Morphology Unremarkable Anti-Nuclear Antibody Comment (()) Anti-Proteinase 3 (c-ANCA) <1.0 AI (<1.0) Anti-Myeloperoxidase Ab (p-ANCA) <1.0 AI (<1.0) Anti-Neutrophil Cytoplasmic Ab Negative (Negative) Complement C3 194 MG/DL (90-180) Complement C4 39 MG/DL (16-47) Total Complement (CH50) >60 U/mL (31-60) Test 01/29/17 07:25 01/29/17 14:25 01/30/17 05:25 01/31/17 06:34 Total Creatine Kinase 68 U/L (26-192) Globulin 4.4 gm/dl (2.5-4.0) Albumin/Globulin Ratio 0.4 (0.9-2) Procalcitonin 2.38 ng/ml (0-0.5) Urine Color DK YELLOW Urine Appearance CLOUDY (CLEAR) Urine pH 5.5 (4.5-7.5) Urine Specific [place] 1.017 (1.000-1.030) Urine Protein 2+ (NEG) Urine Glucose (UA) NEG (NEG) Urine Ketones NEG (NEG) Urine Occult Blood 1+ (NEG) Urine Nitrite NEG (NEG) Urine Bilirubin NEG (NEG) Urine Urobilinogen NEG (NEG) Urine Leukocyte Esterase NEG (NEG) Urine WBC (Auto) 1-5 /hpf (0-5) Urine RBC (Auto) 0-4 /hpf (0-4) Urine Hyaline Casts (Auto) 1-5 /lpf (0-5) Urine Epithelial Cells (Auto) >30 /lpf (0-5) Urine Bacteria (Auto) 1+ (NEG) Urine Renal Epithelial Cells /lpf (0-5) Urine Pathogenic Casts 0-3 GRANULAR CASTS /lpf (0) Urine Random Creatinine 64.0 mg/dl Urine Random Total Protein 244.0 mg/dl (0-11.9) Urine Random Sodium 42 mEq/L Urine Protein/Creatinine Ratio 3.8 (0-0.2) Anisocytosis PRESENT Peripheral Blood Smear Path Consult Anti-Nuclear Antibody Screen NEGATIVE (NEGATIVE) Cytomegalovirus IgG Antibody <0.60 U/ML Cytomegalovirus IgM Antibody <30.00 Au/mL Latrice-Jeff Virus Capsid Ag IgG Ab >750.00 U/ML E-B Virus Capsid Ag IgM Ab Index <36.00 U/ML Erythrocyte Sedimentation Rate > 90 mm/hr (0-21) Test 02/01/17 07:05 02/02/17 05:26 02/02/17 14:00 02/02/17 20:31 Immature Granulocyte % (Auto) 1.4 % White Blood Count 12.24 K/uL (4.8-10.8) Red Blood Count 2.37 M/uL (4.2-5.4) 2.32 M/uL (4.2-5.4) Hemoglobin 7.6 g/dL (12.0-16.0) Hematocrit 22.8 % (37-47) Mean Corpuscular Volume 96.2 fL (80-100) 97.0 fL (80-100) Mean Corpuscular Hemoglobin 32.1 pg (25-34) 34.1 pg (25-34) Mean Corpuscular Hemoglobin Concent 33.3 g/dl (32-36) 35.1 g/dl (32-36) Platelet Count 505 K/uL (130-400) Mean Platelet Volume 10.4 fL (7.4-10.4) 10.7 fL (7.4-10.4) Neutrophils (%) (Auto) 73.8 % Lymphocytes (%) (Auto) 12.2 % Monocytes (%) (Auto) 11.6 % Eosinophils (%) (Auto) 0.8 % Basophils (%) (Auto) 0.2 % Neutrophils # (Auto) 9.03 K/uL (1.4-6.5) Lymphocytes # (Auto) 1.49 K/uL (1.2-3.4) Monocytes # (Auto) 1.42 K/uL (0.11-0.59) Eosinophils # (Auto) 0.10 K/uL (0-0.5) Basophils # (Auto) 0.03 K/uL (0-0.2) Immature Granulocyte # (Auto) 0.17 K/uL (0.00-0.02) Target Cells 1+ Total Bilirubin 0.7 mg/dl (0.2-1) Direct Bilirubin 0.3 mg/dl (0-0.2) Aspartate Amino Transf (AST/SGOT) 179 U/L (15-37) Alanine Aminotransferase (ALT/SGPT) 112 U/L (12-78) Alkaline Phosphatase 519 U/L (45-117) Total Protein 6.7 gm/dl (6.4-8.2) Albumin 2.4 gm/dl (3.4-5.0) RDW Standard Deviation 53.9 fL (36.4-46.3) RDW Coefficient of Variation 15.6 % (11.5-14.5) Nucleated RBC Absolute Count (auto) 0.04 K/uL (0-0) Nucleated Red Blood Cells % 0.3 % Est Creatinine Clear Calc Drug Dose 10.1 ml/min Magnesium Level 2.0 mg/dl (1.8-2.4) Bedside Glucose 204 mg/dl (70-90) Date/Time Source Procedure Growth Status 01/19/17 19:24 Blood Blood Culture - Final NO GROWTH Complete 01/29/17 14:25 Urine , Clean Catch Urine Culture - Final NO GROWTH - LESS THAN 1,000 COLONIES/ML Complete Last 24 Hours Test 02/01/17 20:23 02/02/17 05:26 02/02/17 07:29 02/02/17 11:16 Bedside Glucose 137 mg/dl 178 mg/dl 183 mg/dl White Blood Count 13.12 K/uL Red Blood Count 2.32 M/uL Hemoglobin 7.9 g/dL Hematocrit 22.5 % Mean Corpuscular Volume 97.0 fL Mean Corpuscular Hemoglobin 34.1 pg Mean Corpuscular Hemoglobin Concent 35.1 g/dl RDW Standard Deviation 53.9 fL RDW Coefficient of Variation 15.6 % Platelet Count 480 K/uL Mean Platelet Volume 10.7 fL Nucleated RBC Absolute Count (auto) 0.04 K/uL Nucleated Red Blood Cells % 0.3 % Sodium Level 140 mmol/L Potassium Level 2.9 mmol/L Chloride Level 107 mmol/L Carbon Dioxide Level 20 mmol/L Anion Gap 13.0 mmol/L Blood Urea Nitrogen 52 mg/dl Creatinine 4.50 mg/dl Est Creatinine Clear Calc Drug Dose 10.1 ml/min Estimated GFR () 10.3 Estimated GFR (Non- 8.9 BUN/Creatinine Ratio 11.4 Random Glucose 142 mg/dl Calcium Level 9.4 mg/dl Magnesium Level 2.0 mg/dl Test 02/02/17 14:00 Assessment & Plan 76 yo F initially admitted for weakness after a fall without loss of consciousness at home. 1. ARF-creat continues to improve. Cont Lasix/albumin. Tunneled catheter placement yesterday in preparation for HD, however, will hold off at this time. Continues to improve clinically. Has chronic nephrotic-range proteinuria. Her TTE was unremarkable. Cont Carty for accurate I/Os. Trend PRP. Apprec Neprho recs. 2. Deconditioning with ambulatory dysfunction-strength continues to improve and she states that she feels stronger. Cont PT/OT efforts, Fall precautions. 3. L hip pain-Left hip xray showed no evidence of left hip fracture. Analgesics PRN. 4. Anemia-no active bleeding, however, H/H declined today. Transfusion given. Will trend post-tx H/H 5. HTN-controlled, cont Lopressor 6. Vit D deficiency-cont ergocalciferol 7. Smoking-cont Nicoderm patch 8. Hypothyroid-Synthroid 150mg daily. Repeat TSH needed in 5 weeks. Likely noncompliant with meds as outpatient per daughter. 9. DMII- sugars at goal, cont ISS 10. Transaminitis-pt with fatty liver who uses alcohol. GI following -pending labwork. Currently has no abdominal pain. 11. ETOH abuse-cont thiamine and folic acid. Last drink was >10 days ago. 12. Pulmonary nodule-CT chest demonstrated 5 mm nodule right lower lobe, stable compared to CT performed 11/11/15. Patient is a smoker. follow up per guidelines. 13. renal lesion 1.8 cm hyperdense lesion right kidney-complex cyst versus solid mass. Patient had ultrasound performed at [facility] 07/31/16 which demonstrated 3 cystic lesions, largest measuring [address] of abdomen and pelvis on 04/11/13 showed similar findings. Radiographic stability suggests benign lesion, however, per Nephro nonemergent dedicated MRI would be recommended. 14. Leukocytosis-uncertain etiology possibly related to inflammatory component with ESR>90. Scanned legs which was negative for DVT. Cont to trend. DVT proph-Heparin FULL CODE Dispo-to rehab once medically stable. Spoke with both son and daughter today who understand and agree with the plan and who agree that she will be going to [facility] for rehab likely Mon. Georgia Thompson DO [facility] Hospitalist Consultants: Nephrology Neurology Gastro Procedures: CT head CT cervical spine CT chest CT abdomen and pelvis IV fluids IV medications PT OT . Current Inpatient Medications: Current Inpatient Medications Medications (Trade) Dose Ordered Sig/Fay Route Start Time Stop Time Status Last Admin Dose Admin Heparin Sodium (Porcine) (Heparin Sq 5000 Unit/0.5ml) 5,000 unit Q8H SQ 01/19/17 22:00 02/18/17 21:59 02/02/17 05:36 5,000 UNIT Acetaminophen (Tylenol Tab) 650 mg Q4H PRN PO 01/19/17 20:15 02/18/17 20:14 01/26/17 05:20 650 MG Ondansetron HCl (Zofran Inj) 4 mg Q6H PRN IV 01/19/17 20:15 02/18/17 20:14 Insulin Glargine (Lantus Solostar Pen) 7 unit Q12 SC 01/19/17 21:00 02/18/17 20:59 Future Hold 01/19/17 22:42 7 UNIT Glucose (Glucose 40% Gel) 15-30 GRAMS 15 GRAMS... UD PRN PO 01/19/17 20:15 02/18/17 20:14 Glucose (Glucose Chew Tab) 4-8 Tablets 4 Tabl... UD PRN PO 01/19/17 20:15 02/18/17 20:14 Dextrose (Dextrose 50% 50ML Syringe) 25-50ML OF 50% DW IV FOR... UD PRN IV 01/19/17 20:15 02/18/17 20:14 Glucagon (Glucagon Inj) 1 mg UD PRN SQ 01/19/17 20:15 02/18/17 20:14 Aspirin (Ecotrin Tab) 81 mg DAILY PO 01/20/17 08:00 02/19/17 08:59 02/02/17 08:19 81 MG Levothyroxine Sodium (Synthroid Tab) 150 mcg DAILYBB PO 01/20/17 06:30 02/19/17 06:59 02/02/17 05:38 150 MCG Thiamine HCl (Vitamin B-1 Tab) 100 mg DAILY PO 01/20/17 08:00 02/19/17 08:59 02/02/17 08:19 100 MG Nicotine (Nicoderm Cq 21MG Patch) 1 patch Q24H TD 01/19/17 21:00 02/18/17 20:59 02/01/17 21:05 1 PATCH Miscellaneous (Remove Nicoderm Patch) 1 ea PM N/A 01/20/17 20:00 02/19/17 20:59 02/01/17 21:04 1 EA Ergocalciferol (Vitamin D Cap) 50,000 interunit Q4D PO 01/19/17 22:00 02/18/17 21:59 01/31/17 21:00 50,000 INTERUNIT Folic Acid (Folvite Tab) 1 mg QAM PO 01/21/17 08:00 02/20/17 07:59 02/02/17 13:02 1 MG Multivitamins/ Minerals (Multivitamin W/ Minerals Tab) 1 tab QAM PO 01/21/17 08:00 02/20/17 07:59 02/02/17 08:19 1 TAB Lorazepam (Ativan Tab) PRN Dosing -Active Protocol UD PRN PO 01/22/17 02:00 02/20/17 01:59 01/31/17 14:01 1 MG Albuterol/ Ipratropium (Duoneb) 3 ml QIDR INH 01/24/17 08:00 02/23/17 07:59 02/02/17 15:24 3 ML Acetaminophen/ Hydrocodone Bitart ([place] 5/325 Tab) 1 tab Q6 PRN PO 01/24/17 04:30 02/07/17 04:29 02/02/17 13:07 1 TAB Senna/Docusate Sodium (Senokot S Tab) 1 tab QAM PO 01/26/17 08:00 02/25/17 07:59 02/02/17 08:19 1 TAB Sodium Chloride ([place] Nasal [place]) 1 sprays DAILY PRN YORDY 01/26/17 11:15 02/25/17 11:14 Haloperidol (Haldol Tab) 2 mg Q4 PRN PO 01/26/17 19:15 02/25/17 19:14 Future Hold Potassium Chloride (Klor-Con Tab) 20 meq QAM PO 02/01/17 09:00 03/03/17 08:59 02/02/17 08:20 20 MEQ Metoprolol Tartrate (Lopressor Tab) 50 mg TID PO 02/01/17 14:00 03/03/17 13:59 02/02/17 13:32 50 MG Insulin Aspart (novoLOG ASPART) SLIDING SCALE If C... ACHS SC 02/01/17 16:30 03/03/17 16:29 02/02/17 13:05 5 UNITS
[2017-02-02 23:55] LABS: CREATININE 4.2 mg/dl (0.60-1.20)
[2017-02-02 23:56] LABS: BUN/CREATININE RATIO 11.2 (10-20); POTASSIUM 3.7 mmol/L (3.5-5.1)
[2017-02-03] MEDS: HYDROCODONE/ACETAMOPHEN 5/325MG TAB PO PRN ×3 (00:36→20:34)
[2017-02-03 00:38] LABS: HEMATOCRIT 32.3 % (37-47)
[2017-02-03] MEDS: LEVOTHYROXINE 150 MCG TAB PO SCH (06:29)
[2017-02-03] MEDS: HEPARIN SOD 5000 UNIT/0.5 ML CARP SQ SCH ×3 (06:31→20:27)
[2017-02-03 06:56] VITALS: BP 164/79; PULSE 82; TEMP 36.6; O2SAT 96
[2017-02-03] MEDS: ALBUT/IPRATROP 3MG/0.5MG NEB 3 ML VIAL INH SCH ×2 (07:18→11:10)
[2017-02-03 07:19] VITALS: PULSE 73; O2SAT 98
[2017-02-03] MEDS: DOCUSATE SODIUM/SENNA 50/8.6MG TAB PO SCH (08:45)
[2017-02-03] MEDS: POTASSIUM CHLORIDE 20 MEQ TABCR PO SCH (08:45)
[2017-02-03] MEDS: CEROVITE ADV FORMULA TAB PO SCH (08:45)
[2017-02-03] MEDS: THIAMINE HCL 100 MG TAB PO SCH (08:45)
[2017-02-03] MEDS: ASPIRIN 81 MG ECTAB PO SCH (08:46)
[2017-02-03] MEDS: METOPROLOL TARTRATE 50 MG TAB PO SCH ×4 (08:46→20:31)
[2017-02-03] MEDS: INSULIN ASPART 100 UNITS/ML 3 ML PEN SC SCH ×4 (08:50→20:33)
[2017-02-03 11:11] VITALS: PULSE 78; O2SAT 97
[2017-02-03] MEDS ORDERED: ALBUT/IPRATROP 3MG/0.5MG NEB 3 ML VIAL INH PRN (12:00)
[2017-02-03] MEDS: ALBUMIN 25% 50 ML with FUROSEMIDE INJ 40 MG IV SCH ×2 (13:20)
[2017-02-03 13:22] VITALS: BP 102/58; PULSE 82; O2SAT 95
[2017-02-03 13:45] VITALS: BP 145/70; PULSE 80; TEMP 36.4; O2SAT 95
--- NOTE | 2017-02-03 15:14 | Nephrology Progress Note ---
Nephrology Progress Note Date of Service: Feb 03, 2017. Subjective slept most of day today she states when I saw her midafternoon; not dyspneic; no pain; no n/v; appetite borderline Objective Date Time Temp Pulse Resp B/P (MAP) Pulse Ox O2 Delivery O2 Flow Rate FiO2 02/03/17 13:45 36.4 80 17 145/70 (95) 95 Room Air 02/03/17 13:22 82 102/58 (73) 95 Room Air 02/03/17 11:11 78 16 97 Room Air 02/03/17 08:00 Room Air 02/03/17 07:19 73 16 98 Room Air 02/03/17 06:56 36.6 82 18 164/79 (107) 96 Room Air 02/03/17 00:00 Room Air 02/02/17 23:04 36.5 87 18 147/69 (95) 93 Room Air 02/02/17 19:08 73 16 98 Room Air 02/02/17 19:01 36.5 68 18 147/76 94 02/02/17 16:25 36.5 60 18 151/80 94 02/02/17 16:22 98 Room Air 02/02/17 15:25 36.3 65 18 135/84 98 02/02/17 15:24 63 16 96 Room Air Physical Exam: GENERAL: Elderly white female, on RA in bed lying flat not dyspneic w/ speech HEENT: Mucous membranes moist. NECK: Supple. CHEST: still scattered crackles/rhonchi CARDIOVASCULAR: S1 and S2 regular. No murmur, rubs or gallop. ABDOMEN: distended w/o fluid wave; today again not tender; zhang w/ some urine EXTREMITIES: no edema. NEURO krishnamurthy, fluent speech Current Inpatient Medications Medications (Trade) Dose Ordered Sig/Fay Route Start Time Stop Time Status Last Admin Dose Admin Heparin Sodium (Porcine) (Heparin Sq 5000 Unit/0.5ml) 5,000 unit Q8H SQ 01/19/17 22:00 02/18/17 21:59 02/03/17 13:25 5,000 UNIT Acetaminophen (Tylenol Tab) 650 mg Q4H PRN PO 01/19/17 20:15 02/18/17 20:14 01/26/17 05:20 650 MG Ondansetron HCl (Zofran Inj) 4 mg Q6H PRN IV 01/19/17 20:15 02/18/17 20:14 Insulin Glargine (Lantus Solostar Pen) 7 unit Q12 SC 01/19/17 21:00 02/18/17 20:59 Future Hold 01/19/17 22:42 7 UNIT Glucose (Glucose 40% Gel) 15-30 GRAMS 15 GRAMS... UD PRN PO 01/19/17 20:15 02/18/17 20:14 Glucose (Glucose Chew Tab) 4-8 Tablets 4 Tabl... UD PRN PO 01/19/17 20:15 02/18/17 20:14 Dextrose (Dextrose 50% 50ML Syringe) 25-50ML OF 50% DW IV FOR... UD PRN IV 01/19/17 20:15 02/18/17 20:14 Glucagon (Glucagon Inj) 1 mg UD PRN SQ 01/19/17 20:15 02/18/17 20:14 Aspirin (Ecotrin Tab) 81 mg DAILY PO 01/20/17 08:00 02/19/17 08:59 02/03/17 08:46 81 MG Levothyroxine Sodium (Synthroid Tab) 150 mcg DAILYBB PO 01/20/17 06:30 02/19/17 06:59 02/03/17 06:29 150 MCG Thiamine HCl (Vitamin B-1 Tab) 100 mg DAILY PO 01/20/17 08:00 02/19/17 08:59 02/03/17 08:45 100 MG Nicotine (Nicoderm Cq 21MG Patch) 1 patch Q24H TD 01/19/17 21:00 02/18/17 20:59 02/02/17 21:39 1 PATCH Miscellaneous (Remove Nicoderm Patch) 1 ea PM N/A 01/20/17 20:00 02/19/17 20:59 02/02/17 21:34 1 EA Ergocalciferol (Vitamin D Cap) 50,000 interunit Q4D PO 01/19/17 22:00 02/18/17 21:59 01/31/17 21:00 50,000 INTERUNIT Folic Acid (Folvite Tab) 1 mg QAM PO 01/21/17 08:00 02/20/17 07:59 02/03/17 08:44 1 MG Multivitamins/ Minerals (Multivitamin W/ Minerals Tab) 1 tab QAM PO 01/21/17 08:00 02/20/17 07:59 02/03/17 08:45 1 TAB Lorazepam (Ativan Tab) PRN Dosing -Active Protocol UD PRN PO 01/22/17 02:00 02/20/17 01:59 01/31/17 14:01 1 MG Acetaminophen/ Hydrocodone Bitart ([place] 5/325 Tab) 1 tab Q6 PRN PO 01/24/17 04:30 02/07/17 04:29 02/03/17 08:44 1 TAB Senna/Docusate Sodium (Senokot S Tab) 1 tab QAM PO 01/26/17 08:00 02/25/17 07:59 02/03/17 08:45 1 TAB Sodium Chloride ([place] Nasal [place]) 1 sprays DAILY PRN YORDY 01/26/17 11:15 02/25/17 11:14 Haloperidol (Haldol Tab) 2 mg Q4 PRN PO 01/26/17 19:15 02/25/17 19:14 Future Hold Potassium Chloride (Klor-Con Tab) 20 meq QAM PO 02/01/17 09:00 03/03/17 08:59 02/03/17 08:45 20 MEQ Metoprolol Tartrate (Lopressor Tab) 50 mg TID PO 02/01/17 14:00 03/03/17 13:59 02/03/17 13:48 50 MG Insulin Aspart (novoLOG ASPART) SLIDING SCALE If C... ACHS SC 02/01/17 16:30 03/03/17 16:29 02/03/17 12:50 5 UNITS Albuterol/ Ipratropium (Duoneb) 3 ml QIDR PRN INH 02/03/17 12:00 03/05/17 11:59 Furosemide 40 mg/ Albumin Human 54 ml @ 54 mls/hr Q12H IV 02/03/17 13:00 02/06/17 12:29 02/03/17 13:20 54 MLS/HR Last 24 Hours Test 02/02/17 17:23 02/02/17 20:31 02/02/17 23:17 02/03/17 07:20 Bedside Glucose 140 mg/dl 204 mg/dl 167 mg/dl Hemoglobin 11.3 g/dL Hematocrit 32.3 % Sodium Level 142 mmol/L Potassium Level 3.7 mmol/L Chloride Level 109 mmol/L Carbon Dioxide Level 22 mmol/L Anion Gap 11.0 mmol/L Blood Urea Nitrogen 47 mg/dl Creatinine 4.20 mg/dl Est Creatinine Clear Calc Drug Dose 10.8 ml/min Estimated GFR () 11.2 Estimated GFR (Non- 9.6 BUN/Creatinine Ratio 11.2 Random Glucose 159 mg/dl Calcium Level 9.0 mg/dl Test 02/03/17 11:13 Bedside Glucose 199 mg/dl Assessment & Plan 76-year-old female with long standing type 2 diabetes, alcohol abuse, COPD admitted 01/19 following episode of fall and confusion w/ worsening renal failure. treated at admission for uti. hx of > 30 yrs htn, dm on insulin w/ 2.3 gm proteinuria late 2015 w/ unexplained Jack for several months early 2016. presenting creatinine was 1.6, down to 1.1 01/20, then plateau'd 01/24-01/26 at 1.8 , then worsened again peaking at 5.1 on 01/31, down to 4.5 today not oliguric. >>>Acute on chronic renal failure;in setting of altered MS, dyspnea >> ATN form unclear course ? infection? >> she had peak creatinine 5.1 on 01/31; trending downward as we've been getting ready for dialysis. repeat urine very concentrated with nephrotic range proteinuria (3.8 gm) and no infection, minimal blood in urine. not a convincing story for interstitial nephritis though this can be subtle; no obstruction. CK is wnl. cannot be hepatorenal syndrome as she has no ascites and no liver cirrhosis -daily bmp >cont zhang/ strict I/O -C3 and ESR very high, other multiple serologies negative; significance unclear as she is clinically improving <<>>? post strep GN? -resume IV albumin 25% w/ lasix 40 mg IV BID -vascular assistance w/ tdc placement appreciated -cont to follow daily for need for dialysis >> for today do not believe she needs it but may yet have need; if does start will plan 3 days in a row of tx; duration of need for dialysis unclear hypokalemia -recheck later today (order in) > got 40 mEq po x 1 R renal lesions -needs nonemergent renal mri to evaluate >> suspect not a simple cyst Anemia of chronic disease -monitor for need for transfusion>> got pRBC yesterday Appreciate consult; will follow with you. Care coordinated w/ Dr Thompson
--- NOTE | 2017-02-03 17:00 | Progress Note ---
Medicine Progress Note Date & Time of Visit: Feb 03, 2017 at 16:51. Subjective -tolerating PO -mentating well -encouraged to get out and walk in the hallway today -feeling "the same" -denies any shortness of breath, chest pain, abdominal pain or other issues at this time. Objective Last 8 Hrs Date Time Temp Pulse Resp B/P (MAP) Pulse Ox O2 Delivery O2 Flow Rate FiO2 02/03/17 16:00 Room Air 02/03/17 13:45 36.4 80 17 145/70 (95) 95 Room Air 02/03/17 13:22 82 102/58 (73) 95 Room Air 02/03/17 11:11 78 16 97 Room Air Physical Exam: GEN: WNWD, in no acute distress, alert and appropriate HEENT: NC/AT, normal sclerae, MMM CARDIO: reg rate, S1/2 heard without m/g/r LUNGS: Some wheezing heard at bases bilaterally. ABD: soft, non-tender, non-distended, no rebound or guarding, +BS N/M: no focal deficits. EXTREMITY: no LE swelling or edema, extremities are warm and well-perfused SKIN: warm and dry Laboratory Results: 02/02/17 05:26 02/02/17 23:17 02/02/17 23:17 Test 01/19/17 13:56 01/19/17 14:25 01/20/17 06:44 01/21/17 08:05 Prothrombin Time 10.8 SECONDS (9.0-12.0) Prothromb Time International Ratio 1.0 (0.9-1.1) Troponin I < 0.015 ng/ml (0-0.045) 25-Hydroxy Vitamin D Total 8.4 ng/ml (30-100) Thyroid Stimulating Hormone (TSH) 11.400 uIu/ml (0.300-4.500) Urine Yeast (Auto) PRESENT (NONE PRSENT) Estimated Average Glucose 105 mg/dl Hemoglobin A1c 5.3 % (4.5-5.6) Lactic Acid Level 0.8 mmol/L (0.4-2.0) Test 01/22/17 06:53 01/27/17 06:45 01/28/17 11:33 01/28/17 13:11 Phosphorus Level 2.8 mg/dl (2.5-4.9) Ammonia 30.0 umol/L (11-32) Ceruloplasmin 34 MG/DL (18-53) Vitamin B12 Level > 2000 pg/mL (211-911) Folate > 24.00 ng/mL (>5.38) Immunoglobulin G 969.0 mg/dL (700-1600) Anti-Mitochondrial Antibody LESS THAN 1:20 TITER Anti-Smooth Muscle Antibody LESS THAN 1:20 TITER Hepatitis A IgM Antibody NON-REACTIVE (NON-REACTIVE) Hepatitis B Surface Antigen NEG (NEG) Hepatitis B Core IgM Antibody NON-REACTIVE (NON-REACTIVE) Hepatitis C Antibody NEG (NEG) Red Blood Cell Morphology Unremarkable Anti-Nuclear Antibody Comment (()) Anti-Proteinase 3 (c-ANCA) <1.0 AI (<1.0) Anti-Myeloperoxidase Ab (p-ANCA) <1.0 AI (<1.0) Anti-Neutrophil Cytoplasmic Ab Negative (Negative) Complement C3 194 MG/DL (90-180) Complement C4 39 MG/DL (16-47) Total Complement (CH50) >60 U/mL (31-60) Test 01/29/17 07:25 01/29/17 14:25 01/30/17 05:25 01/31/17 06:34 Total Creatine Kinase 68 U/L (26-192) Globulin 4.4 gm/dl (2.5-4.0) Albumin/Globulin Ratio 0.4 (0.9-2) Procalcitonin 2.38 ng/ml (0-0.5) Urine Color DK YELLOW Urine Appearance CLOUDY (CLEAR) Urine pH 5.5 (4.5-7.5) Urine Specific [place] 1.017 (1.000-1.030) Urine Protein 2+ (NEG) Urine Glucose (UA) NEG (NEG) Urine Ketones NEG (NEG) Urine Occult Blood 1+ (NEG) Urine Nitrite NEG (NEG) Urine Bilirubin NEG (NEG) Urine Urobilinogen NEG (NEG) Urine Leukocyte Esterase NEG (NEG) Urine WBC (Auto) 1-5 /hpf (0-5) Urine RBC (Auto) 0-4 /hpf (0-4) Urine Hyaline Casts (Auto) 1-5 /lpf (0-5) Urine Epithelial Cells (Auto) >30 /lpf (0-5) Urine Bacteria (Auto) 1+ (NEG) Urine Renal Epithelial Cells /lpf (0-5) Urine Pathogenic Casts 0-3 GRANULAR CASTS /lpf (0) Urine Random Creatinine 64.0 mg/dl Urine Random Total Protein 244.0 mg/dl (0-11.9) Urine Random Sodium 42 mEq/L Urine Protein/Creatinine Ratio 3.8 (0-0.2) Anisocytosis PRESENT Peripheral Blood Smear Path Consult Anti-Nuclear Antibody Screen NEGATIVE (NEGATIVE) Cytomegalovirus IgG Antibody <0.60 U/ML Cytomegalovirus IgM Antibody <30.00 Au/mL [place] Virus Capsid Ag IgG Ab >750.00 U/ML E-B Virus Capsid Ag IgM Ab Index <36.00 U/ML Erythrocyte Sedimentation Rate > 90 mm/hr (0-21) Test 02/01/17 07:05 02/02/17 05:26 02/02/17 23:17 02/03/17 16:19 Immature Granulocyte % (Auto) 1.4 % White Blood Count 12.24 K/uL (4.8-10.8) Red Blood Count 2.37 M/uL (4.2-5.4) 2.32 M/uL (4.2-5.4) Hemoglobin 7.6 g/dL (12.0-16.0) Hematocrit 22.8 % (37-47) Mean Corpuscular Volume 96.2 fL (80-100) 97.0 fL (80-100) Mean Corpuscular Hemoglobin 32.1 pg (25-34) 34.1 pg (25-34) Mean Corpuscular Hemoglobin Concent 33.3 g/dl (32-36) 35.1 g/dl (32-36) Platelet Count 505 K/uL (130-400) Mean Platelet Volume 10.4 fL (7.4-10.4) 10.7 fL (7.4-10.4) Neutrophils (%) (Auto) 73.8 % Lymphocytes (%) (Auto) 12.2 % Monocytes (%) (Auto) 11.6 % Eosinophils (%) (Auto) 0.8 % Basophils (%) (Auto) 0.2 % Neutrophils # (Auto) 9.03 K/uL (1.4-6.5) Lymphocytes # (Auto) 1.49 K/uL (1.2-3.4) Monocytes # (Auto) 1.42 K/uL (0.11-0.59) Eosinophils # (Auto) 0.10 K/uL (0-0.5) Basophils # (Auto) 0.03 K/uL (0-0.2) Immature Granulocyte # (Auto) 0.17 K/uL (0.00-0.02) Target Cells 1+ Total Bilirubin 0.7 mg/dl (0.2-1) Direct Bilirubin 0.3 mg/dl (0-0.2) Aspartate Amino Transf (AST/SGOT) 179 U/L (15-37) Alanine Aminotransferase (ALT/SGPT) 112 U/L (12-78) Alkaline Phosphatase 519 U/L (45-117) Total Protein 6.7 gm/dl (6.4-8.2) Albumin 2.4 gm/dl (3.4-5.0) RDW Standard Deviation 53.9 fL (36.4-46.3) RDW Coefficient of Variation 15.6 % (11.5-14.5) Nucleated RBC Absolute Count (auto) 0.04 K/uL (0-0) Nucleated Red Blood Cells % 0.3 % Magnesium Level 2.0 mg/dl (1.8-2.4) Anion Gap 11.0 mmol/L (3-11) Est Creatinine Clear Calc Drug Dose 10.8 ml/min Estimated GFR () 11.2 Estimated GFR (Non- 9.6 BUN/Creatinine Ratio 11.2 (10-20) Calcium Level 9.0 mg/dl (8.5-10.1) Bedside Glucose 144 mg/dl (70-90) Date/Time Source Procedure Growth Status 01/19/17 19:24 Blood Blood Culture - Final NO GROWTH Complete 01/29/17 14:25 Urine , Clean Catch Urine Culture - Final NO GROWTH - LESS THAN 1,000 COLONIES/ML Complete Last 24 Hours Test 02/02/17 17:23 02/02/17 20:31 02/02/17 23:17 02/03/17 07:20 Bedside Glucose 140 mg/dl 204 mg/dl 167 mg/dl Hemoglobin 11.3 g/dL Hematocrit 32.3 % Sodium Level 142 mmol/L Potassium Level 3.7 mmol/L Chloride Level 109 mmol/L Carbon Dioxide Level 22 mmol/L Anion Gap 11.0 mmol/L Blood Urea Nitrogen 47 mg/dl Creatinine 4.20 mg/dl Est Creatinine Clear Calc Drug Dose 10.8 ml/min Estimated GFR () 11.2 Estimated GFR (Non- 9.6 BUN/Creatinine Ratio 11.2 Random Glucose 159 mg/dl Calcium Level 9.0 mg/dl Test 02/03/17 11:13 02/03/17 16:19 Bedside Glucose 199 mg/dl 144 mg/dl Assessment & Plan 76 yo F initially admitted for weakness after a fall without loss of consciousness at home. She subsequently developed renal failure and anemia requiring a transfusion, which has improved after initiation of Lasix and albumin several days ago. Temporary HD catheter was placed in preparation for poss HD, however, this has been on hold as she continues to improve. She will need HD catheter removed prior to discharge if no HD this admission per Nephro. 1. ARF-creat continues to improve. Cont Lasix/albumin which needed to be restarted after auto-stopping. Tunneled catheter placement two days ago in preparation for HD, however, will cont to hold off at this time as she is improving. Has chronic nephrotic-range proteinuria. Her TTE was unremarkable. Cont Carty for accurate I/Os. Trend PRP. She has a high complement level on labs--Apprec Neprho recs. 2. Deconditioning with ambulatory dysfunction-improved. Cont PT/OT efforts, Fall precautions. 3. L hip pain-Left hip xray showed no evidence of left hip fracture. Analgesics PRN. 4. Anemia-s/p 2 units of blood yesterday, no active bleeding. Post- transfusion H/H is up to 5. HTN-controlled, cont Lopressor 6. Vit D deficiency-cont ergocalciferol 7. Smoking-cont Nicoderm patch 8. Hypothyroid-Synthroid 150mg daily. Repeat TSH needed in 5 weeks. Likely noncompliant with meds as outpatient per daughter. 9. DMII- sugars at goal, cont ISS 10. Transaminitis-pt with fatty liver who uses alcohol. GI following -pending labwork. Continues to have no abdominal pain. 11. ETOH abuse-cont thiamine and folic acid. Last drink was >10 days ago. 12. Pulmonary nodule-CT chest demonstrated 5 mm nodule right lower lobe, stable compared to CT performed 11/11/15. Patient is a smoker. Follow up per guidelines. 13. Renal lesion 1.8 cm hyperdense lesion right kidney-complex cyst versus solid mass. Patient had ultrasound performed at [facility] 07/31/16 which demonstrated 3 cystic lesions, largest measuring [address] of abdomen and pelvis on 04/11/13 showed similar findings. Radiographic stability suggests benign lesion, however, per Nephro nonemergent dedicated MRI would be recommended. 14. Leukocytosis-uncertain etiology possibly related to inflammatory component with ESR>90. Scanned legs which was negative for DVT. Cont to trend. DVT proph-Heparin FULL CODE Dispo-to rehab once medically stable. Spoke with both son and daughter today who understand and agree with the plan and who agree that she will be going to [facility] for rehab likely Mon. Georgia Thompson [facility] Nephrology Neurology Gastro Procedures: CT head CT cervical spine CT chest CT abdomen and pelvis IV fluids IV medications PT OT . Current Inpatient Medications: Current Inpatient Medications Medications (Trade) Dose Ordered Sig/Fay Route Start Time Stop Time Status Last Admin Dose Admin Heparin Sodium (Porcine) (Heparin Sq 5000 Unit/0.5ml) 5,000 unit Q8H SQ 01/19/17 22:00 02/18/17 21:59 02/03/17 13:25 5,000 UNIT Acetaminophen (Tylenol Tab) 650 mg Q4H PRN PO 01/19/17 20:15 02/18/17 20:14 01/26/17 05:20 650 MG Ondansetron HCl (Zofran Inj) 4 mg Q6H PRN IV 01/19/17 20:15 02/18/17 20:14 Insulin Glargine (Lantus Solostar Pen) 7 unit Q12 SC 01/19/17 21:00 02/18/17 20:59 Future Hold 01/19/17 22:42 7 UNIT Glucose (Glucose 40% Gel) 15-30 GRAMS 15 GRAMS... UD PRN PO 01/19/17 20:15 02/18/17 20:14 Glucose (Glucose Chew Tab) 4-8 Tablets 4 Tabl... UD PRN PO 01/19/17 20:15 02/18/17 20:14 Dextrose (Dextrose 50% 50ML Syringe) 25-50ML OF 50% DW IV FOR... UD PRN IV 01/19/17 20:15 02/18/17 20:14 Glucagon (Glucagon Inj) 1 mg UD PRN SQ 01/19/17 20:15 02/18/17 20:14 Aspirin (Ecotrin Tab) 81 mg DAILY PO 01/20/17 08:00 02/19/17 08:59 02/03/17 08:46 81 MG Levothyroxine Sodium (Synthroid Tab) 150 mcg DAILYBB PO 01/20/17 06:30 02/19/17 06:59 02/03/17 06:29 150 MCG Thiamine HCl (Vitamin B-1 Tab) 100 mg DAILY PO 01/20/17 08:00 02/19/17 08:59 02/03/17 08:45 100 MG Nicotine (Nicoderm Cq 21MG Patch) 1 patch Q24H TD 01/19/17 21:00 02/18/17 20:59 02/02/17 21:39 1 PATCH Miscellaneous (Remove Nicoderm Patch) 1 ea PM N/A 01/20/17 20:00 02/19/17 20:59 02/02/17 21:34 1 EA Ergocalciferol (Vitamin D Cap) 50,000 interunit Q4D PO 01/19/17 22:00 02/18/17 21:59 01/31/17 21:00 50,000 INTERUNIT Folic Acid (Folvite Tab) 1 mg QAM PO 01/21/17 08:00 02/20/17 07:59 02/03/17 08:44 1 MG Multivitamins/ Minerals (Multivitamin W/ Minerals Tab) 1 tab QAM PO 01/21/17 08:00 02/20/17 07:59 02/03/17 08:45 1 TAB Lorazepam (Ativan Tab) PRN Dosing -Active Protocol UD PRN PO 01/22/17 02:00 02/20/17 01:59 01/31/17 14:01 1 MG Acetaminophen/ Hydrocodone Bitart ([place] 5/325 Tab) 1 tab Q6 PRN PO 01/24/17 04:30 02/07/17 04:29 02/03/17 08:44 1 TAB Senna/Docusate Sodium (Senokot S Tab) 1 tab QAM PO 01/26/17 08:00 02/25/17 07:59 02/03/17 08:45 1 TAB Sodium Chloride ([place] Nasal [place]) 1 sprays DAILY PRN YORDY 01/26/17 11:15 02/25/17 11:14 Haloperidol (Haldol Tab) 2 mg Q4 PRN PO 01/26/17 19:15 02/25/17 19:14 Future Hold Potassium Chloride (Klor-Con Tab) 20 meq QAM PO 02/01/17 09:00 03/03/17 08:59 02/03/17 08:45 20 MEQ Metoprolol Tartrate (Lopressor Tab) 50 mg TID PO 02/01/17 14:00 03/03/17 13:59 02/03/17 13:48 50 MG Insulin Aspart (novoLOG ASPART) SLIDING SCALE If C... ACHS SC 02/01/17 16:30 03/03/17 16:29 02/03/17 12:50 5 UNITS Albuterol/ Ipratropium (Duoneb) 3 ml QIDR PRN INH 02/03/17 12:00 03/05/17 11:59 Furosemide 40 mg/ Albumin Human 54 ml @ 54 mls/hr Q12H IV 02/03/17 13:00 02/06/17 12:29 02/03/17 13:20 54 MLS/HR
[2017-02-03] MEDS: NICOTINE 21 MG/24 HR TDSY TD SCH (20:32)
[2017-02-03 22:44] VITALS: BP 169/70; PULSE 78; TEMP 36.7; O2SAT 92
[2017-02-04] MEDS: ALBUMIN 25% 50 ML with FUROSEMIDE INJ 40 MG IV SCH ×4 (00:53→13:26)
[2017-02-04] MEDS: HYDROCODONE/ACETAMOPHEN 5/325MG TAB PO PRN ×3 (03:58→19:41)
[2017-02-04] MEDS: LEVOTHYROXINE 150 MCG TAB PO SCH (05:59)
[2017-02-04] MEDS: HEPARIN SOD 5000 UNIT/0.5 ML CARP SQ SCH ×3 (06:01→20:40)
[2017-02-04 06:48] VITALS: BP 176/75; PULSE 76; TEMP 36.6; O2SAT 95
[2017-02-04 07:51] LABS: HEMATOCRIT 33.5 % (37-47); MEAN CELL VOLUME 94.6 fL (80-100); MEAN CORPUSCULAR HEMOGLOBIN 33.1 pg (25-34); MEAN CORPUSCULAR HGB CONC 34.9 g/dl (32-36); MEAN PLATELET VOLUME 11.2 fL (7.4-10.4); PLATELET COUNT 395 K/uL (130-400); RED BLOOD COUNT 3.54 M/uL (4.2-5.4); WHITE BLOOD COUNT 13.07 K/uL (4.8-10.8)
[2017-02-04] MEDS: POTASSIUM CHLORIDE 20 MEQ TABCR PO SCH (07:58)
[2017-02-04] MEDS: METOPROLOL TARTRATE 50 MG TAB PO SCH ×3 (07:58→20:35)
[2017-02-04] MEDS: ASPIRIN 81 MG ECTAB PO SCH (07:58)
[2017-02-04] MEDS: CEROVITE ADV FORMULA TAB PO SCH (07:59)
[2017-02-04] MEDS: DOCUSATE SODIUM/SENNA 50/8.6MG TAB PO SCH (07:59)
[2017-02-04] MEDS: THIAMINE HCL 100 MG TAB PO SCH (07:59)
[2017-02-04 08:25] LABS: BUN/CREATININE RATIO 12.8 (10-20); CREATININE 3.4 mg/dl (0.60-1.20); MAGNESIUM 1.5 mg/dl (1.8-2.4); POTASSIUM 3.4 mmol/L (3.5-5.1)
[2017-02-04 08:30] LABS: CALCIUM 9.3 mg/dl (8.5-10.1)
[2017-02-04] MEDS: INSULIN ASPART 100 UNITS/ML 3 ML PEN SC SCH ×4 (08:54→20:40)
[2017-02-04 13:30] VITALS: BP 121/59; PULSE 78
[2017-02-04 14:57] VITALS: BP 157/81; PULSE 77; TEMP 36.4; O2SAT 93
--- NOTE | 2017-02-04 15:03 | Progress Note ---
Medicine Progress Note Date & Time of Visit: Feb 04, 2017 at 14:51. Subjective patient seen resting in bed, comfortable pleasant, cooperative states she feels improved daily "getting stronger" denies dyspnea, chest pain, dizziness, palpitations no other symptoms Objective Last 8 Hrs Date Time Temp Pulse Resp B/P (MAP) Pulse Ox O2 Delivery O2 Flow Rate FiO2 02/04/17 13:30 78 121/59 (79) 02/04/17 08:00 Room Air Physical Exam: General- oriented x 2, not in distress, speaks in sentences with no effort Eyes- EOMI, anicteric ENT- oropharynx clear Neck- supple, no JVD, no adenopathy Lungs- mild rales, bilateral bases; occasional expiratory wheezing, bilaterally Heart- regular rhythm; no murmur, normal rate Abdomen- normal bowel sounds, soft, nontender Extremities- no pretibial edema, no calf tenderness Neuro- alert, oriented x 2; no gross focal neuro deficits Skin- warm & dry Laboratory Results: Last 24 Hours Test 02/03/17 16:19 02/03/17 20:03 02/04/17 07:18 02/04/17 07:38 Bedside Glucose 144 mg/dl 152 mg/dl 152 mg/dl White Blood Count 13.07 K/uL Red Blood Count 3.54 M/uL Hemoglobin 11.7 g/dL Hematocrit 33.5 % Mean Corpuscular Volume 94.6 fL Mean Corpuscular Hemoglobin 33.1 pg Mean Corpuscular Hemoglobin Concent 34.9 g/dl RDW Standard Deviation 58.4 fL RDW Coefficient of Variation 17.1 % Platelet Count 395 K/uL Mean Platelet Volume 11.2 fL Sodium Level 137 mmol/L Potassium Level 3.4 mmol/L Chloride Level 104 mmol/L Carbon Dioxide Level 21 mmol/L Anion Gap 12.0 mmol/L Blood Urea Nitrogen 44 mg/dl Creatinine 3.40 mg/dl Est Creatinine Clear Calc Drug Dose 13.3 ml/min Estimated GFR () 14.4 Estimated GFR (Non- 12.5 BUN/Creatinine Ratio 12.8 Random Glucose 151 mg/dl Calcium Level 9.3 mg/dl Magnesium Level 1.5 mg/dl Test 02/04/17 11:22 Bedside Glucose 201 mg/dl Assessment & Plan 76 yo F initially admitted for weakness after a fall without loss of consciousness at home. She subsequently developed renal failure and anemia requiring a transfusion, which has improved after initiation of Lasix and albumin several days ago. Temporary HD catheter was placed in preparation for poss HD, however, this has been on hold as she continues to improve. She will need HD catheter removed prior to discharge if no HD this admission per Nephro. Acute Renal failure - Has chronic nephrotic-range proteinuria. She has a high complement level on labsHer TTE was unremarkable. - crea improving -- continue Lasix + Albumin -- Cont Carty for accurate I/Os. Trend PRP. Anemia - history of chronic anemia -s/p 2 units of blood - Hg stable at 11 - check anemia panel no signs of active GI bleed at this time Deconditioning with ambulatory dysfunction - improving continue PT/OT L hip pain -Left hip xray showed no evidence of left hip fracture. Analgesics PRN. Transaminitis -pt with fatty liver who uses alcohol. GI following ETOH abuse-cont thiamine and folic acid. Last drink was >10 days ago. DMII- sugars at goal, cont ISS HTN -controlled, cont Lopressor Vit D deficiency-cont ergocalciferol Smoking-cont Nicoderm patch Hypothyroid-Synthroid 150mg daily. Repeat TSH needed in 5 weeks. Likely noncompliant with meds as outpatient per daughter. Pulmonary nodule-CT chest demonstrated 5 mm nodule right lower lobe, stable compared to CT performed 11/11/15. Patient is a smoker. Follow up per guidelines . Renal lesion 1.8 cm hyperdense lesion right kidney-complex cyst versus solid mass. Patient had ultrasound performed at [facility] 07/31/16 which demonstrated 3 cystic lesions, largest measuring [address] of abdomen and pelvis on 04/11/13 showed similar findings. Radiographic stability suggests benign lesion, however, per Nephro nonemergent dedicated MRI would be recommended. DVT proph-Heparin FULL CODE Dispo-to rehab once medically stable Consultants: Nephrology Neurology Gastro Procedures: CT head CT cervical spine CT chest CT abdomen and pelvis IV fluids IV medications PT OT . Current Inpatient Medications: Current Inpatient Medications Medications (Trade) Dose Ordered Sig/Fay Route Start Time Stop Time Status Last Admin Dose Admin Heparin Sodium (Porcine) (Heparin Sq 5000 Unit/0.5ml) 5,000 unit Q8H SQ 01/19/17 22:00 02/18/17 21:59 02/04/17 13:39 5,000 UNIT Acetaminophen (Tylenol Tab) 650 mg Q4H PRN PO 01/19/17 20:15 02/18/17 20:14 01/26/17 05:20 650 MG Ondansetron HCl (Zofran Inj) 4 mg Q6H PRN IV 01/19/17 20:15 02/18/17 20:14 Insulin Glargine (Lantus Solostar Pen) 7 unit Q12 SC 01/19/17 21:00 02/18/17 20:59 Future Hold 01/19/17 22:42 7 UNIT Glucose (Glucose 40% Gel) 15-30 GRAMS 15 GRAMS... UD PRN PO 01/19/17 20:15 02/18/17 20:14 Glucose (Glucose Chew Tab) 4-8 Tablets 4 Tabl... UD PRN PO 01/19/17 20:15 02/18/17 20:14 Dextrose (Dextrose 50% 50ML Syringe) 25-50ML OF 50% DW IV FOR... UD PRN IV 01/19/17 20:15 02/18/17 20:14 Glucagon (Glucagon Inj) 1 mg UD PRN SQ 01/19/17 20:15 02/18/17 20:14 Aspirin (Ecotrin Tab) 81 mg DAILY PO 01/20/17 08:00 02/19/17 08:59 02/04/17 07:58 81 MG Levothyroxine Sodium (Synthroid Tab) 150 mcg DAILYBB PO 01/20/17 06:30 02/19/17 06:59 02/04/17 05:59 150 MCG Thiamine HCl (Vitamin B-1 Tab) 100 mg DAILY PO 01/20/17 08:00 02/19/17 08:59 02/04/17 07:59 100 MG Nicotine (Nicoderm Cq 21MG Patch) 1 patch Q24H TD 01/19/17 21:00 02/18/17 20:59 02/03/17 20:32 1 PATCH Miscellaneous (Remove Nicoderm Patch) 1 ea PM N/A 01/20/17 20:00 02/19/17 20:59 02/03/17 20:32 1 EA Ergocalciferol (Vitamin D Cap) 50,000 interunit Q4D PO 01/19/17 22:00 02/18/17 21:59 6/14/17 21:00 50,000 INTERUNIT Folic Acid (Folvite Tab) 1 mg QAM PO 01/21/17 08:00 02/20/17 07:59 02/04/17 07:58 1 MG Multivitamins/ Minerals (Multivitamin W/ Minerals Tab) 1 tab QAM PO 01/21/17 08:00 02/20/17 07:59 02/04/17 07:59 1 TAB Lorazepam (Ativan Tab) PRN Dosing -Active Protocol UD PRN PO 01/22/17 02:00 02/20/17 01:59 01/31/17 14:01 1 MG Acetaminophen/ Hydrocodone Bitart ([place] 5/325 Tab) 1 tab Q6 PRN PO 01/24/17 04:30 02/07/17 04:29 02/04/17 11:19 1 TAB Senna/Docusate Sodium (Senokot S Tab) 1 tab QAM PO 01/26/17 08:00 02/25/17 07:59 02/04/17 07:59 1 TAB Sodium Chloride ([place] Nasal [place]) 1 sprays DAILY PRN YORDY 01/26/17 11:15 02/25/17 11:14 Haloperidol (Haldol Tab) 2 mg Q4 PRN PO 01/26/17 19:15 02/25/17 19:14 Future Hold Potassium Chloride (Klor-Con Tab) 20 meq QAM PO 02/01/17 09:00 03/03/17 08:59 02/04/17 07:58 20 MEQ Metoprolol Tartrate (Lopressor Tab) 50 mg TID PO 02/01/17 14:00 03/03/17 13:59 02/04/17 13:31 50 MG Insulin Aspart (novoLOG ASPART) SLIDING SCALE If C... ACHS SC 02/01/17 16:30 03/03/17 16:29 02/04/17 12:34 5 UNITS Albuterol/ Ipratropium (Duoneb) 3 ml QIDR PRN INH 02/03/17 12:00 03/05/17 11:59 Furosemide 40 mg/ Albumin Human 54 ml @ 54 mls/hr Q12H IV 02/03/17 13:00 6/20/17 12:29 02/04/17 13:26 54 MLS/HR
[2017-02-04] MEDS ORDERED: POLYETHYLENE (MIRALAX) 17 GM PACK PO PRN (15:30)
[2017-02-04] MEDS ORDERED: DOCUSATE SODIUM/SENNA 50/8.6MG TAB PO ONE (15:30)
[2017-02-04 16:00] VITALS: O2SAT 93
[2017-02-04] MEDS ORDERED: MAGNESIUM OXIDE 400 MG TAB PO ONE (16:00)
[2017-02-04] MEDS: NICOTINE 21 MG/24 HR TDSY TD SCH (20:29)
[2017-02-04 20:33] VITALS: BP 140/64; PULSE 78; O2SAT 94
[2017-02-04] MEDS: ERGOCALCIFEROL 50,000 INTER.UNIT CAP PO SCH (20:35)
[2017-02-04] MEDS: MAGNESIUM OXIDE 400 MG TAB PO SCH (20:36)
[2017-02-04 23:08] VITALS: BP 158/73; PULSE 61; TEMP 36.5; O2SAT 94
[2017-02-05] MEDS: ALBUMIN 25% 50 ML with FUROSEMIDE INJ 40 MG IV SCH ×4 (00:56→13:24)
[2017-02-05 05:38] LABS: BASO % 0.4 %; BASO ABS # 0.05 K/uL (0-0.2); COMPLETE YES; EOS % 1.5 %; HEMATOCRIT 34.6 % (37-47); IG% 2.3 %; LYMPH % 15.1 %; LYMPH ABS # 2.14 K/uL (1.2-3.4); MEAN CORPUSCULAR HEMOGLOBIN 30.7 pg (25-34); MEAN CORPUSCULAR HGB CONC 32.7 g/dl (32-36); MONO % 8.3 %; NEUT % 72.4 %; PLATELET COUNT 432 K/uL (130-400); RED BLOOD COUNT 3.68 M/uL (4.2-5.4); WHITE BLOOD COUNT 14.17 K/uL (4.8-10.8)
[2017-02-05] MEDS: LEVOTHYROXINE 150 MCG TAB PO SCH (05:48)
[2017-02-05] MEDS: HEPARIN SOD 5000 UNIT/0.5 ML CARP SQ SCH ×3 (05:48→22:19)
[2017-02-05 06:05] LABS: BUN/CREATININE RATIO 13.4 (10-20); CALCIUM 9.2 mg/dl (8.5-10.1); CREATININE 3.3 mg/dl (0.60-1.20); MAGNESIUM 1.8 mg/dl (1.8-2.4); POTASSIUM 3.4 mmol/L (3.5-5.1)
[2017-02-05 06:13] LABS: FERRITIN 470.2 ng/ml (8.0-388.0); THYROID STIMULATING HORMONE 62.2 uIu/ml (0.300-4.500)
[2017-02-05 06:22] VITALS: BP 168/68; PULSE 77; TEMP 36.4; O2SAT 92
--- NOTE | 2017-02-05 07:34 | DIAGNOSTIC IMAGING REPORT ---
CHEST ONE VIEW PORTABLE CLINICAL HISTORY: ff up pulmonary edema pulmonary edema COMPARISON STUDY: 01/30/2017 FINDINGS: Lungs are improved in overall aeration. Minimal residual subsegmental atelectasis right midlung. PermCath in superior vena cava. IMPRESSION: Improved exam. Residual subsegmental atelectasis right midlung. Electronically signed by: Brendon White M.D. 02/05/2017 7:33 AM Dictated Date/Time: 02/05/2017 7:32 AM
[2017-02-05] MEDS: CEROVITE ADV FORMULA TAB PO SCH (08:29)
[2017-02-05] MEDS: HYDROCODONE/ACETAMOPHEN 5/325MG TAB PO PRN (08:29)
[2017-02-05] MEDS: METOPROLOL TARTRATE 50 MG TAB PO SCH ×3 (08:30→20:45)
[2017-02-05] MEDS: POTASSIUM CHLORIDE 20 MEQ TABCR PO SCH (08:30)
[2017-02-05] MEDS: ASPIRIN 81 MG ECTAB PO SCH (08:30)
[2017-02-05] MEDS: THIAMINE HCL 100 MG TAB PO SCH (08:30)
[2017-02-05] MEDS: MAGNESIUM OXIDE 400 MG TAB PO SCH ×2 (08:32→20:45)
[2017-02-05] MEDS: DOCUSATE SODIUM/SENNA 50/8.6MG TAB PO SCH (08:33)
[2017-02-05] MEDS: PANTOprazole SOD 40 MG TAB PO SCH (08:34)
[2017-02-05] MEDS: INSULIN ASPART 100 UNITS/ML 3 ML PEN SC SCH ×4 (08:41→20:57)
[2017-02-05] MEDS ORDERED: DOCUSATE SODIUM/SENNA 50/8.6MG TAB PO SCH (09:00)
--- NOTE | 2017-02-05 11:59 | Progress Note ---
Medicine Progress Note Date & Time of Visit: Feb 05, 2017 at 11:54. Subjective patient seen sitting up in bed, having lunch states she feels fine overall except for lower back pain worse with laying denies dyspnea, dizziness, nausea, chest pain no other symptoms requesting to discontinue Carty Cath Objective Last 8 Hrs Date Time Temp Pulse Resp B/P (MAP) Pulse Ox O2 Delivery O2 Flow Rate FiO2 02/05/17 08:00 Room Air 02/05/17 06:22 36.4 77 20 168/68 (101) 92 Room Air Physical Exam: General- oriented x 2, not in distress, speaks in sentences with no effort Eyes- anicteric ENT- oropharynx clear Neck- supple, no JVD Lungs- clear breath sounds bilaterally Heart- regular rhythm; no murmur, normal rate Abdomen- normal bowel sounds, soft, nontender Extremities- no pretibial edema, no calf tenderness Neuro- alert, oriented x 2; no gross focal neuro deficits Skin- warm & dry Laboratory Results: Last 24 Hours Test 02/04/17 16:17 02/04/17 20:15 02/05/17 05:10 02/05/17 07:25 Bedside Glucose 113 mg/dl 167 mg/dl 165 mg/dl White Blood Count 14.17 K/uL Red Blood Count 3.68 M/uL Hemoglobin 11.3 g/dL Hematocrit 34.6 % Mean Corpuscular Volume 94.0 fL Mean Corpuscular Hemoglobin 30.7 pg Mean Corpuscular Hemoglobin Concent 32.7 g/dl Platelet Count 432 K/uL Mean Platelet Volume 11.0 fL Neutrophils (%) (Auto) 72.4 % Lymphocytes (%) (Auto) 15.1 % Monocytes (%) (Auto) 8.3 % Eosinophils (%) (Auto) 1.5 % Basophils (%) (Auto) 0.4 % Neutrophils # (Auto) 10.28 K/uL Lymphocytes # (Auto) 2.14 K/uL Monocytes # (Auto) 1.17 K/uL Eosinophils # (Auto) 0.21 K/uL Basophils # (Auto) 0.05 K/uL RDW Standard Deviation 57.4 fL RDW Coefficient of Variation 16.8 % Immature Granulocyte % (Auto) 2.3 % Immature Granulocyte # (Auto) 0.32 K/uL Sodium Level 139 mmol/L Potassium Level 3.4 mmol/L Chloride Level 104 mmol/L Carbon Dioxide Level 25 mmol/L Anion Gap 10.0 mmol/L Blood Urea Nitrogen 44 mg/dl Creatinine 3.30 mg/dl Est Creatinine Clear Calc Drug Dose 13.8 ml/min Estimated GFR () 15.0 Estimated GFR (Non- 12.9 BUN/Creatinine Ratio 13.4 Random Glucose 143 mg/dl Calcium Level 9.2 mg/dl Magnesium Level 1.8 mg/dl Iron Level 58 mcg/dl Total Iron Binding Capacity 220 mcg/dl Transferrin 186 mg/dl Transferrin % Saturation 22 % Ferritin 470.2 ng/ml Folate 23.07 ng/mL Thyroid Stimulating Hormone (TSH) 62.200 uIu/ml Free Thyroxine 0.94 ng/dl Test 02/05/17 11:25 Bedside Glucose 170 mg/dl Assessment & Plan 76 yo F initially admitted for weakness after a fall without loss of consciousness at home. She subsequently developed renal failure and anemia requiring a transfusion, which has improved after initiation of Lasix and albumin several days ago. Temporary HD catheter was placed in preparation for poss HD, however, this has been on hold as she continues to improve. She will need HD catheter removed prior to discharge if no HD this admission per Nephro. Acute Renal failure - Has chronic nephrotic-range proteinuria. She has a high complement level on labs Her TTE was unremarkable. - crea improving, 3.3 today - on BID Lasix + Albumin negative 700cc yesterday CXR resolving pulmonary edema decrease Lasix + Albumin to daily monitor -- appreciate Nephro input Anemia - history of chronic anemia -s/p 2 units of blood - Hg stable at 11 no signs of active GI bleed - check anemia panel: Fe low normal low TIBC, high ferritin likely Anemia of Chronic Disease Deconditioning with ambulatory dysfunction - improving continue PT/OT L hip pain -Left hip xray showed no evidence of left hip fracture. Analgesics PRN. Transaminitis -pt with fatty liver who uses alcohol. GI following ETOH abuse -cont thiamine and folic acid. Last drink was >10 days ago. DMII- sugars at goal, cont ISS HTN -controlled, cont Lopressor Vit D deficiency-cont ergocalciferol Smoking-cont Nicoderm patch Hypothyroid- - TSH high Free t4 normal - repeat TFTs in 4 weeks Synthroid 150mg daily Pulmonary nodule-CT chest demonstrated 5 mm nodule right lower lobe, stable compared to CT performed 11/11/15. Patient is a smoker. Follow up per guidelines . Renal lesion 1.8 cm hyperdense lesion right kidney-complex cyst versus solid mass. Patient had ultrasound performed at [facility] 07/31/16 which demonstrated 3 cystic lesions, largest measuring [address] of abdomen and pelvis on 04/11/13 showed similar findings. Radiographic stability suggests benign lesion, however, per Nephro nonemergent dedicated MRI would be recommended. DVT proph-Heparin FULL CODE Dispo pending anticipate d/c to SNF/Rehab when cleared by Nephrology Consultants: Nephrology Neurology Gastro Procedures: CT head CT cervical spine CT chest CT abdomen and pelvis IV fluids IV medications PT OT . Current Inpatient Medications: Current Inpatient Medications Medications (Trade) Dose Ordered Sig/Fay Route Start Time Stop Time Status Last Admin Dose Admin Heparin Sodium (Porcine) (Heparin Sq 5000 Unit/0.5ml) 5,000 unit Q8H SQ 01/19/17 22:00 02/18/17 21:59 02/05/17 05:48 5,000 UNIT Acetaminophen (Tylenol Tab) 650 mg Q4H PRN PO 01/19/17 20:15 02/18/17 20:14 01/26/17 05:20 650 MG Ondansetron HCl (Zofran Inj) 4 mg Q6H PRN IV 01/19/17 20:15 02/18/17 20:14 Insulin Glargine (Lantus Solostar Pen) 7 unit Q12 SC 01/19/17 21:00 02/18/17 20:59 Future Hold 01/19/17 22:42 7 UNIT Glucose (Glucose 40% Gel) 15-30 GRAMS 15 GRAMS... UD PRN PO 01/19/17 20:15 02/18/17 20:14 Glucose (Glucose Chew Tab) 4-8 Tablets 4 Tabl... UD PRN PO 01/19/17 20:15 02/18/17 20:14 Dextrose (Dextrose 50% 50ML Syringe) 25-50ML OF 50% DW IV FOR... UD PRN IV 01/19/17 20:15 02/18/17 20:14 Glucagon (Glucagon Inj) 1 mg UD PRN SQ 01/19/17 20:15 02/18/17 20:14 Aspirin (Ecotrin Tab) 81 mg DAILY PO 01/20/17 08:00 02/19/17 08:59 02/05/17 08:30 81 MG Levothyroxine Sodium (Synthroid Tab) 150 mcg DAILYBB PO 01/20/17 06:30 02/19/17 06:59 02/05/17 05:48 150 MCG Thiamine HCl (Vitamin B-1 Tab) 100 mg DAILY PO 01/20/17 08:00 02/19/17 08:59 02/05/17 08:30 100 MG Nicotine (Nicoderm Cq 21MG Patch) 1 patch Q24H TD 01/19/17 21:00 02/18/17 20:59 02/04/17 20:29 1 PATCH Miscellaneous (Remove Nicoderm Patch) 1 ea PM N/A 01/20/17 20:00 02/19/17 20:59 02/04/17 20:28 1 EA Ergocalciferol (Vitamin D Cap) 50,000 interunit Q4D PO 01/19/17 22:00 02/18/17 21:59 02/04/17 20:35 50,000 INTERUNIT Folic Acid (Folvite Tab) 1 mg QAM PO 01/21/17 08:00 02/20/17 07:59 02/05/17 08:31 1 MG Multivitamins/ Minerals (Multivitamin W/ Minerals Tab) 1 tab QAM PO 01/21/17 08:00 02/20/17 07:59 02/05/17 08:29 1 TAB Lorazepam (Ativan Tab) PRN Dosing -Active Protocol UD PRN PO 01/22/17 02:00 02/20/17 01:59 01/31/17 14:01 1 MG Acetaminophen/ Hydrocodone Bitart ([place] 5/325 Tab) 1 tab Q6 PRN PO 01/24/17 04:30 02/07/17 04:29 02/05/17 08:29 1 TAB Senna/Docusate Sodium (Senokot S Tab) 1 tab QAM PO 01/26/17 08:00 02/25/17 07:59 02/05/17 08:33 1 TAB Sodium Chloride (F[place]in Nasal [place]) 1 sprays DAILY PRN YORDY 01/26/17 11:15 02/25/17 11:14 Haloperidol (Haldol Tab) 2 mg Q4 PRN PO 01/26/17 19:15 02/25/17 19:14 Future Hold Metoprolol Tartrate (Lopressor Tab) 50 mg TID PO 02/01/17 14:00 03/03/17 13:59 02/05/17 08:30 50 MG Insulin Aspart (novoLOG ASPART) SLIDING SCALE If C... ACHS SC 02/01/17 16:30 03/03/17 16:29 02/05/17 08:41 1 UNITS Albuterol/ Ipratropium (Duoneb) 3 ml QIDR PRN INH 02/03/17 12:00 03/05/17 11:59 Furosemide 40 mg/ Albumin Human 54 ml @ 54 mls/hr Q12H IV 02/03/17 13:00 02/06/17 12:29 02/05/17 00:56 54 MLS/HR Pantoprazole Sodium (Protonix Tab) 40 mg QAM PO 02/05/17 09:00 03/07/17 08:59 02/05/17 08:34 40 MG Magnesium Oxide (Mag-Ox Tab) 400 mg BID PO 02/04/17 21:00 03/06/17 20:59 02/05/17 08:32 400 MG Polyethylene (Miralax Powder Packet) 17 gm DAILY PRN PO 02/04/17 15:30 03/06/17 15:29 Potassium Chloride (Klor-Con Tab) 40 meq QAM PO 02/06/17 09:00 03/03/17 08:59 Potassium Chloride (Klor-Con Tab) 40 meq 1200 ONCE PO 02/05/17 12:00 02/05/17 12:01
[2017-02-05] MEDS ORDERED: POTASSIUM CHLORIDE 20 MEQ TABCR PO ONE (12:00)
[2017-02-05] MEDS ORDERED: LIDODERM (LIDOCAINE) PATCH 5% TD ONE (12:30)
[2017-02-05] MEDS: TRAMADOL HCL 50 MG TAB PO PRN (13:22)
[2017-02-05 13:25] VITALS: BP 121/70; PULSE 62
[2017-02-05 15:08] VITALS: BP 158/75; PULSE 61; TEMP 36.6; O2SAT 96
--- NOTE | 2017-02-05 18:10 | Nephrology Progress Note ---
Nephrology Progress Note Date of Service: Feb 05, 2017. Subjective resting comfortably; no pain no n/v, voiding well w/o zhang; appetite still low at times Objective Date Time Temp Pulse Resp B/P (MAP) Pulse Ox O2 Delivery O2 Flow Rate FiO2 02/05/17 16:00 Room Air 02/05/17 15:08 36.6 61 18 158/75 (102) 96 Room Air 02/05/17 13:25 62 121/70 (87) 02/05/17 08:00 Room Air 02/05/17 06:22 36.4 77 20 168/68 (101) 92 Room Air 02/05/17 00:00 Room Air 02/04/17 23:08 36.5 61 20 158/73 (101) 94 Room Air 02/04/17 20:33 78 140/64 (89) 94 Room Air Physical Exam: GENERAL: Elderly white female, on RA in bed lying flat HEENT: Mucous membranes moist. NECK: Supple. CHEST: scattered crackles/rhonchi but moves air better that prior CARDIOVASCULAR: S1 and S2 regular. No murmur, rubs or gallop. ABDOMEN: distended w/o fluid wave; today again not tender; no zhang EXTREMITIES: no edema. NEURO krishnamurthy, fluent speech Current Inpatient Medications Medications (Trade) Dose Ordered Sig/Fay Route Start Time Stop Time Status Last Admin Dose Admin Heparin Sodium (Porcine) (Heparin Sq 5000 Unit/0.5ml) 5,000 unit Q8H SQ 01/19/17 22:00 02/18/17 21:59 02/05/17 13:30 5,000 UNIT Acetaminophen (Tylenol Tab) 650 mg Q4H PRN PO 01/19/17 20:15 02/18/17 20:14 01/26/17 05:20 650 MG Ondansetron HCl (Zofran Inj) 4 mg Q6H PRN IV 01/19/17 20:15 02/18/17 20:14 Insulin Glargine (Lantus Solostar Pen) 7 unit Q12 SC 01/19/17 21:00 02/18/17 20:59 Future Hold 01/19/17 22:42 7 UNIT Glucose (Glucose 40% Gel) 15-30 GRAMS 15 GRAMS... UD PRN PO 01/19/17 20:15 02/18/17 20:14 Glucose (Glucose Chew Tab) 4-8 Tablets 4 Tabl... UD PRN PO 01/19/17 20:15 02/18/17 20:14 Dextrose (Dextrose 50% 50ML Syringe) 25-50ML OF 50% DW IV FOR... UD PRN IV 01/19/17 20:15 02/18/17 20:14 Glucagon (Glucagon Inj) 1 mg UD PRN SQ 01/19/17 20:15 02/18/17 20:14 Aspirin (Ecotrin Tab) 81 mg DAILY PO 01/20/17 08:00 02/19/17 08:59 02/05/17 08:30 81 MG Levothyroxine Sodium (Synthroid Tab) 150 mcg DAILYBB PO 01/20/17 06:30 02/19/17 06:59 02/05/17 05:48 150 MCG Thiamine HCl (Vitamin B-1 Tab) 100 mg DAILY PO 01/20/17 08:00 02/19/17 08:59 02/05/17 08:30 100 MG Nicotine (Nicoderm Cq 21MG Patch) 1 patch Q24H TD 01/19/17 21:00 02/18/17 20:59 02/04/17 20:29 1 PATCH Miscellaneous (Remove Nicoderm Patch) 1 ea PM N/A 01/20/17 20:00 02/19/17 20:59 02/04/17 20:28 1 EA Ergocalciferol (Vitamin D Cap) 50,000 interunit Q4D PO 01/19/17 22:00 02/18/17 21:59 02/04/17 20:35 50,000 INTERUNIT Folic Acid (Folvite Tab) 1 mg QAM PO 01/21/17 08:00 02/20/17 07:59 02/05/17 08:31 1 MG Multivitamins/ Minerals (Multivitamin W/ Minerals Tab) 1 tab QAM PO 01/21/17 08:00 02/20/17 07:59 02/05/17 08:29 1 TAB Lorazepam (Ativan Tab) PRN Dosing -Active Protocol UD PRN PO 01/22/17 02:00 02/20/17 01:59 01/31/17 14:01 1 MG Acetaminophen/ Hydrocodone Bitart ([place] 5/325 Tab) 1 tab Q6 PRN PO 01/24/17 04:30 02/07/17 04:29 02/05/17 08:29 1 TAB Senna/Docusate Sodium (Senokot S Tab) 1 tab QAM PO 01/26/17 08:00 02/25/17 07:59 02/05/17 08:33 1 TAB Sodium Chloride ([place]ryan Nasal [place]) 1 sprays DAILY PRN YORDY 01/26/17 11:15 02/25/17 11:14 Haloperidol (Haldol Tab) 2 mg Q4 PRN PO 01/26/17 19:15 02/25/17 19:14 Future Hold Metoprolol Tartrate (Lopressor Tab) 50 mg TID PO 02/01/17 14:00 03/03/17 13:59 02/05/17 13:28 50 MG Insulin Aspart (novoLOG ASPART) SLIDING SCALE If C... ACHS SC 02/01/17 16:30 03/03/17 16:29 02/05/17 12:58 2 UNITS Albuterol/ Ipratropium (Duoneb) 3 ml QIDR PRN INH 02/03/17 12:00 03/05/17 11:59 Furosemide 40 mg/ Albumin Human 54 ml @ 54 mls/hr Q12H IV 02/03/17 13:00 02/06/17 12:29 02/05/17 13:24 54 MLS/HR Pantoprazole Sodium (Protonix Tab) 40 mg QAM PO 02/05/17 09:00 03/07/17 08:59 02/05/17 08:34 40 MG Magnesium Oxide (Mag-Ox Tab) 400 mg BID PO 02/04/17 21:00 03/06/17 20:59 02/05/17 08:32 400 MG Polyethylene (Miralax Powder Packet) 17 gm DAILY PRN PO 02/04/17 15:30 03/06/17 15:29 Potassium Chloride (Klor-Con Tab) 40 meq QAM PO 02/06/17 09:00 03/03/17 08:59 Lidocaine (Lidoderm Patch 5%) 1 patch QAM TD 02/06/17 09:00 03/08/17 08:59 Miscellaneous (Remove Lidoderm Patch) 1 ea DAILY@21 N/A 02/05/17 21:00 7/19/17 20:59 Tramadol HCl (Ultram Tab) 50 mg Q12H PRN PO 02/05/17 12:00 03/07/17 11:59 02/05/17 13:22 50 MG Last 24 Hours Test 02/04/17 20:15 02/05/17 05:10 02/05/17 07:25 02/05/17 11:25 Bedside Glucose 167 mg/dl 165 mg/dl 170 mg/dl White Blood Count 14.17 K/uL Red Blood Count 3.68 M/uL Hemoglobin 11.3 g/dL Hematocrit 34.6 % Mean Corpuscular Volume 94.0 fL Mean Corpuscular Hemoglobin 30.7 pg Mean Corpuscular Hemoglobin Concent 32.7 g/dl Platelet Count 432 K/uL Mean Platelet Volume 11.0 fL Neutrophils (%) (Auto) 72.4 % Lymphocytes (%) (Auto) 15.1 % Monocytes (%) (Auto) 8.3 % Eosinophils (%) (Auto) 1.5 % Basophils (%) (Auto) 0.4 % Neutrophils # (Auto) 10.28 K/uL Lymphocytes # (Auto) 2.14 K/uL Monocytes # (Auto) 1.17 K/uL Eosinophils # (Auto) 0.21 K/uL Basophils # (Auto) 0.05 K/uL RDW Standard Deviation 57.4 fL RDW Coefficient of Variation 16.8 % Immature Granulocyte % (Auto) 2.3 % Immature Granulocyte # (Auto) 0.32 K/uL Sodium Level 139 mmol/L Potassium Level 3.4 mmol/L Chloride Level 104 mmol/L Carbon Dioxide Level 25 mmol/L Anion Gap 10.0 mmol/L Blood Urea Nitrogen 44 mg/dl Creatinine 3.30 mg/dl Est Creatinine Clear Calc Drug Dose 13.8 ml/min Estimated GFR () 15.0 Estimated GFR (Non- 12.9 BUN/Creatinine Ratio 13.4 Random Glucose 143 mg/dl Calcium Level 9.2 mg/dl Magnesium Level 1.8 mg/dl Iron Level 58 mcg/dl Total Iron Binding Capacity 220 mcg/dl Transferrin 186 mg/dl Transferrin % Saturation 22 % Ferritin 470.2 ng/ml Folate 23.07 ng/mL Thyroid Stimulating Hormone (TSH) 62.200 uIu/ml Free Thyroxine 0.94 ng/dl Test 02/05/17 16:02 Bedside Glucose 188 mg/dl Assessment & Plan 76-year-old female with long standing type 2 diabetes, alcohol abuse, COPD admitted 01/19 following episode of fall and confusion w/ worsening renal failure. treated at admission for uti. hx of > 30 yrs htn, dm on insulin w/ 2.3 gm proteinuria late 2015 w/ unexplained RUSSELL for several months early 2016. presenting creatinine was 1.6, down to 1.1 01/20, then plateau'd 01/24-01/26 at 1.8, then worsened again peaking at 5.1 on 01/31, down to 3.3 today not oliguric. >>>Acute on chronic renal failure;in setting of altered MS, dyspnea >> ATN form unclear course ? infection? >> she had peak creatinine 5.1 on 01/31; trending downward as we've been getting ready for dialysis. repeat urine very concentrated with nephrotic range proteinuria (3.8 gm) and no infection, minimal blood in urine. not a convincing story for interstitial nephritis though this can be subtle; no obstruction. CK is wnl. cannot be hepatorenal syndrome as she has no ascites and no liver cirrhosis -daily bmp >cont zhang/ strict I/O -C3 slightly and ESR very high, other multiple serologies negative; significance unclear as she is clinically improving <<>>? post strep GN? -resume IV albumin 25% w/ lasix 40 mg IV daily for now -vascular assistance w/ tdc placement appreciated -cont to follow daily for need for dialysis >> for today do not believe she needs it but may yet have need; if does start will plan 3 days in a row of tx; duration of need for dialysis unclear R renal lesions -needs nonemergent renal mri to evaluate >> suspect not a simple cyst Anemia of chronic disease -monitor for need for transfusion>> got pRBC this admission Appreciate consult; will follow with you. Care coordinated w/ Dr Kidd
[2017-02-05 20:41] VITALS: BP 115/68; PULSE 71
[2017-02-05] MEDS: NICOTINE 21 MG/24 HR TDSY TD SCH (22:15)
[2017-02-05 23:11] VITALS: BP 145/72; PULSE 59; TEMP 37; O2SAT 95
[2017-02-06] VITALS (7 sets, daily range): BP systolic 104–174; BP diastolic 60–81; PULSE 55–88; TEMP 36.6–37.1; O2SAT 94–97
[2017-02-06] MEDS: ALBUMIN 25% 50 ML with FUROSEMIDE INJ 40 MG IV SCH ×2 (01:10)
[2017-02-06] MEDS: LEVOTHYROXINE 150 MCG TAB PO SCH (05:48)
[2017-02-06] MEDS: HEPARIN SOD 5000 UNIT/0.5 ML CARP SQ SCH ×3 (05:51→21:21)
[2017-02-06 07:38] LABS: BASO % 0.4 %; BASO ABS # 0.05 K/uL (0-0.2); COMPLETE YES; EOS % 1.4 %; HEMATOCRIT 35.1 % (37-47); LYMPH % 12.8 %; LYMPH ABS # 1.77 K/uL (1.2-3.4); MEAN CELL VOLUME 96.2 fL (80-100); MEAN CORPUSCULAR HEMOGLOBIN 31.2 pg (25-34); MEAN CORPUSCULAR HGB CONC 32.5 g/dl (32-36); MEAN PLATELET VOLUME 10.6 fL (7.4-10.4); MONO % 8.8 %; NEUT % 74.6 %; PLATELET COUNT 379 K/uL (130-400); RED BLOOD COUNT 3.65 M/uL (4.2-5.4); WHITE BLOOD COUNT 13.82 K/uL (4.8-10.8)
[2017-02-06] MEDS: MAGNESIUM OXIDE 400 MG TAB PO SCH ×2 (08:04→21:15)
[2017-02-06] MEDS: METOPROLOL TARTRATE 50 MG TAB PO SCH ×3 (08:05→21:16)
[2017-02-06] MEDS: THIAMINE HCL 100 MG TAB PO SCH (08:05)
[2017-02-06] MEDS: DOCUSATE SODIUM/SENNA 50/8.6MG TAB PO SCH (08:05)
[2017-02-06] MEDS: ASPIRIN 81 MG ECTAB PO SCH (08:06)
[2017-02-06] MEDS: LIDODERM (LIDOCAINE) PATCH 5% TD SCH (08:06)
[2017-02-06] MEDS: CEROVITE ADV FORMULA TAB PO SCH (08:06)
[2017-02-06] MEDS: PANTOprazole SOD 40 MG TAB PO SCH (08:06)
[2017-02-06] MEDS: HYDROCODONE/ACETAMOPHEN 5/325MG TAB PO PRN ×2 (08:08→21:18)
[2017-02-06] MEDS: INSULIN ASPART 100 UNITS/ML 3 ML PEN SC SCH ×4 (08:13→21:00)
[2017-02-06 08:22] LABS: BUN/CREATININE RATIO 13.9 (10-20); CREATININE 3.1 mg/dl (0.60-1.20)
[2017-02-06 08:43] LABS: CALCIUM 9.7 mg/dl (8.5-10.1)
[2017-02-06] MEDS ORDERED: POTASSIUM CHLORIDE 20 MEQ TABCR PO SCH (09:00)
[2017-02-06] MEDS: TRAMADOL HCL 50 MG TAB PO PRN (14:14)
--- NOTE | 2017-02-06 14:35 | Nephrology Progress Note ---
Nephrology Progress Note Date of Service: Feb 06, 2017. Subjective Patient is a pleasant 76 year old female with non oliguric RUSSELL on CKD stage G3- A3 with nephrotic range proteinuria who was admitted on 01/19 following fall with altered mental status. Patient is happy to have zhang d/c'd. planning to be discharged to rehab facility. patient reports that she is feeling much better and states that she feels as though her mental clarity has improved. She is worried about recurrence of fall. states that appetite is improved. recently had a bowel movement. 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 no SOB, nausea, chest pain, edema, or confusion at this time. Objective Date Time Temp Pulse Resp B/P (MAP) Pulse Ox O2 Delivery O2 Flow Rate FiO2 02/06/17 09:36 104/60 (75) 02/06/17 08:30 Room Air 02/06/17 07:52 36.7 70 20 174/81 (112) 95 Room Air 02/06/17 00:00 Room Air 02/05/17 23:11 37.0 59 14 145/72 (96) 95 Room Air 02/05/17 20:41 71 115/68 (84) 02/05/17 16:00 Room Air 02/05/17 15:08 36.6 61 18 158/75 (102) 96 Room Air Physical Exam: General: Alert, no distress, well nourished and well developed Head: Normocephalic, No masses, lesions, tenderness, or abnormalities ENT: no scleral icterus, moist mucosal membranes Neck: Supple, no adenopathy Heart: Regular rate and rhythm, no murmurs, no gallops Lungs: clear to auscultation Abdomen: Soft, Nontender, nondistended, +Bowel Sounds Extremities: No joint deformities, effusion, or inflammation, no edema, no clubbing Neuro Exam: Alert and oriented x 3 with fluent speech, no focal motor/sensory deficits Skin: multiple areas of ecchymosis Current Inpatient Medications Medications (Trade) Dose Ordered Sig/Fay Route Start Time Stop Time Status Last Admin Dose Admin Heparin Sodium (Porcine) (Heparin Sq 5000 Unit/0.5ml) 5,000 unit Q8H SQ 01/19/17 22:00 02/18/17 21:59 02/06/17 05:51 5,000 UNIT Acetaminophen (Tylenol Tab) 650 mg Q4H PRN PO 01/19/17 20:15 02/18/17 20:14 01/26/17 05:20 650 MG Ondansetron HCl (Zofran Inj) 4 mg Q6H PRN IV 01/19/17 20:15 02/18/17 20:14 Insulin Glargine (Lantus Solostar Pen) 7 unit Q12 SC 01/19/17 21:00 02/18/17 20:59 Future Hold 01/19/17 22:42 7 UNIT Glucose (Glucose 40% Gel) 15-30 GRAMS 15 GRAMS... UD PRN PO 01/19/17 20:15 02/18/17 20:14 Glucose (Glucose Chew Tab) 4-8 Tablets 4 Tabl... UD PRN PO 01/19/17 20:15 02/18/17 20:14 Dextrose (Dextrose 50% 50ML Syringe) 25-50ML OF 50% DW IV FOR... UD PRN IV 01/19/17 20:15 02/18/17 20:14 Glucagon (Glucagon Inj) 1 mg UD PRN SQ 01/19/17 20:15 02/18/17 20:14 Aspirin (Ecotrin Tab) 81 mg DAILY PO 01/20/17 08:00 02/19/17 08:59 02/06/17 08:06 81 MG Levothyroxine Sodium (Synthroid Tab) 150 mcg DAILYBB PO 01/20/17 06:30 02/19/17 06:59 02/06/17 05:48 150 MCG Thiamine HCl (Vitamin B-1 Tab) 100 mg DAILY PO 01/20/17 08:00 02/19/17 08:59 02/06/17 08:05 100 MG Nicotine (Nicoderm Cq 21MG Patch) 1 patch Q24H TD 01/19/17 21:00 02/18/17 20:59 02/05/17 22:15 1 PATCH Miscellaneous (Remove Nicoderm Patch) 1 ea PM N/A 01/20/17 20:00 02/19/17 20:59 02/05/17 21:00 1 EA Ergocalciferol (Vitamin D Cap) 50,000 interunit Q4D PO 01/19/17 22:00 02/18/17 21:59 02/04/17 20:35 50,000 INTERUNIT Folic Acid (Folvite Tab) 1 mg QAM PO 01/21/17 08:00 02/20/17 07:59 02/06/17 08:06 1 MG Multivitamins/ Minerals (Multivitamin W/ Minerals Tab) 1 tab QAM PO 01/21/17 08:00 02/20/17 07:59 02/06/17 08:06 1 TAB Lorazepam (Ativan Tab) PRN Dosing -Active Protocol UD PRN PO 01/22/17 02:00 02/20/17 01:59 01/31/17 14:01 1 MG Acetaminophen/ Hydrocodone Bitart ([place] 5/325 Tab) 1 tab Q6 PRN PO 01/24/17 04:30 02/07/17 04:29 02/06/17 08:08 1 TAB Senna/Docusate Sodium (Senokot S Tab) 1 tab QAM PO 01/26/17 08:00 02/25/17 07:59 02/06/17 08:05 1 TAB Sodium Chloride ([place] Nasal [place]) 1 sprays DAILY PRN YORDY 01/26/17 11:15 02/25/17 11:14 Haloperidol (Haldol Tab) 2 mg Q4 PRN PO 01/26/17 19:15 02/25/17 19:14 Future Hold Metoprolol Tartrate (Lopressor Tab) 50 mg TID PO 02/01/17 14:00 03/03/17 13:59 02/06/17 08:05 50 MG Insulin Aspart (novoLOG ASPART) SLIDING SCALE If C... ACHS SC 02/01/17 16:30 03/03/17 16:29 02/06/17 12:06 5 UNITS Albuterol/ Ipratropium (Duoneb) 3 ml QIDR PRN INH 02/03/17 12:00 03/05/17 11:59 Pantoprazole Sodium (Protonix Tab) 40 mg QAM PO 02/05/17 09:00 03/07/17 08:59 02/06/17 08:06 40 MG Magnesium Oxide (Mag-Ox Tab) 400 mg BID PO 02/04/17 21:00 03/06/17 20:59 02/06/17 08:04 400 MG Polyethylene (Miralax Powder Packet) 17 gm DAILY PRN PO 02/04/17 15:30 03/06/17 15:29 Potassium Chloride (Klor-Con Tab) 40 meq QAM PO 02/06/17 09:00 03/03/17 08:59 02/06/17 08:05 40 MEQ Lidocaine (Lidoderm Patch 5%) 1 patch QAM TD 02/06/17 09:00 03/08/17 08:59 Miscellaneous (Remove Lidoderm Patch) 1 ea DAILY@21 N/A 02/05/17 21:00 03/07/17 20:59 02/05/17 20:57 1 EA Tramadol HCl (Ultram Tab) 50 mg Q12H PRN PO 02/05/17 12:00 03/07/17 11:59 02/05/17 13:22 50 MG Last 24 Hours Test 02/05/17 16:02 02/05/17 20:11 02/06/17 07:19 02/06/17 07:41 Bedside Glucose 188 mg/dl 185 mg/dl 164 mg/dl White Blood Count 13.82 K/uL Red Blood Count 3.65 M/uL Hemoglobin 11.4 g/dL Hematocrit 35.1 % Mean Corpuscular Volume 96.2 fL Mean Corpuscular Hemoglobin 31.2 pg Mean Corpuscular Hemoglobin Concent 32.5 g/dl Platelet Count 379 K/uL Mean Platelet Volume 10.6 fL Neutrophils (%) (Auto) 74.6 % Lymphocytes (%) (Auto) 12.8 % Monocytes (%) (Auto) 8.8 % Eosinophils (%) (Auto) 1.4 % Basophils (%) (Auto) 0.4 % Neutrophils # (Auto) 10.31 K/uL Lymphocytes # (Auto) 1.77 K/uL Monocytes # (Auto) 1.22 K/uL Eosinophils # (Auto) 0.19 K/uL Basophils # (Auto) 0.05 K/uL RDW Standard Deviation 57.9 fL RDW Coefficient of Variation 16.8 % Immature Granulocyte % (Auto) 2.0 % Immature Granulocyte # (Auto) 0.28 K/uL Sodium Level 137 mmol/L Potassium Level 4.0 mmol/L Chloride Level 103 mmol/L Carbon Dioxide Level 23 mmol/L Anion Gap 11.0 mmol/L Blood Urea Nitrogen 43 mg/dl Creatinine 3.10 mg/dl Est Creatinine Clear Calc Drug Dose 14.6 ml/min Estimated GFR () 16.1 Estimated GFR (Non- 13.9 BUN/Creatinine Ratio 13.9 Random Glucose 144 mg/dl Calcium Level 9.7 mg/dl Magnesium Level 2.0 mg/dl Test 02/06/17 10:55 Bedside Glucose 201 mg/dl Other Studies: 02/05/17 02/06/17 02/07/17 08:00 08:00 08:00 Intake Total 570 ml 765 ml Output Total 1550 ml 750 ml Balance -980 ml 15 ml Assessment & Plan RUSSELL on CKD3 with nephrotic range proteinuria with long standing type 2 diabetes , alcohol abuse, and COPD. Etiology of RUSSELL unknown-with recent UTI. creatinine peaked 01/31 at 5.1 and has begun to trend downward. now at 3.10. volume status is acceptable. no indication for urgent dialysis at this time. patient does not want dialysis at this time. patient is likely to need dialysis in the future. Patient will need catheter removed prior to discharge from hospital. 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 could discuss AVF as outpatient. recommend f/u labs every 2 weeks post discharge for monitoring kidney function. Anemia of chronic disease Hgb 11.4. Has received pRBCs recently and will continue to follow for need for additional transfusion. This patient was seen and treated with direct collaboration with Dr. Jang. Thank you for the opportunity to participate in this patient's care. Appreciate the Consult. ATTENDING NOTE: I performed a history and physical examination of the patient, including specifically on history- good appetite, no n/v, on physical exam-cta, no edema, and my impression and plan are CKD stage 4/5 with russell that is resolving. unclear what her new baseline creatinine will be. will need tunneled line removed by rose prior to discharge and follow labs as outpt. may need dialysis in the near future, reviewed uremic symptoms with patient. I have discussed the patient's management with Isabella Dick PA-C, Please refer to above note for the documented findings and plan of care. Anastasia Jang DO
--- NOTE | 2017-02-06 18:53 | Progress Note ---
Medicine Progress Note Date & Time of Visit: Feb 06, 2017 at 18:48. Subjective patient seen resting in bed, comfortable daughter at bedside denies shortness of breath, abdominal pain ,nausea voiding with no problems no other symptoms states she feel fine overall Objective Last 8 Hrs Date Time Temp Pulse Resp B/P (MAP) Pulse Ox O2 Delivery O2 Flow Rate FiO2 02/06/17 15:40 Room Air 02/06/17 15:30 37.1 88 16 129/61 (83) 95 02/06/17 14:14 36.6 56 18 145/63 (90) 97 Room Air Physical Exam: General- oriented x 2, not in distress, speaks in sentences with no effort Eyes- anicteric Neck- no JVD Lungs- clear breath sounds bilaterally, no rales/wheezes Heart- regular rhythm; no murmur, normal rate Abdomen- normal bowel sounds, soft, nontender Extremities- no pretibial edema, no calf tenderness Neuro- alert, oriented x 2; no gross focal neuro deficits Skin- warm & dry Laboratory Results: Last 24 Hours Test 02/05/17 20:11 02/06/17 07:19 02/06/17 07:41 02/06/17 10:55 Bedside Glucose 185 mg/dl 164 mg/dl 201 mg/dl White Blood Count 13.82 K/uL Red Blood Count 3.65 M/uL Hemoglobin 11.4 g/dL Hematocrit 35.1 % Mean Corpuscular Volume 96.2 fL Mean Corpuscular Hemoglobin 31.2 pg Mean Corpuscular Hemoglobin Concent 32.5 g/dl Platelet Count 379 K/uL Mean Platelet Volume 10.6 fL Neutrophils (%) (Auto) 74.6 % Lymphocytes (%) (Auto) 12.8 % Monocytes (%) (Auto) 8.8 % Eosinophils (%) (Auto) 1.4 % Basophils (%) (Auto) 0.4 % Neutrophils # (Auto) 10.31 K/uL Lymphocytes # (Auto) 1.77 K/uL Monocytes # (Auto) 1.22 K/uL Eosinophils # (Auto) 0.19 K/uL Basophils # (Auto) 0.05 K/uL RDW Standard Deviation 57.9 fL RDW Coefficient of Variation 16.8 % Immature Granulocyte % (Auto) 2.0 % Immature Granulocyte # (Auto) 0.28 K/uL Sodium Level 137 mmol/L Potassium Level 4.0 mmol/L Chloride Level 103 mmol/L Carbon Dioxide Level 23 mmol/L Anion Gap 11.0 mmol/L Blood Urea Nitrogen 43 mg/dl Creatinine 3.10 mg/dl Est Creatinine Clear Calc Drug Dose 14.6 ml/min Estimated GFR () 16.1 Estimated GFR (Non- 13.9 BUN/Creatinine Ratio 13.9 Random Glucose 144 mg/dl Calcium Level 9.7 mg/dl Magnesium Level 2.0 mg/dl Test 02/06/17 15:43 Bedside Glucose 103 mg/dl Assessment & Plan 76 yo F initially admitted for weakness after a fall without loss of consciousness at home. She subsequently developed renal failure and anemia requiring a transfusion, which has improved after initiation of Lasix and albumin several days ago. Temporary HD catheter was placed in preparation for poss HD, however, this has been on hold as she continues to improve. She will need HD catheter removed prior to discharge if no HD this admission per Nephro. Acute Renal Failure - Has chronic nephrotic-range proteinuria She has a high complement level on labs Her TTE was unremarkable. - crea improving, 3.1 today - now on daily Lasix + Albumin CXR resolving pulmonary edema -- possible removal of HD cath before discharge continue to monitor clinically and check crea -- appreciate Nephro input Anemia - history of chronic anemia -s/p 2 units of blood - Hg stable at 11 no signs of active GI bleed - anemia panel: Fe low normal low TIBC, high ferritin likely Anemia of Chronic Disease Deconditioning with ambulatory dysfunction - improving continue PT/OT anticipate d/c to SNF L hip pain -Left hip xray showed no evidence of left hip fracture. Analgesics PRN. Transaminitis -pt with fatty liver who uses alcohol. GI following ETOH abuse -cont thiamine and folic acid. Last drink was >10 days ago. DMII - sugars at goal, cont ISS HTN -controlled, cont Lopressor Vit D deficiency -cont ergocalciferol Smoking -cont Nicoderm patch Hypothyroid - TSH high Free t4 normal - repeat TFTs in 4 weeks Synthroid 150mg daily Pulmonary nodule-CT chest demonstrated 5 mm nodule right lower lobe, stable compared to CT performed 11/11/15. Patient is a smoker. Follow up per guidelines . Renal lesion 1.8 cm hyperdense lesion right kidney-complex cyst versus solid mass. Patient had ultrasound performed at [facility] 07/31/16 which demonstrated 3 cystic lesions, largest measuring [address] of abdomen and pelvis on 04/11/13 showed similar findings. Radiographic stability suggests benign lesion, however, per Nephro nonemergent dedicated MRI would be recommended. DVT proph -Heparin FULL CODE Dispo pending anticipate d/c to SNF/Rehab when cleared by Nephrology Consultants: Nephrology Neurology Gastro Procedures: CT head CT cervical spine CT chest CT abdomen and pelvis IV fluids IV medications PT OT . Current Inpatient Medications: Current Inpatient Medications Medications (Trade) Dose Ordered Sig/Fay Route Start Time Stop Time Status Last Admin Dose Admin Heparin Sodium (Porcine) (Heparin Sq 5000 Unit/0.5ml) 5,000 unit Q8H SQ 01/19/17 22:00 02/18/17 21:59 02/06/17 14:12 5,000 UNIT Acetaminophen (Tylenol Tab) 650 mg Q4H PRN PO 01/19/17 20:15 02/18/17 20:14 01/26/17 05:20 650 MG Ondansetron HCl (Zofran Inj) 4 mg Q6H PRN IV 01/19/17 20:15 02/18/17 20:14 Insulin Glargine (Lantus Solostar Pen) 7 unit Q12 SC 01/19/17 21:00 02/18/17 20:59 Future Hold 01/19/17 22:42 7 UNIT Glucose (Glucose 40% Gel) 15-30 GRAMS 15 GRAMS... UD PRN PO 01/19/17 20:15 02/18/17 20:14 Glucose (Glucose Chew Tab) 4-8 Tablets 4 Tabl... UD PRN PO 01/19/17 20:15 02/18/17 20:14 Dextrose (Dextrose 50% 50ML Syringe) 25-50ML OF 50% DW IV FOR... UD PRN IV 01/19/17 20:15 02/18/17 20:14 Glucagon (Glucagon Inj) 1 mg UD PRN SQ 01/19/17 20:15 02/18/17 20:14 Aspirin (Ecotrin Tab) 81 mg DAILY PO 01/20/17 08:00 02/19/17 08:59 02/06/17 08:06 81 MG Levothyroxine Sodium (Synthroid Tab) 150 mcg DAILYBB PO 01/20/17 06:30 02/19/17 06:59 02/06/17 05:48 150 MCG Thiamine HCl (Vitamin B-1 Tab) 100 mg DAILY PO 01/20/17 08:00 02/19/17 08:59 02/06/17 08:05 100 MG Nicotine (Nicoderm Cq 21MG Patch) 1 patch Q24H TD 01/19/17 21:00 02/18/17 20:59 02/05/17 22:15 1 PATCH Miscellaneous (Remove Nicoderm Patch) 1 ea PM N/A 01/20/17 20:00 02/19/17 20:59 02/05/17 21:00 1 EA Ergocalciferol (Vitamin D Cap) 50,000 interunit Q4D PO 01/19/17 22:00 02/18/17 21:59 02/04/17 20:35 50,000 INTERUNIT Folic Acid (Folvite Tab) 1 mg QAM PO 01/21/17 08:00 02/20/17 07:59 02/06/17 08:06 1 MG Multivitamins/ Minerals (Multivitamin W/ Minerals Tab) 1 tab QAM PO 01/21/17 08:00 02/20/17 07:59 02/06/17 08:06 1 TAB Lorazepam (Ativan Tab) PRN Dosing -Active Protocol UD PRN PO 01/22/17 02:00 02/20/17 01:59 01/31/17 14:01 1 MG Acetaminophen/ Hydrocodone Bitart ([place] 5/325 Tab) 1 tab Q6 PRN PO 01/24/17 04:30 02/07/17 04:29 02/06/17 08:08 1 TAB Senna/Docusate Sodium (Senokot S Tab) 1 tab QAM PO 01/26/17 08:00 02/25/17 07:59 02/06/17 08:05 1 TAB Sodium Chloride ([place] Nasal [place]) 1 sprays DAILY PRN YORDY 01/26/17 11:15 02/25/17 11:14 Haloperidol (Haldol Tab) 2 mg Q4 PRN PO 01/26/17 19:15 02/25/17 19:14 Future Hold Metoprolol Tartrate (Lopressor Tab) 50 mg TID PO 02/01/17 14:00 03/03/17 13:59 02/06/17 14:10 50 MG Insulin Aspart (novoLOG ASPART) SLIDING SCALE If C... ACHS SC 02/01/17 16:30 03/03/17 16:29 02/06/17 12:06 5 UNITS Albuterol/ Ipratropium (Duoneb) 3 ml QIDR PRN INH 02/03/17 12:00 03/05/17 11:59 Pantoprazole Sodium (Protonix Tab) 40 mg QAM PO 02/05/17 09:00 03/07/17 08:59 02/06/17 08:06 40 MG Magnesium Oxide (Mag-Ox Tab) 400 mg BID PO 02/04/17 21:00 03/06/17 20:59 02/06/17 08:04 400 MG Polyethylene (Miralax Powder Packet) 17 gm DAILY PRN PO 02/04/17 15:30 03/06/17 15:29 Potassium Chloride (Klor-Con Tab) 40 meq QAM PO 02/06/17 09:00 03/03/17 08:59 02/06/17 08:05 40 MEQ Lidocaine (Lidoderm Patch 5%) 1 patch QAM TD 02/06/17 09:00 03/08/17 08:59 Miscellaneous (Remove Lidoderm Patch) 1 ea DAILY@21 N/A 02/05/17 21:00 03/07/17 20:59 02/05/17 20:57 1 EA Tramadol HCl (Ultram Tab) 50 mg Q12H PRN PO 02/05/17 12:00 03/07/17 11:59 02/06/17 14:14 50 MG
[2017-02-06] MEDS: NICOTINE 21 MG/24 HR TDSY TD SCH (21:00)
[2017-02-07] VITALS (12 sets, daily range): BP systolic 130–162; BP diastolic 55–80; PULSE 49–73; TEMP 36.4–36.8; O2SAT 93–98
[2017-02-07] MEDS: LEVOTHYROXINE 150 MCG TAB PO SCH (05:40)
[2017-02-07] MEDS: HEPARIN SOD 5000 UNIT/0.5 ML CARP SQ SCH ×3 (05:46→21:02)
[2017-02-07] MEDS: HYDROCODONE/ACETAMOPHEN 5/325MG TAB PO PRN ×2 (07:41→14:29)
[2017-02-07] MEDS: PANTOprazole SOD 40 MG TAB PO SCH (07:44)
[2017-02-07] MEDS: METOPROLOL TARTRATE 50 MG TAB PO SCH ×2 (07:45→14:30)
[2017-02-07] MEDS: ASPIRIN 81 MG ECTAB PO SCH (07:45)
[2017-02-07] MEDS: DOCUSATE SODIUM/SENNA 50/8.6MG TAB PO SCH (07:45)
[2017-02-07] MEDS: MAGNESIUM OXIDE 400 MG TAB PO SCH ×2 (07:45→20:50)
[2017-02-07] MEDS: THIAMINE HCL 100 MG TAB PO SCH (07:45)
[2017-02-07] MEDS: LIDODERM (LIDOCAINE) PATCH 5% TD SCH (07:45)
[2017-02-07] MEDS: CEROVITE ADV FORMULA TAB PO SCH (07:45)
[2017-02-07] MEDS: INSULIN ASPART 100 UNITS/ML 3 ML PEN SC SCH ×4 (07:50→20:58)
[2017-02-07 08:43] LABS: BUN/CREATININE RATIO 14.7 (10-20); MAGNESIUM 2.4 mg/dl (1.8-2.4); POTASSIUM 4.9 mmol/L (3.5-5.1)
--- NOTE | 2017-02-07 09:15 | Nephrology Progress Note ---
Nephrology Progress Note Date of Service: Feb 07, 2017. Subjective Patient is a pleasant 76 year old female with non oliguric RUSSELL on CKD stage G3- A3 possibly advanced to stage 4/5 with nephrotic range proteinuria who was admitted on 01/19 following fall with altered mental status. Patient states that she is alright. planning on removing CVC before d/c to rehab facility. appetite is ok. 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 no SOB, confusion, constipation, chest pain, or edema. Objective Date Time Temp Pulse Resp B/P (MAP) Pulse Ox O2 Delivery O2 Flow Rate FiO2 02/07/17 07:30 36.4 73 18 146/80 (102) 96 Room Air 02/07/17 00:00 94 Room Air 02/06/17 23:07 36.9 55 18 154/66 (95) 94 Room Air 02/06/17 22:25 136/61 (86) 02/06/17 21:06 61 172/76 (108) 02/06/17 15:40 Room Air 02/06/17 15:30 37.1 88 16 129/61 (83) 95 02/06/17 14:14 36.6 56 18 145/63 (90) 97 Room Air 02/06/17 09:36 104/60 (75) Physical Exam: General: Alert, no distress, well nourished and well developed Head: Normocephalic, No masses, lesions, tenderness, or abnormalities ENT: no scleral icterus, moist mucosal membranes Neck: Supple, no adenopathy Heart: Regular rate and rhythm, no murmurs, no gallops Lungs: clear to auscultation Abdomen: Soft, Nontender, nondistended, +Bowel Sounds Extremities: No joint deformities, effusion, or inflammation, no edema, no clubbing Neuro Exam: Alert and oriented x 3 with fluent speech, no focal motor/sensory deficits Skin: multiple areas of ecchymosis Current Inpatient Medications Medications (Trade) Dose Ordered Sig/Fay Route Start Time Stop Time Status Last Admin Dose Admin Heparin Sodium (Porcine) (Heparin Sq 5000 Unit/0.5ml) 5,000 unit Q8H SQ 01/19/17 22:00 02/18/17 21:59 02/07/17 05:46 5,000 UNIT Acetaminophen (Tylenol Tab) 650 mg Q4H PRN PO 01/19/17 20:15 72/17 20:14 01/26/17 05:20 650 MG Ondansetron HCl (Zofran Inj) 4 mg Q6H PRN IV 01/19/17 20:15 02/18/17 20:14 Insulin Glargine (Lantus Solostar Pen) 7 unit Q12 SC 01/19/17 21:00 02/18/17 20:59 Future Hold 01/19/17 22:42 7 UNIT Glucose (Glucose 40% Gel) 15-30 GRAMS 15 GRAMS... UD PRN PO 01/19/17 20:15 02/18/17 20:14 Glucose (Glucose Chew Tab) 4-8 Tablets 4 Tabl... UD PRN PO 01/19/17 20:15 02/18/17 20:14 Dextrose (Dextrose 50% 50ML Syringe) 25-50ML OF 50% DW IV FOR... UD PRN IV 01/19/17 20:15 02/18/17 20:14 Glucagon (Glucagon Inj) 1 mg UD PRN SQ 01/19/17 20:15 02/18/17 20:14 Aspirin (Ecotrin Tab) 81 mg DAILY PO 01/20/17 08:00 02/19/17 08:59 02/07/17 07:45 81 MG Levothyroxine Sodium (Synthroid Tab) 150 mcg DAILYBB PO 01/20/17 06:30 02/19/17 06:59 02/07/17 05:40 150 MCG Thiamine HCl (Vitamin B-1 Tab) 100 mg DAILY PO 01/20/17 08:00 02/19/17 08:59 02/07/17 07:45 100 MG Nicotine (Nicoderm Cq 21MG Patch) 1 patch Q24H TD 01/19/17 21:00 02/18/17 20:59 02/05/17 22:15 1 PATCH Miscellaneous (Remove Nicoderm Patch) 1 ea PM N/A 01/20/17 20:00 02/19/17 20:59 02/06/17 21:13 1 EA Ergocalciferol (Vitamin D Cap) 50,000 interunit Q4D PO 01/19/17 22:00 02/18/17 21:59 02/04/17 20:35 50,000 INTERUNIT Folic Acid (Folvite Tab) 1 mg QAM PO 01/21/17 08:00 02/20/17 07:59 02/07/17 07:42 1 MG Multivitamins/ Minerals (Multivitamin W/ Minerals Tab) 1 tab QAM PO 01/21/17 08:00 02/20/17 07:59 02/07/17 07:45 1 TAB Lorazepam (Ativan Tab) PRN Dosing -Active Protocol UD PRN PO 01/22/17 02:00 02/20/17 01:59 01/31/17 14:01 1 MG Senna/Docusate Sodium (Senokot S Tab) 1 tab QAM PO 01/26/17 08:00 02/25/17 07:59 02/07/17 07:45 1 TAB Sodium Chloride ([place] Nasal [place]) 1 sprays DAILY PRN YORDY 01/26/17 11:15 02/25/17 11:14 Haloperidol (Haldol Tab) 2 mg Q4 PRN PO 01/26/17 19:15 02/25/17 19:14 Future Hold Metoprolol Tartrate (Lopressor Tab) 50 mg TID PO 02/01/17 14:00 03/03/17 13:59 02/07/17 07:45 50 MG Insulin Aspart (novoLOG ASPART) SLIDING SCALE If C... ACHS SC 02/01/17 16:30 03/03/17 16:29 02/07/17 07:50 4 UNITS Albuterol/ Ipratropium (Duoneb) 3 ml QIDR PRN INH 02/03/17 12:00 03/05/17 11:59 Pantoprazole Sodium (Protonix Tab) 40 mg QAM PO 02/05/17 09:00 03/07/17 08:59 02/07/17 07:44 40 MG Magnesium Oxide (Mag-Ox Tab) 400 mg BID PO 02/04/17 21:00 03/06/17 20:59 02/07/17 07:45 400 MG Polyethylene (Miralax Powder Packet) 17 gm DAILY PRN PO 02/04/17 15:30 03/06/17 15:29 Lidocaine (Lidoderm Patch 5%) 1 patch QAM TD 02/06/17 09:00 03/08/17 08:59 Miscellaneous (Remove Lidoderm Patch) 1 ea DAILY@21 N/A 02/05/17 21:00 03/07/17 20:59 02/05/17 20:57 1 EA Tramadol HCl (Ultram Tab) 50 mg Q12H PRN PO 02/05/17 12:00 03/07/17 11:59 02/06/17 14:14 50 MG Acetaminophen/ Hydrocodone Bitart ([place] 5/325 Tab) 1 tab Q6H PRN PO 02/07/17 07:30 02/21/17 07:29 02/07/17 07:41 1 TAB Last 24 Hours Test 02/06/17 10:55 02/06/17 15:43 02/06/17 20:21 02/07/17 07:45 Bedside Glucose 201 mg/dl 103 mg/dl 172 mg/dl 138 mg/dl Test 02/07/17 07:54 Sodium Level 135 mmol/L Potassium Level 4.9 mmol/L Chloride Level 102 mmol/L Carbon Dioxide Level 24 mmol/L Anion Gap 9.0 mmol/L Blood Urea Nitrogen 44 mg/dl Creatinine 3.00 mg/dl Est Creatinine Clear Calc Drug Dose 15.1 ml/min Estimated GFR () 16.8 Estimated GFR (Non- 14.5 BUN/Creatinine Ratio 14.7 Random Glucose 158 mg/dl Calcium Level 10.0 mg/dl Magnesium Level 2.4 mg/dl Other Studies: 02/06/17 02/07/17 02/08/17 08:00 08:00 08:00 Intake Total 765 ml 240 ml Output Total 750 ml 400 ml Balance 15 ml -160 ml Assessment & Plan RUSSELL on CKD3 possibly now stage 4/5 with nephrotic range proteinuria with long standing type 2 diabetes, alcohol abuse, and COPD. Etiology of RUSSELL unknown- with recent UTI. creatinine peaked 01/31 at 5.1 and has begun to trend downward. now at 3.0. volume status is acceptable. no indication for urgent dialysis at this time. patient does not want dialysis at this time but states that she is unsure if she would like it if needed in the future. Discussed removal of catheter and out patient testing to determine if dialysis would be needed in the future. Unsure what patient's new baseline is. patient is likely to need dialysis in the future. recommend f/u labs every 2 weeks post discharge for monitoring kidney function. Anemia of chronic disease Hgb 11.4. Has received pRBCs recently and will continue to follow for need for additional transfusion. This patient was seen and treated with direct collaboration with Dr. Jang. Thank you for the opportunity to participate in this patient's care. Appreciate the Consult. ATTENDING NOTE: pt seen 02/07/17 I performed a history and physical examination of the patient, including specifically on history- pt feels good and is interested in going home, had her line removed earlier today, on physical exam-minimal edema, and my impression and plan are russell on ckd with creatinine perhaps at a new baseline. continue to screen for uremic symptoms and follow labs as an outpt. pt does not want to start dialysis at this time since she is feeling well. I have discussed the patient's management with Isabella Dick PA-C, Please refer to above note for the documented findings and plan of care. Anastasia Jang DO
[2017-02-07] MEDS ORDERED: LIDOCAINE HCL 1% 20 ML VIAL ONE (13:41)
--- NOTE | 2017-02-07 13:43 | History & Physical Bridge Note ---
H&P Re-Evaluation Bridge Note: I have examined the patient, reviewed the History & Physical and in the interval since the performance of the History & Physical I have noted the following changes of clinical significance: No changes noted Patient for permcath removal. I have discussed the risks options and benefits of the procedure with the patient. The patient understands the risks options and benefits and agrees to the procedure.
--- NOTE | 2017-02-07 14:02 | [facility] Post Operative Brief Note ---
Immediate Operative Summary Operative Date Feb 07, 2017. Pre-Operative Diagnosis Post permcath insertion. Kidney function recovered Post-Operative Diagnosis Same Procedure(s) Performed Perm Cath Removal Surgeon Radha Receiving Clerk Surgeon(s) Deborah Au MD Estimated Blood Loss 3 Findings cath and cuff removed Specimens a; Perm Cath Anesthesia Local Complication(s) None Disposition
--- NOTE | 2017-02-07 14:47 | DIAGNOSTIC IMAGING REPORT ---
DATE OF PROCEDURE: 02/07/2017 PROCEDURE NOTE PREOPERATIVE DIAGNOSIS: Acute on chronic renal failure, no longer requiring PermCath. POSTOPERATIVE DIAGNOSIS: Acute on chronic renal failure, no longer requiring PermCath. PROCEDURE: Removal of tunneled right IJ PermCath. SURGEON: Dr. Juventino Garcia. HEAT TREAT PULLER: Dr. Maria G Au. ESTIMATED BLOOD LOSS: 1 mL. ANESTHESIA: Local. COMPLICATIONS: None. CONDITION: Stable. INDICATIONS: Mrs. Bárbara Acevedo is a 76-year-old woman who initially presented with acute on chronic renal failure and underwent placement of a tunneled right IJ PermCath on 02/01/2017. She is no longer requiring her catheter. For this reason, she was recommended to undergo catheter removal. Risks, benefits and alternatives were discussed with the patient and she consented to the procedure. PROCEDURE: The patient was taken to the [facility] and placed in the supine position. Her right neck and chest were prepped and draped in the usual sterile fashion. Local anesthesia was used to anesthetize the skin surrounding the catheter. The sutures holding the catheter in place were removed. The catheter was removed easily and manual pressure was held over the right tunneled IJ access site. There was good hemostasis. A dressing was applied. The patient tolerated the procedure well and was returned to her hospital room. Dr. Juventino Garcia was present for the entire procedure. I, Dr. Garcia was present and scrubed for the entire procedure. [facility]
--- NOTE | 2017-02-07 16:42 | Progress Note ---
Medicine Progress Note Date & Time of Visit: Feb 07, 2017 at 16:32. Subjective patient seen resting in bed, comfortable HD cath removed today, has minimal pain, no swelling/bleeding noted denies dyspnea, chest pain, abdominal pain appetite good no problems with voiding no other symptoms Objective Last 8 Hrs Date Time Temp Pulse Resp B/P (MAP) Pulse Ox O2 Delivery O2 Flow Rate FiO2 02/07/17 15:50 36.6 57 18 130/67 (88) 93 Room Air 02/07/17 15:15 36.5 72 18 139/79 (99) 95 Room Air 02/07/17 14:29 62 162/58 (92) 02/07/17 09:30 36.4 73 18 146/80 96 Room Air Physical Exam: General- oriented x 2, not in distress, speaks in sentences with no effort Eyes- anicteric Neck- no JVD Lungs- no rales/wheezes bilaterally Heart- regular rhythm; no murmur, normal rate Chest- HD cath insertion site: dressing in place, no hematoma, swelling, erythema, bleeding Abdomen- normal bowel sounds, soft, nontender Extremities- no pretibial edema, no calf tenderness Neuro- alert, oriented x 2; no gross focal neuro deficits Skin- warm & dry Laboratory Results: Last 24 Hours Test 02/06/17 20:21 02/07/17 07:45 02/07/17 07:54 02/07/17 11:16 Bedside Glucose 172 mg/dl 138 mg/dl 155 mg/dl Sodium Level 135 mmol/L Potassium Level 4.9 mmol/L Chloride Level 102 mmol/L Carbon Dioxide Level 24 mmol/L Anion Gap 9.0 mmol/L Blood Urea Nitrogen 44 mg/dl Creatinine 3.00 mg/dl Est Creatinine Clear Calc Drug Dose 15.1 ml/min Estimated GFR () 16.8 Estimated GFR (Non- 14.5 BUN/Creatinine Ratio 14.7 Random Glucose 158 mg/dl Calcium Level 10.0 mg/dl Magnesium Level 2.4 mg/dl Assessment & Plan 76 yo F initially admitted for weakness after a fall without loss of consciousness at home. She subsequently developed renal failure and anemia requiring a transfusion, which has improved after initiation of Lasix and albumin several days ago. Temporary HD catheter was placed in preparation for poss HD, however, this has been on hold as she continues to improve. She will need HD catheter removed prior to discharge if no HD this admission per Nephro. Acute Renal Failure - Has chronic nephrotic-range proteinuria She has a high complement level on labs Her TTE was unremarkable. - crea improving, 3.0 today - received BID Lasix + Albumin, now discontinued CXR resolving pulmonary edema -- s/p removal of HD cath 02/07/17 doing fine overall no signs of volume overall -- monitor -- appreciate Nephro input Anemia - history of chronic anemia -s/p 2 units of blood - Hg stable at 11 no signs of active GI bleed - anemia panel: Fe low normal low TIBC, high ferritin likely Anemia of Chronic Disease Deconditioning with ambulatory dysfunction - improving continue PT/OT anticipate d/c to SNF tomorrow L hip pain -Left hip xray showed no evidence of left hip fracture. Analgesics PRN. Transaminitis -pt with fatty liver who uses alcohol. GI following ETOH abuse -cont thiamine and folic acid. Last drink was >10 days ago. DMII - sugars at goal, cont ISS HTN -controlled, cont Lopressor Vit D deficiency -cont ergocalciferol Smoking -cont Nicoderm patch Hypothyroid - TSH high Free t4 normal - repeat TFTs in 4 weeks Synthroid 150mg daily Pulmonary nodule-CT chest demonstrated 5 mm nodule right lower lobe, stable compared to CT performed 11/11/15. Patient is a smoker. Follow up per guidelines . Renal lesion 1.8 cm hyperdense lesion right kidney-complex cyst versus solid mass. Patient had ultrasound performed at [facility] 07/31/16 which demonstrated 3 cystic lesions, largest measuring [address] of abdomen and pelvis on 04/11/13 showed similar findings. Radiographic stability suggests benign lesion, however, per Nephro nonemergent dedicated MRI would be recommended. DVT proph -Heparin FULL CODE Dispo pending anticipate d/c to SNF/Rehab tomorrow Consultants: Nephrology Neurology Gastro Procedures: CT head CT cervical spine CT chest CT abdomen and pelvis IV fluids IV medications PT OT . Current Inpatient Medications: Current Inpatient Medications Medications (Trade) Dose Ordered Sig/Fay Route Start Time Stop Time Status Last Admin Dose Admin Heparin Sodium (Porcine) (Heparin Sq 5000 Unit/0.5ml) 5,000 unit Q8H SQ 01/19/17 22:00 02/18/17 21:59 02/07/17 05:46 5,000 UNIT Acetaminophen (Tylenol Tab) 650 mg Q4H PRN PO 01/19/17 20:15 02/18/17 20:14 01/26/17 05:20 650 MG Ondansetron HCl (Zofran Inj) 4 mg Q6H PRN IV 01/19/17 20:15 02/18/17 20:14 Insulin Glargine (Lantus Solostar Pen) 7 unit Q12 SC 01/19/17 21:00 02/18/17 20:59 Future Hold 01/19/17 22:42 7 UNIT Glucose (Glucose 40% Gel) 15-30 GRAMS 15 GRAMS... UD PRN PO 01/19/17 20:15 02/18/17 20:14 Glucose (Glucose Chew Tab) 4-8 Tablets 4 Tabl... UD PRN PO 01/19/17 20:15 02/18/17 20:14 Dextrose (Dextrose 50% 50ML Syringe) 25-50ML OF 50% DW IV FOR... UD PRN IV 01/19/17 20:15 02/18/17 20:14 Glucagon (Glucagon Inj) 1 mg UD PRN SQ 01/19/17 20:15 02/18/17 20:14 Aspirin (Ecotrin Tab) 81 mg DAILY PO 01/20/17 08:00 02/19/17 08:59 02/07/17 07:45 81 MG Levothyroxine Sodium (Synthroid Tab) 150 mcg DAILYBB PO 01/20/17 06:30 02/19/17 06:59 02/07/17 05:40 150 MCG Thiamine HCl (Vitamin B-1 Tab) 100 mg DAILY PO 01/20/17 08:00 02/19/17 08:59 02/07/17 07:45 100 MG Nicotine (Nicoderm Cq 21MG Patch) 1 patch Q24H TD 01/19/17 21:00 02/18/17 20:59 02/05/17 22:15 1 PATCH Miscellaneous (Remove Nicoderm Patch) 1 ea PM N/A 01/20/17 20:00 02/19/17 20:59 02/06/17 21:13 1 EA Ergocalciferol (Vitamin D Cap) 50,000 interunit Q4D PO 01/19/17 22:00 02/18/17 21:59 02/04/17 20:35 50,000 INTERUNIT Folic Acid (Folvite Tab) 1 mg QAM PO 01/21/17 08:00 02/20/17 07:59 02/07/17 07:42 1 MG Multivitamins/ Minerals (Multivitamin W/ Minerals Tab) 1 tab QAM PO 01/21/17 08:00 02/20/17 07:59 02/07/17 07:45 1 TAB Lorazepam (Ativan Tab) PRN Dosing -Active Protocol UD PRN PO 01/22/17 02:00 02/20/17 01:59 01/31/17 14:01 1 MG Senna/Docusate Sodium (Senokot S Tab) 1 tab QAM PO 01/26/17 08:00 02/25/17 07:59 02/07/17 07:45 1 TAB Sodium Chloride ([place] Nasal [place]) 1 sprays DAILY PRN YORDY 01/26/17 11:15 02/25/17 11:14 Haloperidol (Haldol Tab) 2 mg Q4 PRN PO 01/26/17 19:15 02/25/17 19:14 Future Hold Metoprolol Tartrate (Lopressor Tab) 50 mg TID PO 02/01/17 14:00 03/03/17 13:59 02/07/17 14:30 50 MG Insulin Aspart (novoLOG ASPART) SLIDING SCALE If C... ACHS SC 02/01/17 16:30 03/03/17 16:29 02/07/17 14:35 3 UNITS Albuterol/ Ipratropium (Duoneb) 3 ml QIDR PRN INH 02/03/17 12:00 03/05/17 11:59 Pantoprazole Sodium (Protonix Tab) 40 mg QAM PO 02/05/17 09:00 03/07/17 08:59 02/07/17 07:44 40 MG Magnesium Oxide (Mag-Ox Tab) 400 mg BID PO 02/04/17 21:00 03/06/17 20:59 02/07/17 07:45 400 MG Polyethylene (Miralax Powder Packet) 17 gm DAILY PRN PO 02/04/17 15:30 03/06/17 15:29 Lidocaine (Lidoderm Patch 5%) 1 patch QAM TD 02/06/17 09:00 03/08/17 08:59 Miscellaneous (Remove Lidoderm Patch) 1 ea DAILY@21 N/A 02/05/17 21:00 03/07/17 20:59 02/05/17 20:57 1 EA Tramadol HCl (Ultram Tab) 50 mg Q12H PRN PO 02/05/17 12:00 03/07/17 11:59 02/06/17 14:14 50 MG Acetaminophen/ Hydrocodone Bitart ([place] 5/325 Tab) 1 tab Q6H PRN PO 02/07/17 07:30 02/21/17 07:29 02/07/17 14:29 1 TAB
[2017-02-07] MEDS: NICOTINE 21 MG/24 HR TDSY TD SCH ×2 (20:49→20:57)
[2017-02-08] MEDS: HYDROCODONE/ACETAMOPHEN 5/325MG TAB PO PRN (00:41)
[2017-02-08] MEDS: LEVOTHYROXINE 150 MCG TAB PO SCH (06:05)
[2017-02-08] MEDS: HEPARIN SOD 5000 UNIT/0.5 ML CARP SQ SCH ×2 (06:06→13:49)
[2017-02-08 06:09] LABS: BASO % 0.3 %; BASO ABS # 0.05 K/uL (0-0.2); COMPLETE YES; EOS % 0.9 %; HEMATOCRIT 34.5 % (37-47); IG% 0.9 %; LYMPH % 11.5 %; LYMPH ABS # 1.66 K/uL (1.2-3.4); MEAN CELL VOLUME 97.7 fL (80-100); MEAN CORPUSCULAR HGB CONC 32.8 g/dl (32-36); MEAN PLATELET VOLUME 11.3 fL (7.4-10.4); MONO % 7.9 %; NEUT % 78.5 %; PLATELET COUNT 344 K/uL (130-400); RED BLOOD COUNT 3.53 M/uL (4.2-5.4); WHITE BLOOD COUNT 14.38 K/uL (4.8-10.8)
[2017-02-08 06:42] LABS: BUN/CREATININE RATIO 15.8 (10-20); CALCIUM 9.5 mg/dl (8.5-10.1); CREATININE 2.9 mg/dl (0.60-1.20); MAGNESIUM 2.5 mg/dl (1.8-2.4); POTASSIUM 4.3 mmol/L (3.5-5.1)
[2017-02-08 07:18] VITALS: BP 162/74; PULSE 65; TEMP 36.7; O2SAT 95
[2017-02-08] MEDS: DOCUSATE SODIUM/SENNA 50/8.6MG TAB PO SCH (08:04)
[2017-02-08] MEDS: ASPIRIN 81 MG ECTAB PO SCH (08:04)
[2017-02-08] MEDS: CEROVITE ADV FORMULA TAB PO SCH (08:04)
[2017-02-08] MEDS: THIAMINE HCL 100 MG TAB PO SCH (08:04)
[2017-02-08] MEDS: PANTOprazole SOD 40 MG TAB PO SCH (08:05)
[2017-02-08] MEDS: MAGNESIUM OXIDE 400 MG TAB PO SCH (08:06)
[2017-02-08] MEDS: LIDODERM (LIDOCAINE) PATCH 5% TD SCH (08:06)
[2017-02-08] MEDS: TRAMADOL HCL 50 MG TAB PO PRN (08:18)
[2017-02-08] MEDS: INSULIN ASPART 100 UNITS/ML 3 ML PEN SC SCH ×2 (08:18→13:48)
--- NOTE | 2017-02-08 11:36 | Nephrology Progress Note ---
Nephrology Progress Note Date of Service: Feb 08, 2017. Subjective 76 yo female with russell on ckd which has improved to 2.9. pt urinated frequently last night, no burning with urination and no dysuria. no fevers. urination has slowed down today. pt feels good and is awaiting placement in alf. appetite is good. no other complaints. does have chronic back pain which is stable. Objective Date Time Temp Pulse Resp B/P (MAP) Pulse Ox O2 Delivery O2 Flow Rate FiO2 02/08/17 08:00 Room Air 02/08/17 07:18 36.7 65 18 162/74 (103) 95 Room Air 02/08/17 05:03 Room Air 02/08/17 00:16 Room Air 02/07/17 23:46 36.8 66 19 146/55 (85) 95 Room Air 02/07/17 20:00 Room Air 02/07/17 18:50 36.7 50 18 96 02/07/17 17:56 50 02/07/17 17:52 36.7 49 18 146/72 (96) 96 Room Air 02/07/17 16:50 36.5 55 18 146/66 (92) 98 Room Air 02/07/17 15:50 36.6 57 18 130/67 (88) 93 Room Air 02/07/17 15:50 Room Air 02/07/17 15:15 36.5 72 18 139/79 (99) 95 Room Air 02/07/17 14:29 62 162/58 (92) Physical Exam: General-[id number] Eyes-no scleral icterus ENT-mmm Neck-supple Lungs-cta Heart-rrr Abdomen-bs+ s/nt/nd Extremities-no c/c/e Neuro-nonfocal Current Inpatient Medications Medications (Trade) Dose Ordered Sig/Fay Route Start Time Stop Time Status Last Admin Dose Admin Heparin Sodium (Porcine) (Heparin Sq 5000 Unit/0.5ml) 5,000 unit Q8H SQ 01/19/17 22:00 02/18/17 21:59 02/08/17 06:06 5,000 UNIT Acetaminophen (Tylenol Tab) 650 mg Q4H PRN PO 01/19/17 20:15 02/18/17 20:14 01/26/17 05:20 650 MG Ondansetron HCl (Zofran Inj) 4 mg Q6H PRN IV 01/19/17 20:15 02/18/17 20:14 Insulin Glargine (Lantus Solostar Pen) 7 unit Q12 SC 01/19/17 21:00 02/18/17 20:59 Future Hold 01/19/17 22:42 7 UNIT Glucose (Glucose 40% Gel) 15-30 GRAMS 15 GRAMS... UD PRN PO 01/19/17 20:15 02/18/17 20:14 Glucose (Glucose Chew Tab) 4-8 Tablets 4 Tabl... UD PRN PO 01/19/17 20:15 02/18/17 20:14 Dextrose (Dextrose 50% 50ML Syringe) 25-50ML OF 50% DW IV FOR... UD PRN IV 01/19/17 20:15 02/18/17 20:14 Glucagon (Glucagon Inj) 1 mg UD PRN SQ 01/19/17 20:15 02/18/17 20:14 Aspirin (Ecotrin Tab) 81 mg DAILY PO 01/20/17 08:00 02/19/17 08:59 02/08/17 08:04 81 MG Levothyroxine Sodium (Synthroid Tab) 150 mcg DAILYBB PO 01/20/17 06:30 02/19/17 06:59 02/08/17 06:05 150 MCG Thiamine HCl (Vitamin B-1 Tab) 100 mg DAILY PO 01/20/17 08:00 02/19/17 08:59 02/08/17 08:04 100 MG Nicotine (Nicoderm Cq 21MG Patch) 1 patch Q24H TD 01/19/17 21:00 02/18/17 20:59 02/07/17 20:57 1 PATCH Miscellaneous (Remove Nicoderm Patch) 1 ea PM N/A 01/20/17 20:00 02/19/17 20:59 02/06/17 21:13 1 EA Ergocalciferol (Vitamin D Cap) 50,000 interunit Q4D PO 01/19/17 22:00 02/18/17 21:59 02/04/17 20:35 50,000 INTERUNIT Folic Acid (Folvite Tab) 1 mg QAM PO 01/21/17 08:00 02/20/17 07:59 02/08/17 08:05 1 MG Multivitamins/ Minerals (Multivitamin W/ Minerals Tab) 1 tab QAM PO 01/21/17 08:00 02/20/17 07:59 02/08/17 08:04 1 TAB Lorazepam (Ativan Tab) PRN Dosing -Active Protocol UD PRN PO 01/22/17 02:00 02/20/17 01:59 01/31/17 14:01 1 MG Senna/Docusate Sodium (Senokot S Tab) 1 tab QAM PO 01/26/17 08:00 02/25/17 07:59 02/08/17 08:04 1 TAB Sodium Chloride ([place] Nasal [place]) 1 sprays DAILY PRN YORDY 01/26/17 11:15 02/25/17 11:14 Haloperidol (Haldol Tab) 2 mg Q4 PRN PO 01/26/17 19:15 02/25/17 19:14 Future Hold Insulin Aspart (novoLOG ASPART) SLIDING SCALE If C... ACHS SC 02/01/17 16:30 03/03/17 16:29 02/08/17 08:18 4 UNITS Albuterol/ Ipratropium (Duoneb) 3 ml QIDR PRN INH 02/03/17 12:00 03/05/17 11:59 Pantoprazole Sodium (Protonix Tab) 40 mg QAM PO 02/05/17 09:00 03/07/17 08:59 02/08/17 08:05 40 MG Magnesium Oxide (Mag-Ox Tab) 400 mg BID PO 02/04/17 21:00 03/06/17 20:59 02/08/17 08:06 400 MG Polyethylene (Miralax Powder Packet) 17 gm DAILY PRN PO 02/04/17 15:30 03/06/17 15:29 02/08/17 08:18 17 GM Lidocaine (Lidoderm Patch 5%) 1 patch QAM TD 02/06/17 09:00 03/08/17 08:59 02/08/17 08:06 1 PATCH Miscellaneous (Remove Lidoderm Patch) 1 ea DAILY@21 N/A 02/05/17 21:00 03/07/17 20:59 02/05/17 20:57 1 EA Tramadol HCl (Ultram Tab) 50 mg Q12H PRN PO 02/05/17 12:00 03/07/17 11:59 02/08/17 08:18 50 MG Acetaminophen/ Hydrocodone Bitart ([place] 5/325 Tab) 1 tab Q6H PRN PO 02/07/17 07:30 02/21/17 07:29 02/08/17 00:41 1 TAB Last 24 Hours Test 02/07/17 16:22 02/07/17 20:56 02/08/17 05:44 02/08/17 07:40 Bedside Glucose 132 mg/dl 138 mg/dl White Blood Count 14.38 K/uL Red Blood Count 3.53 M/uL Hemoglobin 11.3 g/dL Hematocrit 34.5 % Mean Corpuscular Volume 97.7 fL Mean Corpuscular Hemoglobin 32.0 pg Mean Corpuscular Hemoglobin Concent 32.8 g/dl Platelet Count 344 K/uL Mean Platelet Volume 11.3 fL Neutrophils (%) (Auto) 78.5 % Lymphocytes (%) (Auto) 11.5 % Monocytes (%) (Auto) 7.9 % Eosinophils (%) (Auto) 0.9 % Basophils (%) (Auto) 0.3 % Neutrophils # (Auto) 11.28 K/uL Lymphocytes # (Auto) 1.66 K/uL Monocytes # (Auto) 1.13 K/uL Eosinophils # (Auto) 0.13 K/uL Basophils # (Auto) 0.05 K/uL RDW Standard Deviation 60.4 fL RDW Coefficient of Variation 17.0 % Immature Granulocyte % (Auto) 0.9 % Immature Granulocyte # (Auto) 0.13 K/uL Sodium Level 136 mmol/L Potassium Level 4.3 mmol/L Chloride Level 105 mmol/L Carbon Dioxide Level 22 mmol/L Anion Gap 9.0 mmol/L Blood Urea Nitrogen 46 mg/dl Creatinine 2.90 mg/dl Est Creatinine Clear Calc Drug Dose 15.3 ml/min Estimated GFR () 17.5 Estimated GFR (Non- 15.1 BUN/Creatinine Ratio 15.8 Random Glucose 136 mg/dl Calcium Level 9.5 mg/dl Magnesium Level 2.5 mg/dl Assessment & Plan RUSSELL on CKD3 with nephrotic range proteinuria with long standing type 2 diabetes , alcohol abuse, and COPD. creatinine peaked 01/31 at 5.1 and has begun to trend downward. now at 2.9. pt was urinating frequently last night which I feel is the kidneys mobilizing the extra fluid. no signs of uti again at this time. ok from renal perspective to be discharged and would get blood work periodically as an outpt screening for uremic symptoms. pt did have a tunneled line placed but never used and removed earlier in the week. not yet back to previous baseline prior to hospitilization.
[2017-02-08 11:41] VITALS: BP 128/63; PULSE 81; TEMP 36.4; O2SAT 95
[2017-02-08] MEDS ORDERED: METOPROLOL TARTRATE 25 MG TAB PO ONE (14:15)
--- NOTE | 2017-02-08 14:54 | Progress Note ---
Medicine Progress Note Date & Time of Visit: Feb 08, 2017 at 14:35. Subjective patient seen resting in bedside chair, comfortable, alert denies chest pain, dizziness, dyspnea, palpitations ambulating with no problems had urinary frequency last night, resolved today bladder scan done for possible urinary retention: 438cc, straight cath ordered denies abdominal pain, dysuria, hematuria, foul smelling urine no other symptoms states she feels better overall and is ready for discharge Objective Last 8 Hrs Date Time Temp Pulse Resp B/P (MAP) Pulse Ox O2 Delivery O2 Flow Rate FiO2 02/08/17 12:00 Room Air 02/08/17 11:41 36.4 81 16 128/63 (84) 95 Room Air 02/08/17 08:00 Room Air 02/08/17 07:18 36.7 65 18 162/74 (103) 95 Room Air Physical Exam: General- oriented x 2, not in distress, speaks in sentences with no effort Eyes- anicteric Lungs- clear breath sounds bilaterally, no rales/wheezes Heart- normal rate, regular rhythm; no murmurs Chest- HD cath insertion site: dressing in place, no hematoma, swelling, erythema, bleeding Abdomen- normal bowel sounds, soft, nontender Extremities- no pretibial edema, no calf tenderness Neuro- alert, oriented x 2; no gross focal neuro deficits Skin- warm & dry Laboratory Results: Last 24 Hours Test 02/07/17 16:22 02/07/17 20:56 02/08/17 05:44 02/08/17 07:40 Bedside Glucose 132 mg/dl 138 mg/dl White Blood Count 14.38 K/uL Red Blood Count 3.53 M/uL Hemoglobin 11.3 g/dL Hematocrit 34.5 % Mean Corpuscular Volume 97.7 fL Mean Corpuscular Hemoglobin 32.0 pg Mean Corpuscular Hemoglobin Concent 32.8 g/dl Platelet Count 344 K/uL Mean Platelet Volume 11.3 fL Neutrophils (%) (Auto) 78.5 % Lymphocytes (%) (Auto) 11.5 % Monocytes (%) (Auto) 7.9 % Eosinophils (%) (Auto) 0.9 % Basophils (%) (Auto) 0.3 % Neutrophils # (Auto) 11.28 K/uL Lymphocytes # (Auto) 1.66 K/uL Monocytes # (Auto) 1.13 K/uL Eosinophils # (Auto) 0.13 K/uL Basophils # (Auto) 0.05 K/uL RDW Standard Deviation 60.4 fL RDW Coefficient of Variation 17.0 % Immature Granulocyte % (Auto) 0.9 % Immature Granulocyte # (Auto) 0.13 K/uL Sodium Level 136 mmol/L Potassium Level 4.3 mmol/L Chloride Level 105 mmol/L Carbon Dioxide Level 22 mmol/L Anion Gap 9.0 mmol/L Blood Urea Nitrogen 46 mg/dl Creatinine 2.90 mg/dl Est Creatinine Clear Calc Drug Dose 15.3 ml/min Estimated GFR () 17.5 Estimated GFR (Non- 15.1 BUN/Creatinine Ratio 15.8 Random Glucose 136 mg/dl Calcium Level 9.5 mg/dl Magnesium Level 2.5 mg/dl Test 02/08/17 11:29 02/08/17 14:31 Bedside Glucose 169 mg/dl Assessment & Plan 76 yo F initially admitted for weakness after a fall without loss of consciousness at home. Acute Renal Failure - Has chronic nephrotic-range proteinuria She has a high complement level on labs Her TTE was unremarkable. - evaluated by Medication Tech Dr. Jang/Vera - received BID Lasix + Albumin, then discontinued - crea improved from 5.1 to 2.9 CXR resolving pulmonary edema on room air -- s/p placement of Perm cath for possible initiation of HD 02/01/17 (Dr. Garcia ) s/p removal of HD cath 02/07/17 ( Dr. Garcia) - doing fine overall no signs of volume overload -- repeat PRP to assess renal function next week, then regularly follow up with Medication Tech Dr. Gamez/Suhail in 1-2 weeks Anemia, likely Anemia of Chronic Disease - history of chronic anemia - s/p 2 units of blood - Hg stable at 11 no signs of active GI bleed - anemia panel: Fe low normal low TIBC, high ferritin - monitor CBC regularly Deconditioning with ambulatory dysfunction - improving continue PT/OT L hip pain -Left hip xray showed no evidence of left hip fracture. Analgesics PRN. Transaminitis -pt with fatty liver, alcohol drinker - GI consulted, likely caused by fatty liver, possibly worsened with Crestor. No evidence of cirrhosis on imaging and normal platelet level argues against cirrhosis. Viral serology negative thus far. GARRICK negative - follow LFTs last ast/alt/alkphos: 179/112/519 follow up with GI if LFTs remain elevated ETOH abuse -cont thiamine and folic acid DM II - a1c 5.3 - d/c on Lantus 6 units in AM monitor BSGs Ac and HS HTN - noted to have bradycardia EKG sinus bradycardia asymptomatic - decrease Metoprolol to 25mg BID monitor BP and HR closely Vit D deficiency -cont ergocalciferol Smoking -cont Nicoderm patch Hypothyroid - TSH high Free t4 normal - repeat TFTs in 4 weeks Synthroid 150mg daily Pulmonary nodule -CT chest demonstrated 5 mm nodule right lower lobe, stable compared to CT performed 11/11/15. Patient is a smoker. -Follow up CT chest per guidelines . Renal lesion 1.8 cm hyperdense lesion right kidney-complex cyst versus solid mass. Patient had ultrasound performed at [facility] 07/31[facility]16 which demonstrated 3 cystic lesions, largest measuring [address] of abdomen and pelvis on 04/11/13 showed similar findings. Radiographic stability suggests benign lesion - per Nephro nonemergent dedicated MRI would be recommended. Microscopic Hematuria - repeat Urinalysis and ff up DVT proph -Heparin given FULL CODE Dispo d/c to [place] today Consultants: Nephrology Neurology Gastro Procedures: CT head CT cervical spine CT chest CT abdomen and pelvis IV fluids IV medications PT OT . Current Inpatient Medications: Current Inpatient Medications Medications (Trade) Dose Ordered Sig/Fay Route Start Time Stop Time Status Last Admin Dose Admin Heparin Sodium (Porcine) (Heparin Sq 5000 Unit/0.5ml) 5,000 unit Q8H SQ 01/19/17 22:00 02/18/17 21:59 02/08/17 13:49 5,000 UNIT Acetaminophen (Tylenol Tab) 650 mg Q4H PRN PO 01/19/17 20:15 02/18/17 20:14 01/26/17 05:20 650 MG Ondansetron HCl (Zofran Inj) 4 mg Q6H PRN IV 01/19/17 20:15 02/18/17 20:14 Insulin Glargine (Lantus Solostar Pen) 7 unit Q12 SC 01/19/17 21:00 02/18/17 20:59 Future Hold 01/19/17 22:42 7 UNIT Glucose (Glucose 40% Gel) 15-30 GRAMS 15 GRAMS... UD PRN PO 01/19/17 20:15 02/18/17 20:14 Glucose (Glucose Chew Tab) 4-8 Tablets 4 Tabl... UD PRN PO 01/19/17 20:15 02/18/17 20:14 Dextrose (Dextrose 50% 50ML Syringe) 25-50ML OF 50% DW IV FOR... UD PRN IV 01/19/17 20:15 02/18/17 20:14 Glucagon (Glucagon Inj) 1 mg UD PRN SQ 01/19/17 20:15 02/18/17 20:14 Aspirin (Ecotrin Tab) 81 mg DAILY PO 01/20/17 08:00 02/19/17 08:59 02/08/17 08:04 81 MG Levothyroxine Sodium (Synthroid Tab) 150 mcg DAILYBB PO 01/20/17 06:30 02/19/17 06:59 02/08/17 06:05 150 MCG Thiamine HCl (Vitamin B-1 Tab) 100 mg DAILY PO 01/20/17 08:00 02/19/17 08:59 02/08/17 08:04 100 MG Nicotine (Nicoderm Cq 21MG Patch) 1 patch Q24H TD 01/19/17 21:00 02/18/17 20:59 02/07/17 20:57 1 PATCH Miscellaneous (Remove Nicoderm Patch) 1 ea PM N/A 01/20/17 20:00 02/19/17 20:59 02/06/17 21:13 1 EA Ergocalciferol (Vitamin D Cap) 50,000 interunit Q4D PO 01/19/17 22:00 02/18/17 21:59 02/04/17 20:35 50,000 INTERUNIT Folic Acid (Folvite Tab) 1 mg QAM PO 01/21/17 08:00 02/20/17 07:59 02/08/17 08:05 1 MG Multivitamins/ Minerals (Multivitamin W/ Minerals Tab) 1 tab QAM PO 01/21/17 08:00 02/20/17 07:59 02/08/17 08:04 1 TAB Lorazepam (Ativan Tab) PRN Dosing -Active Protocol UD PRN PO 01/22/17 02:00 02/20/17 01:59 01/31/17 14:01 1 MG Senna/Docusate Sodium (Senokot S Tab) 1 tab QAM PO 01/26/17 08:00 02/25/17 07:59 02/08/17 08:04 1 TAB Sodium Chloride ([place] Nasal [place]) 1 sprays DAILY PRN YORDY 01/26/17 11:15 02/25/17 11:14 Haloperidol (Haldol Tab) 2 mg Q4 PRN PO 01/26/17 19:15 02/25/17 19:14 Future Hold Insulin Aspart (novoLOG ASPART) SLIDING SCALE If C... ACHS SC 02/01/17 16:30 03/03/17 16:29 02/08/17 13:48 3 UNITS Albuterol/ Ipratropium (Duoneb) 3 ml QIDR PRN INH 02/03/17 12:00 03/05/17 11:59 Pantoprazole Sodium (Protonix Tab) 40 mg QAM PO 02/05/17 09:00 03/07/17 08:59 02/08/17 08:05 40 MG Magnesium Oxide (Mag-Ox Tab) 400 mg BID PO 02/04/17 21:00 03/06/17 20:59 02/08/17 08:06 400 MG Polyethylene (Miralax Powder Packet) 17 gm DAILY PRN PO 02/04/17 15:30 03/06/17 15:29 02/08/17 08:18 17 GM Lidocaine (Lidoderm Patch 5%) 1 patch QAM TD 02/06/17 09:00 03/08/17 08:59 02/08/17 08:06 1 PATCH Miscellaneous (Remove Lidoderm Patch) 1 ea DAILY@21 N/A 02/05/17 21:00 03/07/17 20:59 02/05/17 20:57 1 EA Tramadol HCl (Ultram Tab) 50 mg Q12H PRN PO 02/05/17 12:00 03/07/17 11:59 02/08/17 08:18 50 MG Acetaminophen/ Hydrocodone Bitart ([place] 5/325 Tab) 1 tab Q6H PRN PO 02/07/17 07:30 02/21/17 07:29 02/08/17 00:41 1 TAB Metoprolol Tartrate (Lopressor Tab) 25 mg BID PO 02/08/17 21:00 03/10/17 20:59
[2017-02-08] MEDS ORDERED: LDDP5 TD (15:08)
[2017-02-08] MEDS ORDERED: FLV1 PO (15:08)
[2017-02-08] MEDS ORDERED: LPR25 PO (15:08)
[2017-02-08] MEDS ORDERED: NVLGIPEN SC (15:08)
[2017-02-08] MEDS ORDERED: INSDGIPEN SC (15:08)
[2017-02-08] MEDS ORDERED: ERGO500011 PO (15:08)
[2017-02-08] MEDS ORDERED: SENN8.6T7 PO (15:08)
[2017-02-08] MEDS ORDERED: PRT40 PO (15:08)
[2017-02-08] MEDS ORDERED: NICO21DI4 TD (15:08)
[2017-02-08 15:09] LABS: URINE APPEARANCE CLEAR (CLEAR); URINE BILIRUBIN NEG (NEG); URINE COLOR YELLOW; URINE NITRITE NEG (NEG); URINE PH 5.5 (4.5-7.5); URINE SPECIFIC GRAVITY 1.017 (1.000-1.030); UROBILINOGEN NEG (NEG)
[2017-02-08 15:15] LABS: MANUAL MICROSCOPIC REQUIRED? NO; REVIEW REQ? NO
--- NOTE | 2017-02-08 15:18 | Discharge Instructions ---
Discharge Instructions Date of Service Feb 08, 2017. Admission Reason for Admission: Generalized Weakness Discharge Discharge Diagnosis / Problem: ACUTE RENAL FAILURE Discharge Goals Goal(s): Diagnostic testing, Therapeutic intervention Activity Recommendations Activity Level: Assistance Required Therapies: Physical Therapy, Occupational Therapy . Additional Information Patient informed of condition: Yes Advance Directives: No (UNKNOWN) DNR: No (PATIENT IS FULL CODE) Level of Care: Skilled Communicable Disease: No Prognosis: Improving Instructions / Follow-Up Instructions / Follow-Up MONITOR HEART RATE AND BLOOD PRESSURE AT LEAST BID. MONITOR BLOOD GLUCOSE AC AN DHS. BLADDER SCAN QSHIFT AND STRAIGHT CATH PRN FOR URINARY RETENTION OF MORE THAN 400CC. MONITOR PERM CATH REMOVAL SITE RIGHT CHEST DAILY. MONITOR VOLUME STATUS. PLEASE REPEAT BLOOD WORK- CBC, PRP, LIVER FUNCTION TEST, MAGNESIUM AND URINALYSIS ON Sunday02/12/17 THEN REGULARLY. REPEAT THYROID FUNCTION TEST IN 4 WEEKS. MRI ABDOMEN TO FOLLOW UP RIGHT RENAL LESION. FOLLOW UP CT CHEST TO EVALUATE PULMONARY NODULE. FOLLOW UP WITH DR. MANRIQUE- PRIMARY CARE PHYSICIAN ON Sunday02/14/17 AT 11 :00 PM. FOLLOW UP WITH GRAIN ELEVATOR MOTOR STARTER DR. HATCH OR DR. HARPER IN 1-2 WEEKS. PLEASE REFER TO ACCOMPANYING DISCHARGE SUMMARY FOR FURTHER DETAILS. Current Hospital Diet Patient's current hospital diet: AHA Diet (Heart Healthy), Diabetes Type 2 Diet , Renal Diet Discharge Diet Recommended Diet: AHA Diet (Heart Healthy), Diabetes Type 2 Diet, Renal Diet Procedures Procedures Performed: Perm Cath Placement 02/01/17 and Removal 02/07/17 Pending Studies Studies pending at discharge: yes List of pending studies: PLEASE REPEAT BLOOD WORK- CBC, PRP, LIVER FUNCTION TEST, MAGNESIUM ON Sunday02/12/17 THEN REGULARLY. REPEAT THYROID FUNCTION TEST IN 4 WEEKS. MRI ABDOMEN TO FOLLOW UP RIGHT RENAL LESION. FOLLOW UP CT CHEST TO EVALUATE PULMONARY NODULE. Physician Orders On Transfer Special Precautions: MONITOR HEART RATE AND BLOOD PRESSURE AT LEAST BID. MONITOR BLOOD GLUCOSE AC AN DHS. BLADDER SCAN QSHIFT AND STRAIGHT CATH PRN FOR URINARY RETENTION OF MORE THAN 400CC. MONITOR VOLUME STATUS. PLEASE REPEAT BLOOD WORK- CBC, PRP, LIVER FUNCTION TEST, MAGNESIUM ON Sunday THEN REGULARLY. REPEAT THYROID FUNCTION TEST IN 4 WEEKS. MRI ABDOMEN TO FOLLOW UP RIGHT RENAL LESION. FOLLOW UP CT CHEST TO EVALUATE PULMONARY NODULE. FOLLOW UP WITH DR. MANRIQUE- PRIMARY CARE PHYSICIAN ON Sunday02/14/17 AT 11 :00 PM. FOLLOW UP WITH GRAIN ELEVATOR MOTOR STARTER DR. HATCH OR DR. HARPER IN 1-2 WEEKS. PLEASE REFER TO ACCOMPANYING DISCHARGE SUMMARY FOR FURTHER DETAILS. Vital Signs: bid Laboratory Results Hemoglobin A1c Test 01/20/17 06:44 Range/Units Estimated Average Glucose 105 mg/dl Hemoglobin A1c 5.3 4.5-5.6 % Medical Emergencies . Who to Call and When: Medical Emergencies: If at any time you feel your situation is an emergency, please call 911 immediately. . Non-Emergent Contact Non-Emergency issues call your: Primary Care Provider Call Non-Emergent contact if: you have a fever, your pain is not controlled, wound has increased drainage, wound has increased redness, wound has increased pain, you have any medication questions . Past History Medical & Surgical History: (1) HTN (hypertension) (2) Acute renal insufficiency (3) UTI (urinary tract infection) (4) Fall (5) Generalized weakness (6) Peripheral vascular disease (7) Hearing loss (8) Gout (9) DMII (diabetes mellitus, type 2) (10) Alcohol dependence (11) Smoker . "Provider Documentation" section prepared by Blaine Kidd. . Core Measure Problem Core Measures: None
[2017-02-08 15:23] VITALS: BP 130/69; PULSE 74
[2017-02-08 15:25] VITALS: BP 130/69; PULSE 74; TEMP 36.6; O2SAT 92
--- NOTE | 2017-02-08 15:30 | Discharge Summary ---
Discharge Summary Date of Service Feb 08, 2017. Discharge Summary Admission Date: Jan 19, 2017 at 20:12 Discharge Date: Feb 08, 2017 Discharge Disposition: [facility] facility Principal Diagnosis: Acute Renal Failure Secondary Diagnoses/Problems: Please refer to hospital course below. Procedures: Ct abdomen/pelvis: IMPRESSION: 1. No acute traumatic findings within the abdomen or pelvis. 2. Indeterminate 1.8 cm hyperdense right renal lesion. This could reflect a complex cyst or solid renal lesion. A follow-up nonemergent renal MRI is recommended. 3. Extensive aortoiliac atherosclerosis with ectatic infrarenal abdominal aorta. 4. Marked fatty infiltration of liver. CT chest Thyroid: Imaged portions of the thyroid gland are normal in appearance. Thoracic aorta: The thoracic aorta is normal in course and caliber, noting standard 3-vessel arch anatomy. No aneurysm or dissection is seen. Moderate atheromatous changes are present within the descending thoracic aorta. Pulmonary vasculature: The pulmonary trunk is normal in caliber. There are no central filling defects identified to suggest pulmonary embolus. Note that this examination was not protocoled for the evaluation of pulmonary emboli. HEART: The heart is borderline enlarged. There is no pericardial effusion. Lungs and pleural spaces: There is no pneumothorax. No pleural effusions are visualized. There is no evidence of focal pulmonary contusion. Evaluation the lung parenchyma is limited due to respiratory motion artifact. There is a stable 5 mm right lower lobe perifissural nodule. Mediastinum: There is no evidence of mediastinal hematoma. Paratracheal lymph nodes remain borderline enlarged. Jocelyn: There is no evidence of pathologic hilar adenopathy. Axilla: Clear. Upper abdomen: There is hepatic steatosis. Skeletal structures: There are no lytic or blastic osseous lesions. IMPRESSION: No significant change the prior study. No acute intrathoracic findings. No evidence of acute intrathoracic injury. Echo: * Ejection Fraction = 60-65%. * Aortic valve sclerosis mild, without significant aortic valvular stenosis. * The left ventricular wall motion is normal. * There is borderline concentric left ventricular hypertrophy. CT head CT cervical spine CT chest CT abdomen and pelvis . Consultations: Nephrology Dr. Hatch/Oncu; Neurology Dr. Macedo; Gastro HAND PACKER Ra Dooley Pending Studies/Follow-Up: MONITOR HEART RATE AND BLOOD PRESSURE AT LEAST BID. MONITOR BLOOD GLUCOSE AC AN DHS. BLADDER SCAN QSHIFT AND STRAIGHT CATH PRN FOR URINARY RETENTION OF MORE THAN 400CC. MONITOR PERM CATH REMOVAL SITE RIGHT CHEST DAILY. MONITOR VOLUME STATUS. PLEASE REPEAT BLOOD WORK- CBC, PRP, LIVER FUNCTION TEST, MAGNESIUM AND URINALYSIS ON Sunday02/12/17 THEN REGULARLY. REPEAT THYROID FUNCTION TEST IN 4 WEEKS. MRI ABDOMEN TO FOLLOW UP RIGHT RENAL LESION. FOLLOW UP CT CHEST TO EVALUATE PULMONARY NODULE. FOLLOW UP WITH DR. MANRIQUE- PRIMARY CARE PHYSICIAN ON Sunday02/14/17 AT 11 :00 PM. FOLLOW UP WITH CODER OPERATOR DR. HATCH OR DR. HARPER IN 1-2 WEEKS. Please refer to hospital course below for further details. Medication Reconciliation New Medications: Ergocalciferol (Vitamin D 68446 Unit) 50,000 Unit Cap 54651 INTERUNIT PO weekly, #3 CAP Folic Acid (Folic Acid) 1 Mg Tab 1 MG PO QAM for 7 Days, #7 TAB Insulin Aspart (Novolog Flexpen) 100 Units/Ml Inj 0 UNITS SC ACHS for 30 Days per sliding scale: `BSG'S ACHS IF EATING OR Q 6 HRS IF NPO `GOAL RANGE = Low 140 MG/DL High 180 MG/DL Correction Factor = 30 MG/DL/UNIT INS:CHO RATIO= 1 UNIT PER 10 GRAM CHO CONSUMED If patient NPO, do not hold correction factor insulin without an order. LOOK ALIKE SOUND ALIKE Insulin Glargine (Lantus Solostar) 100 Unit/Ml Inj 8 UNIT SC DAILY for 30 Days daily in AM Lidocaine (Lidocaine) 1 Patch Tdsy 1 PATCH TD QAM for 7 Days, #7 PATCH apply on the lower back Metoprolol Tartrate (Lopressor) 25 Mg Tab 25 MG PO BID for 30 Days, #60 TAB 1 Refill Nicotine (Nicoderm Cq) 21 Mg/24 Hr Dis 1 PATCH TD Q24H for 7 Days, #7 PATCH 0 Refills Pantoprazole (Pantoprazole Sodium) 40 Mg Tab 40 MG PO QAM for 7 Days, #7 TAB Sennosides-Docusate Sodium (Senokot S) 1 Tab Tab 1 TAB PO QAM for 7 Days, #7 TAB Continued Medications: Aspirin (Aspirin Ec) 81 Mg Tab 81 MG PO DAILY Levothyroxine Sodium (Synthroid) 150 Mcg Tab 1 TAB PO DAILY, 0 Refills Multivitamin (Multivitamin) Tab 1 TAB PO DAILY PRN, 0 Refills Thiamine Hcl (Vitamin B-1) 100 Mg Tab 100 MG PO DAILY, TAB Discontinued Medications: Amlodipine (Norvasc) 10 Mg Tab 10 MG PO DAILY, 0 Refills Insulin Glargine (Lantus Solostar) 100 Unit/Ml Inj 23 UNITS SQ HS, VIAL Lorazepam (Lorazepam) 0.5 Mg Tab 0.5 MG PO QPM PRN for Anxiety Metoprolol Tartrate (Lopressor) (Lopressor) 100 Mg Tab 50 MG PO TID, 0 Refills Rosuvastatin Calcium (Crestor) 40 Mg Tab 40 MG PO QPM, TAB Telmisartan (Micardis) 40 Mg Tab 20 MG PO QPM, 0 Refills Admission Information HPI (per Admitting provider): 76 yo F presents to the ER after worsening weakness that lead to a mechanical fall today. She has multiple issues going on including generalized weakness that is getting worse, nonspecific pain in her lower left leg, reports of burning when she urinates along with urgency and a foul smelling odor (this was noted in clinic at last visit, also) all in the setting of the loss of her granddaughter last week in a fatal car accident for which she travelled out of town this week. She is here with her daughter who states that her mother had stool incontinence and some loose stools multiple times this week. She also states that her weakness is profound and she lives alone. The daughter is understandably concerned that her mother is not safe to be home on her own. From my discussion with the patient she either has poor insight into what is going on, or she is not able to tell the entire story. For example, family mentioned some BP medications and the patient wasn't sure which ones these were and what she takes; she does manage her own medications at home. Also the patient states she doesn't drink much but her daughter states that she drinks Scotch heavily. She is also an active smoker. Recently, in the clinic she was found to have a TSH of 40 so her Synthroid was increased. It appears very likely that she is either missing doses or taking it with food or other medications and not understand the instructions clearly. She has stool in her fingernails and appears somewhat disheveled. In the ER her UA was found to be positive and she was placed empirically on Rocephin. She denies any fevers, chills, flank pain or blood in her urine. She otherwise denies any headaches, visual changes, congestion, cough, chest pain, shortness of breath, abdominal pain. She states that her left leg hurts below the knee but not in the knee joint and "only when I move it." Up until just today she was ambulating with a cane. Daughter is requesting a wheeled walker preferably with a seat upon discharge. Physical Exam (per Admitting): GEN: obese, disheveled, in no acute distress, alert and appropriate HEENT: NC/AT, PERRL, normal sclerae/conjunctivae, MMM, pharynx is nonacute CARDIO: reg rate, S1/2 heard without m/g/r LUNGS: CTA bilaterally, no crackles, rales or wheezes, good diaphragmatic excursion ABD: soft, non-tender, non-distended, no rebound or guarding, +BS, no CVA tenderness EXTREMITY: RP and DP palpable 2+ bilat, no LE swelling or edema, extremities are warm and well-perfused NEURO: CN 2-12 grossly intact, sensation intact throughout MUSC: 5/5 strength throughout, no focal deficits, no apparent calf tenderness. Appears to have some difficulty bending her knee but no overt joint swelling or erythema or TTP noted. SKIN: warm and dry Hospital Course 76 yo F initially admitted for weakness after a fall without loss of consciousness at home. Acute Renal Failure - Has chronic nephrotic-range proteinuria She has a high complement level on labs - evaluated by German Professor Dr. Harper/Vera - received BID Lasix + Albumin, then discontinued - crea improved from 5.1 to 2.9 (GFR 15) CXR resolving pulmonary edema on room air -- s/p placement of Perm cath for possible initiation of HD 02/01/17 (Dr. Garcia ), patient did not have dialysis s/p removal of HD cath 02/07/17 ( Dr. Garcia) - doing fine overall no signs of volume overload -- repeat PRP to assess renal function next week, then regularly follow up with German Professor Dr. Hatch/Suhail in 1-2 weeks -- no NSAIDs, or other nephrotoxins; renally dose medications Anemia, likely Anemia of Chronic Disease - history of chronic anemia - s/p 2 units of blood - Hg stable at 11 no signs of active GI bleed - anemia panel: Fe low normal low TIBC, high ferritin - monitor CBC regularly Deconditioning with ambulatory dysfunction - improving continue PT/OT L hip pain -Left hip xray showed no evidence of left hip fracture. Analgesics PRN. Transaminitis -pt with fatty liver, alcohol drinker - GI consulted, likely caused by fatty liver, possibly worsened with Crestor. No evidence of cirrhosis on imaging and normal platelet level argues against cirrhosis. Viral serology negative thus far. GARRICK negative - follow LFTs last ast/alt/alkphos: 179/112/519 follow up with GI if LFTs remain elevated ETOH abuse -cont thiamine and folic acid DM II - a1c 5.3 - discharge on Lantus 8 units in AM Insulin sliding scale monitor BSGs Ac and HS HTN - noted to have bradycardia EKG sinus bradycardia asymptomatic - decrease Metoprolol to 25mg BID monitor BP and HR closely Vit D deficiency -cont ergocalciferol Smoking -cont Nicoderm patch Hypothyroid - TSH high Free t4 normal - repeat TFTs in 4 weeks Synthroid 150mg daily Pulmonary nodule -CT chest demonstrated 5 mm nodule right lower lobe, stable compared to CT performed 11/11/15. Patient is a smoker. -Follow up CT chest per guidelines . Renal lesion 1.8 cm hyperdense lesion right kidney-complex cyst versus solid mass. Patient had ultrasound performed at [facility] 07/31/16 which demonstrated 3 cystic lesions, largest measuring [address] of abdomen and pelvis on 04/11/13 showed similar findings. Radiographic stability suggests benign lesion - per Nephro nonemergent dedicated MRI would be recommended. Microscopic Hematuria - repeat Urinalysis and ff up DVT proph -Heparin given FULL CODE Dispo d/c to [facility] FOLLOW UP WITH DR. MANRIQUE- PRIMARY CARE PHYSICIAN ON Sunday02/14/17 AT 11 :00 PM. FOLLOW UP WITH CODER OPERATOR DR. HATCH OR DR. HARPER IN 1-2 WEEKS. Total time spent on discharge = 50 minutes This includes examination of the patient, discharge planning, medication reconciliation, and communication with other providers. Discharge Instructions Discharge Instructions Date of Service Feb 08, 2017. Admission Reason for Admission: Generalized Weakness Discharge Discharge Diagnosis / Problem: ACUTE RENAL FAILURE Discharge Goals Goal(s): Diagnostic testing, Therapeutic intervention Activity Recommendations Activity Level: Assistance Required Therapies: Physical Therapy, Occupational Therapy . Additional Information Patient informed of condition: Yes Advance Directives: No (UNKNOWN) DNR: No (PATIENT IS FULL CODE) Level of Care: Skilled Communicable Disease: No Prognosis: Improving Instructions / Follow-Up Instructions / Follow-Up MONITOR HEART RATE AND BLOOD PRESSURE AT LEAST BID. MONITOR BLOOD GLUCOSE AC AN DHS. BLADDER SCAN QSHIFT AND STRAIGHT CATH PRN FOR URINARY RETENTION OF MORE THAN 400CC. MONITOR PERM CATH REMOVAL SITE RIGHT CHEST DAILY. MONITOR VOLUME STATUS. PLEASE REPEAT BLOOD WORK- CBC, PRP, LIVER FUNCTION TEST, MAGNESIUM AND URINALYSIS ON Sunday02/12/17 THEN REGULARLY. REPEAT THYROID FUNCTION TEST IN 4 WEEKS. MRI ABDOMEN TO FOLLOW UP RIGHT RENAL LESION. FOLLOW UP CT CHEST TO EVALUATE PULMONARY NODULE. FOLLOW UP WITH DR. MANRIQUE- PRIMARY CARE PHYSICIAN ON Sunday02/14/17 AT 11 :00 PM. FOLLOW UP WITH CODER OPERATOR DR. HATCH OR DR. HARPER IN 1-2 WEEKS. PLEASE REFER TO ACCOMPANYING DISCHARGE SUMMARY FOR FURTHER DETAILS. Current Hospital Diet Patient's current hospital diet: AHA Diet (Heart Healthy), Diabetes Type 2 Diet , Renal Diet Discharge Diet Recommended Diet: AHA Diet (Heart Healthy), Diabetes Type 2 Diet, Renal Diet Procedures Procedures Performed: Perm Cath Placement 02/01/17 and Removal 02/07/17 Pending Studies Studies pending at discharge: yes List of pending studies: PLEASE REPEAT BLOOD WORK- CBC, PRP, LIVER FUNCTION TEST, MAGNESIUM ON Sunday02/12/17 THEN REGULARLY. REPEAT THYROID FUNCTION TEST IN 4 WEEKS. MRI ABDOMEN TO FOLLOW UP RIGHT RENAL LESION. FOLLOW UP CT CHEST TO EVALUATE PULMONARY NODULE. Physician Orders On Transfer Special Precautions: MONITOR HEART RATE AND BLOOD PRESSURE AT LEAST BID. MONITOR BLOOD GLUCOSE AC AN DHS. BLADDER SCAN QSHIFT AND STRAIGHT CATH PRN FOR URINARY RETENTION OF MORE THAN 400CC. MONITOR VOLUME STATUS. PLEASE REPEAT BLOOD WORK- CBC, PRP, LIVER FUNCTION TEST, MAGNESIUM ON Sunday THEN REGULARLY. REPEAT THYROID FUNCTION TEST IN 4 WEEKS. MRI ABDOMEN TO FOLLOW UP RIGHT RENAL LESION. FOLLOW UP CT CHEST TO EVALUATE PULMONARY NODULE. FOLLOW UP WITH DR. MANRIQUE- PRIMARY CARE PHYSICIAN ON Sunday02/14/17 AT 11 :00 PM. FOLLOW UP WITH CODER OPERATOR DR. HATCH OR DR. HARPER IN 1-2 WEEKS. PLEASE REFER TO ACCOMPANYING DISCHARGE SUMMARY FOR FURTHER DETAILS. Vital Signs: bid Laboratory Results Hemoglobin A1c Test 01/20/17 06:44 Range/Units Estimated Average Glucose 105 mg/dl Hemoglobin A1c 5.3 4.5-5.6 % Medical Emergencies . Who to Call and When: Medical Emergencies: If at any time you feel your situation is an emergency, please call 911 immediately. . Non-Emergent Contact Non-Emergency issues call your: Primary Care Provider Call Non-Emergent contact if: you have a fever, your pain is not controlled, wound has increased drainage, wound has increased redness, wound has increased pain, you have any medication questions . Past History Medical & Surgical History: (1) HTN (hypertension) (2) Acute renal insufficiency (3) UTI (urinary tract infection) (4) Fall (5) Generalized weakness (6) Peripheral vascular disease (7) Hearing loss (8) Gout (9) DMII (diabetes mellitus, type 2) (10) Alcohol dependence (11) Smoker . "Provider Documentation" section prepared by Blaine Kidd. . Core Measure Problem Core Measures: None
[2017-02-08 15:49] VITALS: BP 130/69; PULSE 74; TEMP 36.6; O2SAT 92
--- NOTE | 2017-02-08 20:18 | Progress Note ---
Progress Note Date of Service Feb 08, 2017. Progress Note tried to call patient's daughter Carly to update re: discharge no answer when called on the phone Blaine Kidd MD
[2017-02-08] MEDS ORDERED: METOPROLOL TARTRATE 25 MG TAB PO SCH (21:00)
--- NOTE | 2017-03-12 11:03 | DIAGNOSTIC IMAGING REPORT ---
DATE OF PROCEDURE: 02/01/2017 PREOPERATIVE DIAGNOSIS: Acute on chronic renal failure. POSTOPERATIVE DIAGNOSIS: Acute on chronic renal failure. PROCEDURE: Placement of tunneled right IJ PermCath, 20 minutes of conscious sedation. SURGEON: Dr. Juventino Garcia. RADIOGRAPHY TECHNICIAN: Dr. Maria G Au. ANESTHESIA: Sedation plus local. ESTIMATED BLOOD LOSS: 3 mL. COMPLICATIONS: None. CONDITION: Stable. INDICATIONS: Ms. Bárbara Acevedo is a 76-year-old woman with multiple comorbidities. She was found to have acute on chronic renal failure. For this reason, she was recommended to undergo placement of a tunneled dialysis catheter for initiation of hemodialysis. Risks, benefits and alternatives were discussed with the patient and she consented to the procedure. DESCRIPTION OF PROCEDURE: The patient was taken to the hybrid OR suite and placed in supine position. Prior to initiating the procedure, her right IJ was assessed with ultrasound to confirm patency. Her right neck and chest were prepped and draped in the usual sterile fashion. A safety timeout was performed and the patient, procedure, common carotid was correctly identified. The patient was administered 1 mg of Versed and 50 mg of fentanyl. The right IJ was again accessed using ultrasound. Local anesthesia was injected into the subcutaneous tissues overlying the IJ. This needle was inserted into the right IJ under ultrasound guidance. Guidewire passed easily through the wire and into the superior vena cava. Local anesthesia was used to anesthetize the skin overlying the right upper chest and shoulder. A 19 cm PermCath was brought into the field and tunneled subcutaneously from the infraclavicular skin of the right chest tunnelling up to the IJ access site. A peelaway sheath was placed over the wire and into the SVC under fluoroscopy. The PermCath was placed into the peel-away sheath and the peel away sheath removed. Fluoroscopy was used to confirm position of the tunnel catheter, which appeared to be in good position. Both ports were easily aspirated and flushed with normal saline. A 1.6 mL of heparinized saline was instilled into both ports of the catheter. The catheter was sutured to the skin of the chest wall with nylon suture. The small skin incision overlying the IJ access site was closed with Vicryl suture. Dermabond skin glue was applied to the IJ skin incision. A sterile dressing was applied. The patient was transferred to PACU in stable condition. She tolerated the procedure well and there were no immediate complications. Dr. Juventino Garcia was present and scrubbed for the entire procedure. I, Dr. Garcia was present and scrubbed for the entire procedure. ADONIS
== END 2017-02-08 16:07 | DRG 682 ==
LOC: EDBD 12:27 → C.EDA 12:29 → C.MS4W 20:12 → ENRESERV 21:16 → C.MS2W 01-27 16:28 → C.MED 02-07 18:33 → ENRESERV 02-07 19:00
PROVIDERS: ADMIT Hospitalist; ATTEND Internal Medicine
PROC: 02HV33Z Insertion of Infusion Device into Superior Vena Cava, Percutaneous Approach (ICD-10-PCS; principal; 2017-02-01 10:30)
DX: N17.9 Acute kidney failure, unspecified (principal); G93.41 Metabolic encephalopathy; I12.0 Hypertensive chronic kidney disease with stage 5 chronic kidney disease or end stage renal disease; N39.0 Urinary tract infection, site not specified; N18.6 End stage renal disease; E11.22 Type 2 diabetes mellitus with diabetic chronic kidney disease; E11.40 Type 2 diabetes mellitus with diabetic neuropathy, unspecified; F10.10 Alcohol abuse, uncomplicated; F17.210 Nicotine dependence, cigarettes, uncomplicated; H91.90 Unspecified hearing loss, unspecified ear; E03.9 Hypothyroidism, unspecified; E86.0 Dehydration; R91.1 Solitary pulmonary nodule; Z91.81 History of falling; E66.9 Obesity, unspecified; Z68.28 Body mass index [BMI] 28.0-28.9, adult; J44.9 Chronic obstructive pulmonary disease, unspecified; E78.5 Hyperlipidemia, unspecified; M25.552 Pain in left hip; R19.7 Diarrhea, unspecified; K59.00 Constipation, unspecified; K76.0 Fatty (change of) liver, not elsewhere classified; E55.9 Vitamin D deficiency, unspecified; R00.1 Bradycardia, unspecified; R39.15 Urgency of urination; R35.0 Frequency of micturition; R31.29 Other microscopic hematuria; D72.829 Elevated white blood cell count, unspecified; R26.9 Unspecified abnormalities of gait and mobility; D63.8 Anemia in other chronic diseases classified elsewhere; E87.6 Hypokalemia; N28.89 Other specified disorders of kidney and ureter; Z88.0 Allergy status to penicillin; Z88.2 Allergy status to sulfonamides; Z88.7 Allergy status to serum and vaccine; Z88.8 Allergy status to other drugs, medicaments and biological substances; Z79.4 Long term (current) use of insulin; Z79.82 Long term (current) use of aspirin; Z79.899 Other long term (current) drug therapy